=== PATIENT | female | born 1945 | race Two or more races ===

== ENCOUNTER 2020-06-16 10:25 | Outpatient (REF) | payer OTHER, SELFPAY ==
--- NOTE | 2020-06-16 | US_ITS ---
EXAMINATION: US ABDOMEN COMPLETE CLINICAL INFORMATION: Abnormal LFTs. COMPARISON: Renal ultrasound dated 07/17/2013. CTA chest dated 09/28/2011 TECHNIQUE: Real-time imaging of the abdominal viscera. FINDINGS: PANCREAS: Normal. ABDOMINAL AORTA: The proximal, mid, and distal segments are normal in caliber. There is evidence of mild atherosclerotic disease with vessel wall calcification. INFERIOR VENA CAVA: Visualized portions are normal. LIVER: Liver echotexture is heterogeneous suggestive of hepatocellular disease.. The contour of the liver is irregular. The liver is slightly enlarged, right lobe measuring 21 cm. No focal hepatic lesion. There is no intrahepatic biliary duct dilatation seen. GALLBLADDER: The gallbladder is enlarged. The gallbladder measures 11.6 x 4 x 4.8 cm in dimension. There is a gallstone in the gallbladder measuring 9 x 3 x 6 mm. The gallbladder wall does not appear thickened. There is no pericholecystic fluid. The diagnostic radiologic technologist does not report that the patient is tender over the gallbladder. COMMON BILE DUCT: Normal in caliber measuring 0.3 cm in diameter. RIGHT KIDNEY: Normal. No hydronephrosis. No renal calculi or focal parenchymal lesions. The kidney measures 10.6 cm in maximum dimension. LEFT KIDNEY: Normal. No hydronephrosis. No renal calculi or focal parenchymal lesions. The kidney measures 10.6 cm in maximum dimension. SPLEEN: Normal. The spleen measures 11.0 cm in maximum dimension. FREE FLUID: None. US/US abdomen complete IMPRESSION: Mild cirrhotic changes of the liver. The liver is slightly enlarged. No focal liver lesion seen. Dilated gallbladder and gallstones. No ultrasound evidence of cholecystitis.
== END 2020-06-16 10:26 | disposition home or self-care (01) ==
LOC: HO.US 10:25
PROVIDERS: PCP Internal Medicine; Visit Provider Internal Medicine
DX: R94.5 Abnormal results of liver function studies (principal)
CPT/HCPCS: 76700

== ENCOUNTER 2020-09-13 16:30 | Emergency (ER) | payer OTHER, SELFPAY ==
--- NOTE | ~2020-09-13 | XR_ITS ---
EXAMINATION: XR FOOT, RIGHT CLINICAL INFORMATION: Right foot pain and swelling. COMPARISON: Left foot 11/30/2019, right heel 08/05/2007, right foot 11/13/2005 (report only). TECHNIQUE: AP, lateral, and oblique views of the right foot. FINDINGS: Some mild generalized osteopenia is present. Mild pes cavum is seen. Marked calcaneal osteophytes are present on the plantar surface as well as at the insertion of the Achilles tendon. The plantar surface osteophytes have increased since the 2007 study. No acute fractures are seen. XR/XR foot RT min 3V IMPRESSION: Calcaneal osteophytes increased in size on the plantar surface since 2007.
--- NOTE | ~2020-09-13 | US_ITS ---
EXAMINATION: US VENOUS ULTRASOUND WITH DOPPLER LOWER EXTREMITY, RIGHT CLINICAL INFORMATION: Right lower extremity pain COMPARISON: None TECHNIQUE: Ultrasound of the deep veins is performed from the hip to the calf with compression sonography and color and pulse Doppler assessment. Spectral analysis with color-flow imaging is performed. FINDINGS: There is normal venous compression and respiratory variation and augmented flow. The visualized common femoral vein, superficial femoral vein, profunda femoral vein, popliteal vein, and the trifurcation region shows no evidence of deep venous thrombosis. There is no significant popliteal fossa cyst. The contralateral left common femoral vein appears normal If the patient's symptoms persist, followup ultrasound in 5 days 7 days might be of value to exclude proximal propagation from a non-visualized calf vein. US/US venous duplex LE RT IMPRESSION: No DVT demonstrated in the right lower extremity.
[2020-09-13 17:17] VITALS: BP 181/114; PULSE 89; RESP 20; TEMP 36.8; O2SAT 97; BMI 30.2
--- NOTE | 2020-09-13 19:16 | ED.EXTPRO ---
HPI - Extremity Problem General Chief complaint: Extremity Problem Stated complaint: Foot pain Time Seen by Provider: 09/13/20 19:15 Source: patient Mode of arrival: ambulatory Limitations: language barrier History of Present Illness HPI Narrative: 75-year-old female with past medical history of type 2 diabetes, chronic kidney disease stage 3, hypertension, hyperlipidemia, and gout presents with right foot pain and swelling. States that this pain is been here for approximately 15 days, she contacted her primary care physician who gave her a course of steroids for suspected gout. Patient states that she did not take the medication because she does not like how that medication increases her blood sugar. She is able to ambulate but states that the swelling hurts the top of her foot when she puts her foot in her shoe. She does not describe calf pain, loss of balance, chest pain, shortness of breath, palpitations, abdominal pain, abdominal distention, fevers, and chills. MD Complaint: extremity pain Onset (ago): day(s) (15) Pain Consistency: constant Location: right and lower extremity Severity scale (1-10): 8 Quality: aching Radiation: none Relieving factors: elevation Exacerbating factors: weight bearing and walking Associated symptoms: denies other symptoms Related Data Previous Rx's Medication Instructions Recorded metformin 500 mg tablet 500 mg PO BID 30 Days #60 tab 05/02/20 linagliptin 5 mg tablet 5 mg PO QAM 30 Days #30 tab 05/16/20 colchicine 0.6 mg PO DAILY #30 tab 09/13/20 Allergies Allergy/AdvReac Type Severity Reaction Status Date / Time Sulfa (Sulfonamide Allergy Intermediate SWELLING Verified 09/13/20 22:07 Antibiotics) SULFA Allergy Unknown Swelling Uncoded 09/13/20 22:07 Review of Systems Review of Systems: Constitutional: No Fever, No Chills ENT/Mouth: No Ear Pain, No Hoarseness, No sore throat Eyes: No Eye Pain, No Swelling, No Redness, No Foreign Body Cardiovascular: No Chest Pain, No SOB Respiratory: No Cough, No Dyspnea Gastrointestinal: No Nausea, No Vomiting, No Diarrhea, No abdominal Pain Genitourinary: No Dysuria, No Hematuria Musculoskeletal: positive right foot pain and swelling, No Myalgias, No Joint Swelling Skin: No Skin lacerations, No rash Neuro: No Weakness, No Numbness, No Paresthesias, No Loss of Consciousness, No Dizziness, No Headache Psych: No Anxiety/Panic, No Depression Heme/Lymph: no easy bruising, no Lymphadenopathy Endocrine: No Polyuria, No Polydipsia Yes all other systems are reviewed and are negative [facility] Past Medical History Attestation statement: The following information was validated with the patient. Source: old records reviewed Medical History Calcaneal spur, right Chronic kidney disease, stage 3 CTS (carpal tunnel syndrome) Essential hypertension Hyperlipidemia LDL goal <70 Osteoarthritis, multiple sites Osteopenia TIA (transient ischemic attack) Type 2 diabetes mellitus with chronic kidney disease Surgical History Hx of section Family History Family History Father Heart disease Mother Asthma Heart attack Social History Social History Smoking Status: Never smoker Use of substances other than those prescribed or required for medical reasons: No Advance Directives: No Advance Directives Information Provided: Yes Physical Exam Vital Signs: Vital Signs: Last Vital Signs Temp 98.0 F 09/13/20 19:49 Pulse 75 09/13/20 19:49 Resp 16 09/13/20 19:49 BP 141/80 H 09/13/20 19:49 Pulse Ox 97 09/13/20 19:49 Body Mass Index 30.2 Appearance: Alert. Oriented X3. No acute distress. Eyes: Pupils equal, round and reactive to light. ENT: Pharynx normal. Neck: Normal inspection. Neck supple. CVS: Normal heart rate and rhythm. Pulses normal. Respiratory: No respiratory distress. Breath sounds normal. Abdomen: Soft and nontender. Skin: Skin warm and dry. Normal skin color. Normal skin turgor. Extremities: Right foot visibly swollen, no swelling past the malleolar process, tenderness to the lateral and dorsal aspect of the foot. No calf pain tenderness. No pain on inversion, eversion, flexion extension of the foot. Neuro: No motor deficit. No sensory deficit. Course Course Course Narrative: 75-year-old female with past medical history of type 2 diabetes, chronic kidney disease, hypertension, hyperlipidemia, gout, osteoarthritis, osteopenia, and history of CVA presents with right foot swelling and pain. Pain is been gradually increasing over the past 2 weeks. Primary care did order steroids for suspected gout flare. Patient did not take any of these medications because she does not like how steroids increases her blood sugar. X-rays show calcaneal osteophytes, will order venous duplex to rule out DVT. Duplex is negative, H&H is 10.4/33.4 which is consistent with prior values dating back to 2019. Plan of care is to treat for gout, and have patient follow-up with her primary care physician and Podiatry for the calcaneal osteophytes. piano professor utilized for all correspondence. Google translate utilized for discharge instructions. Patient verbalized understanding of and agrees to plan of care discharge home. MDM - Extremity (Nontraumatic) Lab Data Result diagrams: 09/13/20 20:15 09/13/20 20:15 Labs: Lab Results 09/13/20 09/13/20 09/13/20 Range/Units 20:15 20:15 20:15 WBC 6.8 (4.8-10.8) X10*3/uL RBC 4.04 L (4.20-5.50) X10*6/uL Hgb 10.4 L (12.0-16.0) g/dl Hct 33.4 L (37-47) % MCV 82.7 (80-98) fL MCH 25.7 L (27.0-33.0) pg MCHC 31.1 (31.0-35.0) g/dl RDW 14.8 (11.0-16.0) % Plt Count 239 (160-400) X10*3/uL MPV 11.5 (9.4-12.3) fL Immature Gran % (Auto) 0.6 H (0.0-0.4) % Neut % (Auto) 57.0 (45-73) % Lymph % (Auto) 30.5 (20-40) % [place] % (Auto) 6.6 (2-11) % Eos % (Auto) 4.7 H (0-4) % Baso % (Auto) 0.6 (0-2) % Lymph # (Auto) 2.1 (1.2-4.9) X10*3/uL [place] # (Auto) 0.5 (0.1-1.2) X10*3/uL Eos # (Auto) 0.3 (0.0-0.4) X10*3/uL Baso # (Auto) 0.0 (0.0-0.2) X10*3/uL Abs Immat Gran (auto) 0.04 H (0.00-0.03) X10*3/uL Absolute Neuts (auto) 3.9 (2.0-8.3) X10*3/uL Absolute Nucleated RBC 0.000 (0.0-0.012) X10*3/uL Nucleated RBC % (auto) 0.0 (0.0-0.2) /100WBC PT 14.8 H (10.8-13.0) SEC INR 1.2 H (0.9-1.1) APTT 34.1 (24.1-38.0) SEC Sodium 137 (135-145) mmol/L Potassium 3.9 (3.3-5.1) mmol/L Chloride 102 (96-108) mmol/L Carbon Dioxide 27 (22-29) mmol/L Anion Gap 12 (12-20) BUN 22 H (9-16) mg/dL Creatinine 1.29 (0.5-1.4) mg/dL Estim Creat Clear Calc 32.0 Estimated GFR 40 Random Glucose 260 H (60-115) mg/dL Calcium 9.2 (8.4-10.2) mg/dL Imaging Data Foot x-ray: Attestation: I personally reviewed and interpreted this imaging study as follows: Radiologist's impression: EXAMINATION: XR FOOT, RIGHT CLINICAL INFORMATION: Right foot pain and swelling. COMPARISON: Left foot 11/30/2019, right heel 08/05/2007, right foot 11/13/2005 (report only). TECHNIQUE: AP, lateral, and oblique views of the right foot. FINDINGS: Some mild generalized osteopenia is present. Mild pes cavum is seen. Marked calcaneal osteophytes are present on the plantar surface as well as at the insertion of the Achilles tendon. The plantar surface osteophytes have increased since the 2007 study. No acute fractures are seen. XR/XR foot RT min 3V IMPRESSION: Calcaneal osteophytes increased in size on the plantar surface since 2007. Venous US: Attestation: I personally reviewed and interpreted this imaging study as follows: Radiologist's impression: EXAMINATION: US VENOUS ULTRASOUND WITH DOPPLER LOWER EXTREMITY, RIGHT CLINICAL INFORMATION: Right lower extremity pain COMPARISON: None TECHNIQUE: Ultrasound of the deep veins is performed from the hip to the calf with compression sonography and color and pulse Doppler assessment. Spectral analysis with color-flow imaging is performed. FINDINGS: There is normal venous compression and respiratory variation and augmented flow. The visualized common femoral vein, superficial femoral vein, profunda femoral vein, popliteal vein, and the trifurcation region shows no evidence of deep venous thrombosis. There is no significant popliteal fossa cyst. The contralateral left common femoral vein appears normal If the patient's symptoms persist, followup ultrasound in 5 days 7 days might be of value to exclude proximal propagation from a non-visualized calf vein. US/US venous duplex LE RT IMPRESSION: No DVT demonstrated in the right lower extremity. Discharge Plan Discharge Clinical Impression: Calcaneal spur of right foot, Gout Patient Disposition: Home, Self-Care Instructions: Low Purine Diet (ED), Gout (ED), Heel Spur (ED) Additional Instructions: You were evaluated for right foot pain. X-ray show heel spurs. Venous duplex is negative for blood clot. Please take colchicine as directed. This medication is for gout flare-up. Please follow-up with Podiatry for calcaneal spurs. Thank you for choosing this emergency department for evaluation. Please follow-up with primary care physician as needed. Return to the emergency department for any new, concerning, or worsening symptoms. Prescriptions: New colchicine 0.6 mg tablet 0.6 mg PO DAILY Qty: 30 RF: 0 No Action metformin 500 mg tablet 500 mg PO BID 30 Days Qty: 60 RF: 3 Tradjenta 5 mg tablet 5 mg PO QAM 30 Days Qty: 30 RF: 3 Referrals: Raj Velasquez [Physician] - 2 days (Calcaneal spurs) Interventions: ED Discharge Assessment Last Done: 09/13/20 22:16 Discharge Date/Time: 09/13/20 22:30
[2020-09-13 19:49] VITALS: BP 141/80; PULSE 75; RESP 16; TEMP 36.7; O2SAT 97
[2020-09-13 20:24] LABS: Basophils Percent Auto 0.6 % (0-2); Eosinophils Absolute Auto 0.3 X10*3/uL (0.0-0.4); Eosinophils Percent Auto 4.7 % (0-4); Hematocrit 33.4 % (37-47); Hemoglobin 10.4 g/dl (12.0-16.0); Imm Gran Abs Auto 0.04 X10*3/uL (0.00-0.03); Imm Gran Pct Auto 0.6 % (0.0-0.4); Lymphocytes Absolute Auto 2.1 X10*3/uL (1.2-4.9); Lymphocytes Percent Auto 30.5 % (20-40); MANUAL DIFF FLAG NO; Mean Corpuscular HGB Conc 31.1 g/dl (31.0-35.0); Mean Corpuscular Hemoglobin 25.7 pg (27.0-33.0); Mean Corpuscular Volume 82.7 fL (80-98); Mean Platelet Volume 11.5 fL (9.4-12.3); Monocytes Absolute Auto 0.5 X10*3/uL (0.1-1.2); Monocytes Percent Auto 6.6 % (2-11); Neutrophils Absolute Auto 3.9 X10*3/uL (2.0-8.3); Platelet Count 239 X10*3/uL (160-400); Red Blood Count 4.04 X10*6/uL (4.20-5.50); Red Cell Distribution Width 14.8 % (11.0-16.0); White Blood Count 6.8 X10*3/uL (4.8-10.8)
[2020-09-13 20:36] LABS: INTERNATIONAL NORM RATIO 1.2 (0.9-1.1); Prothrombin Time 14.8 SEC (10.8-13.0)
[2020-09-13 20:39] LABS: Partial Thromboplastin Time 34.1 SEC (24.1-38.0)
[2020-09-13 20:46] LABS: Anion Gap 12 (12-20); Blood Urea Nitrogen 22 mg/dL (9-16); Calcium 9.2 mg/dL (8.4-10.2); Carbon Dioxide 27 mmol/L (22-29); Chloride 102 mmol/L (96-108); Estimated Glomerular Filt Rate 40; Glucose Random 260 mg/dL (60-115); Potassium 3.9 mmol/L (3.3-5.1); Sodium 137 mmol/L (135-145)
[2020-09-13] MEDS: Ketorolac Tromethamine 30 MG/ML VIAL IM (21:07)
[2020-09-13] MEDS: Colchicine 0.6 MG TABLET PO (22:07)
== END 2020-09-13 22:30 | disposition home or self-care (01) ==
PROVIDERS: Nurse Practitioner Family; Emergency Provider Internal Medicine
DX: M77.31 Calcaneal spur, right foot (principal); M79.661 Pain in right lower leg; E11.22 Type 2 diabetes mellitus with diabetic chronic kidney disease; I12.9 Hypertensive chronic kidney disease with stage 1 through stage 4 chronic kidney disease, or unspecified chronic kidney disease; N18.30 Chronic kidney disease, stage 3 unspecified; Z79.84 Long term (current) use of oral hypoglycemic drugs; Z79.899 Other long term (current) drug therapy
CPT/HCPCS: 36415; 73630; 80048; 85025; 85610; 85730; 93971; 96372; 99284; J1885

== ENCOUNTER → 2020-11-30 11:15 | Outpatient (BNVA) | payer OTHER, SELFPAY | PROVIDERS: PCP Internal Medicine; Visit Provider Student in an Organized Health Care Education/Training Program | DX: M25.50 Pain in unspecified joint (principal) | CPT/HCPCS: 99202 ==

== ENCOUNTER 2020-12-20 08:55 | Outpatient (REF) | payer OTHER, SELFPAY ==
--- NOTE | ~2020-12-20 | XR_ITS ---
EXAMINATION: XR FOOT, RIGHT XR FOOT, LEFT CLINICAL INFORMATION: Bilateral foot pain. COMPARISON: Radiographs right foot 09/13/2020, radiographs left foot 11/30/2019. TECHNIQUE: Each foot is imaged in 3 views. There are a total of 6 views. FINDINGS: Right: There is no acute or healing fracture, dislocation, destructive process. The subtalar joint, midfoot, and forefoot show no significant joint narrowing and no erosive change. There is mild narrowing of the interphalangeal joints. There are large bulky osteophytes again seen from the plantar and posterior calcaneus with some linear ossification in the distal Achilles again noted. The retrocalcaneal recess is preserved. Atherosclerotic calcifications again noted vasculature distal lower leg. Left: There is no acute or healing fracture, dislocation, destructive process. The subtalar joint, midfoot, and forefoot show no significant joint narrowing and no erosive change. There is mild narrowing of the interphalangeal joints. There are large bulky osteophytes again seen from the plantar and posterior calcaneus with some linear ossification in the distal Achilles again noted. The retrocalcaneal recess is preserved. Atherosclerotic calcifications again noted vasculature distal lower leg. XR/XR foot LT min 3V IMPRESSION: 1. Bilateral large bulky posterior and plantar calcaneal spurs with ossification in distal Achilles. Retrocalcaneal recess preserved on both sides. 2. Mild narrowing bilateral interphalangeal joints. No erosive changes. 3. Atherosclerotic calcifications vasculature bilateral distal lower leg.
--- NOTE | ~2020-12-20 | XR_ITS ---
EXAMINATION: XR FOOT, RIGHT XR FOOT, LEFT CLINICAL INFORMATION: Bilateral foot pain. COMPARISON: Radiographs right foot 09/13/2020, radiographs left foot 11/30/2019. TECHNIQUE: Each foot is imaged in 3 views. There are a total of 6 views. FINDINGS: Right: There is no acute or healing fracture, dislocation, destructive process. The subtalar joint, midfoot, and forefoot show no significant joint narrowing and no erosive change. There is mild narrowing of the interphalangeal joints. There are large bulky osteophytes again seen from the plantar and posterior calcaneus with some linear ossification in the distal Achilles again noted. The retrocalcaneal recess is preserved. Atherosclerotic calcifications again noted vasculature distal lower leg. Left: There is no acute or healing fracture, dislocation, destructive process. The subtalar joint, midfoot, and forefoot show no significant joint narrowing and no erosive change. There is mild narrowing of the interphalangeal joints. There are large bulky osteophytes again seen from the plantar and posterior calcaneus with some linear ossification in the distal Achilles again noted. The retrocalcaneal recess is preserved. Atherosclerotic calcifications again noted vasculature distal lower leg. XR/XR foot RT min 3V IMPRESSION: 1. Bilateral large bulky posterior and plantar calcaneal spurs with ossification in distal Achilles. Retrocalcaneal recess preserved on both sides. 2. Mild narrowing bilateral interphalangeal joints. No erosive changes. 3. Atherosclerotic calcifications vasculature bilateral distal lower leg.
[2020-12-20 10:02] LABS: MANUAL DIFF FLAG NO
[2020-12-20 10:18] LABS: Basophils Absolute Auto 0.1 X10*3/uL (0.0-0.2); Basophils Percent Auto 0.7 % (0-2); Eosinophils Absolute Auto 0.3 X10*3/uL (0.0-0.4); Eosinophils Percent Auto 2.6 % (0-4); Hematocrit 34.6 % (37-47); Hemoglobin 10.8 g/dl (12.0-16.0); Imm Gran Abs Auto 0.13 X10*3/uL (0.00-0.03); Imm Gran Pct Auto 1.1 % (0.0-0.4); Lymphocytes Absolute Auto 3.2 X10*3/uL (1.2-4.9); Lymphocytes Percent Auto 27.5 % (20-40); Mean Corpuscular HGB Conc 31.2 g/dl (31.0-35.0); Mean Corpuscular Hemoglobin 25.7 pg (27.0-33.0); Mean Corpuscular Volume 82.4 fL (80-98); Monocytes Absolute Auto 0.6 X10*3/uL (0.1-1.2); Monocytes Percent Auto 5.2 % (2-11); Neutrophils Absolute Auto 7.2 X10*3/uL (2.0-8.3); Neutrophils Percent Auto 62.9 % (45-73); Platelet Count 311 X10*3/uL (160-400); Red Cell Distribution Width 15.5 % (11.0-16.0); White Blood Count 11.5 X10*3/uL (4.8-10.8)
[2020-12-20 10:30] LABS: Alanine Aminotransferase 51 U/L (0-31); Albumin Level 4.3 g/dL (3.5-5.0); Alkaline Phosphatase 69 U/L (39-117); Anion Gap 19 (12-20); Aspartate Amino Transferase 42 U/L (5-31); Bilirubin Total 0.6 mg/dL (0.0-1.0); Blood Urea Nitrogen 48 mg/dL (9-16); C Reactive Protein 0.67 mg/dL (< or = 0.50); Calcium 10.2 mg/dL (8.4-10.2); Carbon Dioxide 22 mmol/L (22-29); Chloride 102 mmol/L (96-108); Estimated Glomerular Filt Rate 31; Glucose Random 86 mg/dL (60-115); Potassium 4.1 mmol/L (3.3-5.1); Sodium 139 mmol/L (135-145); Uric Acid 7.2 mg/dL (2.4-5.7)
[2020-12-20 12:15] LABS: Rheumatoid Factor < 15.0 IU/mL (<15.0)
[2020-12-20 12:17] LABS: Erythrocyte Sedimentation Rate 44 MM/HR (0-20)
[2020-12-21 21:22] LABS: Cyclic Citrullinated Peptide <16 UNITS
== END 2020-12-20 08:56 | disposition home or self-care (01) ==
LOC: HO.LAB 08:55
PROVIDERS: Absent Provider Internal Medicine; PCP Internal Medicine; Visit Provider Student in an Organized Health Care Education/Training Program
DX: M25.50 Pain in unspecified joint (principal); M25.561 Pain in right knee; M25.562 Pain in left knee; M79.672 Pain in left foot; M79.671 Pain in right foot
CPT/HCPCS: 36415; 73630; 80053; 84550; 85025; 85652; 86140; 86200; 86431

== ENCOUNTER → 2020-12-22 14:56 | Outpatient (BNVA) | payer OTHER, SELFPAY | PROVIDERS: Visit Provider Student in an Organized Health Care Education/Training Program | DX: M10.9 Gout, unspecified (principal) | CPT/HCPCS: 99212 ==

== ENCOUNTER 2021-04-07 12:25 | Outpatient (REF) | payer OTHER, SELFPAY ==
--- NOTE | ~2021-04-07 | MM_ITS ---
EXAMINATION: BONE DENSITOMETRY CLINICAL INDICATION: Encounter for screening for osteoporosis. COMPARISON: Previous BD dated 06/12/2013 and baseline BD dated 12/09/2009. TECHNIQUE: Using a [employer] DXA System (software version: 13.1) manufactured by [employer], dual-energy x-ray absorptiometry was performed of the lumbar spine and left hip. The images are of good technical quality. Summary results are attached. FINDINGS: AP SPINE L1-L4: Current: BMD 1.107 g/cm2, Z-score 1.0, T-score -0.6, normal, 1.4% increase from previous, 4.5% increase from baseline (<5% change is not significant). Prior: BMD 1.092 g/cm2. Baseline: BMD 1.059 g/cm2. LEFT FEMUR, NECK: Current: BMD 0.689 g/cm2, Z-score -0.7, T-score -2.5, osteoporosis. Prior: BMD 0.753 g/cm2. Baseline: BMD 0.787 g/cm2. LEFT FEMUR, TOTAL: Current: BMD 0.794 g/cm2, Z-score -0.1, T-score -1.7, osteopenia, 14.9% decrease from previous, 13.9% decrease from baseline (<5% change is not significant). Prior: BMD 0.933 g/cm2. Baseline: BMD 0.922 g/cm2. IDENTIFIED RISK FACTORS: Osteoporosis, renal, low calcium intake, secondary osteoporosis, glucocorticoids (chronic), menopause. HISTORY OF FRACTURE: Thumb. MEDICATIONS: Calcium supplements or multivitamin, vitamin D. MM/XR DEXA axial skeleton IMPRESSION: 1. DIAGNOSIS: Osteoporosis based on the lowest T-score value of -2.5 in the femoral neck applying World Health Organization criteria. 2. 10-YEAR FRACTURE RISK PREDICTION, FRAX: Major osteoporotic fracture (clinical spine, forearm, hip or shoulder) 14.5%. Hip fracture 4.9%. 3. Treatment Recommendations: NOF guidelines recommend consideration for treatment in postmenopausal women and men age 50 and older presenting with the following: -A hip or vertebral (clinical or morphometric) fracture. -T-score less than or equal to -2.5 at the femoral neck or spine after appropriate evaluation to exclude secondary causes. -Low bone mass at the hip or spine and a 10-year fracture probability by FRAX of greater than or equal to 3% for hip fracture or greater than or equal to 20% for major osteoporotic fracture based on the [place] adapted WHO algorithm. 4. Other Recommendations: All treatment decisions require clinical judgment and consideration of individual patient factors, including patient preferences, comorbidities, previous drug use, risk factors not captured in the FRAX model (e.g. frailty, falls, vitamin D deficiency, increased bone turnover, interval significant decline in bone density) and possible under or overestimation of fracture risk by FRAX. Additional medical evaluation for secondary cause of low bone mineral density may be appropriate. FUTURE SCAN RECOMMENDATION: People with diagnosed cases of osteoporosis or at high risk for fracture should have regular bone mineral density tests. For patients eligible for Medicare, routine testing is allowed once every 2 years. The testing frequency can be increased to one year for patients who have rapidly progressing disease, those who are receiving or discontinuing medical therapy to restore bone mass, or have additional risk factors.
--- NOTE | ~2021-04-07 | MM_ITS ---
EXAMINATION: MM SCREENING DIGITAL BREAST TOMOSYNTHESIS, BILATERAL CLINICAL INFORMATION: Screening. Asymptomatic. The lifetime risk of breast cancer based on the Tyrer-Cuzick Model is 3%. COMPARISON: Mammography: 11/14/2018, 12/28/2015 TECHNIQUE: Digital breast tomosynthesis is performed in both the craniocaudal and mediolateral oblique views along with computer-aided detection (CAD). Synthesized 2D images are generated from the tomosynthesis. FINDINGS: There are scattered areas of fibroglandular density (ACR BI-RADS breast composition Category b). Parenchymal pattern is similar to prior exams. There is no developing density or interval mass or architectural abnormality. There are scattered bilateral vascular and some ductal secretory calcifications. There are increased rodlike calcifications mid outer right breast mid depth, likely ductal secretory. These are not well visualized on the MLO view. Patient will be recalled for additional imaging. The axilla and skin contours are unremarkable. MM/MM tomosynthesis screening BI IMPRESSION: 1. Right: Increased calcifications mid outer quadrant on CC view, likely ductal secretory. 2. Left: No mammographic evidence of malignancy. ASSESSMENT: BI-RADS 0: Incomplete - Need Additional Imaging Evaluation RECOMMENDATION: 1. Additional views of the right breast (magnification CC, magnification ML). 2. Radiology department staff will contact the patient for additional imaging. This patient's information was entered into a reminder system with a target due date for their next mammogram.
== END 2021-04-07 12:26 | disposition home or self-care (01) ==
LOC: HO.MAMMO 12:25
PROVIDERS: Visit Provider Internal Medicine
DX: Z13.820 Encounter for screening for osteoporosis (principal); M85.80 Other specified disorders of bone density and structure, unspecified site; Z78.0 Asymptomatic menopausal state; Z12.31 Encounter for screening mammogram for malignant neoplasm of breast
CPT/HCPCS: 77063; 77067; 77080

== ENCOUNTER 2021-04-12 11:56 | Outpatient (REF) | payer OTHER, SELFPAY ==
--- NOTE | ~2021-04-12 | MM_ITS ---
EXAMINATION: MM DIAGNOSTIC DIGITAL MAMMOGRAPHY, RIGHT CLINICAL INFORMATION: Recall from screening for increased rodlike calcifications mid outer right breast mid depth, possibly ductal secretory. Not well visualized on MLO view. COMPARISON: Mammography: 04/07/2021, 11/14/2018 TECHNIQUE: Digital mammography is performed in the following views: Magnification CC, magnification ML. FINDINGS: There are scattered areas of fibroglandular density (ACR BI-RADS breast composition Category b). There are grouped rodlike calcifications in the mid upper outer right breast. The arrangement and orientation suggests vascular calcifications rather than ductal secretory or glandular. They will be reassessed again in 6 months. Results are discussed with the patient at time of visit, using an senior advisor. MM/MM added views RT IMPRESSION: The grouped calcifications mid upper outer right breast are likely early vascular. ASSESSMENT: BI-RADS 3: Probably Benign RECOMMENDATION: Diagnostic right mammography in 6 months. This patient's information was entered into a reminder system with a target due date for their next mammogram.
== END 2021-04-12 11:57 | disposition home or self-care (01) ==
LOC: HO.MAMMO 11:56
PROVIDERS: PCP Internal Medicine; Visit Provider Internal Medicine
DX: R92.1 Mammographic calcification found on diagnostic imaging of breast (principal)
CPT/HCPCS: 77065

== ENCOUNTER 2021-10-10 12:30 | Outpatient (REF) | payer OTHER, SELFPAY ==
--- NOTE | ~2021-10-10 | MM_ITS ---
EXAMINATION: MM DIAGNOSTIC DIGITAL BREAST TOMOSYNTHESIS, RIGHT CLINICAL INFORMATION: Short interval six-month follow-up probable benign vascular calcifications upper outer right breast. The lifetime risk of breast cancer based on the Tyrer-Cuzick Model is 2%. COMPARISON: Mammography: 04/12/2021, 04/07/2021 (BI-RADS 0), 11/14/2018 TECHNIQUE: Digital breast tomosynthesis is performed in both the craniocaudal and mediolateral oblique views along with computer-aided detection (CAD). Synthesized 2D images are generated from the tomosynthesis. Additional magnification right CC and magnification right ML views are obtained. FINDINGS: There are scattered areas of fibroglandular density (ACR BI-RADS breast composition Category b). There are calcifications in the upper outer quadrant which appeared to be benign vascular. There are no suspicious calcifications. Some other scattered benign vascular and some round calcifications are again noted central anterior right breast. The parenchymal pattern is unremarkable. There is no interval mass or architectural abnormality. Results are provided to the patient at time of visit by the technologist. MM/MM tomosynthesis diagnostic RT IMPRESSION: No mammographic evidence of malignancy. Magnification views suggest benign vascular calcifications in area of follow-up. ASSESSMENT: BI-RADS 3: Probably Benign RECOMMENDATION: Diagnostic mammography at time of annual bilateral exam, due in 6 months. This patient's information was entered into a reminder system with a target due date for their next mammogram.
== END 2021-10-10 12:31 | disposition home or self-care (01) ==
LOC: HO.MAMMO 12:30
PROVIDERS: PCP Internal Medicine; Visit Provider Internal Medicine
DX: R92.1 Mammographic calcification found on diagnostic imaging of breast (principal)
CPT/HCPCS: 77061; 77065

== ENCOUNTER → 2021-10-27 11:09 | Outpatient (BNVA) | payer OTHER, SELFPAY | PROVIDERS: PCP Internal Medicine; Visit Provider Nurse Practitioner Gerontology | DX: E11.22 Type 2 diabetes mellitus with diabetic chronic kidney disease (principal); I12.9 Hypertensive chronic kidney disease with stage 1 through stage 4 chronic kidney disease, or unspecified chronic kidney disease; N18.30 Chronic kidney disease, stage 3 unspecified; E78.5 Hyperlipidemia, unspecified; Z79.84 Long term (current) use of oral hypoglycemic drugs | CPT/HCPCS: 82947; 83036; 99212 ==

== ENCOUNTER 2022-04-12 12:49 | Outpatient (REF) | payer OTHER, SELFPAY ==
--- NOTE | ~2022-04-12 | MM_ITS ---
EXAMINATION: MM DIAGNOSTIC DIGITAL BREAST TOMOSYNTHESIS, BILATERAL CLINICAL INFORMATION: Six-month follow-up right breast calcifications. Yearly left breast screening mammogram. The lifetime risk of breast cancer based on the Tyrer-Cuzick Model is 2.3%. COMPARISON: Mammography: October 10, 2021 and studies dating back to June 17, 2014 TECHNIQUE: Digital breast tomosynthesis is performed in both the craniocaudal and mediolateral oblique views along with computer-aided detection (CAD). Synthesized 2D images are generated from the tomosynthesis. Additional spot magnification views in craniocaudal and 90 degree mediolateral views performed. FINDINGS: There are scattered areas of fibroglandular density (ACR BI-RADS breast composition Category b). There are no new significant masses, abnormal calcifications, or other abnormalities. Right breast calcifications are stable. Results are provided to the patient at time of visit by the technologist. MM/MM tomosynthesis diagnostic BI IMPRESSION: There are no significant changes from prior study. ASSESSMENT: BI-RADS 3: Probably Benign RECOMMENDATION: Diagnostic mammography at time of next annual exam, due in 12 months. This patient's information was entered into a reminder system with a target due date for their next mammogram.
== END 2022-04-12 12:50 | disposition home or self-care (01) ==
LOC: HO.MAMMO 12:49
PROVIDERS: Visit Provider Internal Medicine
DX: R92.1 Mammographic calcification found on diagnostic imaging of breast (principal)
CPT/HCPCS: 77062; 77066

== ENCOUNTER 2023-01-13 12:07 | Inpatient (IN) | payer OTHER, SELFPAY ==
[2023-01-13] VITALS (9 sets, daily range): BP systolic 113–194; BP diastolic 62–107; PULSE 71–142; RESP 16–30; TEMP 36.6–39.4; O2SAT 92–99; BMI 29.2
--- NOTE | 2023-01-13 | ECG_ITS ---
Test Reason : Tachycardia Blood Pressure : / mmHG Vent. Rate : 135 BPM Atrial Rate : 135 BPM P-R Int : 126 ms QRS Dur : 082 ms QT Int : 310 ms P-R-T Axes : 055 041 004 degrees QTc Int : 465 ms Sinus tachycardia Nonspecific ST and T wave abnormality Abnormal ECG When compared with ECG of 29-NOV-2013 13:15, Vent. rate has increased BY 53 BPM Referred By: Flor Root Electronically Signed By:ANDREW MYERS MD
--- NOTE | ~2023-01-13 | CT_ITS ---
EXAMINATION: CT ABDOMEN AND PELVIS WITHOUT CONTRAST CLINICAL INFORMATION: Left flank pain COMPARISON: None available. TECHNIQUE: Multidetector volumetric imaging was performed from the superior aspect of the liver through the pubic symphysis. Sagittal and coronal reformatted images were obtained on the technologist's workstation. This CT examination was performed using dose optimization techniques as appropriate, variously including the following: *Automated exposure control *Adjustment of mA and/or kV according to patient size (this includes techniques or standardized protocols for targeted exams where dose is matched to indication/reason for exam; i.e. extremities or head) *Use of iterative reconstruction technique DLP: 431 mGy-cm FINDINGS: LUNG BASES: The visualized lung bases are unremarkable. A small hiatal hernia is noted. LIVER, GALLBLADDER, AND BILIARY TREE: The liver is enlarged in size measuring 20), lobulated shape and a coarse density, question cirrhosis.. No focal hepatic lesion or biliary ductal dilatation is present. There are small radiopaque dependent gallstones. A 3 mm radiopaque calculi either in the neck neck gallbladder or proximal CBD is suspected. It is best visualized on coronal image 46/5. There is no gallbladder wall thickening or pericholecystic fluid collection. PANCREAS: Unremarkable. SPLEEN: Unremarkable. ADRENAL GLANDS: Unremarkable. KIDNEYS AND URETERS: The right kidney is normal in size, shape and position. No radiopaque calculi are hydronephrosis seen. The left kidney is slightly enlarged with moderate perinephric stranding and mild hydroureteronephrosis. No obstructing ureteral calculi seen. BLADDER: Bladder is nondilated. No bladder wall thickening seen. GASTROINTESTINAL TRACT: The small and large bowel are unremarkable. The appendix is unremarkable. ABDOMINAL WALL: There are postsurgical changes with mesh in the lower anterior abdominal wall for hernia repair. LYMPH NODES: Small shotty lymph nodes are seen around the celiac axis with the largest lymph node measuring 1.3 cm on axial image 18/3 an 1.4 cm on axial image 15/3. VASCULAR: Unremarkable. PELVIC VISCERA: The uterus is anteverted with vascular calcifications within. No adnexal mass or free fluid seen. No abnormal pelvic or inguinal lymph nodes seen. OSSEOUS STRUCTURES: Grade 1 anterolisthesis L4 S1 with vacuum disc phenomena at the L4-S1 disc level. Rest of the vertebral heights, alignment and disc heights are preserved. No aggressive lytic or sclerotic process seen. CT/CT abdomen pelvis wo IV con IMPRESSION: Cholelithiasis with probable stone in the CBD or the calvarium neck. No gallbladder wall thickening or intrahepatic duct dilatation. Mild to moderate left renal hydroureteronephrosis with no obstructive etiology seen. Mild left perinephric stranding seen also. Fleischner guidelines were followed.
--- NOTE | ~2023-01-13 | NM_ITS ---
EXAMINATION: RENAL DYNAMIC IMAGING STUDY WITH LASIX CLINICAL INFORMATION: Hydronephrosis. COMPARISON: No previous radionuclide renal scan is available for comparison. The diagnostic CT scan of the abdomen and pelvis, dated 01/13/2023, is available for comparison. TECHNIQUE: Serial gamma scintillation camera images were obtained over the posterior trunk during the initial transit and subsequent distribution of a bolus intravenous injection of 10.0 mCi of Tc-99m DTPA. At 30 minutes later, 33 mg of Lasix was administered intravenously and an additional 16 minutes of images obtained. FINDINGS: Initial rapid sequence images show prompt and bilaterally symmetrical flow to the kidneys. Subsequent sequential static images obtained up to 30 minutes show concentration in the right kidney but there is mildly diminished concentration and the left kidney. The left kidney is smaller in size than the right. There is evidence of excretory function by 4 to 5 minutes post injection bilaterally. The urinary bladder is visualized beginning approximately 5 minutes post injection and this gradually increases in intensity throughout the study. At 60 minutes post injection almost all the activity is in the urinary bladder and there is no significant retention in either renal collecting system. Following Lasix administration, there is continued filling of the urinary bladder. At the end of the study there is no significant retained activity in either renal collecting system. Meaningful T-1/2 washout times following Lasix administration cannot be calculated on either side because of the minimal retention in both renal collecting systems at the time of Lasix administration. The relative function of the two kidneys based on the 2-3 minute images are: Left 34% and right 66%. NM/NM renal flow w pharm int IMPRESSION: LEFT KIDNEY: This kidney shows diminished function compared to the right, as quantitated above. This is probably due to some impaired function superimposed on the smaller size of this kidney. There is no hydronephrosis or outflow obstruction. RIGHT KIDNEY: Normal perfusion and function. No hydronephrosis or outflow obstruction.
--- NOTE | ~2023-01-13 | US_ITS ---
EXAMINATION: US ABDOMEN LIMITED CLINICAL INFORMATION: Question stone in CBD on CT scan. COMPARISON: None available. TECHNIQUE: Real-time imaging of the right upper quadrant abdominal viscera. FINDINGS: GALLBLADDER: There is a small echogenic stone in the neck of the gallbladder as seen on the supraspinatus. No wall thickening seen. The gallbladder measures 0.2). COMMON BILE DUCT: Normal in caliber measuring 0.4 cm in diameter. No echogenic stones seen in the proximal stomach or distal CBD FREE FLUID: None. US/US abdomen limited IMPRESSION: Small echogenic stone in the neck of the gallbladder without wall thickening. This was visualized on the preceding CT. No echogenic stones seen in the CBD.
--- NOTE | 2023-01-13 12:28 | PC.NURSE ---
Alert and oriented, information obtained via tele marketing executive. Radha stating that she has lowe abdominal pain that extends to her back. BP elevated at 196/67, provider aware. States no pain with urination or blood in urine. Positive bowel sounds x 4. Vomiting small amount of clear flem. States 10//10 pain. Did not take bp medication this Am because of the pain. denies sob. chest pain or headache. States had diarrhea yesterday but that is normal for her
--- NOTE | 2023-01-13 12:30 | ED_ITS ---
HPI - Abdominal Pain General Chief Complaint: Abdominal Pain Stated Complaint: L FLANK PAIN PER EMS Time Seen by Provider: 01/13/23 12:10 Source: patient, family, EMS, RN notes reviewed and radio assembler Mode of arrival: EMS Limitations: language barrier History of Present Illness HPI narrative: Patient is a 77-year-old female with history of TIA, HTN, HLD, DM, and CKD presenting to the emergency department with left flank pain since this morning which she rates at 20/10. She also endorses nausea and sour taste in throat but denies vomiting. Reports one episode of diarrhea yesterday. Denies abdominal pain. Denies dysuria or hematuria. Denies fevers. Denies cough, dyspnea, or chest pain. Denies any blood in stool or dark, black stool. 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 Did not take her BP medications today related to pain and nausea. MD elicited complaint: flank pain (left) Pertinent past history: other Onset (ago): hour(s) Pain Consistency: constant Location: L flank Severity: severe Pain scale (0-10): 20 Quality: sharp Radiation: LLQ Exacerbating factors: nothing Relieving factors: nothing and rest Associated symptoms: nausea and diarrhea Related Data Home Medications Medication Instructions Recorded Confirmed albuterol sulfate 90 mcg/actuation 2 puff inhalation Q6H PRN 11/30/20 11/30/20 aerosol inhaler aspirin 81 mg tablet,delayed 81 mg PO DAILY 11/30/20 10/27/21 release (Adult Aspirin Regimen) calcium carbonate 500 mg calcium 500 mg PO BID 11/30/20 10/27/21 (1,250 mg) tablet (Calcium 500) clonazepam 0.5 mg tablet 0.5 mg PO TID 11/30/20 11/30/20 diltiazem HCl 300 mg 300 mg PO DAILY 11/30/20 11/30/20 capsule,extended release 24 hr doxepin 10 mg capsule 10 mg PO DAILY 11/30/20 11/30/20 lisinopril 40 mg tablet 40 mg PO DAILY 11/30/20 11/30/20 metformin 500 mg tablet 500 mg PO BID 11/30/20 10/27/21 mirtazapine 45 mg tablet 45 mg PO BEDTIME 11/30/20 11/30/20 cholecalciferol (vitamin D3) 50 50 mcg PO DAILY 10/27/21 10/27/21 mcg (2,000 unit) capsule empagliflozin 25 mg tablet 25 mg PO DAILY 10/27/21 10/27/21 (Jardiance) glipizide 10 mg tablet 10 mg PO BID 10/27/21 10/27/21 Previous Rx's Medication Instructions Recorded linagliptin 5 mg tablet (Tradjenta) 5 mg PO QAM #30 tabs 01/04/21 blood sugar diagnostic (OneTouch #50 ea 04/13/21 Verio test strips) allopurinol 100 mg tablet 100 mg PO DAILY #30 tabs 04/22/21 blood sugar diagnostic #100 ea 10/27/21 insulin glargine U-300 conc 300 10 unit (0.0333 mL) subcut BEDTIME 10/27/21 unit/mL (1.5 mL) subcutaneous pen #4.5 mL (Toujeo SoloStar U-300 Insulin) pen needle, diabetic 32 gauge x #50 ea 10/27/2132 (BD Jackeline 2nd Gen Pen Needle) Allergies Allergy/AdvReac Type Severity Reaction Status Date / Time Sulfa (Sulfonamide Allergy Intermediate SWELLING Verified 01/13/23 12:18 Antibiotics) Review of Systems Review of Systems As per HPI. Yes all other systems are reviewed and are negative Constitutional: Reports as per HPI [facility] Past Medical History Medical History Calcaneal spur, right Chronic kidney disease, stage 3 CTS (carpal tunnel syndrome) Essential hypertension Hyperlipidemia LDL goal <70 Osteoarthritis, multiple sites Osteopenia TIA (transient ischemic attack) Type 2 diabetes mellitus with chronic kidney disease Surgical History Hx of section Family History Family History Father Heart disease Mother Asthma Heart attack Social History Social History Alcohol intake: former Patient Tobacco Use Status: Former Tobacco user Tobacco use type: Cigarette Cigarettes Per Day: 4 Years Smoked: 3 Use of substances other than those prescribed or required for medical reasons: No Advance Directives: No Advance Directives Information Provided: No Physical Exam ED Vital Signs: Vital Signs - 24 hr 01/13/23 12:11 01/13/23 12:20 01/13/23 13:02 Temperature 97.8 F 98.8 F Pulse Rate 71 110 H 121 H Respiratory Rate 16 18 18 Blood Pressure 184/79 H 194/79 H 184/90 H Pulse Oximetry 98 99 98 Oxygen Delivery Method Room Air Room Air Room Air 01/13/23 14:00 01/13/23 16:44 Temperature 98.9 F Pulse Rate 127 H 133 H Respiratory Rate 18 30 H Blood Pressure 146/107 H 170/83 H Pulse Oximetry 92 Oxygen Delivery Method Room Air BMI result Body Mass Index 29.2 Vital signs have been reviewed and appear to be correct. Blood pressure e levated. Heart rate tachycardic. Respiratory rate normal. Temperature normal. Oxygen saturation normal. Const General: cooperative and no acute distress Orientation/consciousness: oriented to person, oriented to place, oriented to time and patient oriented x3 Limitations: no limitations HENMT Head: Yes normocephalic and Yes atraumatic Ears: external ears normal General nose exam: Normal external nose present Face and sinus: Yes face symmetric Mouth: oropharynx normal and moist mucous membranes Throat: Yes uvula midline Eyes Pupils: Equal, round and reactive pupils present Neck Neck: Yes normal visual inspection and Yes supple Resp Effort & Inspection: normal respiratory effort and able to speak in complete sentences Auscultation: clear to auscultation bilaterally Cardio Rate: regular rate Rhythm: regular rhythm Heart sounds: S1 normal heart sound present and S2 normal heart sound present GI Palpation (GI): Soft to palpation and nontender Auscultation: normoactive bowel sounds General: Yes CVA tenderness on the left Back/Spine/Pelvis Back: CVA tenderness Skin General skin exam: elasticity normal and turgor normal Neuro General: oriented to person, oriented to place, oriented to time, patient oriented x3, moves all extremities, no focal motor deficits and CN's II-XI intact bilaterally Cranial nerves: Yes Equal, round and reactive pupils present Cognition (Neuro): normal cognition Extrem General: Yes full ROM, Yes no pedal edema and Yes no calf tenderness Psych Mental Status: mental status grossly normal Affect: normal affect Thought process: Normal thought process present Course Course Course Narrative: 14:53 CT scan reveals cholelithiasis with probable stone in the CBD. Patient denies any RUQ pain, no tenderness to palpation, LFTs only mildly elevated, normal bilirubin, normal alk phos. CT also shows mild to moderate left hydroureteronephrosis with no obstructive etiology, mild left perinephric stranding. BUN/Cr elevated which appears to be baseline, leukocytosis to 12.5, UA positive for 2+ leukocytes, >50 WBCs, 4+ bacteria. Will treat for pyelonephritis, RUQ U/S ordered. 16:[address] Begum for admission for pyelonephritis, RUQ U/S pending. Medical Decision Making Medical Decision Making [facility] Narrative: Patient is a 77-year-old female with history of TIA, HTN, HLD, DM, and CKD presenting to the emergency department with left flank pain since this morning which she rates at 20/10. On exam patient is awake, A+Ox3, appears uncomfortable, abdomen is soft and nontender with normoactive bowel sounds, left CVA tenderness. Patient is hypertensive but states she did not take her BP meds this morning, will order here. Concern for UTI, pyelonephritis, hydronephrosis, renal calcui, RNOAN. Less likely bowel obstruction, DKA. Unlikely PE (low risk Wells), ruptured AAA, mesenteric ischemia. Plan: labs, UA, CT abdomen pelvis, pain management, reassess Please refer to course for remaining clinical decision making. Differential Diagnosis Differential Diagnoses: The differential diagnosis associated with the presentation includes As above. Lab Data MDM Lab Attestation statement: I reviewed the patient's lab results. 01/13/23 12:41 01/13/23 12:42 Labs: Lab Results 01/13/23 01/13/23 01/13/23 Range/Units 12:41 12:42 12:59 WBC 12.5 H (4.8-10.8) X10*3/uL RBC 4.80 (4.20-5.50) X10*6/uL Hgb 11.0 L (12.0-16.0) g/dl Hct 36.4 L (37.0-47.0) % MCV 75.8 L (80.0-98.0) fL MCH 22.9 L (27.0-33.0) pg MCHC 30.2 L (31.0-35.0) g/dl RDW 17.0 H (11.0-16.0) % Plt Count 419 H (160-400) X10*3/uL MPV 10.4 (9.4-12.3) fL Immature Gran % (Auto) 1.1 H (0.0-0.4) % Neut % (Auto) 85.1 H (45-73) % Lymph % (Auto) 8.9 L (20-40) % Wood % (Auto) 3.3 (2-11) % Eos % (Auto) 1.0 (0-4) % Baso % (Auto) 0.6 (0-2) % Lymph # (Auto) 1.1 L (1.2-4.9) X10*3/uL Wood # (Auto) 0.4 (0.1-1.2) X10*3/uL Eos # (Auto) 0.1 (0.0-0.4) X10*3/uL Baso # (Auto) 0.1 (0.0-0.2) X10*3/uL Abs Immat Gran (auto) 0.14 H (0.00-0.03) X10*3/uL Absolute Neuts (auto) 10.6 H (2.0-8.3) x10*3/uL Absolute Nucleated RBC 0.000 (0.0-0.012) X10*3/uL Nucleated RBC % (auto) 0.0 (0.0-0.2) /100WBC Sodium 138 (135-145) mmol/L Potassium 3.9 (3.3-5.1) mmol/L Chloride 104 (96-108) mmol/L Carbon Dioxide 20 L (22-29) mmol/L Anion Gap 18 (12-20) BUN 30 H (9-16) mg/dL Creatinine 1.78 H (0.5-1.4) mg/dL Estim Creat Clear Calc 22.1 Estimated GFR 28 Random Glucose 282 H (60-115) mg/dL Calcium 9.8 (8.4-10.2) mg/dL Magnesium 1.7 (1.6-2.6) mg/dL Total Bilirubin 0.5 (0.0-1.0) mg/dL AST 53 H (5-31) U/L ALT 42 H (0-31) U/L Alkaline Phosphatase 94 (39-117) U/L Total Protein 8.2 H (6.5-8.0) g/dL Albumin 4.1 (3.5-5.0) g/dL Lipase 28 (8-78) U/L Urine Color Urine Appearance Urine pH (5.0-9.0) Ur Specific [place] (1.005-1.025) Urine Protein (Neg-Trace) mg/dL Urine Glucose (UA) (Negative) mg/dL Urine Ketones (Negative) mg/dL Urine Blood (Negative) Urine Nitrite (Negative) Ur Leukocyte Esterase (Negative) Urine RBC (0-2) /HPF Urine WBC (0-5) /HPF Ur Squamous Epith Cells (0-2) /HPF Urine Bacteria (None Seen) Hyaline Casts (0-2) /LPF 01/13/23 Range/Units 14:07 WBC (4.8-10.8) X10*3/uL RBC (4.20-5.50) X10*6/uL Hgb (12.0-16.0) g/dl Hct (37.0-47.0) % MCV (80.0-98.0) fL MCH (27.0-33.0) pg MCHC (31.0-35.0) g/dl RDW (11.0-16.0) % Plt Count (160-400) X10*3/uL MPV (9.4-12.3) fL Immature Gran % (Auto) (0.0-0.4) % Neut % (Auto) (45-73) % Lymph % (Auto) (20-40) % Wood % (Auto) (2-11) % Eos % (Auto) (0-4) % Baso % (Auto) (0-2) % Lymph # (Auto) (1.2-4.9) X10*3/uL Wood # (Auto) (0.1-1.2) X10*3/uL Eos # (Auto) (0.0-0.4) X10*3/uL Baso # (Auto) (0.0-0.2) X10*3/uL Abs Immat Gran (auto) (0.00-0.03) X10*3/uL Absolute Neuts (auto) (2.0-8.3) x10*3/uL Absolute Nucleated RBC (0.0-0.012) X10*3/uL Nucleated RBC % (auto) (0.0-0.2) /100WBC Sodium (135-145) mmol/L Potassium (3.3-5.1) mmol/L Chloride (96-108) mmol/L Carbon Dioxide (22-29) mmol/L Anion Gap (12-20) BUN (9-16) mg/dL Creatinine (0.5-1.4) mg/dL Estim Creat Clear Calc Estimated GFR Random Glucose (60-115) mg/dL Calcium (8.4-10.2) mg/dL Magnesium (1.6-2.6) mg/dL Total Bilirubin (0.0-1.0) mg/dL AST (5-31) U/L ALT (0-31) U/L Alkaline Phosphatase (39-117) U/L Total Protein (6.5-8.0) g/dL Albumin (3.5-5.0) g/dL Lipase (8-78) U/L Urine Color Yellow Urine Appearance Clear Urine pH 6.5 (5.0-9.0) Ur Specific [place] 1.015 (1.005-1.025) Urine Protein Trace (Neg-Trace) mg/dL Urine Glucose (UA) >=1000 H (Negative) mg/dL Urine Ketones Trace (Negative) mg/dL Urine Blood Negative (Negative) Urine Nitrite Negative (Negative) Ur Leukocyte Esterase Moderate (2+) H (Negative) Urine RBC 0-2 (0-2) /HPF Urine WBC >50 H (0-5) /HPF Ur Squamous Epith Cells 0-2 (0-2) /HPF Urine Bacteria 4+ (None Seen) Hyaline Casts 0-2 (0-2) /LPF Independent Interpretation I performed an independent interpretation of an: CT Scan Interpretation: I independently reviewed the CT scan and agree with the radiologist's int erpretation. Radiology Impression Discussion of test interpretation with radiology: I have reviewed the radiologist's reading. Radiologist Impression: FINDINGS: LUNG BASES: The visualized lung bases are unremarkable. A small hiatal hernia is noted. LIVER, GALLBLADDER, AND BILIARY TREE: The liver is enlarged in size measuring 20), lobulated shape and a coarse density, question cirrhosis.. No focal hepatic lesion or biliary ductal dilatation is present. There are small radiopaque dependent gallstones. A 3 mm radiopaque calculi either in the neck neck gallbladder or proximal CBD is suspected. It is best visualized on coronal image 46/5. There is no gallbladder wall thickening or pericholecystic fluid collection. PANCREAS: Unremarkable.? SPLEEN: Unremarkable.? ADRENAL GLANDS: Unremarkable.? KIDNEYS AND URETERS: The right kidney is normal in size, shape and position. No radiopaque calculi are hydronephrosis seen. The left kidney is slightly enlarged with moderate perinephric stranding and mild hydroureteronephrosis. No obstructing ureteral calculi seen. BLADDER: Bladder is nondilated. No bladder wall thickening seen.? GASTROINTESTINAL TRACT: The small and large bowel are unremarkable. The appendix is unremarkable.? ABDOMINAL WALL: There are postsurgical changes with mesh in the lower anterior abdominal wall for hernia repair. LYMPH NODES: Small shotty lymph nodes are seen around the celiac axis with the largest lymph node measuring 1.3 cm on axial image 18/3 an 1.4 cm on axial image 15/3. VASCULAR: Unremarkable. PELVIC VISCERA: The uterus is anteverted with vascular calcifications within. No adnexal mass or free fluid seen. No abnormal pelvic or inguinal lymph nodes seen.? OSSEOUS STRUCTURES: Grade 1 anterolisthesis L4 S1 with vacuum disc phenomena at the L4-S1 disc level. Rest of the vertebral heights, alignment and disc heights are preserved. No aggressive lytic or sclerotic process seen.? CT/CT abdomen pelvis wo IV con IMPRESSION: Cholelithiasis with probable stone in the CBD or the calvarium neck. No gallbladder wall thickening or intrahepatic duct dilatation. ? Mild to moderate left renal hydroureteronephrosis with no obstructive etiology seen. Mild left perinephric stranding seen also. ? Fleischner guidelines were followed. Medications Administered Discontinued Medications Generic Name Dose Route Start Last Admin Trade Name Freq PRN Reason Stop Dose Admin Hydrochlorothiazide 25 mg 01/13/23 12:35 01/13/23 12:53 Hydrochlorothiazide 25 Mg Tablet PO 01/13/23 12:36 25 mg ONCE ONE Administration Protocol Ceftriaxone Sodium 1 gm/ 50 mls @ 100 mls/hr 01/13/23 14:56 01/13/23 15:37 Sodium Chloride IV 01/13/23 15:25 100 mls/hr ONCE ONE Administration Lisinopril 40 mg 01/13/23 12:35 01/13/23 12:53 Lisinopril 40 Mg Tablet PO 01/13/23 12:36 40 mg ONCE ONE Administration Protocol Morphine Sulfate 4 mg 01/13/23 12:30 01/13/23 12:53 Morphine Sulfate 4 Mg/Ml Cartridge IVPUSH 01/13/23 12:31 4 mg ONCE ONE Administration Protocol Ondansetron HCl 4 mg 01/13/23 12:30 01/13/23 12:54 Ondansetron Hcl 4 Mg/2 Ml Vial IVPUSH 01/13/23 12:31 4 mg ONCE ONE Administration Discharge Plan Discharge Clinical Impression: Pyelonephritis of left kidney Patient Disposition: Admitted As Inpatient
[2023-01-13 12:46] LABS: MANUAL DIFF FLAG NO
[2023-01-13] MEDS: lisinopriL 40 MG TABLET PO (12:53)
[2023-01-13] MEDS: hydroCHLOROthiazide 25 MG TABLET PO (12:53)
[2023-01-13] MEDS: Morphine Sulfate 4 MG/ML CARTRIDGE IVPUSH (12:53)
[2023-01-13] MEDS: ondansetron HCL 4 MG/2 ML VIAL IVPUSH (12:54)
[2023-01-13 13:01] LABS: Basophils Absolute Auto 0.1 X10*3/uL (0.0-0.2); Basophils Percent Auto 0.6 % (0-2); Eosinophils Absolute Auto 0.1 X10*3/uL (0.0-0.4); Hematocrit 36.4 % (37.0-47.0); Imm Gran Abs Auto 0.14 X10*3/uL (0.00-0.03); Imm Gran Pct Auto 1.1 % (0.0-0.4); Lymphocytes Absolute Auto 1.1 X10*3/uL (1.2-4.9); Lymphocytes Percent Auto 8.9 % (20-40); Mean Corpuscular HGB Conc 30.2 g/dl (31.0-35.0); Mean Corpuscular Hemoglobin 22.9 pg (27.0-33.0); Mean Corpuscular Volume 75.8 fL (80.0-98.0); Mean Platelet Volume 10.4 fL (9.4-12.3); Monocytes Absolute Auto 0.4 X10*3/uL (0.1-1.2); Monocytes Percent Auto 3.3 % (2-11); Neutrophils Absolute Auto 10.6 x10*3/uL (2.0-8.3); Neutrophils Percent Auto 85.1 % (45-73); Platelet Count 419 X10*3/uL (160-400); White Blood Count 12.5 X10*3/uL (4.8-10.8)
[2023-01-13 13:19] LABS: Magnesium 1.7 mg/dL (1.6-2.6)
[2023-01-13 13:31] LABS: Anion Gap 18 (12-20)
[2023-01-13 13:35] LABS: Alanine Aminotransferase 42 U/L (0-31); Albumin Level 4.1 g/dL (3.5-5.0); Alkaline Phosphatase 94 U/L (39-117); Aspartate Amino Transferase 53 U/L (5-31); Bilirubin Total 0.5 mg/dL (0.0-1.0); Blood Urea Nitrogen 30 mg/dL (9-16); Calcium 9.8 mg/dL (8.4-10.2); Carbon Dioxide 20 mmol/L (22-29); Chloride 104 mmol/L (96-108); Creatinine Clr Calc Pharmacy 22.1; Estimated Glomerular Filt Rate 28; Glucose Random 282 mg/dL (60-115); Lipase 28 U/L (8-78); Potassium 3.9 mmol/L (3.3-5.1); Sodium 138 mmol/L (135-145); Total Protein 8.2 g/dL (6.5-8.0)
--- NOTE | 2023-01-13 14:11 | PC.NURSE ---
Reports some pain relief after IV pain medication. Ambulated to bathroom, voided large amount of clear urine.
[2023-01-13 14:14] LABS: Appearance Urine Clear; Color Urine Yellow; Glucose Urine UA >=1000 mg/dL (Negative); Leukocyte Esterase Urine Moderate (2+) (Negative); Nitrite Urine Negative (Negative); PH 6.5 (5.0-9.0); Specific Gravity - Urine 1.015 (1.005-1.025); UMIC TRIGGER UACC YES; Urine Blood Negative (Negative); Urine Ketones Trace mg/dL (Negative); Urine Protein Trace mg/dL (Neg-Trace)
[2023-01-13 14:16] LABS: Bacteria Urine 4+ (None Seen); Hyaline Casts Urine 0-2 /LPF (0-2); RBC Urine 0-2 /HPF (0-2); Squamous Epithelial Cell Urine 0-2 /HPF (0-2); UACC Culture Trigger YES; WBC Urine >50 /HPF (0-5)
[2023-01-13] MEDS: cefTRIAXone sodium 1 GM in 0.9 % Sodium Chloride 50 ML IV (15:37)
--- NOTE | 2023-01-13 16:55 | PC.NURSE ---
Alert and responsive, temp 98.8, continues to state she has pain in belly, tacycardic - provider aware. Granddaughter at bedside aware that patient is going to be admitted .
--- NOTE | 2023-01-13 17:31 | P.HPHOSP_ITS ---
History of Present Illness Date of Service: 01/13/23 Attending physician on admission: Flor Root Chief Complaint: Possible sepsis, UTI, hydronephrosis 77-year-old female with past medical history of diabetes, hypertension, hyperlipidemia, possible CKD stage 4 : patient came to the hospital because of 3-4 days history of left-sided flank pain,nauseated . She also has subjective sense of fever. She said she was getting tired and having abdominal pain worsening and decided to come to the hospital. Flank pain she describes 10/10, sharp , slight radiation to the back, she said that morphine made it better but still has some pain. Feel nauseated and tired, feels feverish and has chills. Denies any dysuria type symptoms-? She says she has history of remote history of UTI no recent events. History was taken from both pain and patient and her daughter. Denies any new complaint of chest pain or shortness of breath or vomiting or any cough or any weakness or numbness. Lab imaging reviewed: In ED patient still has significant pain, temperature of 103 degrees, tachycardic, leukocytosis. Leukocytosis of 12.5, lactic acid and blood culture pending to be sent CT abdomen shows:Mild to moderate left renal hydroureteronephrosis with no obstructive etiology seen. Mild left perinephric stranding seen also. Cholelithiasis with probable stone in the CBD or the calvarium neck. No gallbladder wall thickening or intrahepatic duct dilatation. Mild elevated LFTs in range of 50. Patient received ceftriaxone, morphine, Zofran and requested admission for- possible sepsis, UTI Review of Systems Review of Systems: As above. [facility] Medical History Calcaneal spur, right Chronic kidney disease, stage 3 CTS (carpal tunnel syndrome) Essential hypertension Hyperlipidemia LDL goal <70 Osteoarthritis, multiple sites Osteopenia TIA (transient ischemic attack) Type 2 diabetes mellitus with chronic kidney disease Family History Father Heart disease Mother Asthma Heart attack Surgical History Hx of section Social History Alcohol intake: former Patient Tobacco Use Status: Former Tobacco user Tobacco use type: Cigarette Cigarettes Per Day: 4 Years Smoked: 3 Use of substances other than those prescribed or required for medical reasons: No Advance Directives: No Advance Directives Information Provided: No Meds Allergies Allergy/AdvReac Type Severity Reaction Status Date / Time Sulfa (Sulfonamide Allergy Intermediate SWELLING Verified 01/13/23 12:18 Antibiotics) Active Medications: Current Medications Pharmacy Consult (Consult Rx Perform Med Rec) 1 each MISCELLANE ONCE PRN PRN Reason: Consult order Home Medications Medication Instructions Recorded Confirmed Last Taken Type albuterol sulfate 90 mcg/actuation 2 puff inhalation Q6H PRN 11/30/20 01/13/23 01/12/23 History aerosol inhaler Shortness Of Breath Or Wheezing aspirin 81 mg tablet,delayed 81 mg PO DAILY 11/30/20 01/13/23 01/12/23 History release (Adult Aspirin Regimen) lisinopril 40 mg tablet 40 mg PO DAILY 11/30/20 01/13/23 01/12/23 History metformin 500 mg tablet 500 mg PO BID 11/30/20 01/13/23 01/12/23 History mirtazapine 45 mg tablet 45 mg PO BEDTIME 11/30/20 01/13/23 01/12/23 History empagliflozin 25 mg tablet 25 mg PO DAILY 10/27/21 01/13/23 01/12/23 History (Jardiance) glipizide 10 mg tablet 10 mg PO BIDWM 10/27/21 01/13/23 01/12/23 History allopurinol 100 mg tablet 50 mg PO DAILY 01/13/23 01/13/23 01/12/23 History diltiazem HCl 300 mg 300 mg PO DAILY 01/13/23 01/13/23 01/12/23 History capsule,extended release 24 hr dulaglutide 0.75 mg/0.5 mL 0.75 mg subcut MO@0900 01/13/23 01/13/23 01/08/23 History subcutaneous pen injector (Trulicity) fluticasone propionate 110 2 inh inhalation BID 01/13/23 01/13/23 01/12/23 History mcg/actuation HFA aerosol inhaler (Flovent HFA) hydrochlorothiazide 25 mg tablet 25 mg PO DAILY 01/13/23 01/13/23 01/12/23 History Physical Exam Vital Signs and Narrative: Vital Signs: Last Vital Signs Temp 98.8 F 01/13/23 16:54 Pulse 133 H 01/13/23 16:44 Resp 30 H 01/13/23 16:44 BP 170/83 H 01/13/23 16:44 Pulse Ox 92 01/13/23 16:44 O2 Del Method Room Air 01/13/23 16:44 BMI result Body Mass Index 29.2 Appearance: Alert.? Oriented X3.?has abd pain Eyes: Pupils equal, round and reactive to light.? Sclera nonicteric.? ENT: Pharynx normal.? Moist mucous membranes. cvs: rrr, [id number]. res: clear to auscultation ,no rhonchii or wheezing abd: no rebound or guarding ,left flank pain , bs present. ext pulses present , no cyanosis. neuro: axo3 , nonfocal. Results Labs 01/13/23 12:41 01/13/23 12:42 Labs: Laboratory Results - last 24 hr 01/13/23 01/13/23 01/13/23 12:41 12:42 12:59 MCV 75.8 L MCH 22.9 L MCHC 30.2 L RDW 17.0 H Plt Count 419 H MPV 10.4 Immature Gran % (Auto) 1.1 H Neut % (Auto) 85.1 H Lymph % (Auto) 8.9 L Rawl[place] % (Auto) 3.3 Eos % (Auto) 1.0 Baso % (Auto) 0.6 Lymph # (Auto) 1.1 L [place] # (Auto) 0.4 Eos # (Auto) 0.1 Baso # (Auto) 0.1 Abs Immat Gran (auto) 0.14 H Absolute Neuts (auto) 10.6 H Absolute Nucleated RBC 0.000 Nucleated RBC % (auto) 0.0 Anion Gap 18 Estim Creat Clear Calc 22.1 Estimated GFR 28 Random Glucose 282 H Calcium 9.8 Magnesium 1.7 Total Bilirubin 0.5 AST 53 H ALT 42 H Alkaline Phosphatase 94 Total Protein 8.2 H Albumin 4.1 Lipase 28 Urine Color Urine Appearance Urine pH Ur Specific Abell Urine Protein Urine Glucose (UA) Urine Ketones Urine Blood Urine Nitrite Ur Leukocyte Esterase Urine RBC Urine WBC Ur Squamous Epith Cells Urine Bacteria Hyaline Casts 01/13/23 14:07 MCV MCH MCHC RDW Plt Count MPV Immature Gran % (Auto) Neut % (Auto) Lymph % (Auto) Rawlins % (Auto) Eos % (Auto) Baso % (Auto) Lymph # (Auto) Rawlins # (Auto) Eos # (Auto) Baso # (Auto) Abs Immat Gran (auto) Absolute Neuts (auto) Absolute Nucleated RBC Nucleated RBC % (auto) Anion Gap Estim Creat Clear Calc Estimated GFR Random Glucose Calcium Magnesium Total Bilirubin AST ALT Alkaline Phosphatase Total Protein Albumin Lipase Urine Color Yellow Urine Appearance Clear Urine pH 6.5 Ur Specific Abell 1.015 Urine Protein Trace Urine Glucose (UA) >=1000 H Urine Ketones Trace Urine Blood Negative Urine Nitrite Negative Ur Leukocyte Esterase Moderate (2+) H Urine RBC 0-2 Urine WBC >50 H Ur Squamous Epith Cells 0-2 Urine Bacteria 4+ Hyaline Casts 0-2 Imaging Radiologist's Impressions: Impressions Abdomen/Pelvis CT 01/13/23 12:54 IMPRESSION: Cholelithiasis with probable stone in the CBD or the calvarium neck. No gallbladder wall thickening or intrahepatic duct dilatation. Mild to moderate left renal hydroureteronephrosis with no obstructive etiology seen. Mild left perinephric stranding seen also. Fleischner guidelines were followed. Abdomen Ultrasound 01/13/23 15:27 IMPRESSION: Small echogenic stone in the neck of the gallbladder without wall thickening. This was visualized on the preceding CT. No echogenic stones seen in the CBD. Assessment and Plan (1) Pyelonephritis of left kidney: Status: Acute (2) Type 2 diabetes mellitus with chronic kidney disease: Status: Acute (3) Chronic kidney disease, stage 3: Status: Acute (4) Sepsis: Status: Acute Plan 77-year-old female with past medical history of diabetes, hypertension, hyperlipidemia, possible CKD stage 4 : patient came to the hospital because of 3-4 days history of left-sided flank pain. 1.possible sepsis sec to uti/pyelonephritis of left kidney : has tachycardia ,fevers ,leucocytosis,ua abnormal lactic acid and blood cultures sent. CT abdomen shows left-sided renal stranding and hydronephrosis will check ekg because of tachycardia Added IV fluid, antibiotics, Tylenol, urology evaluation 2. Diabetes type 2: Insulin with sliding scale coverage. 3. htn : continue home meds once medical reconciliation is done. 4.ckd4: moniter renal function and electrolytes Supposed to follow-up with Nephrology outpatient but seems noncompliant. 5: asthma: seems stable med reconcilliaton pendin 6. gout: seems stable med reconcilliaton pendin 7.ct abd also shows -Cholelithiasis with probable stone in the CBD or the calvarium neck. No gallbladder wall thickening or intrahepatic duct dilatation. patient denies any ruq pain ,has mild elevated lft's added gi eval dvt prophylax: s/c heparin Patient will benefit from2 to midnight stays-since patient has sepsis secondary to UTI, might also need urology evaluation for hydro nephrosis and workup. Patient also need GI evaluation for cholelithiasis? CBD stone/elevated LFTs. Above management discussed with the patient's daughter in detail length she understand and in agreement with above plan. Total time spent 70 minute. Patient daughter phone number: [phone] daughter Time Spent With Patient Time: Total time managing care of this patient today ____ minutes. Quality Stroke Does the patient have a stroke diagnosis?: No VTE Prior VTE?: No VTE Risk Level:: Medical - moderate - high VTE Device Contraindication: N/A - Device Ordered VTE Drug Contraindication: N/A - Med Ordered
--- NOTE | 2023-01-13 17:51 | PHA.MEDREC ---
Pharmacy Consult ? Medication Reconciliation Pharmacy has completed the medication reconciliation. Spoke to patient's daughter and pharmacy to confirm meds. Pharmacy states that patient was on pravastatin 40mg daily in Jun 2022 and was scheduled for a refill in September 2022, but patient never picked it up.
[2023-01-13] MEDS: Acetaminophen 325 MG TABLET 650 MG PO (17:52)
[2023-01-13] MEDS: Heparin Sodium,Porcine 5,000 UNIT/ML VIAL 5000 UNIT SUBCUT (17:53)
--- NOTE | 2023-01-13 17:54 | PC.NURSE ---
rectal temp 103 reported to provider.
[2023-01-13] MEDS: Lactated Ringers 1,000 ML 100 ML IVCONT (18:03)
[2023-01-13] MEDS: Piperacillin Sodium/Tazobactam 3.375 GM in 0.9 % Sodium Chloride 50 ML IV (18:30)
[2023-01-13 18:52] LABS: Hematocrit 36.3 % (37.0-47.0); Hemoglobin 11.3 g/dl (12.0-16.0); Mean Corpuscular HGB Conc 31.1 g/dl (31.0-35.0); Mean Corpuscular Hemoglobin 23.4 pg (27.0-33.0); Mean Corpuscular Volume 75.2 fL (80.0-98.0); Mean Platelet Volume 10.5 fL (9.4-12.3); Platelet Count 387 X10*3/uL (160-400); Red Blood Count 4.83 X10*6/uL (4.20-5.50); Red Cell Distribution Width 16.9 % (11.0-16.0); White Blood Count 20.1 X10*3/uL (4.8-10.8)
--- NOTE | 2023-01-13 18:57 | PC.NURSE ---
Patient alert and oriented. reports feeling much better. oral temp 98.7. Requesting ice chips .Reports no longer has an abdominal pain
[2023-01-13 19:00] LABS: Lactic Acid 3.8 mmol/L (0.5-2.0)
[2023-01-13 19:29] LABS: Glucose, Whole Blood 255 mg/dL (60-115)
--- NOTE | 2023-01-13 19:29 | PC.NURSE ---
Report given to Maria Del Carmen KELLEY.
[2023-01-13] MEDS: oxyCODONE HCl Immed Release 5 MG TABLET PO (19:35)
[2023-01-13] MEDS: Lidocaine 4 % Patch ADH..PATCH 1 PATCH TRANSDERMA (19:35)
[2023-01-13 20:32] LABS: Glucose, Whole Blood 286 mg/dL (60-115)
[2023-01-13 20:34] LABS: Reflex Lactate? Lactic Acid Added
[2023-01-13] MEDS: Insulin Lispro 100 UNIT/ML 3 ML VIAL SUBCUT (20:39)
[2023-01-13 22:22] LABS: ~Lactic Acid-LAB USE ONLY 6.6 mmol/L (0.5-2.0)
[2023-01-13 23:16] LABS: Reflex Lactate? 2 Y
[2023-01-14] VITALS (7 sets, daily range): BP systolic 102–145; BP diastolic 55–72; PULSE 68–104; RESP 16–20; TEMP 36.4–37; O2SAT 69–97
[2023-01-14 00:01] LABS: Lactic Acid 5.6 mmol/L (0.5-2.0)
[2023-01-14] MEDS: Piperacillin Sodium/Tazobactam 3.375 GM in 0.9 % Sodium Chloride 50 ML IV ×2 (00:04→04:43)
[2023-01-14] MEDS: 0.9 % Sodium Chloride Flush 3 ML SYRINGE IVFLUSH ×3 (00:05→16:56)
[2023-01-14] MEDS: Heparin Sodium,Porcine 5,000 UNIT/ML VIAL 5000 UNIT SUBCUT ×3 (00:05→18:21)
[2023-01-14 01:41] LABS: Reflex Lactate? Lactic Acid Added
[2023-01-14 03:03] LABS: Alanine Aminotransferase 33 U/L (0-31); Albumin Level 3.4 g/dL (3.5-5.0); Alkaline Phosphatase 69 U/L (39-117); Anion Gap 15 (12-20); Aspartate Amino Transferase 34 U/L (5-31); Bilirubin Total 0.5 mg/dL (0.0-1.0); Blood Urea Nitrogen 38 mg/dL (9-16); Calcium 8.8 mg/dL (8.4-10.2); Carbon Dioxide 21 mmol/L (22-29); Chloride 100 mmol/L (96-108); Creatinine Clr Calc Pharmacy 16.4; Estimated Glomerular Filt Rate 20; Glucose Random 285 mg/dL (60-115); Potassium 4.1 mmol/L (3.3-5.1); Sodium 132 mmol/L (135-145); Total Protein 6.8 g/dL (6.5-8.0)
[2023-01-14 03:32] LABS: ~Lactic Acid-LAB USE ONLY 2.3 mmol/L (0.5-2.0)
[2023-01-14 04:37] LABS: Reflex Lactate? 2 Y
[2023-01-14] MEDS: Acetaminophen 325 MG TABLET 650 MG PO (04:43)
[2023-01-14] MEDS: Lactated Ringers 1,000 ML 100 ML IVCONT ×2 (04:51→19:43)
[2023-01-14 07:13] LABS: Glucose, Whole Blood 223 mg/dL (60-115)
[2023-01-14] MEDS: Insulin Lispro 100 UNIT/ML 3 ML VIAL SUBCUT ×4 (08:16→21:47)
[2023-01-14] MEDS: Lidocaine 4 % Patch ADH..PATCH 1 PATCH TRANSDERMA (08:17)
[2023-01-14] MEDS: dilTIAZem HCL CD 300 MG CAP.ER.24H PO (08:17)
[2023-01-14] MEDS: Morphine Sulfate 2 MG/ML CARTRIDGE 1 MG IVPUSH (08:18)
--- NOTE | 2023-01-14 09:57 | MHC.CM.PN ---
Patient is unavailable, CM spoke with Daughter/Anita @ [phone] and addressed IMM with her (original to be mailed certified letter to Anita and a copy has been placed on the chart). Patient lives in an apartment with her Granddaughter/ASSISTANT STRENGTH COACH, uses a cane, and home/resume said services is the goal. CM has initiated and will follow for dc planning. Patient is jordi oglesby and her PCP is from [facility].
[2023-01-14] MEDS: Tamsulosin HCL 0.4 MG CAPSULE PO (10:03)
[2023-01-14] MEDS: Acetaminophen 325 MG TABLET 975 MG PO ×2 (10:03→19:43)
[2023-01-14] MEDS: oxyCODONE HCl Immed Release 5 MG TABLET 10 MG PO (10:03)
[2023-01-14 11:10] LABS: Glucose, Whole Blood 199 mg/dL (60-115)
[2023-01-14] MEDS: Piperacillin Sodium/Tazobactam 2.25 GM in 0.9 % Sodium Chloride 50 ML IV ×3 (11:30→23:05)
--- NOTE | 2023-01-14 14:03 | P.PNIM_ITS ---
Subjective Subjective Date of Service: 01/14/23 Interval History: Possible sepsis, UTI, hydronephrosis Review of Systems no new fevers Still has left flank pain Denies any chest pain or shortness of breath Physical Exam Vital Signs: Vital Signs: Last Vital Signs Temp 98.0 F 01/14/23 11:15 Pulse 91 01/14/23 11:15 Resp 16 01/14/23 11:15 BP 102/56 L 01/14/23 11:15 Pulse Ox 94 01/14/23 11:15 O2 Del Method Room Air 01/14/23 11:15 BMI result Body Mass Index 29.2 Appearance: Alert.? Oriented X3.?has abd pain cvs: rrr, [id number]. res: clear to auscultation ,no rhonchii or wheezing abd: no rebound or guarding ,left flank pain , bs present. ext pulses present , no cyanosis. neuro: axo3 , nonfocal.? Objective Data Active Medications Acetaminophen (Acetaminophen 325 Mg Tablet) 975 mg PO Q8H [facility] Last Admin: 01/14/23 10:03 Dose: 975 mg Documented By: KARLA Albuterol Sulfate (Albuterol Sulfate 90 Mcg 8 Gm Inhaler) 2 puff INHALE Q6H PRN PRN Reason: Shortness Of Breath Or Wheezing Capsaicin (Capsaicin 0.025% Cream 60 Gm Tube) 1 appl TOPICAL QID PRN; Protocol PRN Reason: Pain, Mild (Pain Scale 1-3) Dextrose (Dextrose 50 % 25 Gm/50 Ml Syringe) 25 gm IVPUSH Q15M PRN; Protocol PRN Reason: per Hypoglycemia Standing Ord. Diltiazem HCl (Diltiazem Hcl Cd 300 Mg Cap.Er.24h) 300 mg PO DAILY [facility]; Protocol Last Admin: 01/14/23 08:17 Dose: 300 mg Documented By: KARLA Fluticasone Propionate (Fluticasone Propionate 100 Mcg Blst.W.Dev) 2 puff INHALE RBID [facility] Last Admin: 01/14/23 07:37 Dose: Not Given Documented By: CARSON Non-Admin Reason: med unavail pharmacy called Glucose (Glucose Gel 15 Gm Gel..Gram.) 15 gm PO Q15M PRN; Protocol PRN Reason: per Hypoglycemia Standing Ord. Heparin Sodium (Porcine) (Heparin Sodium,Porcine 5,000 Unit/Ml Vial) 5,000 unit SUBCUT Q8H [facility] Last Admin: 01/14/23 11:29 Dose: 5,000 unit Documented By: KARLA Lactated Ringer's (Lr) 1,000 mls @ 100 mls/hr IVCONT .Q10H [facility] Last Infusion: 01/14/23 13:09 Dose: 100 mls/hr Documented By: KARLA Piperacillin Sod/Tazobactam (Sod 2.25 gm/ Sodium Chloride) 50 mls @ 100 mls/hr IV Q6H [facility] Last Infusion: 01/14/23 12:27 Dose: 0 mls/hr Documented By: KARLA Insulin Human Lispro (Insulin Lispro 100 Unit/Ml 3 Ml Vial) 0 unit SUBCUT QIDACHS [facility]; Protocol Last Admin: 01/14/23 11:30 Dose: 2 unit Documented By: KARLA Levalbuterol HCl (Levalbuterol Hcl 1.25 Mg/3 Ml Vial.Neb) 1.25 mg INHALE Q4H PRN PRN Reason: sob Lidocaine (Lidocaine 4 % Patch Adh..Patch) 1 patch TRANSDERMA DAILY [facility]; Protocol Last Admin: 01/14/23 08:17 Dose: 1 patch Documented By: KARLA Morphine Sulfate (Morphine Sulfate 2 Mg/Ml Cartridge) 1 mg IVPUSH Q3H PRN; Protocol PRN Reason: Pain, Mild (Pain Scale 1-3) Last Admin: 01/14/23 08:18 Dose: 1 mg Documented By: KARLA Oxycodone HCl (Oxycodone Hcl Immed Release 5 Mg Tablet) 10 mg PO Q6H PRN PRN Reason: Pain, Mild (Pain Scale 1-3) Last Admin: 01/14/23 10:03 Dose: 10 mg Documented By: KARLA Pharmacy Consult (Consult Rx Perform Med Rec) 1 each MISCELLANE ONCE PRN PRN Reason: Consult order Sodium Chloride (0.9 % Sodium Chloride Flush 3 Ml Syringe) 3 ml IVFLUSH QSHIFT [facility] Last Admin: 01/14/23 08:17 Dose: 3 ml Documented By: KARLA Tamsulosin HCl (Tamsulosin Hcl 0.4 Mg Capsule) 0.4 mg PO DAILY [facility] Last Admin: 01/14/23 10:03 Dose: 0.4 mg Documented By: KARLA Labs 01/13/23 18:30 01/14/23 02:30 Labs: Laboratory Results - last 24 hr 01/13/23 01/13/23 01/13/23 14:07 18:30 18:31 MCV 75.2 L MCH 23.4 L MCHC 31.1 RDW 16.9 H Plt Count 387 MPV 10.5 Absolute Nucleated RBC 0.000 Nucleated RBC % (auto) 0.0 Anion Gap Estim Creat Clear Calc Estimated GFR POC Glucose Random Glucose Lactic Acid 3.8 H* Lactic Acid F/U @ 2Hr Calcium Total Bilirubin AST ALT Alkaline Phosphatase Total Protein Albumin Urine Color Yellow Urine Appearance Clear Urine pH 6.5 Ur Specific [place] 1.015 Urine Protein Trace Urine Glucose (UA) >=1000 H Urine Ketones Trace Urine Blood Negative Urine Nitrite Negative Ur Leukocyte Esterase Moderate (2+) H Urine RBC 0-2 Urine WBC >50 H Ur Squamous Epith Cells 0-2 Urine Bacteria 4+ Hyaline Casts 0-2 01/13/23 01/13/23 01/13/23 19:25 20:27 20:50 MCV MCH MCHC RDW Plt Count MPV Absolute Nucleated RBC Nucleated RBC % (auto) Anion Gap Estim Creat Clear Calc Estimated GFR POC Glucose 255 H 286 H Random Glucose Lactic Acid Lactic Acid F/U @ 2Hr 6.6 H* Calcium Total Bilirubin AST ALT Alkaline Phosphatase Total Protein Albumin Urine Color Urine Appearance Urine pH Ur Specific [place] Urine Protein Urine Glucose (UA) Urine Ketones Urine Blood Urine Nitrite Ur Leukocyte Esterase Urine RBC Urine WBC Ur Squamous Epith Cells Urine Bacteria Hyaline Casts 01/13/23 01/14/23 01/14/23 23:17 02:30 02:30 MCV MCH MCHC RDW Plt Count MPV Absolute Nucleated RBC Nucleated RBC % (auto) Anion Gap 15 Estim Creat Clear Calc 16.4 Estimated GFR 20 POC Glucose Random Glucose 285 H Lactic Acid 5.6 H* Lactic Acid F/U @ 2Hr 2.3 H* Calcium 8.8 D Total Bilirubin 0.5 AST 34 H ALT 33 H Alkaline Phosphatase 69 Total Protein 6.8 Albumin 3.4 L Urine Color Urine Appearance Urine pH Ur Specific [place] Urine Protein Urine Glucose (UA) Urine Ketones Urine Blood Urine Nitrite Ur Leukocyte Esterase Urine RBC Urine WBC Ur Squamous Epith Cells Urine Bacteria Hyaline Casts 01/14/23 01/14/23 07:06 11:03 MCV MCH MCHC RDW Plt Count MPV Absolute Nucleated RBC Nucleated RBC % (auto) Anion Gap Estim Creat Clear Calc Estimated GFR POC Glucose 223 H 199 H Random Glucose Lactic Acid Lactic Acid F/U @ 2Hr Calcium Total Bilirubin AST ALT Alkaline Phosphatase Total Protein Albumin Urine Color Urine Appearance Urine pH Ur Specific [place] Urine Protein Urine Glucose (UA) Urine Ketones Urine Blood Urine Nitrite Ur Leukocyte Esterase Urine RBC Urine WBC Ur Squamous Epith Cells Urine Bacteria Hyaline Casts Microbiology Microbiology Results: Microbiology 01/13/23 Unknown Urine Culture - Preliminary Urine clean catch - Urine walker top Culture in progress. Assessment and Plan (1) Sepsis: Status: Acute (2) Pyelonephritis of left kidney: Status: Acute (3) Hydronephrosis: Status: Acute Plan 77-year-old female with past medical history of diabetes, hypertension, hyperlipidemia, possible CKD stage 4 : patient came to the hospital because of 3-4 days history of left-sided flank pain. 1.possible sepsis sec to uti/pyelonephritis of left kidney : tachycardia ,fevers resolved leucocytosis trending up,ua abnormal blood cultures sent. elevated lactic acid likely sec to metformin/albuterol -not due to sepsis. CT abdomen shows left-sided renal stranding and hydronephrosis continue IV fluid, antibiotics, Tylenol, urology evaluation 2. Diabetes? type 2: Insulin with sliding scale coverage. 3. htn : continuediltiazem,hold other bp meds. 4.ckd4:seems worsenin ?obstructive uropathy moniter renal function and electrolytes,pvr continue Supposed to follow-up with Nephrology outpatient but seems noncompliant. 5: asthma: seems stable continue albuterol. 6. gout: seems stable continue allopurinol 7.ct abd also shows -Cholelithiasis with probable stone in the CBD or the calvarium neck. No gallbladder wall thickening or intrahepatic duct dilatation. patient denies any ruq pain ,has mild elevated lft's added gi eval dvt prophylax: s/c heparin onging inpatient need - patient has sepsis secondary to UTI, might also need urology evaluation for hydro nephrosis and workup.? Patient also need GI evaluation for cholelithiasis?? CBD stone/elevated LFTs. . Patient daughter phone number:? [phone] daughter Time Spent With Patient Time: Total time managing care of this patient today ____ minutes. Quality Stroke Does the patient have a stroke diagnosis?: No VTE Prior VTE?: No VTE Risk Level:: Medical - moderate - high VTE Device Contraindication: N/A - Device Ordered VTE Drug Contraindication: N/A - Med Ordered
--- NOTE | 2023-01-14 14:20 | PM.UROCN ---
History of Present Illness Consult details Consult date: 01/14/23 Narrative: Consulting complaint: mild bilateral hydro with rising creatinine 77-year-old female background of progressive type 2 diabetes with CKD stage 3 admission with question of pyelonephritis and acute on chronic kidney insult WBC 20, creatinine 2.2 down from 2.[address] KIDNEYS AND URETERS: The right kidney is normal in size, shape and position. No radiopaque calculi are hydronephrosis seen. The left kidney is slightly enlarged with moderate perinephric stranding and mild hydroureteronephrosis. No obstructing ureteral calculi seen. Lasix renogram performed showing no evidence of obstruction poorly controlled diabetic with question of pyelonephritis No evidence of lower urinary tract obstruction Imaging consistent with medical renal disease recommend check PVR to ensure bladder emptying and continue with antibiotics as appropriate Review of Systems Constitutional: Constitutional: Reports as per HPI and Reports no additional constitutional complaints Cardiovascular: Cardiovascular: Reports as per HPI and Reports no additional cardiovascular complaints Respiratory: Respiratory: Reports as per HPI and Reports no additional respiratory complaints Gastrointestinal: Gastrointestinal: Reports as per HPI and Reports no additional gastrointestinal complaints Genitourinary: Genitourinary: Reports as per HPI Musculoskeletal: Musculoskeletal: Reports no additional musculoskeletal complaints and Reports as per HPI Neurologic: Reports system reviewed and no additional complaints, except as documented and Reports as per HPI PMFSH Past Medical History Medical History Calcaneal spur, right Chronic kidney disease, stage 3 CTS (carpal tunnel syndrome) Essential hypertension Hyperlipidemia LDL goal <70 Osteoarthritis, multiple sites Osteopenia TIA (transient ischemic attack) Type 2 diabetes mellitus with chronic kidney disease Family History Family History Father Heart disease Mother Asthma Heart attack Surgical History Surgical History Hx of section Social History Social History Household Members: Other Household Members Other:: grandchild Housing: Apartment Do you 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 have 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) Alcohol intake: former Patient Tobacco Use Status: Former Tobacco user Tobacco use type: Cigarette Cigarettes Per Day: 4 Years Smoked: 3 service: No Meds Allergies Allergy/AdvReac Type Severity Reaction Status Date / Time Sulfa (Sulfonamide Allergy Intermediate SWELLING Verified 01/13/23 12:18 Antibiotics) Active Medications: Current Medications Acetaminophen (Acetaminophen 325 Mg Tablet) 975 mg PO Q8H [facility] Last Admin: 01/14/23 10:03 Dose: 975 mg Albuterol Sulfate (Albuterol Sulfate 90 Mcg 8 Gm Inhaler) 2 puff INHALE Q6H PRN PRN Reason: Shortness Of Breath Or Wheezing Capsaicin (Capsaicin 0.025% Cream 60 Gm Tube) 1 appl TOPICAL QID PRN; Protocol PRN Reason: Pain, Mild (Pain Scale 1-3) Dextrose (Dextrose 50 % 25 Gm/50 Ml Syringe) 25 gm IVPUSH Q15M PRN; Protocol PRN Reason: per Hypoglycemia Standing Ord. Diltiazem HCl (Diltiazem Hcl Cd 300 Mg Cap.Er.24h) 300 mg PO DAILY [facility]; Protocol Last Admin: 01/14/23 08:17 Dose: 300 mg Fluticasone Propionate (Fluticasone Propionate 100 Mcg Blst.W.Dev) 2 puff INHALE RBID [facility] Last Admin: 01/14/23 07:37 Dose: Not Given Glucose (Glucose Gel 15 Gm Gel..Gram.) 15 gm PO Q15M PRN; Protocol PRN Reason: per Hypoglycemia Standing Ord. Heparin Sodium (Porcine) (Heparin Sodium,Porcine 5,000 Unit/Ml Vial) 5,000 unit SUBCUT Q8H [facility] Last Admin: 01/14/23 11:29 Dose: 5,000 unit Lactated Ringer's (Lr) 1,000 mls @ 100 mls/hr IVCONT .Q10H [facility] Last Infusion: 01/14/23 13:09 Dose: 100 mls/hr Piperacillin Sod/Tazobactam (Sod 2.25 gm/ Sodium Chloride) 50 mls @ 100 mls/hr IV Q6H [facility] Last Infusion: 01/14/23 12:27 Dose: Infused Insulin Human Lispro (Insulin Lispro 100 Unit/Ml 3 Ml Vial) 0 unit SUBCUT QIDACHS [facility]; Protocol Last Admin: 01/14/23 11:30 Dose: 2 unit Levalbuterol HCl (Levalbuterol Hcl 1.25 Mg/3 Ml Vial.Neb) 1.25 mg INHALE Q4H PRN PRN Reason: sob Lidocaine (Lidocaine 4 % Patch Adh..Patch) 1 patch TRANSDERMA DAILY [facility]; Protocol Last Admin: 01/14/23 08:17 Dose: 1 patch Morphine Sulfate (Morphine Sulfate 2 Mg/Ml Cartridge) 1 mg IVPUSH Q3H PRN; Protocol PRN Reason: Pain, Mild (Pain Scale 1-3) Last Admin: 01/14/23 08:18 Dose: 1 mg Oxycodone HCl (Oxycodone Hcl Immed Release 5 Mg Tablet) 10 mg PO Q6H PRN PRN Reason: Pain, Mild (Pain Scale 1-3) Last Admin: 01/14/23 10:03 Dose: 10 mg Pharmacy Consult (Consult Rx Perform Med Rec) 1 each MISCELLANE ONCE PRN PRN Reason: Consult order Sodium Chloride (0.9 % Sodium Chloride Flush 3 Ml Syringe) 3 ml IVFLUSH QSHIFT [facility] Last Admin: 01/14/23 08:17 Dose: 3 ml Tamsulosin HCl (Tamsulosin Hcl 0.4 Mg Capsule) 0.4 mg PO DAILY [facility] Last Admin: 01/14/23 10:03 Dose: 0.4 mg Home Medications Medication Instructions Recorded Confirmed Last Taken Type albuterol sulfate 90 mcg/actuation 2 puff inhalation Q6H PRN 11/30/20 01/13/23 01/12/23 History aerosol inhaler Shortness Of Breath Or Wheezing aspirin 81 mg tablet,delayed 81 mg PO DAILY 11/30/20 01/13/23 01/12/23 History release (Adult Aspirin Regimen) lisinopril 40 mg tablet 40 mg PO DAILY 11/30/20 01/13/23 01/12/23 History metformin 500 mg tablet 500 mg PO BID 11/30/20 01/13/23 01/12/23 History mirtazapine 45 mg tablet 45 mg PO BEDTIME 11/30/20 01/13/23 01/12/23 History empagliflozin 25 mg tablet 25 mg PO DAILY 10/27/21 01/13/23 01/12/23 History (Jardiance) glipizide 10 mg tablet 10 mg PO BIDWM 10/27/21 01/13/23 01/12/23 History allopurinol 100 mg tablet 50 mg PO DAILY 01/13/23 01/13/23 01/12/23 History diltiazem HCl 300 mg 300 mg PO DAILY 01/13/23 01/13/23 01/12/23 History capsule,extended release 24 hr dulaglutide 0.75 mg/0.5 mL 0.75 mg subcut MO@0900 01/13/23 01/13/23 01/08/23 History subcutaneous pen injector (Trulicity) fluticasone propionate 110 2 inh inhalation BID 01/13/23 01/13/23 01/12/23 History mcg/actuation HFA aerosol inhaler (Flovent HFA) hydrochlorothiazide 25 mg tablet 25 mg PO DAILY 01/13/23 01/13/23 01/12/23 History Physical Exam Vital Signs: Vital Signs: Last Vital Signs Temp 98.0 F 01/14/23 11:15 Pulse 91 01/14/23 11:15 Resp 16 01/14/23 11:15 BP 102/56 L 01/14/23 11:15 Pulse Ox 94 01/14/23 11:15 O2 Del Method Room Air 01/14/23 11:15 BMI result Body Mass Index 29.2 Const: General: cooperative, healthy appearing, comfortable and no acute distress Orientation/consciousness: patient oriented x3 HEENT: Face and sinus: Yes normal facial exam Mouth: moist mucous membranes Neck: Neck: Yes normal visual inspection, Yes full ROM and Yes trachea midline Chest: Chest palpation & inspection: normal inspection of the chest Resp: Effort & Inspection: normal respiratory effort, able to speak in complete sentences and no respiratory distress GI: Inspection: Yes normal to inspection Back/Spine/Pelvis: Cervical Spine: normal cervical lordosis Thoracic/Lumbar Spine: thoracic and lumbar spine normal to inspection Skin: General skin exam: no rashes or lesions noted Neuro: General: patient oriented x3, tone normal and moves all extremities Extrem: General: Yes normal to inspection and Yes capillary refill normal Results Labs 01/13/23 18:30 01/14/23 02:30 Labs: Abnormal lab results 01/13/23 01/13/23 01/13/23 Range/Units 18:30 18:31 19:25 WBC 20.1 H (4.8-10.8) X10*3/uL Hgb 11.3 L (12.0-16.0) g/dl Hct 36.3 L (37.0-47.0) % MCV 75.2 L (80.0-98.0) fL MCH 23.4 L (27.0-33.0) pg RDW 16.9 H (11.0-16.0) % Sodium (135-145) mmol/L Carbon Dioxide (22-29) mmol/L BUN (9-16) mg/dL Creatinine (0.5-1.4) mg/dL POC Glucose 255 H (60-115) mg/dL Random Glucose (60-115) mg/dL Lactic Acid 3.8 H* (0.5-2.0) mmol/L Lactic Acid F/U @ 2Hr (0.5-2.0) mmol/L AST (5-31) U/L ALT (0-31) U/L Albumin (3.5-5.0) g/dL 01/13/23 01/13/23 01/13/23 Range/Units 20:27 20:50 23:17 WBC (4.8-10.8) X10*3/uL Hgb (12.0-16.0) g/dl Hct (37.0-47.0) % MCV (80.0-98.0) fL MCH (27.0-33.0) pg RDW (11.0-16.0) % Sodium (135-145) mmol/L Carbon Dioxide (22-29) mmol/L BUN (9-16) mg/dL Creatinine (0.5-1.4) mg/dL POC Glucose 286 H (60-115) mg/dL Random Glucose (60-115) mg/dL Lactic Acid 5.6 H* (0.5-2.0) mmol/L Lactic Acid F/U @ 2Hr 6.6 H* (0.5-2.0) mmol/L AST (5-31) U/L ALT (0-31) U/L Albumin (3.5-5.0) g/dL 01/14/23 01/14/23 01/14/23 Range/Units 02:30 02:30 07:06 WBC (4.8-10.8) X10*3/uL Hgb (12.0-16.0) g/dl Hct (37.0-47.0) % MCV (80.0-98.0) fL MCH (27.0-33.0) pg RDW (11.0-16.0) % Sodium 132 L (135-145) mmol/L Carbon Dioxide 21 L (22-29) mmol/L BUN 38 H (9-16) mg/dL Creatinine 2.40 H (0.5-1.4) mg/dL POC Glucose 223 H (60-115) mg/dL Random Glucose 285 H (60-115) mg/dL Lactic Acid (0.5-2.0) mmol/L Lactic Acid F/U @ 2Hr 2.3 H* (0.5-2.0) mmol/L AST 34 H (5-31) U/L ALT 33 H (0-31) U/L Albumin 3.4 L (3.5-5.0) g/dL 01/14/23 Range/Units 11:03 WBC (4.8-10.8) X10*3/uL Hgb (12.0-16.0) g/dl Hct (37.0-47.0) % MCV (80.0-98.0) fL MCH (27.0-33.0) pg RDW (11.0-16.0) % Sodium (135-145) mmol/L Carbon Dioxide (22-29) mmol/L BUN (9-16) mg/dL Creatinine (0.5-1.4) mg/dL POC Glucose 199 H (60-115) mg/dL Random Glucose (60-115) mg/dL Lactic Acid (0.5-2.0) mmol/L Lactic Acid F/U @ 2Hr (0.5-2.0) mmol/L AST (5-31) U/L ALT (0-31) U/L Albumin (3.5-5.0) g/dL Short CBC 01/13/23 Range/Units 18:30 WBC 20.1 H (4.8-10.8) X10*3/uL Hgb 11.3 L (12.0-16.0) g/dl Hct 36.3 L (37.0-47.0) % Plt Count 387 (160-400) X10*3/uL BMP 01/14/23 02:30 Sodium 132 L Potassium 4.1 Chloride 100 Carbon Dioxide 21 L BUN 38 H Creatinine 2.40 H Calcium 8.8 D Liver Function 01/14/23 Range/Units 02:30 Total Bilirubin 0.5 (0.0-1.0) mg/dL AST 34 H (5-31) U/L ALT 33 H (0-31) U/L Alkaline Phosphatase 69 (39-117) U/L Albumin 3.4 L (3.5-5.0) g/dL Urine 01/13/23 Range/Units 14:07 Urine Color Yellow Urine Appearance Clear Urine pH 6.5 (5.0-9.0) Ur Specific [place] 1.015 (1.005-1.025) Urine Protein Trace (Neg-Trace) mg/dL Urine Glucose (UA) >=1000 H (Negative) mg/dL All other labs normal. Assessment and Plan (1) Pyelonephritis of left kidney: Status: Acute Plan conservative therapy Acute on chronic kidney insult Pyelonephritis in setting of poorly controlled diabetes Time Spent With Patient Time: Total time managing care of this patient today ____ minutes. Procedures Date of Service Date of Service: 01/15/23
[2023-01-14 16:47] LABS: Glucose, Whole Blood 236 mg/dL (60-115)
--- NOTE | 2023-01-14 17:59 | PC.NURSE ---
pt bladder scanned after voiding at approx 1700. pvr was zero.
[2023-01-14] MEDS: Fluticasone Propionate 100 MCG BLST.W.DEV 2 PUFF INHALE (19:42)
[2023-01-14 21:19] LABS: Glucose, Whole Blood 202 mg/dL (60-115)
[2023-01-15] VITALS (7 sets, daily range): BP systolic 100–136; BP diastolic 49–62; PULSE 64–86; RESP 16–20; TEMP 36.1–36.9; O2SAT 92–99
[2023-01-15] MEDS: Heparin Sodium,Porcine 5,000 UNIT/ML VIAL 5000 UNIT SUBCUT ×3 (02:40→16:52)
[2023-01-15] MEDS: Piperacillin Sodium/Tazobactam 2.25 GM in 0.9 % Sodium Chloride 50 ML IV ×4 (04:55→22:54)
[2023-01-15] MEDS: Lactated Ringers 1,000 ML 100 ML IVCONT ×2 (05:10→13:01)
[2023-01-15 07:20] LABS: Glucose, Whole Blood 191 mg/dL (60-115)
[2023-01-15] MEDS: Fluticasone Propionate 100 MCG BLST.W.DEV 2 PUFF INHALE ×2 (07:51→19:21)
[2023-01-15] MEDS: Tamsulosin HCL 0.4 MG CAPSULE PO (07:58)
[2023-01-15] MEDS: Lidocaine 4 % Patch ADH..PATCH 1 PATCH TRANSDERMA (07:58)
[2023-01-15] MEDS: dilTIAZem HCL CD 300 MG CAP.ER.24H PO (07:58)
[2023-01-15] MEDS: Insulin Lispro 100 UNIT/ML 3 ML VIAL SUBCUT ×4 (07:58→20:27)
[2023-01-15 09:26] LABS: Anion Gap 14 (12-20); Blood Urea Nitrogen 35 mg/dL (9-16); Calcium 9.2 mg/dL (8.4-10.2); Carbon Dioxide 22 mmol/L (22-29); Chloride 104 mmol/L (96-108); Estimated Glomerular Filt Rate 22; Glucose Random 239 mg/dL (60-115); Potassium 3.8 mmol/L (3.3-5.1); Sodium 136 mmol/L (135-145)
--- NOTE | 2023-01-15 10:19 | P.CDIM_ITS ---
PROVIDER RESPONSE TEXT: To clarify, the appropriate diagnosis supported by the clinical indicators: Diabetes mellitus type 2 with hyperglycemia QUERY TEXT: PHYSICIAN'S DOCUMENTATION REQUEST Date of Query: 01/15/2023 09:06 AM EDT Patient Name: Radha Navarro Admit Date: 01/13/2023 Dear Flor Root, A review of the medical record indicates additional documentation may be needed. Please review below and update the documentation accordingly. Clinical Indicators: POC Glucose: 255 H 286 H Insulin Insulin with sliding scale coverage. Please clarify the following regarding the Complications of Diabetes Mellitus (DM): Diabetes mellitus type 2 with hyperglycemia Other Other (explain)Clinically unable to determine (explain)Thank you, Junie Gongora, CCS, CDIS Use of terms such as suspected, likely, concern for, or probable (associated with a specific diagnosi s that is being evaluated, monitored, or treated as if it exists) are acceptable and can be coded in the inpatient se tting, when documented at the time of discharge. Please use your independent medical judgment in providing your response. THIS QUERY IS PART OF THE PERMANENT MEDICAL RECORD
--- NOTE | 2023-01-15 10:46 | PM.CNNEP ---
History of Present Illness Reason for Consult Consult date: 01/15/23 Chief Complaint Chief complaint: Sepsis secondary to UTI, hydronephrosis History of Present Illness Narrative: 77-year-old female with CKD stage 4 to the hospital due to left-sided flank pain and nausea with subjective fever, chills & abdominal.?Her flank pain she describes 10/10, sharp , slight radiation to the back, she said that morphine made it better but still has some pain. At presentation she denied any dysuria . she has history of remote history of UTI. She denied any new complaint of chest pain or shortness of breath or vomiting or? any cough or? any weakness or numbness. In ED patient still has significant pain, temperature of 103 degrees, tachycardic, leukocytosis. CT abdomen showed mild to moderate left renal hydroureteronephrosis with no obstructive etiology seen. Mild left perinephric stranding also was seen. She had RONAN on CKD as well. Nephrology and Urology has been consulted to assist in her clinical care during her current hospital stay. Review of Systems Review of Systems Yes all other systems are reviewed and are negative [facility] Past Medical History Medical History Calcaneal spur, right Chronic kidney disease, stage 3 CTS (carpal tunnel syndrome) Essential hypertension Hyperlipidemia LDL goal <70 Osteoarthritis, multiple sites Osteopenia TIA (transient ischemic attack) Type 2 diabetes mellitus with chronic kidney disease Family History Family History Father Heart disease Mother Asthma Heart attack Surgical History Surgical History Hx of section Social History Social History Household Members: Other Household Members Other:: grandchild Housing: Apartment 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) Alcohol intake: former Patient Tobacco Use Status: Former Tobacco user Tobacco use type: Cigarette Cigarettes Per Day: 4 Years Smoked: 3 service: No Meds Allergies Allergy/AdvReac Type Severity Reaction Status Date / Time Sulfa (Sulfonamide Allergy Intermediate SWELLING Verified 01/13/23 12:18 Antibiotics) Active Medications: Current Medications Acetaminophen (Acetaminophen 325 Mg Tablet) 975 mg PO Q8H SANDRA Last Admin: 01/15/23 02:48 Dose: Not Given Albuterol Sulfate (Albuterol Sulfate 90 Mcg 8 Gm Inhaler) 2 puff INHALE Q6H PRN PRN Reason: Shortness Of Breath Or Wheezing Capsaicin (Capsaicin 0.025% Cream 60 Gm Tube) 1 appl TOPICAL QID PRN; Protocol PRN Reason: Pain, Mild (Pain Scale 1-3) Dextrose (Dextrose 50 % 25 Gm/50 Ml Syringe) 25 gm IVPUSH Q15M PRN; Protocol PRN Reason: per Hypoglycemia Standing Ord. Diltiazem HCl (Diltiazem Hcl Cd 300 Mg Cap.Er.24h) 300 mg PO DAILY [facility]; Protocol Last Admin: 01/15/23 07:58 Dose: 300 mg Fluticasone Propionate (Fluticasone Propionate 100 Mcg Blst.W.Dev) 2 puff INHALE RBID [facility] Last Admin: 01/15/23 07:51 Dose: 2 puff Furosemide (Furosemide 20 Mg/2 Ml Vial) 33 mg IVPUSH ONCE ONE; Protocol Stop: 01/15/23 10:45 Glucose (Glucose Gel 15 Gm Gel..Gram.) 15 gm PO Q15M PRN; Protocol PRN Reason: per Hypoglycemia Standing Ord. Heparin Sodium (Porcine) (Heparin Sodium,Porcine 5,000 Unit/Ml Vial) 5,000 unit SUBCUT Q8H [facility] Last Admin: 01/15/23 02:40 Dose: 5,000 unit Lactated Ringer's (Lr) 1,000 mls @ 100 mls/hr IVCONT .Q10H [facility] Last Admin: 01/15/23 05:10 Dose: 100 mls/hr Piperacillin Sod/Tazobactam (Sod 2.25 gm/ Sodium Chloride) 50 mls @ 100 mls/hr IV Q6H [facility] Last Infusion: 01/15/23 05:39 Dose: Infused Insulin Human Lispro (Insulin Lispro 100 Unit/Ml 3 Ml Vial) 0 unit SUBCUT QIDACHS [facility]; Protocol Last Admin: 01/15/23 07:58 Dose: 2 unit Levalbuterol HCl (Levalbuterol Hcl 1.25 Mg/3 Ml Vial.Neb) 1.25 mg INHALE Q4H PRN PRN Reason: sob Lidocaine (Lidocaine 4 % Patch Adh..Patch) 1 patch TRANSDERMA DAILY [facility]; Protocol Last Admin: 01/15/23 07:58 Dose: 1 patch Morphine Sulfate (Morphine Sulfate 2 Mg/Ml Cartridge) 1 mg IVPUSH Q3H PRN; Protocol PRN Reason: Pain, Mild (Pain Scale 1-3) Last Admin: 01/14/23 08:18 Dose: 1 mg Oxycodone HCl (Oxycodone Hcl Immed Release 5 Mg Tablet) 10 mg PO Q6H PRN PRN Reason: Pain, Mild (Pain Scale 1-3) Last Admin: 01/14/23 10:03 Dose: 10 mg Pharmacy Consult (Consult Rx Perform Med Rec) 1 each MISCELLANE ONCE PRN PRN Reason: Consult order Sodium Chloride (0.9 % Sodium Chloride Flush 3 Ml Syringe) 3 ml IVFLUSH QSHIFT [facility] Last Admin: 01/15/23 08:01 Dose: Not Given Tamsulosin HCl (Tamsulosin Hcl 0.4 Mg Capsule) 0.4 mg PO DAILY [facility] Last Admin: 01/15/23 07:58 Dose: 0.4 mg Home Medications Medication Instructions Recorded Confirmed Last Taken Type albuterol sulfate 90 mcg/actuation 2 puff inhalation Q6H PRN 11/30/20 01/13/23 01/12/23 History aerosol inhaler Shortness Of Breath Or Wheezing aspirin 81 mg tablet,delayed 81 mg PO DAILY 11/30/20 01/13/23 01/12/23 History release (Adult Aspirin Regimen) lisinopril 40 mg tablet 40 mg PO DAILY 11/30/20 01/13/23 01/12/23 History metformin 500 mg tablet 500 mg PO BID 11/30/20 01/13/23 01/12/23 History mirtazapine 45 mg tablet 45 mg PO BEDTIME 11/30/20 01/13/23 01/12/23 History empagliflozin 25 mg tablet 25 mg PO DAILY 10/27/21 01/13/23 01/12/23 History (Jardiance) glipizide 10 mg tablet 10 mg PO BIDWM 10/27/21 01/13/23 01/12/23 History allopurinol 100 mg tablet 50 mg PO DAILY 01/13/23 01/13/23 01/12/23 History diltiazem HCl 300 mg 300 mg PO DAILY 01/13/23 01/13/23 01/12/23 History capsule,extended release 24 hr dulaglutide 0.75 mg/0.5 mL 0.75 mg subcut MO@0900 01/13/23 01/13/23 01/08/23 History subcutaneous pen injector (Trulicity) fluticasone propionate 110 2 inh inhalation BID 01/13/23 01/13/23 01/12/23 History mcg/actuation HFA aerosol inhaler (Flovent HFA) hydrochlorothiazide 25 mg tablet 25 mg PO DAILY 01/13/23 01/13/23 01/12/23 History Physical Exam Vital Signs: Last Vital Signs Temp 98.0 F 01/15/23 07:20 Pulse 76 01/15/23 07:20 Resp 16 01/15/23 07:20 BP 128/60 01/15/23 07:20 Pulse Ox 92 01/15/23 07:20 O2 Del Method Room Air 01/15/23 07:20 BMI result Body Mass Index 29.2 Const General: no acute distress Eyes EOM: EOMs intact bilaterally Neck Neck: Yes supple Resp Auscultation: diminished lung sounds Cardio Rate: regular rate GI Palpation (GI): Soft to palpation Neuro General: moves all extremities Results Lab Results 01/13/23 18:30 01/15/23 08:23 Lab results: Chemistry 01/13/23 01/14/23 01/15/23 12:42 02:30 08:23 Sodium 138 132 L 136 Potassium 3.9 4.1 3.8 Carbon Dioxide 20 L 21 L 22 BUN 30 H 38 H 35 H Creatinine 1.78 H 2.40 H 2.18 H Calcium 9.8 8.8 D 9.2 Hematology 01/13/23 01/13/23 12:41 18:30 WBC 12.5 H 20.1 H Hgb 11.0 L 11.3 L Plt Count 419 H 387 Urinalysis 01/13/23 14:07 Urine Color Yellow Urine Appearance Clear Urine pH 6.5 Ur Specific [place] 1.015 Urine Protein Trace Urine Glucose (UA) >=1000 H Urine Ketones Trace Urine Blood Negative Urine Nitrite Negative Ur Leukocyte Esterase Moderate (2+) H Urine RBC 0-2 Urine WBC >50 H Ur Squamous Epith Cells 0-2 Hyaline Casts 0-2 Assessment and Plan (1) Acute kidney injury superimposed on CKD: Status: Acute Plan RONAN due to sepsis and altered auto regulation in the kidney 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 Shall closely follow up Procedures Date of Service Date of Service: 01/15/23
[2023-01-15 11:01] LABS: Glucose, Whole Blood 226 mg/dL (60-115)
--- NOTE | 2023-01-15 11:38 | MHC.CM.PN ---
EMR reviewed and per MD rounds, pt not medically cleared for D/C due to kidney failure, needs urology follow up, and still has significant pain. CM will continue to follow.
[2023-01-15] MEDS: Acetaminophen 325 MG TABLET 975 MG PO ×2 (11:58→20:27)
--- NOTE | 2023-01-15 13:53 | HO.PM.IMPN ---
Subjective Subjective Date of Service: 01/15/23 Interval History: sepsis, UTI, hydronephrosis Review of Systems Patient still has right-sided flank pain, no fever feels somewhat nauseated otherwise slowly improving. Denies any chest pain shortness of breath. Physical Exam Vital Signs: Vital Signs: Last Vital Signs Temp 98.5 F 01/15/23 11:17 Pulse 77 01/15/23 11:17 Resp 16 01/15/23 11:17 BP 116/58 L 01/15/23 11:17 Pulse Ox 95 01/15/23 11:17 O2 Del Method Room Air 01/15/23 11:17 BMI result Body Mass Index 29.2 Appearance: Alert.? Oriented X3.?has abd pain cvs: rrr, [id number]. res: clear to auscultation ,no rhonchii or wheezing abd: no rebound or guarding ,left flank pain , bs present. ext pulses present , no cyanosis. neuro: axo3 , nonfocal.? Objective Data Active Medications Acetaminophen (Acetaminophen 325 Mg Tablet) 975 mg PO Q8H [facility] Last Admin: 01/15/23 11:58 Dose: 975 mg Documented By: LUIS Albuterol Sulfate (Albuterol Sulfate 90 Mcg 8 Gm Inhaler) 2 puff INHALE Q6H PRN PRN Reason: Shortness Of Breath Or Wheezing Capsaicin (Capsaicin 0.025% Cream 60 Gm Tube) 1 appl TOPICAL QID PRN; Protocol PRN Reason: Pain, Mild (Pain Scale 1-3) Dextrose (Dextrose 50 % 25 Gm/50 Ml Syringe) 25 gm IVPUSH Q15M PRN; Protocol PRN Reason: per Hypoglycemia Standing Ord. Diltiazem HCl (Diltiazem Hcl Cd 300 Mg Cap.Er.24h) 300 mg PO DAILY [facility]; Protocol Last Admin: 01/15/23 07:58 Dose: 300 mg Documented By: LUIS Fluticasone Propionate (Fluticasone Propionate 100 Mcg Blst.W.Dev) 2 puff INHALE RBID [facility] Last Admin: 01/15/23 07:51 Dose: 2 puff Documented By: CARSON Glucose (Glucose Gel 15 Gm Gel..Gram.) 15 gm PO Q15M PRN; Protocol PRN Reason: per Hypoglycemia Standing Ord. Heparin Sodium (Porcine) (Heparin Sodium,Porcine 5,000 Unit/Ml Vial) 5,000 unit SUBCUT Q8H [facility] Last Admin: 01/15/23 11:58 Dose: 5,000 unit Documented By: LUIS Lactated Ringer's (Lr) 1,000 mls @ 100 mls/hr IVCONT .Q10H [facility] Last Admin: 01/15/23 13:01 Dose: 100 mls/hr Documented By: LUIS Piperacillin Sod/Tazobactam (Sod 2.25 gm/ Sodium Chloride) 50 mls @ 100 mls/hr IV Q6H [facility] Last Infusion: 01/15/23 12:57 Dose: 0 mls/hr Documented By: LUIS Insulin Human Lispro (Insulin Lispro 100 Unit/Ml 3 Ml Vial) 0 unit SUBCUT QIDACHS [facility]; Protocol Last Admin: 01/15/23 11:58 Dose: 4 unit Documented By: LUIS Levalbuterol HCl (Levalbuterol Hcl 1.25 Mg/3 Ml Vial.Neb) 1.25 mg INHALE Q4H PRN PRN Reason: sob Lidocaine (Lidocaine 4 % Patch Adh..Patch) 1 patch TRANSDERMA DAILY [facility]; Protocol Last Admin: 01/15/23 07:58 Dose: 1 patch Documented By: LUIS Morphine Sulfate (Morphine Sulfate 2 Mg/Ml Cartridge) 1 mg IVPUSH Q3H PRN; Protocol PRN Reason: Pain, Mild (Pain Scale 1-3) Last Admin: 01/14/23 08:18 Dose: 1 mg Documented By: KARLA Oxycodone HCl (Oxycodone Hcl Immed Release 5 Mg Tablet) 10 mg PO Q6H PRN PRN Reason: Pain, Mild (Pain Scale 1-3) Last Admin: 01/14/23 10:03 Dose: 10 mg Documented By: KARLA Pharmacy Consult (Consult Rx Perform Med Rec) 1 each MISCELLANE ONCE PRN PRN Reason: Consult order Sodium Chloride (0.9 % Sodium Chloride Flush 3 Ml Syringe) 3 ml IVFLUSH QSHIFT [facility] Last Admin: 01/15/23 08:01 Dose: Not Given Documented By: LUIS Non-Admin Reason: IV Running Tamsulosin HCl (Tamsulosin Hcl 0.4 Mg Capsule) 0.4 mg PO DAILY [facility] Last Admin: 01/15/23 07:58 Dose: 0.4 mg Documented By: LUIS Labs 01/13/23 18:30 01/15/23 08:23 Labs: Laboratory Results - last 24 hr 01/14/23 01/14/23 01/15/23 16:10 21:16 07:12 Anion Gap Estim Creat Clear Calc Estimated GFR POC Glucose 236 H 202 H 191 H Random Glucose Calcium 01/15/23 01/15/23 08:23 10:51 Anion Gap 14 Estim Creat Clear Calc 18.0 Estimated GFR 22 POC Glucose 226 H Random Glucose 239 H Calcium 9.2 Microbiology Microbiology Results: Microbiology 01/13/23 Unknown Urine Culture - Preliminary Urine clean catch - Urine walker top Culture in progress. 01/13/23 18:22 Blood Culture - Preliminary Blood - Venous No growth after 24 hours. 01/13/23 18:22 Blood Culture - Preliminary Blood - Venous No growth after 24 hours. Assessment and Plan (1) Acute kidney injury superimposed on CKD: Status: Acute (2) Hydronephrosis: Status: Acute (3) Sepsis: Status: Acute (4) Pyelonephritis of left kidney: Status: Acute Plan 77-year-old female with past medical history of diabetes, hypertension, hyperlipidemia, possible CKD stage 4 : patient came to the hospital because of 3-4 days history of left-sided flank pain. 1.possible sepsis sec to uti/pyelonephritis of left kidney : ?tachycardia ,fevers? resolved leucocytosis trending up,ua abnormal ?blood cultures neg @24hrs ,urine culturespending elevated (acute lactic acid likely sec to metformin/albutero-tredning downl )-not due to sepsis. CT abdomen shows left-sided renal stranding and hydronephrosis continue? IV fluid, antibiotics-on zosyn 01/14/23 , Tylenol, urology evaluation 2. Diabetes? type 2: Insulin with sliding scale coverage. 3. htn : continuediltiazem,hold other bp meds-consider adding back if needed for bp. 4.ckd4:seems worsenin ?obstructive uropathy Continue IV fluid, moniter renal function and electrolytes,pvr Patient is going for Lasix scan Supposed to follow-up with Nephrology outpatient but seems noncompliant. 5: asthma: seems stable continue albuterol. 6. gout: seems stable continue allopurinol 7.ct abd also shows -Cholelithiasis with probable stone in the CBD or the calvarium neck. No gallbladder wall thickening or intrahepatic duct dilatation. patient denies any ruq pain ,has mild elevated lft's added gi eval dvt prophylax: s/c heparin onging inpatient need - patient has sepsis secondary to UTI, might also need urology evaluation for hydro nephrosis and workup.? Patient also need GI evaluation for cholelithiasis?? CBD stone/elevated LFTs. . Patient daughter phone number:? [phone] daughter Time Spent With Patient Time: Total time managing care of this patient today ____ minutes. Quality Stroke Does the patient have a stroke diagnosis?: No VTE Prior VTE?: No VTE Risk Level:: Medical - moderate - high VTE Device Contraindication: N/A - Device Ordered VTE Drug Contraindication: N/A - Med Ordered
[2023-01-15 16:11] LABS: Glucose, Whole Blood 290 mg/dL (60-115)
[2023-01-15 20:25] LABS: Glucose, Whole Blood 219 mg/dL (60-115)
[2023-01-15] MEDS: oxyCODONE HCl Immed Release 5 MG TABLET 10 MG PO (20:27)
[2023-01-15 20:43] LABS: Glucose, Whole Blood 222 mg/dL (60-115)
[2023-01-15] MEDS: 0.9 % Sodium Chloride Flush 3 ML SYRINGE IVFLUSH (22:55)
[2023-01-16] VITALS (7 sets, daily range): BP systolic 113–157; BP diastolic 53–69; PULSE 56–74; RESP 14–20; TEMP 36.1–37.4; O2SAT 92–97
[2023-01-16] MEDS: Heparin Sodium,Porcine 5,000 UNIT/ML VIAL 5000 UNIT SUBCUT ×3 (01:21→17:35)
[2023-01-16] MEDS: diphenhydrAMINE HCL 50 MG/ML VIAL IVPUSH (01:21)
[2023-01-16 05:26] LABS: Estimated Average Glucose 212 mg/dL
[2023-01-16] MEDS: Piperacillin Sodium/Tazobactam 2.25 GM in 0.9 % Sodium Chloride 50 ML IV ×4 (05:45→22:18)
[2023-01-16 07:18] LABS: Hematocrit 31.7 % (37.0-47.0); Hemoglobin 9.5 g/dl (12.0-16.0); Mean Corpuscular Hemoglobin 22.8 pg (27.0-33.0); Mean Corpuscular Volume 76.2 fL (80.0-98.0); Mean Platelet Volume 10.9 fL (9.4-12.3); Platelet Count 326 X10*3/uL (160-400); Red Blood Count 4.16 X10*6/uL (4.20-5.50); Red Cell Distribution Width 16.9 % (11.0-16.0); White Blood Count 8.5 X10*3/uL (4.8-10.8)
[2023-01-16 07:38] LABS: Alanine Aminotransferase 19 U/L (0-31); Albumin Level 3.3 g/dL (3.5-5.0); Alkaline Phosphatase 77 U/L (39-117); Anion Gap 13 (12-20); Aspartate Amino Transferase 16 U/L (5-31); Bilirubin Total 0.5 mg/dL (0.0-1.0); Blood Urea Nitrogen 27 mg/dL (9-16); Carbon Dioxide 26 mmol/L (22-29); Chloride 102 mmol/L (96-108); Creatinine Clr Calc Pharmacy 22.6; Estimated Glomerular Filt Rate 28; Glucose Random 176 mg/dL (60-115); Potassium 3.5 mmol/L (3.3-5.1); Sodium 137 mmol/L (135-145); Total Protein 6.9 g/dL (6.5-8.0)
[2023-01-16 07:42] LABS: Glucose, Whole Blood 189 mg/dL (60-115)
[2023-01-16] MEDS: Insulin Lispro 100 UNIT/ML 3 ML VIAL SUBCUT ×4 (08:46→20:38)
[2023-01-16] MEDS: Lidocaine 4 % Patch ADH..PATCH 1 PATCH TRANSDERMA (08:47)
[2023-01-16] MEDS: 0.9 % Sodium Chloride Flush 3 ML SYRINGE IVFLUSH ×2 (08:47→17:36)
[2023-01-16] MEDS: dilTIAZem HCL CD 300 MG CAP.ER.24H PO (08:47)
[2023-01-16] MEDS: Tamsulosin HCL 0.4 MG CAPSULE PO (08:47)
--- NOTE | 2023-01-16 09:54 | P.DS_ITS ---
DS: Providers Provider Date of Service: 01/19/23 Date of admission: 01/13/23 14:42 Primary care physician: [facility] Consults: 01/13/23 17:51 Consult to Urology Routine Consulting Provider: [facility] Urology Services Reason for consultation: uti/hydronephrosis Has provider been notified: No 01/14/23 15:01 Consult to Nephrology Routine Consulting Provider: Rigoberto Bernabe Reason for consultation: ronan on ckd Has provider been notified: No 01/15/23 17:16 Consult to Gastroenterology Routine Consulting Provider: [facility] Gastroenterology Services Reason for consultation: cbd dilation ,elevated lft Has provider been notified: No DS: Diagnosis Discharge Diagnosis (1) Acute kidney injury superimposed on CKD: Status: Acute (2) Hydronephrosis: Status: Acute (3) Sepsis: Status: Acute (4) Pyelonephritis of left kidney: Status: Acute DS: Summary Hospital Course Hospital Course: Chief Complaint: Possible sepsis, UTI, hydronephrosis 77-year-old female with past medical history of diabetes, hypertension, hyperlipidemia, possible CKD stage 4 : patient came to the hospital because of 3-4 days history of left-sided flank pain,nauseated .? She also has subjective sense of fever.? She said she was getting tired and having abdominal pain worsening and decided to come to the hospital.? Flank pain she describes 10/10, sharp , slight radiation to the back, she said that morphine made it better but still has some pain. Feel nauseated and tired, feels feverish and has chills. Denies any dysuria type symptoms-?? She says she has history of remote history of UTI no recent events. History was taken from both pain and patient and her daughter. Denies any new complaint of chest pain or shortness of breath or vomiting or? any cough or? any weakness or numbness. Lab imaging reviewed: In ED patient still has significant pain, temperature of 103 degrees, tachycardic, leukocytosis. Leukocytosis of 12.5, lactic acid and blood culture pending to be sent CT abdomen shows:Mild to moderate left renal hydroureteronephrosis with no obstructive etiology seen. Mild left perinephric stranding seen also. Cholelithiasis with probable stone in the CBD or the calvarium neck. No gallbladder wall thickening or intrahepatic duct dilatation. Mild elevated LFTs in range of 50. Patient received ceftriaxone, morphine, Zofran and requested admission for- possible sepsis, UTI Hospital course: Patient presented with abdominal pain, nausea and vomiting and found to have UTI and possible .Pyelonephritis, blood cultures are negative, but urine culture is growing gram negative ecoli sensistive to ceftriaxone, , she has been treated with Zosyn but will transition to oral Ceftin for total of 10 days of antibiotics. RONAN has resolved with IVF, her blood pressure medication Lisinopril has been adjusted to 20 mg daily from 40 daily, and will repeat lab in a week Time Spent with Patient Time attestation: Total time managing care of this patient today ____ minutes. Discharge coordination time: Greater than 30 minutes Quality: Safe Use of Opioids Does Pt have an Active Cancer Diagnosis on the Problem List?: No Quality: Stroke Does the patient have a stroke diagnosis?: No Physical Exam Vital Signs: Vital Signs: Selected Entries 01/19/23 11:22 Temperature 97.3 F Pulse Rate 88 Respiratory Rate 20 Blood Pressure 121/60 Pulse Oximetry 99 Oxygen Delivery Me thod Room Air Const: Other: General: AO X 3, no acute distress Resp: CTA bilateral CVS: S1,S2,RRR GI: +BS, NT, no distention Skin: No rash Neuro: motor grossly intact Psych: appropriate affect DS: Data Data Completed and Pending Labs on day of discharge: Laboratory Results - last 24 hr 01/15/23 01/15/23 01/15/23 10:51 16:06 19:13 WBC RBC Hgb Hct MCV MCH MCHC RDW Plt Count MPV Absolute Nucleated RBC Nucleated RBC % (auto) Sodium Potassium Chloride Carbon Dioxide Anion Gap BUN Creatinine Estim Creat Clear Calc Estimated GFR POC Glucose 226 H 290 H Random Glucose Estimat Average Glucose 212 Hemoglobin A1c % 9.0 Calcium Total Bilirubin AST ALT Alkaline Phosphatase Total Protein Albumin 01/15/23 01/15/23 01/16/23 20:22 20:37 06:39 WBC 8.5 RBC 4.16 L Hgb 9.5 L Hct 31.7 L MCV 76.2 L MCH 22.8 L MCHC 30.0 L RDW 16.9 H Plt Count 326 MPV 10.9 Absolute Nucleated RBC 0.000 Nucleated RBC % (auto) 0.0 Sodium Potassium Chloride Carbon Dioxide Anion Gap BUN Creatinine Estim Creat Clear Calc Estimated GFR POC Glucose 219 H 222 H Random Glucose Estimat Average Glucose Hemoglobin A1c % Calcium Total Bilirubin AST ALT Alkaline Phosphatase Total Protein Albumin 01/16/23 01/16/23 06:39 07:36 WBC RBC Hgb Hct MCV MCH MCHC RDW Plt Count MPV Absolute Nucleated RBC Nucleated RBC % (auto) Sodium 137 Potassium 3.5 Chloride 102 Carbon Dioxide 26 Anion Gap 13 BUN 27 H Creatinine 1.74 H Estim Creat Clear Calc 22.6 Estimated GFR 28 POC Glucose 189 H Random Glucose 176 H Estimat Average Glucose Hemoglobin A1c % Calcium 9.0 Total Bilirubin 0.5 AST 16 ALT 19 Alkaline Phosphatase 77 Total Protein 6.9 Albumin 3.3 L Preliminary micro results at discharge 01/13/23 Unknown Urine Culture - Preliminary Urine clean catch - Urine walker top Gram negative rocio 01/13/23 18:22 Blood Culture - Preliminary Blood - Venous No growth after 48 hours. 01/13/23 18:22 Blood Culture - Preliminary Blood - Venous No growth after 48 hours. Discharge Plan Discharge Anticipated Discharge Date/Time: 01/19/23 10:21 Patient Disposition: Home, Self-Care Discharge Diagnosis: UTI, pyelonephritis Referrals: [place] [Primary Care Provider] - 1 Week Discharge Medications: New cefuroxime axetil 500 mg tablet 500 mg PO BID 5 Days Qty: 10 0RF lisinopril 20 mg tablet 20 mg PO DAILY Qty: 30 0RF Continued (DME) OneTouch Verio test strips Strip See Rx Instructions .Route Qty: 50 11RF Rx Instructions: Use 1 test strip three times a day diltiazem HCl 300 mg capsule,extended release 24hr 300 mg PO DAILY fluticasone propionate [Flovent HFA] 110 mcg/actuation HFA aerosol inhaler 2 inh inhalation BID Trulicity 0.75 mg/0.5 mL pen injector 0.75 mg subcut MO@0900 allopurinol 100 mg tablet 50 mg PO DAILY mirtazapine 45 mg tablet 45 mg PO BEDTIME aspirin [Adult Aspirin Regimen] 81 mg tablet,delayed release (DR/EC) 81 mg PO DAILY albuterol sulfate 90 mcg/actuation HFA aerosol inhaler 2 puff inhalation Q6H PRN (Reason: Shortness Of Breath Or Wheezing) glipizide 10 mg tablet 10 mg PO BIDWM Jardiance 25 mg tablet 25 mg PO DAILY (DME) pen needle, diabetic [BD Jackeline 2nd Gen Pen Needle] 32 gauge x 5/32 needle See Rx Instructions .ROUTE .MEDSUPPLY Qty: 50 11RF Rx Instructions: As directed one time a day (DME) blood sugar diagnostic Strip See Rx Instructions .ROUTE .MEDSUPPLY Qty: 100 11RF Rx Instructions: As directed three times a day Discontinued hydrochlorothiazide 25 mg tablet 25 mg PO DAILY lisinopril 40 mg tablet 40 mg PO DAILY metformin 500 mg tablet 500 mg PO BID Discharge Orders: Discharge Order (Routine); Ordered 01/19/23 Ordered By: Oscar Plata Diet: Advance to usual diet Activity on Discharge: As tolerated Stand Alone Forms: Patient Portal Discharge page Care Plan Goals: full recovery from renal failure Health Concerns: kdiney failure Plan of Treatment: take cefuroxime (antibiotics) to treat UTI Please note that your blood pressure medication (Lisinopril ) dose has been reduced to 20 mg daily from 40 mg daily, you will have lab work (BMP) done within a week follow up with your doctor in one week Assessment: as above
--- NOTE | 2023-01-16 10:13 | PM.PNNEP ---
Subjective Subjective Date of Service: 01/16/23 Interval history: Seen AM. All reccent data reviewed. S/W Med Attending Physical Exam Vital Signs: Vital Signs: Last Vital Signs Temp 97.9 F 01/16/23 07:34 Pulse 68 01/16/23 07:34 Resp 20 01/16/23 07:34 BP 141/67 H 01/16/23 07:34 Pulse Ox 97 01/16/23 07:34 O2 Del Method Room Air 01/16/23 07:34 BMI result Body Mass Index 29.2 Const: General: no acute distress Eyes: EOM: EOMs intact bilaterally Neck: Neck: Yes supple Resp: Auscultation: diminished lung sounds Cardio: Rate: regular rate GI: Palpation (GI): Soft to palpation Neuro: General: moves all extremities Objective Data Labs 01/16/23 06:39 01/16/23 06:39 Labs: Laboratory Results - last 24 hr 01/15/23 01/15/23 01/15/23 10:51 16:06 19:13 WBC RBC Hgb Hct MCV MCH MCHC RDW Plt Count MPV Absolute Nucleated RBC Nucleated RBC % (auto) Sodium Potassium Chloride Carbon Dioxide Anion Gap BUN Creatinine Estim Creat Clear Calc Estimated GFR POC Glucose 226 H 290 H Random Glucose Estimat Average Glucose 212 Hemoglobin A1c % 9.0 Calcium Total Bilirubin AST ALT Alkaline Phosphatase Total Protein Albumin 01/15/23 01/15/23 01/16/23 20:22 20:37 06:39 WBC 8.5 RBC 4.16 L Hgb 9.5 L Hct 31.7 L MCV 76.2 L MCH 22.8 L MCHC 30.0 L RDW 16.9 H Plt Count 326 MPV 10.9 Absolute Nucleated RBC 0.000 Nucleated RBC % (auto) 0.0 Sodium Potassium Chloride Carbon Dioxide Anion Gap BUN Creatinine Estim Creat Clear Calc Estimated GFR POC Glucose 219 H 222 H Random Glucose Estimat Average Glucose Hemoglobin A1c % Calcium Total Bilirubin AST ALT Alkaline Phosphatase Total Protein Albumin 01/16/23 01/16/23 06:39 07:36 WBC RBC Hgb Hct MCV MCH MCHC RDW Plt Count MPV Absolute Nucleated RBC Nucleated RBC % (auto) Sodium 137 Potassium 3.5 Chloride 102 Carbon Dioxide 26 Anion Gap 13 BUN 27 H Creatinine 1.74 H Estim Creat Clear Calc 22.6 Estimated GFR 28 POC Glucose 189 H Random Glucose 176 H Estimat Average Glucose Hemoglobin A1c % Calcium 9.0 Total Bilirubin 0.5 AST 16 ALT 19 Alkaline Phosphatase 77 Total Protein 6.9 Albumin 3.3 L Microbiology Microbiology Results: Microbiology 01/13/23 Unknown Urine clean catch - Urine walker top Urine Culture - Preliminary Gram negative rocio 01/13/23 18:22 Blood - Venous Blood Culture - Preliminary No growth after 48 hours. 01/13/23 18:22 Blood - Venous Blood Culture - Preliminary No growth after 48 hours. Procedures Date of Service Date of Service: 01/16/23 Assessment & Plan Assessment and plan (1) Acute kidney injury superimposed on CKD: Status: Acute Assessment and Plan: RONAN due to compromise in renal perfusion Has CKD 3b at baseline; UO good ACEI/Diuretics/SGLT2 I had been on hold Renal function improved; Renal Scan reviewed Non compliant with office follow up appointments C/W rest of current management Progress Note: Quality Stroke Does the patient have a stroke diagnosis?: No
--- NOTE | 2023-01-16 10:23 | HO.PM.IMPN ---
Subjective Subjective Date of Service: 01/16/23 Interval History: f/u on uti, renetta interval history still has some pain on side, no fever Physical Exam Vital Signs: Vital Signs: Last Vital Signs Temp 97.9 F 01/16/23 07:34 Pulse 68 01/16/23 07:34 Resp 20 01/16/23 07:34 BP 141/67 H 01/16/23 07:34 Pulse Ox 97 01/16/23 07:34 O2 Del Method Room Air 01/16/23 07:34 BMI result Body Mass Index 29.2 Objective Data Active Medications Acetaminophen (Acetaminophen 325 Mg Tablet) 975 mg PO Q8H [facility] Last Admin: 01/16/23 03:04 Dose: Not Given Documented By: ROCIO Non-Admin Reason: Patient Refused Albuterol Sulfate (Albuterol Sulfate 90 Mcg 8 Gm Inhaler) 2 puff INHALE Q6H PRN PRN Reason: Shortness Of Breath Or Wheezing Capsaicin (Capsaicin 0.025% Cream 60 Gm Tube) 1 appl TOPICAL QID PRN; Protocol PRN Reason: Pain, Mild (Pain Scale 1-3) Dextrose (Dextrose 50 % 25 Gm/50 Ml Syringe) 25 gm IVPUSH Q15M PRN; Protocol PRN Reason: per Hypoglycemia Standing Ord. Diltiazem HCl (Diltiazem Hcl Cd 300 Mg Cap.Er.24h) 300 mg PO DAILY [facility]; Protocol Last Admin: 01/16/23 08:47 Dose: 300 mg Documented By: ELÍAS Fluticasone Propionate (Fluticasone Propionate 100 Mcg Blst.W.Dev) 2 puff INHALE RBID [facility] Last Admin: 01/16/23 08:15 Dose: Not Given Documented By: SALVADOR Non-Admin Reason: Pt refused, c/o made lips red and sore. RN aw Glucose (Glucose Gel 15 Gm Gel..Gram.) 15 gm PO Q15M PRN; Protocol PRN Reason: per Hypoglycemia Standing Ord. Heparin Sodium (Porcine) (Heparin Sodium,Porcine 5,000 Unit/Ml Vial) 5,000 unit SUBCUT Q8H [facility] Last Admin: 01/16/23 01:21 Dose: 5,000 unit Documented By: ROCIO Piperacillin Sod/Tazobactam (Sod 2.25 gm/ Sodium Chloride) 50 mls @ 100 mls/hr IV Q6H [facility] Last Infusion: 01/16/23 06:20 Dose: 0 mls/hr Documented By: ROCIO Insulin Human Lispro (Insulin Lispro 100 Unit/Ml 3 Ml Vial) 0 unit SUBCUT QIDACHS [facility]; Protocol Last Admin: 01/16/23 08:46 Dose: 2 unit Documented By: ELÍAS Levalbuterol HCl (Levalbuterol Hcl 1.25 Mg/3 Ml Vial.Neb) 1.25 mg INHALE Q4H PRN PRN Reason: sob Lidocaine (Lidocaine 4 % Patch Adh..Patch) 1 patch TRANSDERMA DAILY [facility]; Protocol Last Admin: 01/16/23 08:47 Dose: 1 patch Documented By: ELÍAS Morphine Sulfate (Morphine Sulfate 2 Mg/Ml Cartridge) 1 mg IVPUSH Q3H PRN; Protocol PRN Reason: Pain, Mild (Pain Scale 1-3) Last Admin: 01/14/23 08:18 Dose: 1 mg Documented By: KARLA Oxycodone HCl (Oxycodone Hcl Immed Release 5 Mg Tablet) 10 mg PO Q6H PRN PRN Reason: Pain, Mild (Pain Scale 1-3) Last Admin: 01/15/23 20:27 Dose: 10 mg Documented By: ROCIO Pharmacy Consult (Consult Rx Perform Med Rec) 1 each MISCELLANE ONCE PRN PRN Reason: Consult order Sodium Chloride (0.9 % Sodium Chloride Flush 3 Ml Syringe) 3 ml IVFLUSH QSHIFT [facility] Last Admin: 01/16/23 08:47 Dose: 3 ml Documented By: ELÍAS Tamsulosin HCl (Tamsulosin Hcl 0.4 Mg Capsule) 0.4 mg PO DAILY [facility] Last Admin: 01/16/23 08:47 Dose: 0.4 mg Documented By: ELÍAS Labs 01/16/23 06:39 01/16/23 06:39 Labs: Laboratory Results - last 24 hr 01/15/23 01/15/23 01/15/23 10:51 16:06 19:13 MCV MCH MCHC RDW Plt Count MPV Absolute Nucleated RBC Nucleated RBC % (auto) Anion Gap Estim Creat Clear Calc Estimated GFR POC Glucose 226 H 290 H Random Glucose Estimat Average Glucose 212 Hemoglobin A1c % 9.0 Calcium Total Bilirubin AST ALT Alkaline Phosphatase Total Protein Albumin 01/15/23 01/15/23 01/16/23 20:22 20:37 06:39 MCV 76.2 L MCH 22.8 L MCHC 30.0 L RDW 16.9 H Plt Count 326 MPV 10.9 Absolute Nucleated RBC 0.000 Nucleated RBC % (auto) 0.0 Anion Gap Estim Creat Clear Calc Estimated GFR POC Glucose 219 H 222 H Random Glucose Estimat Average Glucose Hemoglobin A1c % Calcium Total Bilirubin AST ALT Alkaline Phosphatase Total Protein Albumin 01/16/23 01/16/23 06:39 07:36 MCV MCH MCHC RDW Plt Count MPV Absolute Nucleated RBC Nucleated RBC % (auto) Anion Gap 13 Estim Creat Clear Calc 22.6 Estimated GFR 28 POC Glucose 189 H Random Glucose 176 H Estimat Average Glucose Hemoglobin A1c % Calcium 9.0 Total Bilirubin 0.5 AST 16 ALT 19 Alkaline Phosphatase 77 Total Protein 6.9 Albumin 3.3 L Microbiology Microbiology Results: Microbiology 01/13/23 Unknown Urine Culture - Preliminary Urine clean catch - Urine walker top Gram negative rocio 01/13/23 18:22 Blood Culture - Preliminary Blood - Venous No growth after 48 hours. 01/13/23 18:22 Blood Culture - Preliminary Blood - Venous No growth after 48 hours. Assessment and Plan (1) Acute kidney injury superimposed on CKD: Status: Acute (2) Hydronephrosis: Status: Acute (3) Sepsis: Status: Acute (4) Pyelonephritis of left kidney: Status: Acute Plan 77-year-old female with past medical history of diabetes, hypertension, hyperlipidemia, possible CKD stage 4 : patient came to the hospital because of 3-4 days history of left-sided flank pain. 1Sepsis d/t uit, ? pyelonephritis continue zosy, final culture probably tomorrow 2. Diabetes? type 2: Insulin with sliding scale coverage. HTN--meds on hold now 4.CKD 4 with mild RENETTA, Cr now within baseline 5: Asthma: seems stable continue albuterol. 6. Gout, allopurinol 7.ct abd also shows -Cholelithiasis with probable stone in the CBD or the calvarium neck. No gallbladder wall thickening or intrahepatic duct dilatation. patient denies any ruq pain ,has mild elevated lft's gi consult pen dvt prophylax: s/c heparin need for inpatient : sepsis on iV, waiting for culture sensitivity Time Spent With Patient Time: Total time managing care of this patient today ____ minutes. Quality Stroke Does the patient have a stroke diagnosis?: No VTE Prior VTE?: No VTE Risk Level:: Medical - moderate - high VTE Device Contraindication: N/A - Device Ordered VTE Drug Contraindication: N/A - Med Ordered
[2023-01-16] MEDS: Acetaminophen 325 MG TABLET 975 MG PO ×2 (10:54→18:36)
[2023-01-16 11:07] LABS: Glucose, Whole Blood 251 mg/dL (60-115)
[2023-01-16 16:11] LABS: Glucose, Whole Blood 255 mg/dL (60-115)
[2023-01-16 20:12] LABS: Glucose, Whole Blood 178 mg/dL (60-115)
[2023-01-16] MEDS: Loperamide HCl 2 MG CAPSULE 4 MG PO (22:18)
[2023-01-17] MEDS: Heparin Sodium,Porcine 5,000 UNIT/ML VIAL 5000 UNIT SUBCUT ×3 (03:07→17:10)
[2023-01-17] MEDS: Acetaminophen 325 MG TABLET 975 MG PO ×3 (03:08→18:28)
[2023-01-17 03:10] VITALS: BP 160/70; PULSE 66; RESP 20; TEMP 36.6; O2SAT 96
[2023-01-17] MEDS: Piperacillin Sodium/Tazobactam 2.25 GM in 0.9 % Sodium Chloride 50 ML IV ×4 (05:19→22:48)
[2023-01-17 07:05] VITALS: BP 130/65; PULSE 70; RESP 16; TEMP 37; O2SAT 96
[2023-01-17 07:05] LABS: Glucose, Whole Blood 205 mg/dL (60-115)
[2023-01-17] MEDS: Lidocaine 4 % Patch ADH..PATCH 1 PATCH TRANSDERMA (08:04)
[2023-01-17] MEDS: Insulin Lispro 100 UNIT/ML 3 ML VIAL SUBCUT ×4 (08:04→21:42)
[2023-01-17] MEDS: Tamsulosin HCL 0.4 MG CAPSULE PO (08:05)
[2023-01-17] MEDS: 0.9 % Sodium Chloride Flush 3 ML SYRINGE IVFLUSH ×3 (08:05→22:48)
[2023-01-17] MEDS: dilTIAZem HCL CD 300 MG CAP.ER.24H PO (08:05)
[2023-01-17 11:16] LABS: Glucose, Whole Blood 254 mg/dL (60-115)
[2023-01-17 11:42] VITALS: BP 130/61; PULSE 87; RESP 16; TEMP 36.3; O2SAT 100
--- NOTE | 2023-01-17 13:11 | PM.PNNEP ---
Subjective Subjective Date of Service: 01/17/23 Interval history: All recent events noted. All data reveiwed Physical Exam Vital Signs: Vital Signs: Last Vital Signs Temp 97.4 F 01/17/23 11:42 Pulse 87 01/17/23 11:42 Resp 16 01/17/23 11:42 BP 130/61 01/17/23 11:42 Pulse Ox 100 01/17/23 11:42 O2 Del Method Room Air 01/17/23 11:42 BMI result Body Mass Index 29.2 Const: General: no acute distress Eyes: EOM: EOMs intact bilaterally Neck: Neck: Yes supple Resp: Auscultation: diminished lung sounds Cardio: Rate: regular rate GI: Palpation (GI): Soft to palpation Neuro: General: moves all extremities Objective Data Labs 01/16/23 06:39 01/16/23 06:39 Labs: Laboratory Results - last 24 hr 01/16/23 01/16/23 01/17/23 16:08 20:08 07:01 POC Glucose 255 H 178 H 205 H 01/17/23 11:09 POC Glucose 254 H Microbiology Microbiology Results: Microbiology 01/13/23 Unknown Urine clean catch - Urine walker top Urine Culture - Preliminary Gram negative rocio 01/13/23 18:22 Blood - Venous Blood Culture - Preliminary No growth after 48 hours. 01/13/23 18:22 Blood - Venous Blood Culture - Preliminary No growth after 48 hours. Procedures Date of Service Date of Service: 01/17/23 Assessment & Plan Assessment and plan (1) Acute kidney injury superimposed on CKD: Status: Acute Assessment and Plan: RONAN due to compromise in renal perfusion Has CKD 3b at baseline; UO good ACEI/Diuretics/SGLT2 I had been on hold Renal function improved; Renal Scan reviewed Non compliant with office follow up appointments C/W rest of current management Progress Note: Quality Stroke Does the patient have a stroke diagnosis?: No
[2023-01-17 15:40] VITALS: BP 143/63; PULSE 73; RESP 18; TEMP 36.7; O2SAT 97
[2023-01-17 16:13] LABS: Glucose, Whole Blood 170 mg/dL (60-115)
[2023-01-17 19:49] VITALS: BP 156/74; PULSE 83; RESP 18; TEMP 37.1; O2SAT 97
[2023-01-17 20:44] LABS: Glucose, Whole Blood 229 mg/dL (60-115)
[2023-01-17 23:08] VITALS: BP 155/79; PULSE 61; RESP 16; TEMP 36.6; O2SAT 96
[2023-01-18] MEDS: Acetaminophen 325 MG TABLET 975 MG PO ×3 (03:14→18:43)
[2023-01-18] MEDS: Heparin Sodium,Porcine 5,000 UNIT/ML VIAL 5000 UNIT SUBCUT ×3 (03:14→17:07)
[2023-01-18 03:24] VITALS: BP 150/67; PULSE 78; RESP 14; TEMP 36.3; O2SAT 97
[2023-01-18] MEDS: Piperacillin Sodium/Tazobactam 2.25 GM in 0.9 % Sodium Chloride 50 ML IV ×4 (04:41→22:37)
[2023-01-18 07:05] VITALS: BP 138/73; PULSE 71; RESP 20; TEMP 36.8; O2SAT 95
[2023-01-18 07:24] LABS: Glucose, Whole Blood 166 mg/dL (60-115)
[2023-01-18] MEDS: Insulin Lispro 100 UNIT/ML 3 ML VIAL SUBCUT ×4 (07:44→22:37)
[2023-01-18] MEDS: dilTIAZem HCL CD 300 MG CAP.ER.24H PO (07:45)
[2023-01-18] MEDS: Tamsulosin HCL 0.4 MG CAPSULE PO (07:46)
[2023-01-18] MEDS: 0.9 % Sodium Chloride Flush 3 ML SYRINGE IVFLUSH ×3 (07:46→22:38)
--- NOTE | 2023-01-18 10:00 | HO.PM.IMPN ---
Subjective Subjective Date of Service: 01/18/23 Interval History: f/u on uti, renetta interval history still has some pain on side, no fever Physical Exam Vital Signs: Vital Signs: Last Vital Signs Temp 98.2 F 01/18/23 07:05 Pulse 71 01/18/23 07:05 Resp 20 01/18/23 07:05 BP 138/73 01/18/23 07:05 Pulse Ox 95 01/18/23 07:05 O2 Del Method Room Air 01/18/23 07:05 BMI result Body Mass Index 29.2 Const: Other: General: AO X 3, no acute distress Resp: CTA bilateral CVS: S1,S2,RRR GI: +BS, NT, no distention Skin: No rash Neuro: motor grossly intact Psych: appropriate affect Objective Data Active Medications Acetaminophen (Acetaminophen 325 Mg Tablet) 975 mg PO Q8H [facility] Last Admin: 01/18/23 03:14 Dose: 975 mg Documented By: DIVYA Albuterol Sulfate (Albuterol Sulfate 90 Mcg 8 Gm Inhaler) 2 puff INHALE Q6H PRN PRN Reason: Shortness Of Breath Or Wheezing Capsaicin (Capsaicin 0.025% Cream 60 Gm Tube) 1 appl TOPICAL QID PRN; Protocol PRN Reason: Pain, Mild (Pain Scale 1-3) Dextrose (Dextrose 50 % 25 Gm/50 Ml Syringe) 25 gm IVPUSH Q15M PRN; Protocol PRN Reason: per Hypoglycemia Standing Ord. Diltiazem HCl (Diltiazem Hcl Cd 300 Mg Cap.Er.24h) 300 mg PO DAILY [facility]; Protocol Last Admin: 01/18/23 07:45 Dose: 300 mg Documented By: KENNEDY Fluticasone Propionate (Fluticasone Propionate 100 Mcg Blst.W.Dev) 2 puff INHALE RBID [facility] Last Admin: 01/18/23 07:58 Dose: Not Given Documented By: KACI Non-Admin Reason: Patient Refused Glucose (Glucose Gel 15 Gm Gel..Gram.) 15 gm PO Q15M PRN; Protocol PRN Reason: per Hypoglycemia Standing Ord. Heparin Sodium (Porcine) (Heparin Sodium,Porcine 5,000 Unit/Ml Vial) 5,000 unit SUBCUT Q8H [facility] Last Admin: 01/18/23 03:14 Dose: 5,000 unit Documented By: DIVYA Piperacillin Sod/Tazobactam (Sod 2.25 gm/ Sodium Chloride) 50 mls @ 100 mls/hr IV Q6H [facility] Last Infusion: 01/18/23 05:21 Dose: 0 mls/hr Documented By: NISHI Insulin Human Lispro (Insulin Lispro 100 Unit/Ml 3 Ml Vial) 0 unit SUBCUT QIDACHS [facility]; Protocol Last Admin: 01/18/23 07:44 Dose: 2 unit Documented By: KENNEDY Levalbuterol HCl (Levalbuterol Hcl 1.25 Mg/3 Ml Vial.Neb) 1.25 mg INHALE Q4H PRN PRN Reason: sob Lidocaine (Lidocaine 4 % Patch Adh..Patch) 1 patch TRANSDERMA DAILY [facility]; Protocol Last Admin: 01/18/23 07:48 Dose: Not Given Documented By: KENNEDY Non-Admin Reason: Patient Refused Loperamide HCl (Loperamide Hcl 2 Mg Capsule) 4 mg PO Q4H PRN PRN Reason: Diarrhea Last Admin: 01/16/23 22:18 Dose: 4 mg Documented By: VERA Morphine Sulfate (Morphine Sulfate 2 Mg/Ml Cartridge) 1 mg IVPUSH Q3H PRN; Protocol PRN Reason: Pain, Mild (Pain Scale 1-3) Last Admin: 01/14/23 08:18 Dose: 1 mg Documented By: KARLA Oxycodone HCl (Oxycodone Hcl Immed Release 5 Mg Tablet) 10 mg PO Q6H PRN PRN Reason: Pain, Mild (Pain Scale 1-3) Last Admin: 01/15/23 20:27 Dose: 10 mg Documented By: ROCIO Pharmacy Consult (Consult Rx Perform Med Rec) 1 each MISCELLANE ONCE PRN PRN Reason: Consult order Sodium Chloride (0.9 % Sodium Chloride Flush 3 Ml Syringe) [facility] Admin: 01/18/23 07:46 Dose: 3 ml Documented By: KENNEDY Tamsulosin HCl (Tamsulosin Hcl 0.4 Mg Capsule) 0.4 mg PO DAILY [facility] Last Admin: 01/18/23 07:46 Dose: 0.4 mg Documented By: KENNEDY Labs 01/16/23 06:39 01/16/23 06:39 Labs: Laboratory Results - last 24 hr 01/17/23 01/17/23 01/17/23 11:09 16:08 20:37 POC Glucose 254 H 170 H 229 H 01/18/23 07:08 POC Glucose 166 H Microbiology Microbiology Results: Microbiology 01/13/23 Unknown Urine Culture - Preliminary Urine clean catch - Urine walker top Gram negative rocio Assessment and Plan (1) Acute kidney injury superimposed on CKD: Status: Acute (2) Hydronephrosis: Status: Acute (3) Sepsis: Status: Acute (4) Pyelonephritis of left kidney: Status: Acute Plan 77-year-old female with past medical history of diabetes, hypertension, hyperlipidemia, possible CKD stage 4 : patient came to the hospital because of 3-4 days history of left-sided flank pain. 1Sepsis d/t uit, ? pyelonephritis continue zosy, final culture still pending 2. Diabetes? type 2: Insulin with sliding scale coverage. HTN--meds on hold now 4.CKD 4 with mild RENETTA, Cr now within baseline 5: Asthma: seems stable continue albuterol. 6. Gout, allopurinol 7.ct abd also shows -Cholelithiasis with probable stone in the CBD or the calvarium neck. No gallbladder wall thickening or intrahepatic duct dilatation. patient denies any ruq pain ,has mild elevated lft's gi consult pen dvt prophylax: s/c heparin need for inpatient : sepsis on iV, waiting for culture sensitivity Time Spent With Patient Time: Total time managing care of this patient today ____ minutes. Quality Stroke Does the patient have a stroke diagnosis?: No VTE Prior VTE?: No VTE Risk Level:: Medical - moderate - high VTE Device Contraindication: N/A - Device Ordered VTE Drug Contraindication: N/A - Med Ordered
[2023-01-18 11:04] VITALS: BP 140/65; PULSE 71; RESP 20; TEMP 36.1; O2SAT 96
--- NOTE | 2023-01-18 11:11 | P.CDIM_ITS ---
PROVIDER RESPONSE TEXT: To clarify, the appropriate diagnosis supported by the clinical indicators: Chronic kidney disease Stage 4 QUERY TEXT: PHYSICIAN'S DOCUMENTATION REQUEST Date of Query: 01/17/2023 08:56 AM EDT Patient Name: Radha Navarro Admit Date: 01/13/2023 Dear Oscar Plata, A review of the medical record indicates additional documentation may be needed. Please review below and update the documentation accordingly. Clinical Indicators: Nephrology progress note dated 01/16 - RONAN due to compromise in renal profusion has CKD 3b at baseline . PN: 01/15 & 01/16 - Possible CKD 4 Plan: CKD 4 with mild RONAN, Cr now within baseline. Please clarify which of the following accurately represents the patient's CKD stage for consistency w ithin the medical record: Chronic kidney disease Stage 4 Chronic kidney disease Stage 3b Other Other (explain)Clinically unable to determine (explain)Thank you, Junie Gongora, CCS, CDIS Use of terms such as suspected, likely, concern for, or probable (associated with a specific diagnosi s that is being evaluated, monitored, or treated as if it exists) are acceptable and can be coded in the inpatient se tting, when documented at the time of discharge. Please use your independent medical judgment in providing your response. THIS QUERY IS PART OF THE PERMANENT MEDICAL RECORD
[2023-01-18 11:40] LABS: Glucose, Whole Blood 230 mg/dL (60-115)
--- NOTE | 2023-01-18 12:32 | PM.PNNEP ---
Subjective Subjective Date of Service: 01/18/23 Interval history: Events noted; Remains on Zosyn. All recent data reviewed Physical Exam Vital Signs: Vital Signs: Last Vital Signs Temp 97.0 F 01/18/23 11:04 Pulse 71 01/18/23 11:04 Resp 20 01/18/23 11:04 BP 140/65 H 01/18/23 11:04 Pulse Ox 96 01/18/23 11:04 O2 Del Method Room Air 01/18/23 11:04 BMI result Body Mass Index 29.2 Const: General: no acute distress Orientation/consciousness: patient oriented x3 Eyes: EOM: EOMs intact bilaterally Neck: Neck: Yes supple Resp: Auscultation: diminished lung sounds Cardio: Rate: regular rate GI: Palpation (GI): Soft to palpation Neuro: General: patient oriented x3 and moves all extremities Objective Data Labs 01/16/23 06:39 01/16/23 06:39 Labs: Laboratory Results - last 24 hr 01/17/23 01/17/23 01/18/23 16:08 20:37 07:08 POC Glucose 170 H 229 H 166 H 01/18/23 11:05 POC Glucose 230 H Microbiology Microbiology Results: Microbiology 01/13/23 Unknown Urine clean catch - Urine walker top Urine Culture - Final Escherichia coli 01/13/23 18:22 Blood - Venous Blood Culture - Preliminary No growth after 48 hours. 01/13/23 18:22 Blood - Venous Blood Culture - Preliminary No growth after 48 hours. Procedures Date of Service Date of Service: 01/18/23 Assessment & Plan Assessment and plan (1) Acute kidney injury superimposed on CKD: Status: Acute Assessment and Plan: RONAN due to compromise in renal perfusion Has CKD 3b at baseline; UO good ACEI/Diuretics/SGLT2 I had been on hold Renal function improved; Renal Scan reviewed Non compliant with office follow up appointments C/W rest of current management; Labs AM Progress Note: Quality Stroke Does the patient have a stroke diagnosis?: No
[2023-01-18 15:49] VITALS: BP 148/69; PULSE 66; RESP 17; TEMP 37.1; O2SAT 98
[2023-01-18 16:19] LABS: Glucose, Whole Blood 216 mg/dL (60-115)
[2023-01-18 19:30] VITALS: BP 138/63; PULSE 89; RESP 18; TEMP 37.1; O2SAT 98
[2023-01-18 20:11] LABS: Glucose, Whole Blood 186 mg/dL (60-115)
[2023-01-19] VITALS: BP 143/68; PULSE 67; RESP 20; TEMP 36.7; O2SAT 97
[2023-01-19 04:00] VITALS: BP 149/71; PULSE 79; RESP 20; TEMP 37.4; O2SAT 96
[2023-01-19] MEDS: Heparin Sodium,Porcine 5,000 UNIT/ML VIAL 5000 UNIT SUBCUT (04:39)
[2023-01-19] MEDS: Acetaminophen 325 MG TABLET 975 MG PO ×2 (04:39→11:08)
[2023-01-19] MEDS: Piperacillin Sodium/Tazobactam 2.25 GM in 0.9 % Sodium Chloride 50 ML IV ×2 (04:41→11:08)
[2023-01-19 07:20] VITALS: BP 161/74; PULSE 77; RESP 20; TEMP 37; O2SAT 95
[2023-01-19 07:37] LABS: Glucose, Whole Blood 167 mg/dL (60-115)
[2023-01-19] MEDS: Tamsulosin HCL 0.4 MG CAPSULE PO (08:03)
[2023-01-19] MEDS: Insulin Lispro 100 UNIT/ML 3 ML VIAL SUBCUT ×2 (08:03→12:20)
[2023-01-19] MEDS: dilTIAZem HCL CD 300 MG CAP.ER.24H PO (08:03)
[2023-01-19 11:22] VITALS: BP 121/60; PULSE 88; RESP 20; TEMP 36.3; O2SAT 99
[2023-01-19 11:33] LABS: Glucose, Whole Blood 184 mg/dL (60-115)
[2023-01-19 11:55] LABS: Anion Gap 13 (12-20); Blood Urea Nitrogen 16 mg/dL (9-16); Calcium 9.9 mg/dL (8.4-10.2); Carbon Dioxide 23 mmol/L (22-29); Chloride 103 mmol/L (96-108); Creatinine Clr Calc Pharmacy 26.6; Estimated Glomerular Filt Rate 34; Glucose Random 192 mg/dL (60-115); Potassium 3.9 mmol/L (3.3-5.1); Sodium 135 mmol/L (135-145)
--- NOTE | 2023-01-19 13:50 | MHC.CM.PN ---
Second IMM given 01/19. EMR reviewed and per MD rounds, pt medically cleared for D/C home with resumption of previous [employer] services. Pts daughter will transport.
== END 2023-01-19 15:53 | disposition home or self-care (01) | DRG 872 ==
LOC: HO.ED 16:47 → HO.EDOVER 18:11 → HO.IMC 19:19
PROVIDERS: Internal Medicine; Registered Nurse Emergency; Urology; Admitting Provider Internal Medicine; Emergency Provider Emergency Medicine; Visit Provider Internal Medicine
DX: A41.9 Sepsis, unspecified organism (principal); N17.9 Acute kidney failure, unspecified; N18.4 Chronic kidney disease, stage 4 (severe); N13.6 Pyonephrosis; E87.20 Acidosis, unspecified; E11.65 Type 2 diabetes mellitus with hyperglycemia; I12.9 Hypertensive chronic kidney disease with stage 1 through stage 4 chronic kidney disease, or unspecified chronic kidney disease; K80.20 Calculus of gallbladder without cholecystitis without obstruction; M10.9 Gout, unspecified; E78.5 Hyperlipidemia, unspecified; E11.22 Type 2 diabetes mellitus with diabetic chronic kidney disease; J45.909 Unspecified asthma, uncomplicated; Z91.199 Patient's noncompliance with other medical treatment and regimen due to unspecified reason; Z87.891 Personal history of nicotine dependence; Z79.51 Long term (current) use of inhaled steroids; Z79.82 Long term (current) use of aspirin; Z79.84 Long term (current) use of oral hypoglycemic drugs; Z79.899 Other long term (current) drug therapy
CPT/HCPCS: 36415; 74176; 76705; 78708; 80048; 80053; 81001; 82947; 83036; 83605; 83690; 83735; 85025; 85027; 87040; 87086; 87088; 87186; 93005; 94640; 99285; A9539; J0696; J1200; J1643; J2270; J2405; J2543

== ENCOUNTER 2023-02-12 12:12 | Outpatient (REF) | payer OTHER, SELFPAY ==
[2023-02-12 14:53] LABS: Anion Gap 14 (12-20); Blood Urea Nitrogen 29 mg/dL (9-16); Calcium 9.7 mg/dL (8.4-10.2); Carbon Dioxide 22 mmol/L (22-29); Chloride 108 mmol/L (96-108); Estimated Glomerular Filt Rate 35; Glucose Random 118 mg/dL (60-115); Potassium 3.5 mmol/L (3.3-5.1); Sodium 140 mmol/L (135-145)
== END 2023-02-12 12:13 | disposition home or self-care (01) ==
LOC: HO.CHCLDS 12:12
PROVIDERS: Visit Provider Internal Medicine
DX: E11.65 Type 2 diabetes mellitus with hyperglycemia (principal); N17.9 Acute kidney failure, unspecified; N18.9 Chronic kidney disease, unspecified
CPT/HCPCS: 36415; 80048

== ENCOUNTER 2023-03-21 13:38 | Outpatient (REF) | payer OTHER, SELFPAY ==
--- NOTE | ~2023-03-21 | XR_ITS ---
EXAMINATION: XR SACRUM AND COCCYX CLINICAL INFORMATION: Popliteal pain after fall 03/11. COMPARISON: None available. TECHNIQUE: 2 views of the sacrum and 2 views of the coccyx were obtained. FINDINGS: No definite fracture recognized. Grade 1 anterolisthesis L5 on S1 with L5-S1 disc space narrowing. Mild SI sclerosis, left greater than right. Vascular calcifications, phleboliths and herniorrhaphy material. XR/XR sacrum coccyx min 2V IMPRESSION: No acute bony pathology.
== END 2023-03-21 13:39 | disposition home or self-care (01) ==
LOC: HO.HHCX 13:38
PROVIDERS: Visit Provider Internal Medicine
DX: M53.3 Sacrococcygeal disorders, not elsewhere classified (principal)
CPT/HCPCS: 72220

== ENCOUNTER 2023-04-30 15:26 | Outpatient (REF) | payer OTHER, SELFPAY ==
--- NOTE | ~2023-04-30 | XR_ITS ---
STUDY: Bilateral feet INDICATION: Bilateral chronic foot pain COMPARISON: 12/20/2020 FINDINGS: Right: Exaggerated arch. No fracture or dislocation. Calcaneal spurring and Achilles enthesopathy/calcification. Vascular calcifications. Left: Exaggerated arch. No fracture or dislocation. Prolific calcaneal spurring, Achilles enthesopathy/calcifications. Plantar calcification. Vascular calcifications. XR/XR foot LT min 3V IMPRESSION: No acute bony pathology bilateral feet. Calcaneal spurring, Achilles enthesopathy/calcifications.
--- NOTE | ~2023-04-30 | XR_ITS ---
STUDY: Bilateral feet INDICATION: Bilateral chronic foot pain COMPARISON: 12/20/2020 FINDINGS: Right: Exaggerated arch. No fracture or dislocation. Calcaneal spurring and Achilles enthesopathy/calcification. Vascular calcifications. Left: Exaggerated arch. No fracture or dislocation. Prolific calcaneal spurring, Achilles enthesopathy/calcifications. Plantar calcification. Vascular calcifications. XR/XR foot RT min 3V IMPRESSION: No acute bony pathology bilateral feet. Calcaneal spurring, Achilles enthesopathy/calcifications.
== END 2023-04-30 15:27 | disposition home or self-care (01) ==
LOC: HO.HHCX 15:26
PROVIDERS: Visit Provider General Practice
DX: M79.671 Pain in right foot (principal); M79.672 Pain in left foot
CPT/HCPCS: 73630

== ENCOUNTER 2023-07-12 14:16 | Outpatient (AMB) | payer OTHER, SELFPAY ==
--- NOTE | 2023-07-12 14:27 | A.OFFVIS_ITS ---
Intake Vital Signs 07/12/23 14:39 Weight 147 lb BP 172/75 H Blood Pressure Location Rt brachial Position Sitting Pulse 70 Intake Visit Reasons: Lip lesion, bleeding, for biopsy Intake Note: This patient was referred by Zeny Sagastume for an assessment for a bleeding lip lesion, possible biopsy. Patient c/o; reports bleeding when touched , reports increased in size. Bead Inspector Required: Yes Bead Inspector Language: Caustic Plant Worker Name: Sean Information Interpreted: non-clinical & clinical Accompanied by: DIRECTOR OF ONLINE MERCHANDISING Allergies Sulfa (Sulfonamide Antibiotics) Allergy (Intermediate, Verified 07/12/23 14:40) SWELLING Medication List - Last Reconciled 07/12/23 by Jose Eduardo Rangel MD albuterol sulfate 90 mcg/actuation 2 puffs inhalation Q6H PRN allopurinol 50 mg PO DAILY aspirin (Adult Aspirin Regimen) 81 mg PO DAILY blood sugar diagnostic (VAIREX international Verio test strips) Use 1 test strip three times a day blood sugar diagnostic As directed three times a day cefuroxime axetil 500 mg PO BID 5 days diltiazem HCl 300 mg PO DAILY dulaglutide (Trulicity) 0.75 mg subcut MO@0900 empagliflozin (Jardiance) 25 mg PO DAILY fluticasone propionate 110 mcg/actuation (Flovent HFA) 2 inhalations inhalation BID glipizide 10 mg PO BIDWM lisinopril 20 mg PO DAILY mirtazapine 45 mg PO BEDTIME pen needle, diabetic (BD Jackeline 2nd Gen Pen Needle) As directed one time a day HPI Lip lesion, bleeding, for biopsy HPI Details 77-year-old female referred for a lip le gabbie. She says that she had noticed this growth on her lip about 3 weeks ago. This has been increasing size. This bleeds periodically as well with trauma She denies any previous trauma or insect bite to the area. Her granddaughter says that the seemed to be a very small pimple but this had increased in size. [facility] Medical History (Updated 07/12/23 @ 15:01 by Jose Eduardo Rangel MD) Lip lesion CTS (carpal tunnel syndrome) TIA (transient ischemic attack) Osteopenia Calcaneal spur, right Osteoarthritis, multiple sites Chronic kidney disease, stage 3 Essential hypertension Hyperlipidemia LDL goal <70 Type 2 diabetes mellitus with chronic kidney disease Surgical History Hx of section Family History Father Heart disease Mother Asthma Heart attack Social History Household Members: Other Household Members Other:: grandchild Housing: Apartment Do you presently have visiting nurse or other home services: Yes (emergency physician) Alcohol intake: former Patient Tobacco Use Status: Former Tobacco user Tobacco use type: Cigarette Cigarettes Per Day: 4 Years Smoked: 3 service: No Review of Systems Const Denies chills and Denies fever(s) Card Denies chest pain, Denies dyspnea and Denies dyspnea on exertion Resp Denies cough, Denies dyspnea and Denies dyspnea on exertion GI Denies hematochezia and Denies change in bowel habits Denies hematuria Musc Denies back pain and Denies limited range of motion Neuro Denies focal weakness and Denies convulsions Psych Denies depression and Denies mood swings Physical Exam Vital Signs: Last Vital Signs Pulse 70 07/12/23 14:39 BP 172/75 H 07/12/23 14:39 HEENT Other: Elevated lip lesion, smooth surface, and bleeding at this time, narrow base, diameter about 7 mm; this is on the left upper lip Assessment & Plan Assessment & Plan (1) Lip lesion: Code(s): K13.0 - Diseases of lips Plan: She has this lip lesion as described above. This bleeds easily and has been increasing in size. I explained to her the technique of excision under local anesthesia. I reviewed the risks including but not limited to bleeding, infections and poor healing, as well as the benefits and alternatives. He understands and wants to proceed This will be done in the minor procedure room of the hospital. Coding Level of Care Code New Pt Level 3 (23225) Diagnoses Lip lesion K13.0
[2023-07-12 14:39] VITALS: BP 172/75; PULSE 70
== END 2023-07-12 14:58 | disposition home or self-care (01) ==
PROVIDERS: PCP General Practice; Referring Provider Nurse Practitioner Primary Care; Visit Provider Surgery
DX: K13.0 Diseases of lips (principal)
CPT/HCPCS: 99203

== ENCOUNTER → 2023-07-12 14:16 | Outpatient (BNVA) | payer OTHER, SELFPAY | PROVIDERS: PCP General Practice; Referring Provider Nurse Practitioner Primary Care; Visit Provider Surgery | DX: K13.0 Diseases of lips (principal) | CPT/HCPCS: 99202 ==

== ENCOUNTER 2023-07-20 13:38 | Outpatient (REF) | payer OTHER, SELFPAY ==
[2023-07-20 16:22] LABS: Appearance Urine Cloudy; Color Urine Yellow; Glucose Urine UA >=1000 mg/dL (Negative); Leukocyte Esterase Urine Moderate (2+) (Negative); Nitrite Urine Negative (Negative); PH 5.5 (5.0-9.0); Specific Gravity - Urine >= 1.030 (1.005-1.025); UMIC TRIGGER UA YES; Urine Blood Small (1+) (Negative); Urine Ketones Negative (Negative); Urine Protein Negative (Neg-Trace)
[2023-07-20 16:42] LABS: Bacteria Urine 4+ (None Seen); Hyaline Casts Urine 0-2 /LPF (0-2); Squamous Epithelial Cell Urine 0-2 /HPF (0-2); WBC Urine >50 /HPF (0-5)
[2023-07-20 16:50] LABS: Anion Gap 16 (12-20); Blood Urea Nitrogen 36 mg/dL (9-16); Calcium 9.6 mg/dL (8.4-10.2); Carbon Dioxide 24 mmol/L (22-29); Chloride 98 mmol/L (96-108); Estimated Glomerular Filt Rate 25; Magnesium 1.9 mg/dL (1.6-2.6); Phosphorus 4.4 mg/dL (2.7-4.5); Potassium 4.4 mmol/L (3.3-5.1); Sodium 134 mmol/L (135-145)
[2023-07-20 16:51] LABS: Parathyroid Hormone Intact 185.8 pg/mL (8.7-77.1)
[2023-07-20 17:00] LABS: Vitamin D 25-OH Total 42.2 ng/mL (>30)
[2023-07-20 20:40] LABS: Creatinine Urine 36.28 mg/dL; Microalbum/Creatinine Ratio Ur 44.1 ug/mg cr (<30); Total Protein Urine Random 9 mg/dL (<12)
[2023-07-24 11:28] LABS: RPR Rapid Plasma Reagin NON-REACTIVE (NON-REACTIVE)
== END 2023-07-20 13:39 | disposition home or self-care (01) ==
LOC: HO.HHCL 13:38
PROVIDERS: Internal Medicine Nephrology; Visit Provider Nurse Practitioner Primary Care
DX: R21 Rash and other nonspecific skin eruption (principal); E11.22 Type 2 diabetes mellitus with diabetic chronic kidney disease; N18.32 Chronic kidney disease, stage 3b; N25.0 Renal osteodystrophy
CPT/HCPCS: 36415; 80051; 81001; 82040; 82043; 82306; 82310; 82565; 82570; 83735; 83970; 84100; 84156; 84520; 86592

== ENCOUNTER 2023-07-26 10:58 | Outpatient (REF) | payer OTHER, SELFPAY ==
[2023-07-26 10:59] VITALS: BMI 29.5
[2023-07-26 11:09] VITALS: BP 180/79; PULSE 92; RESP 16; TEMP 36.4; O2SAT 97
--- NOTE | 2023-07-26 11:36 | P.OP_ITS ---
Operative Note Operative Note Date of Service: 07/26/23 Narrative: Preop diagnosis: Lesion, upper lip Postop diagnose: The same Procedure: Excision of lesion on the upper lip under local anesthesia Surgeon: Jose Eduardo Rangel MD The patient is a 77-year-old female with a rounded, well-defined soft lesion on the upper lip measuring about 1.4 cm. This had a narrow base. She understood the technique of excision under local anesthesia and she was aware of the risks, benefits, and alternatives. She was brought to the minor procedure room. She was placed in reclining position. A surgical time-out had been done. The area of the lesion on the upper lip was prepped and draped. Lidocaine 1% was used for local anesthesia. I made an elliptical incision on the lip mucosa at the base of the lesion using blade 15. This was carried down through the full-thickness of the lip mucosa until entire lesion was excised. I closed the incision with full-thickness chromic 4-0 sutures. There was note of good hemostasis at the end The lip lesion was about 1.4 cm in widest diameter. The patient tolerated procedure well. There were no immediate complications. Estimated blood loss about 5 cc She was in wound care instructions and will be seen in the office for a follow- up for wound check.
[2023-07-26 12:45] VITALS: BP 170/74; PULSE 102; RESP 16; O2SAT 96
== END 2023-07-26 10:59 | disposition home or self-care (01) ==
LOC: HO.MS 10:58
PROVIDERS: Visit Provider Surgery
PROC: (CPT 11442; principal; 2023-07-26 11:00)
DX: L98.0 Pyogenic granuloma (principal); K13.0 Diseases of lips; D18.01 Hemangioma of skin and subcutaneous tissue
CPT/HCPCS: 11442; 88304; 88305

== ENCOUNTER → 2023-07-26 10:58 | Outpatient (BNV) | payer OTHER, SELFPAY | PROVIDERS: Visit Provider Surgery | DX: L98.0 Pyogenic granuloma (principal) | CPT/HCPCS: 11102 ==

== ENCOUNTER 2023-08-16 11:50 | Outpatient (AMB) | payer OTHER, SELFPAY ==
--- NOTE | 2023-08-16 11:51 | A.OFFVIS_ITS ---
Intake Vital Signs 08/16/23 11:59 Height 4 ft 1 in Weight 147 lb BMI 43.0 BP 160/70 H Blood Pressure Location Rt brachial Position Sitting Pulse 80 Intake Visit Reasons: s/p excision lip lesion Allergies Sulfa (Sulfonamide Antibiotics) Allergy (Intermediate, Verified 07/12/23 14:40) SWELLING HPI s/p excision lip lesion HPI Details She had undergone excision of a lip lesion under local anesthesia last 07/26/2023. She tolerated procedure well. She denies complaints at this time. [facility] Medical History Lip lesion CTS (carpal tunnel syndrome) TIA (transient ischemic attack) Osteopenia Calcaneal spur, right Osteoarthritis, multiple sites Chronic kidney disease, stage 3 Essential hypertension Hyperlipidemia LDL goal <70 Type 2 diabetes mellitus with chronic kidney disease Surgical History History of excision of lesion (~07/26/23) Hx of section Family History Father Heart disease Mother Asthma Heart attack Social History Household Members: Other Household Members Other:: grandchild Housing: Apartment Do you presently have visiting nurse or other home services: 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 (harp regulator) Alcohol intake: former Patient Tobacco Use Status: Former Tobacco user Tobacco use type: Cigarette Cigarettes Per Day: 4 Years Smoked: 3 service: No Review of Systems Const Denies chills and Denies fever(s) Card Denies chest pain, Denies dyspnea and Denies dyspnea on exertion Resp Denies cough, Denies dyspnea and Denies dyspnea on exertion GI Denies hematochezia and Denies change in bowel habits Denies hematuria Musc Denies back pain and Denies limited range of motion Neuro Denies focal weakness and Denies convulsions Psych Denies depression and Denies mood swings Physical Exam Vital Signs: BMI result Body Mass Index 43.0 Const General: comfortable and no acute distress HEENT Other: Excision site on the upper lip is well healed, not infected Assessment & Plan Assessment & Plan (1) Lip lesion: Code(s): K13.0 - Diseases of lips Plan: Status post excision. The excision site is well healed. Her path report shows a hemangioma/pyogenic granuloma. I explained to her the benign nature of this pathology. She can follow up on a p.r.n. basis. Coding Level of Care Code Global (43041) Diagnoses Lip lesion K13.0
[2023-08-16 11:59] VITALS: BP 160/70; PULSE 80; BMI 43.0
== END 2023-08-16 12:01 | disposition home or self-care (01) ==
PROVIDERS: Visit Provider Surgery
DX: K13.0 Diseases of lips (principal)
CPT/HCPCS: 99212

== ENCOUNTER → 2023-08-16 11:50 | Outpatient (BNVA) | payer OTHER, SELFPAY | PROVIDERS: Visit Provider Surgery | DX: Z09 Encounter for follow-up examination after completed treatment for conditions other than malignant neoplasm (principal); Z87.2 Personal history of diseases of the skin and subcutaneous tissue | CPT/HCPCS: 99212 ==

== ENCOUNTER 2023-08-30 11:36 | Outpatient (REF) | payer OTHER, SELFPAY ==
[2023-08-30 12:42] LABS: Hematocrit 39.8 % (37.0-47.0); Hemoglobin 12.9 g/dl (12.0-16.0); Mean Corpuscular HGB Conc 32.4 g/dl (31.0-35.0); Mean Corpuscular Volume 80.2 fL (80.0-98.0); Mean Platelet Volume 11.1 fL (9.4-12.3); Platelet Count 277 X10*3/uL (160-400); Red Blood Count 4.96 X10*6/uL (4.20-5.50); Red Cell Distribution Width 16.4 % (11.0-16.0); White Blood Count 8.6 X10*3/uL (4.8-10.8)
[2023-08-30 13:15] LABS: Parathyroid Hormone Intact 133.9 pg/mL (8.7-77.1)
[2023-08-30 13:16] LABS: Alanine Aminotransferase 26 U/L (0-31); Albumin Level 4.1 g/dL (3.5-5.0); Alkaline Phosphatase 113 U/L (39-117); Anion Gap 14 (12-20); Aspartate Amino Transferase 24 U/L (5-31); Bilirubin Total 0.5 mg/dL (0.0-1.0); Blood Urea Nitrogen 25 mg/dL (9-16); Calcium 9.5 mg/dL (8.4-10.2); Carbon Dioxide 25 mmol/L (22-29); Chloride 98 mmol/L (96-108); Estimated Glomerular Filt Rate 26; Glucose Random 443 mg/dL (60-115); Potassium 4.4 mmol/L (3.3-5.1); Sodium 133 mmol/L (135-145); Total Protein 8.1 g/dL (6.5-8.0)
== END 2023-08-30 11:37 | disposition home or self-care (01) ==
LOC: HO.LAB 11:36
PROVIDERS: PCP General Practice; Visit Provider Internal Medicine Hypertension Specialist
DX: E11.22 Type 2 diabetes mellitus with diabetic chronic kidney disease (principal); I12.9 Hypertensive chronic kidney disease with stage 1 through stage 4 chronic kidney disease, or unspecified chronic kidney disease; N18.9 Chronic kidney disease, unspecified; N13.30 Unspecified hydronephrosis
CPT/HCPCS: 36415; 80053; 83970; 85027; 99212

== ENCOUNTER 2023-08-30 11:36 | Outpatient (AMB) | payer OTHER, SELFPAY ==
--- NOTE | 2023-08-30 11:39 | A.OFFVIS_ITS ---
Intake Vital Signs 08/30/23 11:40 Height 4 ft 11 in Weight 144 lb 8 oz BMI 29.2 BP 136/82 Blood Pressure Location Lt brachial Position Sitting Pulse 76 Pulse Source Pulse Oximeter Pulse Oximetry (%) 98 Oxygen Delivery Method Room Air Intake Visit Reasons: CKD/ Confirmed Allergies Sulfa (Sulfonamide Antibiotics) Allergy (Intermediate, Verified 08/30/23 11:45) SWELLING HPI HPI Comments History of Present Illness Details 78 yr old woman with a h/o long standing DM and HTN with CKD Here for follow up with her son No new issues today She tells me that her blood sugar remains elevated at home She is on SGLT-2 inhibitors [facility] Medical History (Updated 08/30/23 @ 12:01 by Rigoberto Bernabe MD) Chronic kidney disease, stage 3 Lip lesion CTS (carpal tunnel syndrome) TIA (transient ischemic attack) Osteopenia Calcaneal spur, right Osteoarthritis, multiple sites Essential hypertension Hyperlipidemia LDL goal <70 Type 2 diabetes mellitus with chronic kidney disease Surgical History History of excision of lesion (~07/26/23) Hx of section Family History Father Heart disease Mother Asthma Heart attack Social History Household Members: Other Household Members Other:: grandchild Housing: Apartment Do you presently have visiting nurse or other home services: 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) Alcohol intake: former Patient Tobacco Use Status: Former Tobacco user Tobacco use type: Cigarette Cigarettes Per Day: 4 Years Smoked: 3 service: No Review of Systems Const Denies fever(s) and Denies weight loss Card Denies chest pain Resp Denies cough and Denies hemoptysis GI Denies abdominal pain, Denies diarrhea and Denies nausea Musc Denies back pain Neuro Denies focal weakness Physical Exam Vital Signs: Last Vital Signs Pulse 76 08/30/23 11:40 BP 136/82 08/30/23 11:40 Pulse Ox 98 08/30/23 11:40 Oxygen Delivery Method Room Air 08/30/23 11:40 BMI result Body Mass Index 29.2 Results Reviewed Results Reviewed: CT Scan in December 2022 Mild to moderate left renal hydroureteronephrosis with no obstructive etiology seen. Mild left perinephric stranding seen also. NM Scan December 2022 LEFT KIDNEY: This kidney shows diminished function compared to the right, as quantitated above. This is probably due to some impaired function superimposed on the smaller size of this kidney. There is no hydronephrosis or outflow obstruction. RIGHT KIDNEY: Normal perfusion and function. No hydronephrosis or outflow obstruction. 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 Mild left perinephric stranding seen also. Code(s): N13.30 - Unspecified hydronephrosis Plan: NEeds follow up with URology Orders: Orders Complete Blood Count no Diff Today I10 - Essential (primary) hypertension, N18.30 - Chronic kidney disease, stage 3 unspecified Comprehensive Met. Panel Today I10 - Essential (primary) hypertension, N18.30 - Chronic kidney disease, stage 3 unspecified Parathyroid Hormone Intact Today I10 - Essential (primary) hypertension, N18.30 - Chronic kidney disease, stage 3 unspecified Coding Level of Care Code Est Pt Level 4 (75497) Diagnoses Chronic kidney disease, stage 3 N18.30 Essential hypertension I10 Hydronephrosis N13.30
[2023-08-30 11:40] VITALS: BP 136/82; PULSE 76; O2SAT 98; BMI 29.2
== END 2023-08-30 11:55 | disposition home or self-care (01) ==
PROVIDERS: PCP Internal Medicine; Visit Provider Internal Medicine Hypertension Specialist
DX: N18.30 Chronic kidney disease, stage 3 unspecified (principal); I10 Essential (primary) hypertension; N13.30 Unspecified hydronephrosis
CPT/HCPCS: 99214

== ENCOUNTER 2023-09-21 10:01 | Outpatient (REF) | payer OTHER, SELFPAY ==
[2023-09-21 11:59] LABS: Cholesterol 173 mg/dL (<200); HDL Cholesterol 48 mg/dL (>40); LDL Cholesterol Calculated 103 mg/dL (<100); Triglycerides 113 mg/dL (<150)
[2023-09-23 04:03] LABS: ~HepC Num1 0.12 S/CO (0.00-0.79); ~Hepatitis C Antibody Nonreactive (Nonreactive)
== END 2023-09-21 10:02 | disposition home or self-care (01) ==
LOC: HO.HHCL 10:01
PROVIDERS: Visit Provider General Practice
DX: E11.65 Type 2 diabetes mellitus with hyperglycemia (principal)
CPT/HCPCS: 36415; 80061; 86803

== ENCOUNTER 2023-11-22 12:49 | Outpatient (REF) | payer OTHER, SELFPAY ==
--- NOTE | ~2023-11-22 | MM_ITS ---
EXAMINATION: MM DIAGNOSTIC DIGITAL BREAST TOMOSYNTHESIS, BILATERAL CLINICAL INFORMATION: 6 month follow-up for right breast calcifications. Patient is also due for bilateral screening. COMPARISON: Mammography: 04/12/2022, 10/10/2021, 04/12/2021 (BI-RADS 3), 04/07/2021. (BI-RADS 0) TECHNIQUE: Digital breast tomosynthesis is performed in both the craniocaudal and mediolateral oblique views along with computer-aided detection (CAD). Synthesized 2D images are generated from the tomosynthesis. In addition, full-field right mediolateral 3-D view was obtained, as well as 2-D spot magnification views in the right CC projection x2, and right ML projection x1. FINDINGS: There are scattered areas of fibroglandular density (ACR BI-RADS breast composition Category b). Calcifications in the upper outer right breast which are being followed are clearly vascular in nature and benign. No further follow-up required. There are additional bilateral vascular calcifications in both breasts. There are a few dystrophic and secretory calcifications in the left breast. There are prominent veins in both breasts, unchanged. There are no suspicious masses, suspicious grouped calcifications, or areas of architectural distortion in either breast. The parenchymal pattern is stable from prior exams. There is no skin or axillary abnormality detected. MM/MM tomosynthesis diagnostic BI IMPRESSION: -No findings suspicious for malignancy in either breast. -Calcifications being followed in the upper outer quadrant of the right breast are clearly vascular in nature. No further follow-up required. These are benign. -Additional benign findings as detailed. -Recommend the patient return to routine annual screening to include both breasts. ASSESSMENT: BI-RADS BI-RADS 2 - Benign Findings RECOMMENDATION: 1 year F/U Results were provided to the patient at time of visit by the technologist. This patient's information was entered into a reminder system with a target due date for their next mammogram.
== END 2023-11-22 12:50 | disposition home or self-care (01) ==
LOC: HO.MAMMO 12:49
PROVIDERS: PCP General Practice; Visit Provider General Practice
DX: R92.1 Mammographic calcification found on diagnostic imaging of breast (principal)
CPT/HCPCS: 77062; 77066

== ENCOUNTER → 2023-11-22 13:30 | Outpatient (BNV) | payer OTHER, SELFPAY | PROVIDERS: PCP General Practice; Visit Provider Radiology Diagnostic Radiology | DX: R92.1 Mammographic calcification found on diagnostic imaging of breast (principal) | CPT/HCPCS: 77066; G0279 ==

== ENCOUNTER 2023-12-13 13:13 | Outpatient (AMB) | payer OTHER, SELFPAY ==
[2023-12-13 13:13] VITALS: BP 156/78; PULSE 77; O2SAT 96; BMI 30.5
--- NOTE | 2023-12-13 13:13 | HO.NEPHOV_ITS ---
Vital Signs 12/13/23 13:13 Height 4 ft 11 in Weight 151 lb BMI 30.5 BP 156/78 H Blood Pressure Location Lt brachial Position Sitting Pulse 77 Pulse Source Pulse Oximeter Pulse Oximetry (%) 96 Oxygen Delivery Method Room Air Intake Visit Reasons: CKD/ Confirmed Wire Lather Required: No Accompanied by: Grand Child Allergies Sulfa (Sulfonamide Antibiotics) Allergy (Intermediate, Verified 12/13/23 13:19) SWELLING HPI Comments Details: 78 yr old woman with a h/o long standing DM and HTN with CKD Here for follow up with her son No new issues today She tells me that her blood sugar remains elevated at home She is on SGLT-2 inhibitors [facility] Medical History (Updated 08/30/23 @ 12:01 by Rigoberto Bernabe MD) Chronic kidney disease, stage 3 Lip lesion CTS (carpal tunnel syndrome) TIA (transient ischemic attack) Osteopenia Calcaneal spur, right Osteoarthritis, multiple sites Essential hypertension Hyperlipidemia LDL goal <70 Type 2 diabetes mellitus with chronic kidney disease Surgical History History of excision of lesion (~07/26/23) Hx of section Family History Father Heart disease Mother Asthma Heart attack Social History Household Members: Other Household Members Other:: grandchild Housing: Apartment Do you 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 have 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) Alcohol intake: former Patient Tobacco Use Status: Former Tobacco user Tobacco use type: Cigarette Cigarettes Per Day: 4 Years Smoked: 3 service: No Physical Exam Vital Signs: Last Vital Signs Pulse 77 12/13/23 13:13 BP 156/78 H 12/13/23 13:13 Pulse Ox 96 12/13/23 13:13 Oxygen Delivery Method Room Air 12/13/23 13:13 BMI result Body Mass Index 30.5 Const General: comfortable Nutritional Appearance: well nourished Orientation/consciousness: patient oriented x3 HEENT Head: No normal to inspection Mouth: moist mucous membranes Neck Neck: Yes supple and Yes no JVD Resp Auscultation: clear to auscultation bilaterally, no rales and rub present Cardio Jugular venous distension: no JVD Palpation: no palpable S3 and no palpable S4 Heart sounds: no rubs GI Palpation (GI): Soft to palpation and nontender Percussion: No Fluid wave present General: Yes no CVA tenderness Back/Spine/Pelvis Back: no CVA tenderness Skin General skin exam: no rashes or lesions noted Neuro General: patient oriented x3 Extrem General: Yes no pedal edema and No clubbing Results Reviewed Nephrology Results: Hgb 12.9 g/dl (12.0-16.0) 08/30/23 WBC 8.6 X10*3/uL (4.8-10.8) 08/30/23 Plt Count 277 X10*3/uL (160-400) 08/30/23 Sodium 133 mmol/L (135-145) L 08/30/23 Potassium 4.4 mmol/L (3.3-5.1) 08/30/23 Chloride 98 mmol/L (96-108) 08/30/23 Carbon Dioxide 25 mmol/L (22-29) 08/30/23 BUN 25 mg/dL (9-16) H 08/30/23 Creatinine 1.86 mg/dL (0.5-1.4) H 08/30/23 Calcium 9.5 mg/dL (8.4-10.2) 08/30/23 Phosphorus 4.4 mg/dL (2.7-4.5) 07/20/23 PTH Intact 133.9 pg/mL (8.7-77.1) H 08/30/23 Urine Protein Negative mg/dL (Neg-Trace) 07/20/23 Urine Creatinine 36.28 mg/dL 07/20/23 Assessment & Plan Assessment & Plan (1) Chronic kidney disease, stage 3: Code(s): N18.30 - Chronic kidney disease, stage 3 unspecified Category: Medical Plan: 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 Mild left perinephric stranding seen also. Code(s): N13.30 - Unspecified hydronephrosis Category: Medical Plan: Needs follow up with Urology Follow up ultrasound ordered Orders: Orders Basic Metabolic Panel Today N18.30 - Chronic kidney disease, stage 3 unspecified Total Protein Urine Random Today N18.30 - Chronic kidney disease, stage 3 unspecified UA and rflx microscopic Today N18.30 - Chronic kidney disease, stage 3 unspecified Complete Blood Count Auto Diff Today N18.30 - Chronic kidney disease, stage 3 unspecified Parathyroid Hormone Intact Today N18.30 - Chronic kidney disease, stage 3 unspecified Creatinine Urine Today N05.9 - Unspecified nephritic syndrome with unspecified morphologic changes, N18.30 - Chronic kidney disease, stage 3 unspecified US renal BI Today N13.30 - Unspecified hydronephrosis, N18.30 - Chronic kidney disease, stage 3 unspecified Coding Level of Care Code Est Pt Level 4 (05798) Diagnoses Chronic kidney disease, stage 3 N18.30 Essential hypertension I10 Hydronephrosis N13.30
== END 2023-12-13 13:32 | disposition home or self-care (01) ==
LOC: HO.HKA 13:13
PROVIDERS: PCP General Practice; Visit Provider Internal Medicine Hypertension Specialist
DX: N18.30 Chronic kidney disease, stage 3 unspecified (principal); I10 Essential (primary) hypertension; N13.30 Unspecified hydronephrosis
CPT/HCPCS: 99214

== ENCOUNTER → 2023-12-13 13:13 | Outpatient (BNVA) | payer OTHER, SELFPAY | PROVIDERS: PCP General Practice; Visit Provider Internal Medicine Hypertension Specialist | DX: I12.9 Hypertensive chronic kidney disease with stage 1 through stage 4 chronic kidney disease, or unspecified chronic kidney disease (principal); N18.30 Chronic kidney disease, stage 3 unspecified; N13.30 Unspecified hydronephrosis | CPT/HCPCS: 99212 ==

== ENCOUNTER 2023-12-26 14:06 | Outpatient (REF) | payer OTHER, SELFPAY ==
--- NOTE | ~2023-12-26 | US_ITS ---
EXAMINATION: US RETROPERITONEAL LIMITED (RENAL ONLY) CLINICAL INFORMATION: Chronic kidney disease, stage 3 unspecified. COMPARISON: Ultrasound abdomen 01/13/2023 and 06/16/2020. CT abdomen and pelvis 01/13/2023. TECHNIQUE: Real-time imaging of the kidneys. Limited visualization due to bowel gas. FINDINGS: RIGHT KIDNEY: 10.6 x 4.9 x 4.5 cm (SAG x AP x TRV). No hydronephrosis. No renal calculi. Renal cortical thickness is normal. Limited visualization. LEFT KIDNEY: 9.9 x 4.8 x 3.5 cm (SAG x AP x TRV). No hydronephrosis. No renal calculi. Limited visualization. Lobulated renal contour is somewhat difficult to evaluate due to bowel gas. US/US renal BI IMPRESSION: No hydronephrosis. No renal calculi. Limited visualization. Lobulated left renal contour is somewhat difficult to evaluate due to bowel gas.
== END 2023-12-26 14:07 | disposition home or self-care (01) ==
LOC: HO.US 14:06
PROVIDERS: PCP General Practice; Visit Provider Psychiatry & Neurology Neurology
DX: N18.30 Chronic kidney disease, stage 3 unspecified (principal); N13.30 Unspecified hydronephrosis
CPT/HCPCS: 76775

== ENCOUNTER 2024-03-04 14:42 | Outpatient (AMB) | payer OTHER, SELFPAY ==
--- NOTE | 2024-03-04 14:42 | A.OFFVIS_ITS ---
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 Pt states her left leg is worse than her right. Pt states her feet are what bother her the most. Pt denies any numbness or tingling but states she does get swelling in both legs and feet occasionally. 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 Complaints include pain over varicosities, swelling of lower extremities, cramping, fatigue, and heaviness of the lower extremities. It has been affecting there daily activities including ambulation. It is noted more so in left leg. Patient denies any previous venous surgery or injections. Patient denies any history of DVT/ PE. Patient denies any history of phlebitis. Trial of compression includes - [id number] They now present for vascular evaluation regarding their varicose veins. [facility] Medical History (Updated 03/04/24 @ 15:04 by Warren Lambert MD) Chronic kidney disease, stage 3 Lip lesion CTS (carpal tunnel syndrome) TIA (transient ischemic attack) Osteopenia Calcaneal spur, right Osteoarthritis, multiple sites Essential hypertension Hyperlipidemia LDL goal <70 Type 2 diabetes mellitus with chronic kidney disease Surgical History History of excision of lesion (~07/26/23) Hx of section Family History Father Heart disease Mother Asthma Heart attack Social History Household Members: Other Household Members Other:: grandchild Housing: Apartment 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) Alcohol intake: former Patient Tobacco Use Status: Former Tobacco user Tobacco use type: Cigarette Cigarettes Per Day: 4 Years Smoked: 3 service: No Review of Systems Const Reports as per HPI ENT Reports no additional complaints Card Denies chest pain, Denies chest pain at rest and Denies chest pain with activity Resp Denies chest congestion and Denies cough GI Reports no additional complaints Musc Details: pain over varicosities, aching of lower extremities, swelling, cramping, heaviness and tiredness, itching Denies abnormal gait Skin/Breast Reports pruritus and Denies wounds Neuro Reports no additional complaints and Denies abnormal gait Psych Denies no additional complaints Physical Exam Vital Signs: Last Vital Signs BP 132/68 03/04/24 14:44 BMI result Body Mass Index 30.5 Const General: cooperative, healthy appearing and comfortable Orientation/consciousness: oriented to person, oriented to place and oriented to time Neck Carotids: no bruits Chest Chest palpation & inspection: normal inspection of the chest and normal palpation of entire chest wall Resp Effort & Inspection: normal respiratory effort and able to speak in complete sentences Cardio Rate: regular rate Heart sounds: S1 normal heart sound present and S2 normal heart sound present Peripheral pulses: Peripheral pulses 2+ throughout GI Inspection: Yes normal to inspection Skin Other: +2 edema, large rope-like varicosities greater than 4 mm left calf and thigh CEAP Classification C4 - skin color changes Ep - Etiology Primary As - superficial veins P - reflux General skin exam: dry skin Neuro General: oriented to person, oriented to place and oriented to time Extrem Right lower extremity: full ROM, normal capillary refill and edema Left lower extremity: full ROM, normal capillary refill and edema Psych Mental Status: mental status grossly normal Assessment & Plan Assessment & Plan (1) Varicose veins of left lower extremity with inflammation: Code(s): I83.12 - Varicose veins of left lower extremity with inflammation Category: Medical Plan: In short, the patient has evidence of venous insufficiency. I have discussed the pathophysiology with the patient. In addition I have provided informational material regarding venous disease to the patient. We have discussed conservative measures including compression, elevation, and exercise. I have also provided a handout regarding appropriate use of compression stockings and where to purchase good compression stockings as well. I have taken the liberty of ordering venous insufficiency testing with the patient. They will follow up with me after testing. The patient had an opportunity to ask questions regarding the treatment plan. All questions were answered. Imaging studies, laboratory studies and physical exam results were discussed and reviewed in detail. No major barriers to understanding were identified. The patient expressed understanding and agreement with the above treatment plan. The patient is aware they should contact our office by phone for worsening of the current condition or the appearance of new symptoms. Thank you for allowing me to participate in the vascular care of this patient. If you have any questions or concerns regarding the treatment for the above condition please do not hesitate to contact me. The office telephone contact is [phone]. This note is constructed using voice recognition software. While every effort has been made to ensure accuracy, financial systems director errors may have been included. Thank you for allowing me to participate in the care of your patient. Yours sincerely, Warren Lambert MD, FACS, R.P.V.I. Orders: Orders US venous duplex LE BI 1 Week I83.12 - Varicose veins of left lower extremity with inflammation Coding Level of Care Code New Pt Level 4 (69213) Diagnoses Varicose veins of left lower extremity with inflammation I83.12
[2024-03-04 14:44] VITALS: BP 132/68; BMI 30.5
== END 2024-03-04 15:03 | disposition home or self-care (01) ==
PROVIDERS: PCP General Practice; Visit Provider Surgery Vascular Surgery
DX: I83.12 Varicose veins of left lower extremity with inflammation (principal)
CPT/HCPCS: 99204

== ENCOUNTER → 2024-03-04 14:42 | Outpatient (BNVA) | payer OTHER, SELFPAY | PROVIDERS: PCP General Practice; Visit Provider Surgery Vascular Surgery | DX: I83.12 Varicose veins of left lower extremity with inflammation (principal) | CPT/HCPCS: 99202 ==

== ENCOUNTER 2024-04-02 12:56 | Outpatient (REF) | payer OTHER, SELFPAY ==
--- NOTE | ~2024-04-02 | US_ITS ---
EXAMINATION: US VENOUS ULTRASOUND WITH DOPPLER LOWER EXTREMITY, BILATERAL CLINICAL INFORMATION: Varicose veins of the left lower extremity. COMPARISON: Venous ultrasound dated 09/13/2020. TECHNIQUE: Ultrasound of the deep veins is performed from the hip to the calf with compression sonography and color and pulse Doppler assessment. Spectral analysis with color-flow imaging is performed. FINDINGS: RIGHT SIDE: GREATER SAPHENOUS VEIN: The right saphenofemoral junction diameter is 0.6 cm. There is no reflux. The right proximal thigh diameter is 0.7 cm. There is no reflux. The right mid thigh diameter is 0.3 cm. There is no reflux. The right above-knee diameter is 0.3 cm. There is no reflux. The right at-knee diameter is 0.3 cm. There is no reflux. The right below-knee diameter is 0.2 cm. There is no reflux. The right mid calf diameter is 0.2 cm. There is no reflux. The right ankle diameter is 0.2 cm. There is no reflux. LATERAL ACCESSORY GREATER SAPHENOUS VEIN: The right saphenofemoral junction diameter is 0.2 cm. There is no reflux. LESSER SAPHENOUS VEIN: The right saphenopopliteal junction diameter is 0.3 cm. There is no reflux. The right mid calf diameter is 0.2 cm. There is no reflux. The right distal calf diameter is 0.2 cm. There is no reflux. The vein of Giacomini diameter is 0.2 cm. There is no reflux. LEFT SIDE: GREATER SAPHENOUS VEIN: The left saphenofemoral junction diameter is 0.7 cm. There is no reflux. The left proximal thigh diameter is 0.5 cm. There is no reflux. The left mid thigh diameter is 0.3 cm. The reflux time is 2496 ms. The left above-knee diameter is 0.3 cm. There is no reflux. The left at-knee diameter is 0.3 cm. There is no reflux. The left below-knee diameter is 0.2 cm. There is no reflux. The left mid calf diameter is 0.2 cm. There is no reflux. The left ankle diameter is 0.2 cm. The reflux time is 2780 ms. LATERAL ACCESSORY GREATER SAPHENOUS VEIN: The left saphenofemoral junction diameter is 0.3 cm. There is no reflux The left mid thigh diameter is 0.2 cm. There is no reflux. LESSER SAPHENOUS VEIN: The left saphenopopliteal junction diameter is 0.1 cm. There is no reflux. The left mid calf diameter is 0.2 cm. There is no reflux. The left distal calf diameter is 0.2 cm. There is no reflux. BILATERAL DEEP VENOUS SYSTEMS: There is no deep venous thrombosis or reflux on the right. There is no deep venous thrombosis or reflux on the left. US/US venous duplex LE BI IMPRESSION: 1. No hemodynamically significant reflux is seen of the right greater or lesser saphenous veins or of the right deep venous system. 2. There is hemodynamically significant reflux of the left greater saphenous vein. 3. No hemodynamically significant reflux seen of the left lesser saphenous vein or deep venous system. Electronically signed by: Raj Lock MD 04/03/2024 11:13 PM EDT
== END 2024-04-02 12:57 | disposition home or self-care (01) ==
LOC: HO.US 12:56
PROVIDERS: PCP General Practice; Visit Provider Surgery Vascular Surgery
DX: I83.12 Varicose veins of left lower extremity with inflammation (principal)
CPT/HCPCS: 93970

== ENCOUNTER 2024-04-29 15:46 | Outpatient (AMB) | payer OTHER, SELFPAY ==
[2024-04-29 15:45] VITALS: BP 158/90; PULSE 104; O2SAT 97; BMI 30.3
--- NOTE | 2024-04-29 15:45 | HO.NEPHOV ---
Vital Signs 04/29/24 15:45 04/29/24 15:56 Height 4 ft 11 in Weight 150 lb BMI 30.3 BP 158/90 H 140/80 H Blood Pressure Location Lt brachial Lt brachial Position Sitting Sitting Pulse 104 H Pulse Source Pulse Oximeter Pulse Oximetry (%) 97 Oxygen Delivery Method Room Air Intake Visit Reasons: CKD/ 4 MO FU/ Conf Golf Caddie Required: No Golf Caddie Services: Golf Caddie Present Accompanied by: Grand Child Allergies Sulfa (Sulfonamide Antibiotics) Allergy (Intermediate, Verified 04/29/24 15:47) SWELLING Medication List - Last Reconciled 04/29/24 by Rigoberto Bernabe MD albuterol sulfate 90 mcg/actuation 2 puffs inhalation Q6H PRN allopurinol 50 mg PO DAILY blood sugar diagnostic ([employer] Verio test strips) Use 1 test strip three times a day blood sugar diagnostic As directed three times a day diltiazem HCl CD 300 mg PO DAILY dulaglutide (Trulicity) 0.75 mg subcut MO@0900 empagliflozin (Jardiance) 25 mg PO DAILY fluticasone propionate 110 mcg/actuation (Flovent HFA) 2 inhalations inhalation BID glipizide 10 mg PO BIDWM lisinopril 20 mg PO DAILY mirtazapine 45 mg PO BEDTIME pen needle, diabetic (BD Jackeline 2nd Gen Pen Needle) As directed one time a day HPI Comments Details: 78 yr old woman with a h/o long standing DM and HTN with CKD Here for follow up with her son No new issues today She tells me that her blood sugar remains elevated at home She is on SGLT-2 inhibitors 04/29/24 Overall doing ok. No new issues [facility] Medical History (Updated 04/29/24 @ 15:52 by Rigoberto Bernabe MD) Chronic kidney disease, stage 3 Lip lesion CTS (carpal tunnel syndrome) TIA (transient ischemic attack) Osteopenia Calcaneal spur, right Osteoarthritis, multiple sites Essential hypertension Hyperlipidemia LDL goal <70 Type 2 diabetes mellitus with chronic kidney disease Surgical History History of excision of lesion (~07/26/23) Hx of section Family History Father Heart disease Mother Asthma Heart attack Social History Household Members: Other Household Members Other:: grandchild Housing: Apartment 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 Comfortable. Neck is supple. Mucosa moist. Lungs clear Heart S1-S2 heard no gallop. Abdomen soft. Extremities no edema. No involuntary movements. No myoclonus. Const General: comfortable Nutritional Appearance: well nourished Orientation/consciousness: patient oriented x3 HEENT Head: No normal to inspection Mouth: moist mucous membranes Neck Neck: Yes supple and Yes no JVD Resp Auscultation: clear to auscultation bilaterally, no rales and rub present Cardio Jugular venous distension: no JVD Palpation: no palpable S3 and no palpable S4 Heart sounds: no rubs GI Palpation (GI): Soft to palpation and nontender Percussion: No Fluid wave present General: Yes no CVA tenderness Back/Spine/Pelvis Back: no CVA tenderness Skin General skin exam: no rashes or lesions noted Neuro General: patient oriented x3 Extrem General: Yes no pedal edema and No clubbing Results Reviewed Nephrology Results: Hgb 12.9 g/dl (12.0-16.0) 08/30/23 WBC 8.6 X10*3/uL (4.8-10.8) 08/30/23 Plt Count 277 X10*3/uL (160-400) 08/30/23 Sodium 133 mmol/L (135-145) L 08/30/23 Potassium 4.4 mmol/L (3.3-5.1) 08/30/23 Chloride 98 mmol/L (96-108) 08/30/23 Carbon Dioxide 25 mmol/L (22-29) 08/30/23 BUN 25 mg/dL (9-16) H 08/30/23 Creatinine 1.86 mg/dL (0.5-1.4) H 08/30/23 Calcium 9.5 mg/dL (8.4-10.2) 08/30/23 PTH Intact 133.9 pg/mL (8.7-77.1) H 08/30/23 Renal US 12/26/23 Assessment & Plan Assessment & Plan (1) Chronic kidney disease, stage 3: Code(s): N18.30 - Chronic kidney disease, stage 3 unspecified Category: Medical Plan: 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 Mild left perinephric stranding seen also. Repeat USG- NO [place] Code(s): N13.30 - Unspecified hydronephrosis Category: Medical Plan: Needs follow up with Urology Orders: Orders Basic Metabolic Panel Today N18.30 - Chronic kidney disease, stage 3 unspecified Complete Blood Count Auto Diff Today N18.30 - Chronic kidney disease, stage 3 unspecified Coding Level of Care Code Est Pt Level 4 (48733) Diagnoses Chronic kidney disease, stage 3 N18.30 Essential hypertension I10 Hydronephrosis N13.30
[2024-04-29 15:56] VITALS: BP 140/80
== END 2024-04-29 16:00 | disposition home or self-care (01) ==
PROVIDERS: PCP General Practice; Visit Provider Internal Medicine Hypertension Specialist
DX: I12.9 Hypertensive chronic kidney disease with stage 1 through stage 4 chronic kidney disease, or unspecified chronic kidney disease (principal); E11.22 Type 2 diabetes mellitus with diabetic chronic kidney disease; N18.30 Chronic kidney disease, stage 3 unspecified; N13.30 Unspecified hydronephrosis
CPT/HCPCS: 99214

== ENCOUNTER → 2024-04-29 15:46 | Outpatient (BNVA) | payer OTHER, SELFPAY | PROVIDERS: PCP General Practice; Visit Provider Internal Medicine Hypertension Specialist | DX: E11.22 Type 2 diabetes mellitus with diabetic chronic kidney disease (principal); I12.9 Hypertensive chronic kidney disease with stage 1 through stage 4 chronic kidney disease, or unspecified chronic kidney disease; N18.30 Chronic kidney disease, stage 3 unspecified; N13.30 Unspecified hydronephrosis | CPT/HCPCS: 99212 ==

== ENCOUNTER 2024-05-01 11:22 | Outpatient (REF) | payer OTHER, SELFPAY ==
[2024-05-01 12:59] LABS: MANUAL DIFF FLAG NO
[2024-05-01 13:09] LABS: Basophils Absolute Auto 0.1 X10*3/uL (0.0-0.2); Basophils Percent Auto 0.9 % (0-2); Eosinophils Absolute Auto 0.4 X10*3/uL (0.0-0.4); Eosinophils Percent Auto 4.2 % (0-4); Hematocrit 40.6 % (37.0-47.0); Hemoglobin 13.1 g/dl (12.0-16.0); Imm Gran Abs Auto 0.05 X10*3/uL (0.00-0.03); Imm Gran Pct Auto 0.6 % (0.0-0.4); Lymphocytes Absolute Auto 2.5 X10*3/uL (1.2-4.9); Lymphocytes Percent Auto 28.1 % (20-40); Mean Corpuscular HGB Conc 32.3 g/dl (31.0-35.0); Mean Corpuscular Volume 83.5 fL (80.0-98.0); Mean Platelet Volume 11.4 fL (9.4-12.3); Monocytes Absolute Auto 0.6 X10*3/uL (0.1-1.2); Monocytes Percent Auto 6.8 % (2-11); Neutrophils Absolute Auto 5.3 x10*3/uL (2.0-8.3); Neutrophils Percent Auto 59.4 % (45-73); Platelet Count 279 X10*3/uL (160-400); Red Blood Count 4.86 X10*6/uL (4.20-5.50); Red Cell Distribution Width 15.6 % (11.0-16.0)
[2024-05-01 13:27] LABS: Anion Gap 15 (12-20); Blood Urea Nitrogen 31 mg/dL (9-16); Calcium 9.5 mg/dL (8.4-10.2); Carbon Dioxide 24 mmol/L (22-29); Chloride 105 mmol/L (96-108); Estimated Glomerular Filt Rate 36; Glucose Random 160 mg/dL (60-115); Potassium 3.7 mmol/L (3.3-5.1); Sodium 140 mmol/L (135-145)
[2024-05-01 13:52] LABS: Parathyroid Hormone Intact 163.1 pg/mL (8.7-77.1)
== END 2024-05-01 11:23 | disposition home or self-care (01) ==
LOC: HO.HHCL 11:22
PROVIDERS: Visit Provider Internal Medicine Hypertension Specialist
DX: N18.30 Chronic kidney disease, stage 3 unspecified (principal)
CPT/HCPCS: 36415; 80048; 83970; 85025

== ENCOUNTER 2024-05-06 12:57 | Outpatient (AMB) | payer OTHER, SELFPAY ==
--- NOTE | 2024-05-06 13:03 | MHC.OFFVIS ---
Vital Signs 05/06/24 13:04 Height 4 ft 11 in Weight 150 lb BMI 30.3 Intake Visit Reasons: follow up s/p US 04/02/24 Intake Note: follow up 04/02/24 for bilateral VV Left LE worse than the Right LE. Pt has swelling and numbness in Left LE. 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 At the current time she does have some mild swelling in particular left lower extremity and she does have some varicosities on that left lower extremity. She reports that she has been doing fairly reasonable with her compression stockings. She now presents for follow-up with venous insufficiency testing. [facility] Medical History Chronic kidney disease, stage 3 Lip lesion CTS (carpal tunnel syndrome) TIA (transient ischemic attack) Osteopenia Calcaneal spur, right Osteoarthritis, multiple sites Essential hypertension Hyperlipidemia LDL goal <70 Type 2 diabetes mellitus with chronic kidney disease Surgical History History of excision of lesion (~07/26/23) Hx of section Family History Father Heart disease Mother Asthma Heart attack Social History Household Members: Other Household Members Other:: grandchild Housing: Apartment Do you presently have visiting nurse or other home services: Yes ([facility]) Alcohol intake: former Patient Tobacco Use Status: Former Tobacco user Tobacco use type: Cigarette Cigarettes Per Day: 4 Years Smoked: 3 service: No Review of Systems Const Reports as per HPI ENT Reports no additional complaints Card Denies chest pain, Denies chest pain at rest and Denies chest pain with activity Resp Denies chest congestion and Denies cough GI Reports no additional complaints Musc Details: pain over varicosities, aching of lower extremities, swelling, cramping, heaviness and tiredness, itching Denies abnormal gait Skin/Breast Reports pruritus and Denies wounds Neuro Reports no additional complaints and Denies abnormal gait Psych Denies no additional complaints Physical Exam Vital Signs: BMI result Body Mass Index 30.3 Const General: cooperative, healthy appearing and comfortable Orientation/consciousness: oriented to person, oriented to place and oriented to time Neck Carotids: no bruits Chest Chest palpation & inspection: normal inspection of the chest and normal palpation of entire chest wall Resp Effort & Inspection: normal respiratory effort and able to speak in complete sentences Cardio Rate: regular rate Heart sounds: S1 normal heart sound present and S2 normal heart sound present Peripheral pulses: Peripheral pulses 2+ throughout GI Inspection: Yes normal to inspection Skin Other: +2 edema, large rope-like varicosities greater than 4 mm left calf CEAP Classification C4 - skin color changes Ep - Etiology Primary As - superficial veins P - reflux General skin exam: dry skin Neuro General: oriented to person, oriented to place and oriented to time Extrem Right lower extremity: full ROM, normal capillary refill and edema Left lower extremity: full ROM, normal capillary refill and edema Psych Mental Status: mental status grossly normal Results Reviewed Results Reviewed: Brief summary of venous insufficiency testing is as follows: right great saphenous vein: negative right small saphenous vein: negative right accessory vein: none present left great saphenous vein: Focally positive at mid thigh and ankle. Vein is small in caliber left small saphenous vein: negative left accessory vein: none present Please note there is no evidence of any venous aneurysms or significant tortuosity Assessment & Plan Assessment & Plan (1) Varicose veins of left lower extremity with inflammation: Code(s): I83.12 - Varicose veins of left lower extremity with inflammation Category: Medical Plan: In short patient is negative for any significant venous insufficiency. She does have some superficial varicosities. We did have an extensive discussion about a microphlebectomy. At the current time she would like to manage these conservatively. We did discuss routine conservative measures including compression, elevation and exercise. She will call us if she would like to have intervention. She will follow up with us on an as-needed basis. Thank you for allowing us to assist in her care. Coding Level of Care Code Est Pt Level 4 (06498) Diagnoses Varicose veins of left lower extremity with inflammation I83.12
[2024-05-06 13:04] VITALS: BMI 30.3
== END 2024-05-06 13:14 | disposition home or self-care (01) ==
PROVIDERS: PCP General Practice; Visit Provider Surgery Vascular Surgery
DX: I83.12 Varicose veins of left lower extremity with inflammation (principal)
CPT/HCPCS: 99214

== ENCOUNTER → 2024-05-06 12:57 | Outpatient (BNVA) | payer OTHER, SELFPAY | PROVIDERS: PCP General Practice; Visit Provider Surgery Vascular Surgery | DX: I83.12 Varicose veins of left lower extremity with inflammation (principal) | CPT/HCPCS: 99212 ==

== ENCOUNTER 2024-06-04 15:12 | Outpatient (REF) | payer OTHER, SELFPAY ==
--- NOTE | ~2024-06-04 | XR_ITS ---
EXAMINATION: BILATERAL HANDS CLINICAL INFORMATION: Pain in both hands COMPARISON: 03/04/2010 (report only) TECHNIQUE: 3 views each hand FINDINGS: Right: Degenerative changes are present at the interphalangeal joints, distal greater than proximal. Most marked changes are seen in the index finger. Degenerative changes are also seen at the first CMC joint as well as the first MCP joint. There is chondrocalcinosis in the wrist in the triangular cartilage along with degenerative changes at the radiocarpal joint. No fractures or acute finding. Left: Degenerative changes are present at the interphalangeal joints, distal greater than proximal. Degenerative changes are also seen at the first CMC joint as well as the first MCP joint. There is chondrocalcinosis in the wrist in the triangular cartilage along with degenerative changes at the radiocarpal joint. No fractures or acute finding. XR/XR hand RT min 3V IMPRESSION: Bilateral degenerative changes as described above. Although the images are not available from 2009, compared with the report, findings seen to have progressed over the past 14 years. Electronically signed by: Mendez Jones MD 06/05/2024 02:50 PM [facility]
--- NOTE | ~2024-06-04 | XR_ITS ---
EXAMINATION: BILATERAL HANDS CLINICAL INFORMATION: Pain in both hands COMPARISON: 03/04/2010 (report only) TECHNIQUE: 3 views each hand FINDINGS: Right: Degenerative changes are present at the interphalangeal joints, distal greater than proximal. Most marked changes are seen in the index finger. Degenerative changes are also seen at the first CMC joint as well as the first MCP joint. There is chondrocalcinosis in the wrist in the triangular cartilage along with degenerative changes at the radiocarpal joint. No fractures or acute finding. Left: Degenerative changes are present at the interphalangeal joints, distal greater than proximal. Degenerative changes are also seen at the first CMC joint as well as the first MCP joint. There is chondrocalcinosis in the wrist in the triangular cartilage along with degenerative changes at the radiocarpal joint. No fractures or acute finding. XR/XR hand LT min 3V IMPRESSION: Bilateral degenerative changes as described above. Although the images are not available from 2009, compared with the report, findings seen to have progressed over the past 14 years. Electronically signed by: Mendez Jones MD 06/05/2024 02:50 PM [facility]
== END 2024-06-04 15:13 | disposition home or self-care (01) ==
LOC: HO.HHCX 15:12
PROVIDERS: Visit Provider General Practice
DX: M79.641 Pain in right hand (principal); M79.642 Pain in left hand
CPT/HCPCS: 73130

== ENCOUNTER 2024-09-18 11:45 | Outpatient (AMB) | payer OTHER, SELFPAY ==
[2024-09-18 11:46] VITALS: BP 150/70; PULSE 81; O2SAT 97; BMI 30.9
--- NOTE | 2024-09-18 11:46 | HO.NEPHOV ---
Vital Signs 09/18/24 11:46 Height 4 ft 11 in Weight 153 lb BMI 30.9 BP 150/70 H Blood Pressure Location Lt brachial Position Sitting Pulse 81 Pulse Source Pulse Oximeter Pulse Oximetry (%) 97 Oxygen Delivery Method Room Air Intake Visit Reasons: CKD/LVM Cloth Finishing Range Operator Chief Required: No Cloth Finishing Range Operator Chief Services: Cloth Finishing Range Operator Chief Offered & Declined (Patients son will translate) Accompanied by: Son Allergies Sulfa (Sulfonamide Antibiotics) Allergy (Intermediate, Verified 09/18/24 11:49) SWELLING Medication List - Last Reconciled 09/18/24 by Rigoberto Bernabe MD albuterol sulfate 90 mcg/actuation 2 puffs inhalation Q6H PRN allopurinol 50 mg PO DAILY blood sugar diagnostic (DataFlyte Verio test strips) Use 1 test strip three times a day blood sugar diagnostic As directed three times a day diltiazem HCl CD 300 mg PO DAILY dulaglutide (Trulicity) mg subcut empagliflozin (Jardiance) 25 mg PO DAILY fluticasone propionate 110 mcg/actuation (Flovent HFA) 2 inhalations inhalation BID glipizide 10 mg PO BIDWM lisinopril 20 mg PO DAILY mirtazapine 45 mg PO BEDTIME pen needle, diabetic (BD Jackeline 2nd Gen Pen Needle) As directed one time a day HPI Comments Details: 78 yr old woman with a h/o long standing DM and HTN with CKD Here for follow up with her son No new issues today She tells me that her blood sugar remains elevated at home She is on SGLT-2 inhibitors 04/29/24;Overall doing ok. No new issues [facility] History Chronic kidney disease, stage 3 Lip lesion CTS (carpal tunnel syndrome) TIA (transient ischemic attack) Osteopenia Calcaneal spur, right Osteoarthritis, multiple sites Essential hypertension Hyperlipidemia LDL goal <70 Type 2 diabetes mellitus with chronic kidney disease Surgical History History of excision of lesion (~07/26/23) Hx of section Family History Father Heart disease Mother Asthma Heart attack Social History Household Members: Other Household Members Other:: grandchild Housing: Apartment Do you presently have visiting nurse or other home services: Yes (recovery operator helper) Alcohol intake: former Patient Tobacco Use Status: Former Tobacco user Tobacco use type: Cigarette Cigarettes Per Day: 4 Years Smoked: 3 service: No Physical Exam Vital Signs: BMI result Body Mass Index 30.9 Awake. Comfortable. Neck is supple. Mucosa moist. Lungs clear Heart S1-S2 heard no gallop. Abdomen soft. Extremities no edema. No involuntary movements. No myoclonus. Const General: comfortable Nutritional Appearance: well nourished Orientation/consciousness: patient oriented x3 HEENT Head: No normal to inspection Mouth: moist mucous membranes Neck Neck: Yes supple and Yes no JVD Resp Auscultation: clear to auscultation bilaterally, no rales and rub present Cardio Jugular venous distension: no JVD Palpation: no palpable S3 and no palpable S4 Heart sounds: no rubs GI Palpation (GI): Soft to palpation and nontender Percussion: No Fluid wave present General: Yes no CVA tenderness Back/Spine/Pelvis Back: no CVA tenderness Skin General skin exam: no rashes or lesions noted Neuro General: patient oriented x3 Extrem General: Yes no pedal edema and No clubbing Results Reviewed Nephrology Results: Hgb 13.1 g/dl (12.0-16.0) 05/01/24 WBC 9.0 X10*3/uL (4.8-10.8) 05/01/24 Plt Count 279 X10*3/uL (160-400) 05/01/24 Sodium 140 mmol/L (135-145) 05/01/24 Potassium 3.7 mmol/L (3.3-5.1) 05/01/24 Chloride 105 mmol/L (96-108) 05/01/24 Carbon Dioxide 24 mmol/L (22-29) 05/01/24 BUN 31 mg/dL (9-16) H 05/01/24 Creatinine 1.43 mg/dL (0.5-1.4) H 05/01/24 Calcium 9.5 mg/dL (8.4-10.2) 05/01/24 PTH Intact 163.1 pg/mL (8.7-77.1) H 05/01/24 Renal US 12/26/23 Assessment & Plan Assessment & Plan (1) Chronic kidney disease, stage 3: Code(s): N18.30 - Chronic kidney disease, stage 3 unspecified Category: Medical Plan: 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 Mild left perinephric stranding seen also. Repeat USG- NO [place] Code(s): N13.30 - Unspecified hydronephrosis Category: Medical Plan: Needs follow up with Urology Orders: Orders Basic Metabolic Panel Today N18.30 - Chronic kidney disease, stage 3 unspecified Coding Level of Care Code Est Pt Level 4 (36817) Diagnoses Chronic kidney disease, stage 3 N18.30 Essential hypertension I10 Hydronephrosis N13.30
== END 2024-09-18 11:58 | disposition home or self-care (01) ==
PROVIDERS: PCP General Practice; Visit Provider Internal Medicine Hypertension Specialist
DX: N18.30 Chronic kidney disease, stage 3 unspecified (principal); I10 Essential (primary) hypertension; N13.30 Unspecified hydronephrosis
CPT/HCPCS: 99214

== ENCOUNTER → 2024-09-18 11:45 | Outpatient (BNVA) | payer OTHER, SELFPAY | PROVIDERS: PCP General Practice; Visit Provider Internal Medicine Hypertension Specialist | DX: I12.9 Hypertensive chronic kidney disease with stage 1 through stage 4 chronic kidney disease, or unspecified chronic kidney disease (principal); N18.30 Chronic kidney disease, stage 3 unspecified; N13.30 Unspecified hydronephrosis | CPT/HCPCS: 99212 ==

== ENCOUNTER 2024-11-11 11:56 | Outpatient (REF) | payer OTHER, SELFPAY ==
--- NOTE | ~2024-11-11 | XR_ITS ---
EXAMINATION: XR HAND 3 OR MORE VIEWS LEFT HISTORY: inc pain COMPARISON: There are no prior studies available for comparison. FINDINGS: Three views of the left hand are submitted. The bones are osteopenic. There is no fracture or dislocation. There is moderate osteoarthritis of the 1st carpometacarpal joint, with joint space narrowing and osteophyte formation. There is mild narrowing of the DIP joints. There are vascular calcifications. There is chondrocalcinosis at the wrist. 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 Electronically signed by: Emir Gage MD 11/11/2024 01:04 PM EDT
--- NOTE | ~2024-11-11 | XR_ITS ---
EXAMINATION: XR HAND, RIGHT CLINICAL INFORMATION: increasing pain COMPARISON: June 04, 2024. TECHNIQUE: PA, lateral, and oblique views of the right hand. FINDINGS: Sclerosis along the articular surface with asymmetric joint space narrowing and subcortical cyst formation and distal phalanges of the first second and third digits. Degenerative changes in the first and second carpometacarpal joint and the radiocarpal joint. No acute cortical disruption or malalignment. Focal soft tissue calcification in the radial aspect interphalangeal joint of the fourth digit. Osteopenia versus osteoporosis. XR/XR hand RT min 3V IMPRESSION: Osteoarthrosis involving mostly the first second and third digits and first and second carpometacarpal joints. Electronically signed by: Ean Mariee MD 11/11/2024 12:56 PM EDT
--- OUTSIDE RECORDS SUMMARY | 2024-11-11 14:44 | XMS_ITS | Clinical Summary ---
Demographics Address [address] [place] [address] [address] [place] [address] Home Phone Preferred Language es Marital Status Unknown Yarsanism Affiliation Unknown Race Unknown Ethnic Group Unknown Author Organization [facility] Address [address] [place] [id number] Phone Care Team Providers Care Soft Boarder Name Role Phone Zeny Sagastume MD Primary Care Provider Allergies Active Allergy Reactions Criticality Noted Date Comments Sulfa Antibiotics 08/08/2012 Medications aspirin (ST TORSTEN) 81 MG EC tablet Take 1 tablet by mouth 1 (one) time each day Active dilTIAZem (TIAZAC) 300 MG 24 hr capsule Take 1 capsule by mouth 1 (one) time each day 06/05/2016 Active glipiZIDE (GLUCOTROL) 10 MG tablet Take 1 tablet by mouth 2 (two) times a day Active lisinopril 20 MG tablet Take 1 tablet by mouth 1 (one) time each day Active mirtazapine (REMERON) 45 MG tablet Take 1 tablet by mouth 1 (one) time each day in the evening Active allopurinol (ZYLOPRIM) 100 MG tablet Take 50 mg by mouth 1 (one) time each day 01/24/2021 Active Dulaglutide (Trulicity) 0.75 MG/0.5ML solution pen-injector Inject under the skin Active Empagliflozin (Jardiance) 25 MG tablet Take 25 mg by mouth 1 (one) time each day in the morning Active Active Problems Problem Noted Date Diagnosed Date Stage 3b chronic kidney disease 07/16/2023 Renal osteodystrophy 07/16/2023 Acute nontraumatic kidney injury 02/01/2023 Overview (02/09/2023): Last Assessment & Plan: secondary to #1 / r/o kidney stone encouraged increase water intake, remain off lisinopril and metformin Repeat BMP and FU with PCP on 02/05. Calculus of bile duct 02/01/2023 Overview (04/29/2024): CT scan abdomen on 01/13/[address] [facility] (admission for UTI) Last Assessment & Plan: Inceidental finding on CT scan, pt asymptomatic fu with PCP reassurance and gave indication to reconsult PRN with signs Replacing diagnoses that were inactivated after the 04/29/24 Regulatory Import Candidal vulvovaginitis 02/01/2023 Overview (02/09/2023): Last Assessment & Plan: Secondary to abx + uncontrolled DM Fluconizole 150 x 1 counseled regarding tight control of DM. Pyelonephritis 02/01/2023 Overview (02/09/2023): Last Assessment & Plan: s/p cetriaxone x 2 doses, did not complete PO antibiotics. 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 Osteoporosis 05/22/2012 Steatosis of liver 05/22/2012 Tobacco dependence syndrome 05/22/2012 Arthropathy 01/17/2012 Pure hypercholesterolemia 01/17/2012 Resolved Problems Problem Noted Date Diagnosed Date Resolved Date Adjustment disorder with depressed mood 08/08/2012 04/15/2021 Asthma 08/08/2012 04/15/2021 Atypical chest pain 08/08/2012 04/15/20 21 FH: Cardiovascular disease 08/08/2012 0 04/15/2021 Obesity 08/08/2012 04/15/2021 Tobacco use and exposure - finding 08/08/2012 04/15/2021 Immunizations Immunization Administration Dates Next Due Hepatitis B 07/10/2006,02/19/2006 Influenza Split 04/22/2013 Influenza Split High Dose Pr eservative Free IM 07/18/2019,05/07/2017 Influenza, MDCK, PF, Quadrivalent 07/17/2018 Influenza, Quadrivalent, Pre servative Free 03/17/2016 Moderna SARS-COV-2 02/06/2022,,10/29/2020,10/01 Pneumococcal Conjugate 13-Valent 02/03/2021 Pneumococcal Polysaccharide 07/09/2007 Shingrix 07/05/2021,03/15/2021 Td 09/19/1996 Tdap 04/22/2013 Family History Medical History Relation Comments Cancer Father Diabetes Mother Hypertension Mother Relation Status Comments Father Mother Social History Tobacco Use Types Packs/Day Years Used Date Smoking Tobacco: Never Smokeless Tobacco: Never Tobacco Cessation:Counseling Given: Not Answered Alcohol Use Standard Drinks/Week Comments No 0 (1 standard drink = 0.6 oz pur e alcohol) Comments Unknown Sex and Gender Information Value Date Recorded Sex Assigned at Not on file Legal Sex Female 5:09 PM EST Gender Identity Not on file Sexual Orientation Not on file Last Filed Vital Signs Vital Sign Reading Time Taken Comments Blood Pressure 129/62 07/16/2023 1:50 PM EST Pulse 66 07/16/2023 1:50 PM EST Temperature - - Respiratory Rate - - Oxygen Saturation 96% 07/16/2023 1:50 PM EST Inhaled Oxygen Concentration - - Weight 66.6 kg (146 lb 12.8 oz) 07/16/2023 1:50 PM EST Height 149.9 cm (4' 11 ) 07/10/2019 12: 00 PM EST Body Mass Index 29.65 07/10/2019 12:00 PM EST Plan of Treatment Health Maintenance Due Date Last Done Comments Diabetes: Ophthalmology Exam 08/27/2020 Diabetes: Pedal Pulse Checked 08/27/2020 Diabetes: Sensory Foot Exam 08/27/2020 Diabetes: Visual Foot Exam 08/27/2020 Pneumococcal Vaccine: 50+ Years (3 of 3 - PPSV23, PCV20 or PCV21) 03/31/2021 02/03/2021, 07/09/2007 Diabetes: Hemoglobin A1C 07/31/2023 04/30/2023, 05/0 07/2022 Influenza Vaccine (Season Ended) 2025 07/18/2019, 07/17/2018, 05/07/2017, Additional history exists Hepatitis B Vaccine Aged Out 07/10/2006, 6 No longer eligible based on patient's age to complete this topic Pneumococcal Vaccine: Peds (0 to 5 Years) and At-Risk Patients (6 to 49 Years) Discontinued 02/03/2021, 07/09/2007 Insurance [place] Dual MCR/MARY ([id number]) [place] Dual MCR/MARY ([id number]) Care Teams Soft Boarder Relationship Specialty Start Date End Date eZny Sagastume MD [address] [place] [address] PCP - General Social Media Marketing Analyst 02/09/23
== END 2024-11-11 11:57 | disposition home or self-care (01) ==
LOC: HO.HHCX 11:56
PROVIDERS: Visit Provider General Practice
DX: M19.041 Primary osteoarthritis, right hand (principal); M19.042 Primary osteoarthritis, left hand
CPT/HCPCS: 73130

== ENCOUNTER → 2024-11-11 11:57 | Outpatient (BNV) | payer OTHER, SELFPAY | PROVIDERS: Visit Provider Radiology Diagnostic Radiology | DX: M19.041 Primary osteoarthritis, right hand (principal); M19.042 Primary osteoarthritis, left hand | CPT/HCPCS: 73130 ==

== ENCOUNTER 2024-11-19 12:22 | Outpatient (REF) | payer OTHER, SELFPAY ==
[2024-11-19 13:59] LABS: Rheumatoid Factor < 13.0 IU/mL (<15.0)
[2024-11-19 14:00] LABS: Cholesterol 165 mg/dL (<200); HDL Cholesterol 44 mg/dL (>40); LDL Cholesterol Calculated 92 mg/dL (<100); Triglycerides 149 mg/dL (<150)
[2024-11-19 14:16] LABS: Erythrocyte Sedimentation Rate 23 MM/HR (0-20)
--- OUTSIDE RECORDS SUMMARY | 2024-11-19 14:36 | XMS_ITS | Encounter Summary ---
Author Organization [facility] Address [address] [place] [address] Care Team Providers Care Anesthesiologist Physician Name Role Phone Zeny Sagastume MD Primary Care Provider [phone] Encounter Details Date Type Department Care Team ([facility] Contact Info) Description 04/03/2023 Orders Only [facility] [address] [place] [address] Zeny Sagastume MD [address] [place], [place] [id number] Social History Tobacco Use Types Packs/Day Years Used Date Smoking Tobacco: Former Cigarettes Q uit: 1969 Smokeless Tobacco: Never Alcohol Use Standard Drinks/Week Comments Not Currently 0 (1 standard drink = 0.6 oz pur e alcohol) oca PHQ-2 Answer Date Recorded Patient Health Questionnaire-2 Score 0 08/11/2022 Depression Answer Date Recorded Patient Health Questionnaire-2 Score 0 08/11/2022 Comments Unknown Sex and Gender Information Value Date Recorded Sex Assigned at Female 05/29/2022 10:14 AM EDT Legal Sex Female 10:14 AM EDT Gender Identity Female 05/29/2022 10:14 AM EDT Sexual Orientation Straight 05/29/2022 10 :14 AM EDT documented as of this encounter Plan of Treatment Upcoming Encounters Date Type Department Care Team ([facility] Contact Info) Description 12/08/2024 2:00 PM EDT Office Visit [facility] [address] [place] [address] Kayden, Valentina, OD [address] [place] [address] documented as of this encounter Visit Diagnoses Not on filedocumented in this encounter Care Teams Anesthesiologist Physician Relationship Specialty Start Date End Date Zeny Sagastume MD [address] [place] [address] PCP - General Family Medicine 08/11/22 documented as of this encounter
--- OUTSIDE RECORDS SUMMARY | 2024-11-19 14:36 | XMS_ITS | Clinical Summary ---
Author Organization [employer] Address [address] [place] [address] Care Team Providers Care Director Of Rehabilitation Name Role Phone Zeny Sagastume MD Primary Care Provider Allergies Active Allergy Reactions Criticality Noted Date Comments Sulfa Antibiotics Other reaction(s): unspecified Medications cholecalciferol (Vitamin D-3) 50 MCG (1999) capsule TAKE 1 CAPSULE BY MOUTH EVERY DAY 022 Active Blood Pressure Monitoring (Blood Pressure Monitor/Wrist) deviceIndications :Essential hypertension, benign 1 kit in the morning. 1 each 023 Active fluticasone (Flovent) 110 MCG/ACT inhalerIndication s:Moderate persistent asthma without complication Inhale 2 puffs in the morning and at bedtime. Rinse mouth with water after use to reduce aftertaste and incidence of candidiasis. Do not swallow. 12 g 3 023 Active Lancets (OneTouch Delica Plus [id number]) miscIndications:T ype 2 diabetes mellitus without complication, unspecified whether group home insulin use ([facility]) USE 1 LANCET BY TO SKIN ROUTE 3 TIMES EVERY DAY 100 each 11 024 Active clotrimazole (Lotrimin) 1 % cream APPLY TO AFFECTED AREA TOPICALLY TWICE A DAY FOR 28 DAYS 024 Active pravastatin (Pravachol) 40 MG tablet Take 1 tablet (40 mg) by mouth Once per day. 90 tablet 3 024 Active empagliflozin (Jardiance) 25 MGIndications:Typ e 2 diabetes mellitus without complication, unspecified whether group home insulin use ([facility]) TAKE 1 TABLET BY MOUTH EVERY DAY IN THE MORNING 90 tablet 3 Active dilTIAZem CD (Cardizem CD) 300 MG 24 hr capsuleIndication s:Essential hypertension, benign TAKE 1 CAPSULE BY MOUTH EVERY DAY 90 capsule Active traZODone (Desyrel) 50 MG tablet Take 1 tablet (50 mg) by mouth at bedtime. 90 tablet 3 024 2024 Active Diclofenac Sodium 1 % gelIndications:Pa in in both hands,Primary osteoarthritis of both hands,Bilateral foot pain Apply 1 Application. topically 2 times daily. Apply to areas of pain in the feet 100 g 11 Active glipiZIDE (Glucotrol) 10 MG tablet TAKE 1 TABLET BY MOUTH TWICE A DAY WITH FOOD 180 tablet Active OneTouch Verio test stripIndications: Type 2 diabetes mellitus with hyperglycemia, without long-term current use of insulin ([facility]) USE TO TEST 3 TIMES DAILY 100 strip Active Aspirin Low Dose 81 MG EC tablet TAKE 1 TABLET (81 MG) BY MOUTH IN THE MORNING 90 tablet Active albuterol 108 (90 Base) MCG/ACT inhalerIndication s:Asthma INHALE 2 PUFFS BY MOUTH EVERY 4-6 HOURS NEEDED 8.5 g Active Alcohol Swabs (Alcohol Pads) 70 % pads USE TO TEST BLOOD SUGAR THREE TIMES A DAY 100 each Active lisinopril 40 MG tabletIndications :Essential hypertension, benign Take 1 tablet (40 mg) by mouth Once per day. 90 tablet 025 2025 Active Dulaglutide (Trulicity) 3 MG/0.5ML solution auto-injectorIndi cations:Type 2 diabetes mellitus with hyperglycemia, without long-term current use of insulin ([facility]) Inject 3 mg under the skin 1 (one) time per week. 2 mL Active cyclobenzaprine (Flexeril) 5 MG tabletIndications :Primary osteoarthritis of both hands Take 1 tablet (5 mg) by mouth 3 times daily for 10 days. 30 tablet 025 2024 Active calcium carbonate (Calcium 600) 600 MG tabletIndications :Localized osteoporosis without current pathological fracture Take 1 tablet (600 mg) by mouth with breakfast and with evening meal. 180 tablet 3 025 2025 Active lisinopril (Zestril) 30 MG tablet Take 1 tablet (30 mg) by mouth Once per day. 90 tablet 3 024 2024 Discontinued(I neffective) Dulaglutide (Trulicity) 3 MG/0.5ML solution auto-injector Inject 0.5 mL (3 mg) under the skin 1 (one) time per week. 2 mL 6 024 2024 Discontinued(R eorder (will not trigger notification to Pharmacy)) Active Problems Problem Noted Date Diagnosed Date Both eyes affected by mild n onproliferative diabetic retinopathy with macular edema, associated with type 2 diabetes mellitus 11/11/2024 Edentulous maxilla 06/04/2024 Chronic renal disease, stage IV 09/12/2023 Assessment & Plan (11/12/2024 9:43 AM EDT): Most recent GFR 26, need to focus on BG control and BP control Avoid nephrotoxins No oral NSAIDs Continue SGLT1 Check labs today Assessment & Plan (12/19/2023 3:08 PM EDT): Most recent GFR 26, need to focus on BG control and BP control Avoid nephrotoxins No oral NSAIDs Continue SGLT1 Assessment & Plan (09/12/2023 10:01 AM EST): Most recent GFR 26, need to focus on BG control and BP control Avoid nephrotoxins No oral NSAIDs Peripheral retinal degeneration 09/10/2023 Renal osteodystrophy 07/16/2023 09/10/2023 Partially edentulous mandible 04/06/2023 Coccyx pain 03/20/2023 Acute renal failure syndrome 02/01/2023 Overview (04/03/2023): Last Assessment & Plan: secondary to #1 / r/o kidney stone encouraged increase water intake, remain off lisinopril and metformin Repeat BMP and FU with PCP on 02/05. Assessment & Plan (02/01/2023 12:01 PM EDT): secondary to #1 / r/o kidney stone encouraged increase water intake, remain off lisinopril and metformin Repeat BMP and FU with PCP on 02/05. Pyelonephritis 02/01/2023 Assessment & Plan (02/01/2023 12:01 PM EDT): s/p cetriaxone x 2 doses, did not complete PO antibiotics. repeat UA and culture and treat accoringly otherwise pt is asymptomatic at this time encouraged tight control of DM and increase water intake Calculus of bile duct without obstruction 2022 Overview (04/03/2023): CT scan abdomen on 01/13/23 at [facility] (admission for UTI) CT scan abdomen on 01/13/23 at [facility] (admission for UTI) Last Assessment & Plan: Inceidental finding on CT scan, pt asymptomatic fu with PCP reassurance and gave indication to reconsult PRN with signs Assessment & Plan (02/01/2023 11:59 AM EDT): Inceidental finding on CT scan, pt asymptomatic fu with PCP reassurance and gave indication to reconsult PRN with signs Adjustment disorder with depressed mood 08/08/19 13 Atypical chest pain 08/08/2012 Type 2 diabetes mellitus wit h hyperglycemia, without long-term current use of insulin 08/08/2012 Assessment & Plan (11/12/2024 9:46 AM EDT): Current A1c: 7.2; need tighter glucose control with CKD 3/4, A1C <7 Continue Trulicity 3mg weekly, continue Jardiance 25mg and Glipizide 10mg BMP: Lab Results Component Value Date CREATININE 1.86 (H) 08/30/2023 CREATININE 1.63 (H) 12/20/2020 CREATININE 1.63 (H) 12/20/2020 Microalbumin: Lab Results Component Value Date MICROALBUR 16.0 07/20/2023 Foot Exam: Normal today Eye Exam: 07/2023 mild NPDR Lipid panel: Lab Results Component Value Date LDLCHOL 59 05/29/2022 ASCVD: > 10% Statin: Yes ASA: Yes IRVIN/ARB: Yes Encouraged regular aerobic exercise for improved glycemic control Encouraged daily foot checks Encouraged lean protein snacks and to avoid foods high in sugar and simple carbohydrates Treatment Goals: A1c goal: <7% FBG goal: <130 2 hour post prandial goal: <180 Assessment & Plan (06/06/2024 9:34 AM EST): Current A1c: 8.2; need tighter glucose control with CKD 3/4, A1C <7 Increase Trulicity to 3mg weekly, continue Jardiance 25mg and Glipizide 10mg BMP: Lab Results Component Value Date CREATININE 1.86 (H) 08/30/2023 CREATININE 1.63 (H) 12/20/2020 CREATININE 1.63 (H) 12/20/2020 Microalbumin: Lab Results Component Value Date MICROALBUR 16.0 07/20/2023 Foot Exam: Normal today Eye Exam: 07/2023 mild NPDR Lipid panel: Lab Results Component Value Date LDLCHOL 59 05/29/2022 ASCVD: > 10% Statin: Yes ASA: Yes IRVIN/ARB: Yes Encouraged regular aerobic exercise for improved glycemic control Encouraged daily foot checks Encouraged lean protein snacks and to avoid foods high in sugar and simple carbohydrates Treatment Goals: A1c goal: <7% FBG goal: <130 2 hour post prandial goal: <180 Assessment & Plan (12/19/2023 3:09 PM EDT): Current A1c: 7.9 Confirmed with pharmacy they have Trulicity 1.5mg, sent this for weekly weekly continue Jardiance 25mg and Glipizide 10mg BMP: Lab Results Component Value Date CREATININE 1.86 (H) 08/30/2023 CREATININE 1.63 (H) 12/20/2020 CREATININE 1.63 (H) 12/20/2020 Microalbumin: Lab Results Component Value Date MICROALBUR 16.0 07/20/2023 Foot Exam: Normal today Eye Exam: 07/2023 mild NPDR Lipid panel: Lab Results Component Value Date LDLCHOL 59 05/29/2022 ASCVD: > 10% Statin: Yes ASA: Yes IRVIN/ARB: Yes Encouraged regular aerobic exercise for improved glycemic control Encouraged daily foot checks Encouraged lean protein snacks and to avoid foods high in sugar and simple carbohydrates Treatment Goals: A1c goal: <7% FBG goal: <130 2 hour post prandial goal: <180 Assessment & Plan (09/12/2023 10:05 AM EST): Current A1c: 11.1; increase Trulicity to 3mg weekly, continue Jardiance 25mg and Glipizide 10mg BMP: Lab Results Component Value Date CREATININE 1.86 (H) 08/30/2023 CREATININE 1.63 (H) 12/20/2020 CREATININE 1.63 (H) 12/20/2020 Microalbumin: Lab Results Component Value Date MICROALBUR 16.0 07/20/2023 Foot Exam: Normal today Eye Exam: 07/2023 mild NPDR Lipid panel: Lab Results Component Value Date LDLCHOL 59 05/29/2022 ASCVD: > 10% Statin: Yes ASA: Yes IRVIN/ARB: Yes Encouraged regular aerobic exercise for improved glycemic control Encouraged daily foot checks Encouraged lean protein snacks and to avoid foods high in sugar and simple carbohydrates Treatment Goals: A1c goal: <7% FBG goal: <130 2 hour post prandial goal: <180 Assessment & Plan (04/30/2023 3:41 PM EDT): Current A1c: 10.0 BMP: Lab Results Component Value Date CREATININE 1.46 (H) 02/12/2023 CREATININE 1.63 (H) 12/20/2020 CREATININE 1.63 (H) 12/20/2020 Microalbumin: DUE Foot Exam: Normal today Eye Exam: Discuss at follow up Lipid panel: ASCVD: Calculate pending updated labs Statin: Yes ASA: Yes IRVIN/ARB: Yes Encouraged regular aerobic exercise for improved glycemic control Encouraged daily foot checks Encouraged lean protein snacks and to avoid foods high in sugar and simple carbohydrates Treatment Goals: A1c goal: <7% FBG goal: <130 2 hour post prandial goal: <180 Assessment & Plan (02/01/2023 12:00 PM EDT): Better controlled, A1C not at goal. Continue Trulicity + Jardiance + Glipizide and FU with PCP She is off metformin due to RONAN. Assessment & Plan (08/17/2022 8:35 PM EST): Current A1c: 9.9 BMP: Cr 1.33/eGFR 42, Metformin and Glipizide renally dosed Microalbumin: Foot Exam: Complete at follow up Eye Exam: Discuss at follow up Lipid panel: ASCVD: Calculate pending updated labs Statin: Yes ASA: Yes IRVIN/ARB: Yes Encouraged regular aerobic exercise for improved glycemic control Encouraged daily foot checks Encouraged lean protein snacks and to avoid foods high in sugar and simple carbohydrates Treatment Goals: A1c goal: <7% FBG goal: <130 2 hour post prandial goal: <180 Anxiety 05/22/2012 Carpal tunnel syndrome 05/22/2012 Depressive disorder 05/22/2012 Gout 05/22/2012 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 Osteoarthritis 05/22/2012 Assessment & Plan (11/12/2024 9:44 AM EDT): Xrays demonstrate worsening OA of hands, exam not consistent with CTS currently Will refer to hand surgeon for further mgmt NSAIDs contraindicated due to renal function, will trial muscle relaxer for pain Assessment & Plan (06/06/2024 9:10 AM EST): Diclofenac gel heat Osteoporosis 05/22/2012 Assessment & Plan (11/12/2024 9:45 AM EDT): Dx in 2011, was on treatment previously Need to discuss with Endo about further mgmt steps On Ca/Vit D Steatosis of liver 05/22/2012 Tobacco dependence syndrome 05/22/2012 Asthma 01/17/2012 Essential hypertension, benign 01/17/2012 Overview (04/30/2023): 11/2011 echo revealed normal LVSF with EF 55-60%, diastolic dysfunction, no valvular abnormalities Assessment & Plan (11/12/2024 9:43 AM EDT): Lab Results Component Value Date CREATININE 1.86 (H) 08/30/2023 CREATININE 1.94 (H) 07/20/2023 CREATININE 1.46 (H) 02/12/2023 CREATININE 1.63 (H) 12/20/2020 CREATININE 1.63 (H) 12/20/2020 EGFR 26 08/30/2023 EGFR 25 07/20/2023 EGFR 35 02/12/2023 BP is not at goal <140/90 Continue diltiazem 300mg daily, increase Lisinopril to 40mg daily - Aerobic exercise to reduce BP. Initial goal of 30 min walk 3-5x/week. Increase as tolerated. - low-sodium diet (goal: <2g/day) and heart healthy diet such as DASH to reduce BP and prevent ASCVD. - Home BP monitoring 1-2 x day with goal of <140/90. - Seek immediate medical attention for chest pain, palpitations, SOB, syncope, or sudden changes in mental status. - Do not change or discontinue current prescriptions without first consulting health care provider Assessment & Plan (12/19/2023 3:07 PM EDT): Lab Results Component Value Date CREATININE 1.86 (H) 08/30/2023 CREATININE 1.63 (H) 12/20/2020 CREATININE 1.63 (H) 12/20/2020 K 4.4 08/30/2023 EGFR 26 08/30/2023 BP is not at goal <140/90 Continue diltiazem 300mg daily, increase Lisinopril to 30mg daily - Aerobic exercise to reduce BP. Initial goal of 30 min walk 3-5x/week. Increase as tolerated. - low-sodium diet (goal: <2g/day) and heart healthy diet such as DASH to reduce BP and prevent ASCVD. - Home BP monitoring 1-2 x day with goal of <140/90. - Seek immediate medical attention for chest pain, palpitations, SOB, syncope, or sudden changes in mental status. - Do not change or discontinue current prescriptions without first consulting health care provider Assessment & Plan (09/12/2023 10:06 AM EST): Lab Results Component Value Date CREATININE 1.86 (H) 08/30/2023 CREATININE 1.63 (H) 12/20/2020 CREATININE 1.63 (H) 12/20/2020 K 4.4 08/30/2023 EGFR 26 08/30/2023 BP is not at goal <140/90 Continue diltiazem 300mg daily, increase Lisinopril to 20mg daily - Aerobic exercise to reduce BP. Initial goal of 30 min walk 3-5x/week. Increase as tolerated. - low-sodium diet (goal: <2g/day) and heart healthy diet such as DASH to reduce BP and prevent ASCVD. - Home BP monitoring 1-2 x day with goal of <140/90. - Seek immediate medical attention for chest pain, palpitations, SOB, syncope, or sudden changes in mental status. - Do not change or discontinue current prescriptions without first consulting health care provider Assessment & Plan (04/30/2023 3:43 PM EDT): BP is at goal on diltiazem and low dose lisinopril Assessment & Plan (02/01/2023 11:59 AM EDT): BP is at goal on diltiazem only Check BMP and restart low dose lisinopril accordingly, [facility] pharmacy confirms that they only have 40 mg prescription on file Pt to fu with PCP on February 05 Assessment & Plan (08/17/2022 8:34 PM EST): Take hydrochlorothiazide 25 and Lisinopril 40mg daily Monitor BP daily Arthropathy 01/17/2012 Pure hypercholesterolemia 01/17/2012 Resolved Problems Problem Noted Date Diagnosed Date Resolved Date Stage 3b chronic kidney disease (CKD) 04/03/2023 09/12/2023 Candidal vulvovaginitis 02/01/2023 04/1 12/2024 Overview (04/30/2023): reoccurent Secondary to abx + uncontrolled DM Assessment & Plan (02/01/2023 11:57 AM EDT): Secondary to abx + uncontrolled DM Fluconizole 150 x 1 counseled regarding tight control of DM. Stage 2 chronic kidney disease 11/14/2018 04/03/2023 Encounters Date Type Department Care Team Description 11/12/[address] [address] Zeny Sagastume MD Results 11/11/2024 11:00 AM EDT Office Visit [address] [address] Zeny Sagastume MD Type 2 diabetes mellitus with hyperglycemia, without long-term current use of insulin ([facility]) (Primary Dx); Both eyes affected by mild nonproliferative diabetic retinopathy with macular edema, associated with type 2 diabetes mellitus ([facility]); Chronic renal disease, stage IV ([facility]); Dietary counseling; Exercise counseling; Class 1 obesity with serious comorbidity and body mass index (BMI) of 30.0 to 30.9 in adult, unspecified obesity type; Primary osteoarthritis of both hands; Essential hypertension, benign; Localized osteoporosis without current pathological fracture 11/11/2024 Travel 10/31/2024 Patient Outreach [address] [address] Zeny Sagastume MD Pre-visit Planning ((Unable to reach for PVP screening, LVM)) 09/17/2024 Orders Only [address] [address] Zeny Sagastume MD 09/17/[address] [address] Zeny Sagastume MD Medication Question from Last 3 Months Immunizations Name Administration Dates Next Due Hep B, adult 07/10/2006,02/19/2006 Influenza High-dose Quadriva lent Preservative Free 04/30/2023,05/03/2022 Influenza Injectable Quadriv alant Preservative Free IIV4 MDCK 07/17/2018 Influenza injectable quadriv alent preservative free 03/17/2016 Influenza, High Dose Seasona l, Preservative Free 07/18/2019,05/07/2017 Influenza, Split (incl. [place] antigen) 04/22/2013 Moderna Covid-19 Vaccine 12+ 02/06/2022, 06/15/2021,10/29/2020,10/01 Moderna Covid-19 Vaccine 6+ Bivalent 07/21/2022 Pneumococcal Conjugate PCV 13 02/03/2021 Pneumococcal Conjugate PCV 20 12/17/2023 Pneumococcal Polysaccharide PPSV23 07/09/2007 TD (adult), 2 Lf tetanus tox oid, preservative free, adsorbed 09/19/1996 Tdap 12/17/2023,04/22/2013 Zoster, Recombinant 07/05/2021,03/15/2021 Zoster, live 07/05/2021,03/15/2021 Family History Medical History Relation Name Comments Seizures Father Relation Name Status Comments Father Social History Tobacco Use Types Packs/Day Years Used Date Smoking Tobacco: Former Cigarettes Q uit: 1969 Smokeless Tobacco: Never Tobacco Cessation:Counseling Given: Not Answered Alcohol Use Standard Drinks/Week Comments Not Currently 0 (1 standard drink = 0.6 oz pur e alcohol) oca Alcohol Answer Date Recorded Frequency of Alcohol Consumption Not on file 12/17/2023 Average Number of Drinks Not on file 024 Frequency of Binge Drinking Not on file 11/28 Score 0 12/17/2023 Depression Answer Date Recorded Patient Health Questionnaire-9 Score 4 12/17/2023 Patient Health Questionnaire-9 Score 4 12/17/2023 Last PHQ-9: Questionnaire Data Not on file 0 12/17/2023 Housing Stability Answer Date Recorded What is your housing situation today? I have layla navas 09/10/[address] you li ve. Do you have problems with any of the following? None of the above 09/10/2023 Food Insecurity Answer Date Recorded Within the past 12 months, y ou worried that your food would run out before you got money to buy more: Never True 09/10/2023 Within the past 12 months,th e food you bought just didn't last and you didn't have enough money to get more: Never True 06/2024 Transportation Answer Date Recorded In the past 12 months, has l ack of transportation kept you from medical appts, meetings, work or from getting things needed for daily living? Yes, it has kept me from medical appointments or getting medications. 12/17/2023 Utilities Answer Date Recorded In the past 12 months, has t he electric, gas, oil or water company threatened to shut off services in your home? No 09/10/2023 Depression Answer Date Recorded Patient Health Questionnaire-2 Score 2 12/17/2023 Comments Unknown Sex and Gender Information Value Date Recorded Sex Assigned at Female 05/29/2022 10:14 AM EDT Legal Sex Female 10:14 AM EDT Gender Identity Female 05/29/2022 10:14 AM EDT Sexual Orientation Straight 05/29/2022 10 :14 AM EDT Last Filed Vital Signs Vital Sign Reading Time Taken Comments Blood Pressure 148/70 11/11/2024 11:10 AM EDT Pulse 81 11/11/2024 11:10 AM EDT Temperature 36.6 ??C (97.8 ??F) 11/11/2024 11:10 AM E DT Respiratory Rate 16 11/11/2024 11:10 AM EDT Oxygen Saturation 94% 11/11/2024 11:10 AM EDT Inhaled Oxygen Concentration - - Weight 69.2 kg (152 lb 9.6 oz) 11/11/2024 11:10 AM EDT Height 147.3 cm (4' 10 ) 11/11/2024 11:10 AM EDT Body Mass Index 31.89 11/11/2024 11:10 AM EDT Plan of Treatment Upcoming Encounters Date Type Department Care Team (Late st Contact Info) Description 12/08/2024 2:00 PM EDT Office Visit [facility] [address] [place] [address] Kayden, Valentina, OD [address] [place] [address] Health Maintenance Due Date Last Done Comments Dental X-Ray: Bitewings 1945 Hepatitis A Vaccines (1 of 2 - Risk 2-dose series) 1965 Hepatitis B Vaccines (3 of 3 - Risk 3-dose series) 09/04/2006 07/10/2006, 02/19/2006 RSV Patients and Patients Aged 60 years or older (1 - 1-dose 75+ series) 2021 Dental Oral Exam 10/25/2022 04/26/2022, 11/04/2008 Dental Prophylaxis 11/02/2022 05/03/2022, 0 11/25/2012, 08/27/2012, Additional history exists COVID-19 Vaccine ( season) 2024 07/21/2022, 02/06/2022, 06/15/2021, Additional history exists Influenza Vaccine (#1) 2024 , 05/03/2022, 07/18/2019, Additional history exists Diabetes: Urine Protein Screening 07/20/2024 07/20/2023, 07/20/2023, 05/29/2022 Lipid Panel 09/21/2024 11/19/2024, 08/31, 05/29/2022, Additional history exists Alcohol/Substance Use Screening 12/16/2024 12/17/2023 Depression Screening 12/16/2024 12/17/2023, 12/17/19 SDOH Screening 12/16/2024 12/17/2023 Diabetes: Hemoglobin A1C 02/10/2025 025, 06/02/2024, 12/17/2023, Additional history exists Eye Exam 02/17/2025 02/18/2024, 01/28, 02/18/2024, Additional history exists Dental X-Ray: Full Mouth 04/27/2025 04/26/2022 Diabetes: Foot Exam 11/11/2025 11/11/2024, 11/11/2024, 11/11/2024, Additional history exists Tobacco Screening 11/12/2025 11/12/2024 Mammogram 11/21/2025 11/22/2023, 03/30, 10/10/2021, Additional history exists DTaP/Tdap/Td Vaccines (3 - Td or Tdap) 12/16/2033 12/17/2023, 04/22/2013, 09/19/1996 Zoster Vaccines Completed 07/05/2021, 01/2021, 03/15/2021, Additional history exists Hepatitis C Screening Completed 09/21/2023 Pneumococcal Vaccine: 50+ Years Completed 12/17/2023, 02/03/2021, 07/09/2007 HIB Vaccines Aged Out No longer eligi ble based on patient's age to complete this topic HPV Vaccines Aged Out No longer eligi ble based on patient's age to complete this topic IPV Vaccines Aged Out No longer eligi ble based on patient's age to complete this topic Meningococcal Vaccine Aged Out No naomi bennett eligible based on patient's age to complete this topic RSV under 20 months Aged Out No longe r eligible based on patient's age to complete this topic Rotavirus Vaccines Aged Out No longer eligible based on patient's age to complete this topic Procedures Procedure Name Priority Date/Time Associated Diagnosis Comments RHEUMATOID FACTOR Routine 11/19/2024 12: 24 PM EDT Primary osteoarthritis of both hands SED RATE BY MODIFIED WESTERGREN Routine 11/19/2024 12:24 PM EDT Primary osteoarthritis of both hands LIPID PANEL, STANDARD Routine 11/19/2024 12:24 PM EDT Type 2 diabetes mellitus with hyperglycemia, without long-term current use of insulin (CMS/HCC) XR HAND 3+ VIEWS LEFT Routine 11/11/2024 11:57 AM EDT Primary osteoarthritis of both hands XR HAND 3+ VIEWS RIGHT Routine 11/11/2024 11:57 AM EDT Primary osteoarthritis of both hands POCT GLYCATED HEMOGLOBIN, TOTAL Routine 11/11/2024 11:18 AM EDT Type 2 diabetes mellitus with hyperglycemia, without long-term current use of insulin (CMS/HCC) POCT GLUCOSE Routine 11/11/2024 11:14 AM EDT Type 2 diabetes mellitus with hyperglycemia, without long-term current use of insulin (CMS/HCC) BI MAMMOGRAM DIAGNOSTIC TOMOSYNTHESIS BILATERAL Routine 11/22/2023 1:17 PM EDT HEPATITIS C ANTIBODY Routine 09/21/2023 10:03 AM EST Type 2 diabetes mellitus with hyperglycemia, without long-term current use of insulin (CMS/HCC) ALBUMIN, RANDOM URINE W/CREATININE Routine 07/20/2023 1:55 PM EST PROPHYLAXIS - ADULT Routine 05/03/2022 1 2:00 AM EDT PANORAMIC RADIOGRAPHIC IMAGE Routine 04/26/2022 12:00 AM EDT PERIODIC ORAL EVALUATION - ESTABLISHED PATIENT Routine 04/26/2022 12:00 AM EDT from Last 3 Months or Most Recently Relevant to Health Maintenance Results * (ABNORMAL) Sed Rate by Modified Nayanaren (11/19/2024 12:24 PM EDT) Erythrocyte Sedimentation Rate 23(H) 0 - 20 MM/HR [facility] Comment:Patients with polycy themia and many hemoglobin abnormalitiesmay have depressed sed rates whereas patients with anemiamay have elevated sed rates. Blood Venous blood specimen / Unknown 11/19/2024 12:24 PM EDT 11/19/2024 1:08 PM EDT Zeny Sagastume MD LAB BLOOD ORDERABLES Final Res ult Performing Organization Address [facility] Co de Phone Number [facility] [address] [place] [phone] * Rheumatoid Factor (11/19/2024 12:24 PM EDT) Rheumatoid Factor <13.0 <15.0 IU/mL [facility] Blood Venous blood specimen / Unknown 11/19/2024 12:24 PM EDT 11/19/2024 1:08 PM EDT Zeny Sagastume MD LAB BLOOD ORDERABLES Final Res ult Performing Organization Address [facility] Co de Phone Number [facility] [address] [place] [phone] * Lipid Panel, Standard (11/19/2024 12:24 PM EDT) Triglycerides 149 <150 mg/dL [facility] Comment:Desirable Triglyceri de: less than 150 mg/dLBorderline High Triglyceride 150-199 mg/dLHigh Triglyceride: 200-499 mg/dLVery High Triglyceride: greater than or equal to 5OO mg/dL Cholesterol 165 <200 mg/dL [facility] Comment:Desirable Cholestero l: less than 200 mg/dLBorderline High Cholesterol: 200-239 mg/dLHigh Cholesterol: greater than 239 mg/dL LDL Cholesterol Calculated 92 <100 mg/dL [facility] Comment:Desirable LDL: less than 100 mg/dLNear Optimal/Above Optimal LDL: 110- 129 mg/dLBorderline High LDL: 130-159 mg/dLHigh LDL: 160-189 mg/dLVery High LDL: greater than or equal to 190 mg/dL HDL Cholesterol 44 >40 mg/dL [facility] Comment:Desirable HDL: great er than 40 mg/dL Note: This HDL assay may give artificially low results in patients with liver disease. Blood Venous blood specimen / Unknown 11/19/2024 12:24 PM EDT 11/19/2024 1:08 PM EDT us Zeny Sagastume MD LAB BLOOD ORDERABLES Final Res ult [facility] [address] [place] [address] [phone] * XR Hand 3+ Views Right (11/11/2024 11:57 AM EDT) Anatomical Region Laterality Modality Upper Extremities, Hand Right Radiogra phic Imaging 11/11/2024 11:5 7 AM EDT Narrative 11/11/2024 12:59 PM EDT ?[facility] ?[address] ?[place] [address] ?XRay Report ? Signed ? Patient: Radha Navarro D ?MR#: [id number] ?? 4224 ? : 1945 ?Acct:[id number] ? Age/Sex: 79 / F ?ADM Date: 04/15/25 ? Loc: HO.HHCX ? Attending Dr: Zeny Sagastume MD ? Ordering Physician: Zeny Sagastume ?? Date of Service: 11/11/24 ?? Procedure(s): XR hand RT min 3V ?? Accession Number(s): [id number] ? cc: Zeny Sagastume ? EXAMINATION: ?? XR HAND, RIGHT ? CLINICAL INFORMATION: ?? increasing pain ? COMPARISON: ?? June 04, 2024. ? TECHNIQUE: ?? PA, lateral, and oblique views of the right hand. ? FINDINGS: ?? Sclerosis along the articular surface with asymmetric joint space ?? narrowing and subcortical cyst formation and distal phalanges of the ?? first second and third digits. ?? Degenerative changes in the first and second carpometacarpal joint and ?? the radiocarpal joint. ?? No acute cortical disruption or malalignment. Focal soft tissue ?? calcification in the radial aspect interphalangeal joint of the fourth ?? digit. ?? Osteopenia versus osteoporosis. ? XR/XR hand RT min 3V ?? IMPRESSION: ?? Osteoarthrosis involving mostly the first second and third digits and ?? first and second carpometacarpal joints. ? Electronically signed by: ??Ean Mariee MD ??11/11/2024 12:56 PM ?? EDT RP ? Dictated By: ?Ean Villalobos MD ? Signed By: ?<Electronically signed by Ean Trejo MD in OV> ? 11/11/24 1256 ? DD/ 1157 ? TD/TT: 11/11/24 1240 ? Cnc Set Up Operator: ? Procedure Note James, Image - 11/11/2024 [place] [address] XRay Report Signed Patient: Radha Navarro DMR#: [id number] 4224 : 7Acct:[id number] Age/Sex: 79 / FADM Date: 11/11/24 Loc: HO.HHCX Attending Dr: Zeny Sagastume MD Ordering Physician: Zeny Sagastume Date of Service: 11/11/24 Procedure(s): XR hand RT min 3V Accession Number(s): [id number] cc: Zeny Sagastume EXAMINATION: XR HAND, RIGHT CLINICAL INFORMATION: increasing pain COMPARISON: June 04, 2024. TECHNIQUE: PA, lateral, and oblique views of the right hand. FINDINGS: Sclerosis along the articular surface with asymmetric joint space narrowing and subcortical cyst formation and distal phalanges of the first second and third digits. Degenerative changes in the first and second carpometacarpal joint and the radiocarpal joint. No acute cortical disruption or malalignment. Focal soft tissue calcification in the radial aspect interphalangeal joint of the fourth digit. Osteopenia versus osteoporosis. XR/XR hand RT min 3V IMPRESSION: Osteoarthrosis involving mostly the first second and third digits and first and second carpometacarpal joints. Electronically signed by: Ean Mariee MD 11/11/2024 12:56 PM EDT RP Dictated By: Ean Villalobos MD Signed By: <Electronically signed by Ean Trejo MDin OV> 11/11/24 1256 DD/ 1157 TD/TT: 11/11/24 1240 Cnc Set Up Operator: us Zeny Sagastume MD IMG XR PROCEDURES Final Result * XR Hand 3+ Views Left (11/11/2024 11:57 AM EDT) Anatomical Region Laterality Modality Upper Extremities, Hand Left Radiogra phic Imaging 11/11/2024 11:5 7 AM EDT Narrative 11/11/2024 1:07 PM EDT ?[facility] ?[address] ?[place] [address] ?XRay Report ? Signed ? Patient: Radha Navarro D ?MR#: [id number] ?? 4224 ? : 1945 ?Acct:[id number] ? Age/Sex: 79 / F ?ADM Date: 11/11/24 ? Loc: HO.HHCX ? Attending Dr: Zeny Sagastume MD ? Ordering Physician: Zeny Sagastume ?? Date of Service: 11/11/24 ?? Procedure(s): XR hand LT min 3V ?? Accession Number(s): [id number] ? cc: Zeny Sagastume ? EXAMINATION: ??XR HAND 3 OR MORE VIEWS LEFT ? HISTORY: inc pain ? COMPARISON: There are no prior studies available for comparison. ? FINDINGS: ? Three views of the left hand are submitted. ??The bones are osteopenic. ? There is no fracture or dislocation. ??There is moderate osteoarthritis ?? of the 1st carpometacarpal joint, with joint space narrowing and ?? osteophyte formation. There is mild narrowing of the DIP joints. ??There ?? are vascular calcifications. There is chondrocalcinosis at the wrist. ? XR/XR hand LT min 3V ?? IMPRESSION: ? 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 ? Electronically signed by: ??Emir Gage MD ??11/11/2024 01:04 PM EDT ? Dictated By: ?Emir Gage MD ? Signed By: ?<Electronically signed by Emir Gage MD in OV> ?11/11/24 1304 ? DD/ 1157 ? TD/TT: 11/11/24 1240 ? Cnc Set Up Operator: ? Procedure Note James, Image - 11/11/[address] [address] XRay Report Signed Patient: Radha Navarro DMR#: [id number] 4224 : 1945cct:[id number] Age/Sex: 79 / FADM Date: 11/11/24 Loc: HO.HHCX Attending Dr: Zeny Sagastume MD Ordering Physician: Zeny Sagastume Date of Service: 11/11/24 Procedure(s): XR hand LT min 3V Accession Number(s): [id number] cc: Zeny Sagastume EXAMINATION: XR HAND 3 OR MORE VIEWS LEFT HISTORY: inc pain COMPARISON: There are no prior studies available for comparison. FINDINGS: Three views of the left hand are submitted. The bones are osteopenic. There is no fracture or dislocation. There is moderate osteoarthritis of the 1st carpometacarpal joint, with joint space narrowing and osteophyte formation. There is mild narrowing of the DIP joints. There are vascular calcifications. There is chondrocalcinosis at the wrist. 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 Electronically signed by: Emir Gage MD 11/11/2024 01:04 PM EDT Dictated By: Emir Gage MD Signed By: <Electronically signed by Emir Gage MD in OV> 11/11/24 1304 DD/ 1157 TD/TT: 11/11/24 1240 Cnc Set Up Operator: Zeny Sagastume MD IMG XR PROCEDURES Final Result * (ABNORMAL) POCT HGB A1C (11/11/2024 11:18 AM EDT) Hemoglobin A1C 7.4(A) 4.0 - 6.0 % QC Media Lot # [id number] Lot# Expiration Date 172,027 Blood 11/11/2024 11:1 8 AM EDT Zeny Sagastume MD POINT OF CARE TEST ENTER/EDIT ORDERABLES Final Result * (ABNORMAL) POCT Glucose (11/11/2024 11:14 AM EDT) Glucose Blood, POC 353(A) 60 - 200 mg/dL QC Media Lot # [id number] Lot# Expiration Date ,025 Blood Capillary blood specimen / Unknown 11/11/2024 11:14 AM EDT Zeny Sagastume MD POINT OF CARE TEST ENTER/EDIT ORDERABLES Final Result * BI Mammogram Diagnostic Tomosynthesis Bilateral (11/22/2023 1:17 PM EDT) Anatomical Region Laterality Modality Breast Bilateral Mammography 11/22/2023 1:17 PM EDT Narrative 11/22/2023 5:26 PM EDT ? [facility] ? [address] ?[place] [address] ? Mammography Report ? Signed ? Patient: Radha Navarro ?MR#: [id number] ?? 4224 ? : 1945 ?Acct:[id number] ? Age/Sex: 78 / F ?ADM Date: 04/25/24 ? Loc: HO.MAMMO ? Attending Dr: Zeny Sagastume MD ? Ordering Physician: Zeny Sagastume ?Results: 2Benign F ?? indings ? Date of Service: 11/22/23 ?Follow Up: 1 Year From Orig ?? inal Mammogram ? Procedure(s): MM tomosynthesis diagnostic BI ?? Accession Number(s): [id number] ? cc: Zeny Sagastume ? EXAMINATION: ?? MM DIAGNOSTIC DIGITAL BREAST TOMOSYNTHESIS, BILATERAL ? CLINICAL INFORMATION: ? 6 month follow-up for right breast calcifications. Patient is also due ?? for bilateral screening. ? COMPARISON: ?? Mammography: 04/12/2022, 10/10/2021, 04/12/2021 (BI-RADS 3), ?? 04/07/2021. (BI-RADS 0) ? TECHNIQUE: ?? Digital breast tomosynthesis is performed in both the craniocaudal and ?? mediolateral oblique views along with computer-aided detection (CAD). ?? Synthesized 2D images are generated from the tomosynthesis. In ?? addition, full-field right mediolateral 3-D view was obtained, as well ?? as 2-D spot magnification views in the right CC projection x2, and ?? right ML projection x1. ? FINDINGS: ?? There are scattered areas of fibroglandular density (ACR BI-RADS breast ?? composition Category b). ? Calcifications in the upper outer right breast which are being followed ?? are clearly vascular in nature and benign. No further follow-up ?? required. ? There are additional bilateral vascular calcifications in both breasts. ?? There are a few dystrophic and secretory calcifications in the left ?? breast. There are prominent veins in both breasts, unchanged. There are ?? no suspicious masses, suspicious grouped calcifications, or areas of ?? architectural distortion in either breast. The parenchymal pattern is ?? stable from prior exams. There is no skin or axillary abnormality ?? detected. ? MM/MM tomosynthesis diagnostic BI ?? IMPRESSION: ?? -No findings suspicious for malignancy in either breast. ? -Calcifications being followed in the upper outer quadrant of the right ?? breast are clearly vascular in nature. No further follow-up required. ?? These are benign. ? -Additional benign findings as detailed. ? -Recommend the patient return to routine annual screening to include ?? both breasts. ? ASSESSMENT: ? BI-RADS BI-RADS 2 - Benign Findings ? RECOMMENDATION: ?? 1 year F/U ? Results were provided to the patient at time of visit by the ?? technologist. ? This patient's information was entered into a reminder system with a ?? target due date for their next mammogram. ? Dictated By: ?Carlos Lebron MD ? Signed By: ?<Electronically signed by Carlos Lebron MD in OV> ?11/22/23 1722 ? DD/ 1317 ? TD/TT: ? Cnc Set Up Operator: ? Procedure Note James, Image - 11/22/2023 [facility] [address] [place] [address] Mammography Report Signed Patient: Radha Navarro [facility]#: [id number] 4224 : 7Acct:[id number] Age/Sex: 78 / FADM Date: 11/22/23 Loc: ROBEL Attending Dr: Zeny Sagastume MD Ordering Physician: Tamara Sagastumeults: 2Benign F indings Date of Service: 11/22/23Follow Up: 1 Year From Orig inal Mammogram Procedure(s): MM tomosynthesis diagnostic BI Accession Number(s): [id number] cc: Zeny Sagastume EXAMINATION: MM DIAGNOSTIC DIGITAL BREAST TOMOSYNTHESIS, BILATERAL CLINICAL INFORMATION: 6 month follow-up for right breast calcifications. Patient is also due for bilateral screening. COMPARISON: Mammography: 04/12/2022, 10/10/2021, 04/12/2021 (BI-RADS 3), 04/07/2021. (BI-RADS 0) TECHNIQUE: Digital breast tomosynthesis is performed in both the craniocaudal and mediolateral oblique views along with computer-aided detection (CAD). Synthesized 2D images are generated from the tomosynthesis. In addition, full-field right mediolateral 3-D view was obtained, as well as 2-D spot magnification views in the right CC projection x2, and right ML projection x1. FINDINGS: There are scattered areas of fibroglandular density (ACR BI-RADS breast composition Category b). Calcifications in the upper outer right breast which are being followed are clearly vascular in nature and benign. No further follow-up required. There are additional bilateral vascular calcifications in both breasts. There are a few dystrophic and secretory calcifications in the left breast. There are prominent veins in both breasts, unchanged. There are no suspicious masses, suspicious grouped calcifications, or areas of architectural distortion in either breast. The parenchymal pattern is stable from prior exams. There is no skin or axillary abnormality detected. MM/MM tomosynthesis diagnostic BI IMPRESSION: -No findings suspicious for malignancy in either breast. -Calcifications being followed in the upper outer quadrant of the right breast are clearly vascular in nature. No further follow-up required. These are benign. -Additional benign findings as detailed. -Recommend the patient return to routine annual screening to include both breasts. ASSESSMENT: BI-RADS BI-RADS 2 - Benign Findings RECOMMENDATION: 1 year F/U Results were provided to the patient at time of visit by the technologist. This patient's information was entered into a reminder system with a target due date for their next mammogram. Dictated By: Carlos Lebron MD Signed By: <Electronically signed by Carlos Lebron MD in OV> 11/22/23 1722 DD/ 1317 TD/TT: Cnc Set Up Operator: us Zeny Sagastume MD IMG BI PROCEDURES Final Result * Hepatitis C Ab (09/21/2023 10:03 AM EST) Hepatitis C Antibody Nonreactive Nonreactive [facility] Comment:Antibodies to HCV no t detected; does not exclude early acuteHCV infection. Blood Venous blood specimen / Unknown 09/21/2023 10:03 AM EST 09/21/2023 11:20 AM EST us Zeny Sagastume MD LAB BLOOD ORDERABLES Final Res ult Performing Organization Address [facility] Co de Phone Number [facility] [address] [place] [address] [phone] * (ABNORMAL) Albumin, Random Urine W/Creatinine (07/20/2023 1:55 PM EST) Creatinine, Urine 36.28 mg/dL [facility] Microalbumin Urine 16.0 mg/L H [facility] Microalbum Creatinine Ratio Ur 44.1(H) <30 ug/mg cr [facility] Comment:Albumin/Creatinine R atio Reference Ranges: Normal: < 30 ug/mg creatinine Microalbuminuria: 30 - 300 ug/mg creatinineClinical Albuminuria: > 300 ug/mg creatinine 07/20/2023 1:55 PM EST 07/20/2023 4:13 PM EST us Generic External Data Provider LAB URINE ORDERAB LES Final Result Performing Organization Address [facility]/ZIP Co de Phone Number [facility] [address] [place] [phone] from Last 3 Months or Most Recently Relevant to Health Maintenance Insurance [address] [address] [facility] Care Teams Director Of Rehabilitation Relationship Specialty Start Date End Date Zeny Sagastume MD [address] [place] [phone] PCP - General Family Medicine 08/11/22
--- OUTSIDE RECORDS SUMMARY | 2024-11-19 14:36 | XMS_ITS | Clinical Summary ---
Demographics Address [address] [place] [address] [address] [place] [address] Home Phone Preferred Language es Marital Status Unknown Orthodoxy Affiliation Unknown Race Unknown Ethnic Group Unknown Author Organization [facility] Address [address] [place] [phone] Phone Care Team Providers Care Smash Hand Name Role Phone Zeny Sagastume MD Primary [...] (04/29/2024): [place] [facility] [place]) Last [...] to 49 Years) Discontinued 02/03/2021, 07/09/2007 Insurance [place] MCR/MARY ([id number]) [place] [employer] MCR/MARY ([id number]) Care Teams Smash Hand Relationship Specialty Start Date End Date Zeny Sagastume MD [address] [place] [address] PCP - General [employer] Products Fabricator Assembler 02/09/23
--- OUTSIDE RECORDS SUMMARY | 2024-11-19 14:36 | XMS_ITS | Encounter Summary ---
Author Organization [employer] Address [address] [facility] [address] [place] [address] Care Team Providers Care Gambling Floor Supervisor Name Role Phone Zeny Sagasutme MD Primary Care Provider [phone] Reason for Visit * Reason Onset Date Comments Call Back Request 09/14/2023 Encounter Details Date Type Department Care Team ([facility] Contact Info) Description 09/14/2023 Telephone [facility] [address] [place], [place] [phone] Zeny Sagastume MD [address] [place], [place] [phone] Call Back Request Social History Tobacco Use Types Packs/Day Years Used Date Smoking Tobacco: Former Cigarettes Q uit: 1969 Smokeless Tobacco: Never Alcohol Use Standard Drinks/Week Comments Not Currently 0 (1 standard drink = 0.6 oz pur e alcohol) oca Depression Answer Date Recorded Patient Health Questionnaire-9 Score 2 09/10/2023 Patient Health Questionnaire-9 Score 2 09/10/2023 Last PHQ-9: Questionnaire Data Not on file 0 09/10/2023 Housing Stability Answer Date Recorded What is [...] from getting things needed for daily living? No 09/10/2023 Utilities Answer Date Recorded In the past 12 months, has t he electric, gas, oil or water company threatened to shut off services in your home? No 09/10/2023 Depression Answer Date Recorded Patient Health Questionnaire-2 Score 0 09/10/2023 Comments Unknown Sex and Gender Information Value Date Recorded Sex Assigned at Female 05/29/2022 10:14 AM EDT Legal Sex Female 10:14 AM EDT Gender Identity Female 05/29/2022 10:14 AM EDT Sexual Orientation Straight 05/29/2022 10 :14 AM EDT documented as of this encounter Miscellaneous Notes * Telephone Encounter - Viviana Sandeep - 09/14/2023 10:57 AM EST Tc from pt requesting a call from a nurse. States she has labs to get done but does not know if labs require fasting. If pt has to fast, she will need an MedCenterDisplay for the morning due to not havingtransportation. Please contact pt at [phone] (Lao) documented in this encounter Plan of Treatment Upcoming Encounters Date Type Department Care Team (Late st Contact Info) Description 12/08/2024 2:00 PM EDT Office Visit [facility] [address] [place] [address] Kayden, Valentina, OD [address] [place] [address] documented as of this encounter Visit Diagnoses Not on filedocumented in this encounter Additional Health Concerns Assessment Noted Time PHQ-9 Depression Total Score: 2 09/10/19 24 2:30 PM EST documented as of this encounter Care Teams Gambling Floor Supervisor Relationship Specialty Start Date End Date Zeny Sagastume MD [address] [place] [address] PCP - General Family Medicine 08/11/22 documented as of this encounter
--- OUTSIDE RECORDS SUMMARY | 2024-11-19 14:36 | XMS_ITS | Encounter Summary ---
Author Organization [facility] Address [address] [facility] [address] [place] [address] Care Team Providers Care Movie Shot Camera Operator Name Role Phone Zeny Sagastume MD Primary Care Provider [phone] Encounter Details Date Type Department Care Team (Late Contact Info) Description 05/02/2023 Orders Only [facility] [address] [place], [place] [phone] Zeny Sagastume MD [address] [place], [place] [phone] Bilateral foot pain (Primary Dx) Social History Tobacco Use Types Packs/Day Years [...] Encounters Date Type Department Care Team (Late Contact Info) Description 12/08/2024 2:00 PM EDT Office Visit [facility] [address] [place] [address] Kayden, Valentina, OD [address] [place], [place] [phone] documented as of this encounter Visit Diagnoses Diagnosis Bilateral foot pain- Primary documented in this encounter Care Teams Movie Shot Camera Operator Relationship Specialty Start Date End Date Zeny Sagastume MD [address] [place] [phone] PCP - General Family Medicine 08/11/22 documented as of this encounter
--- OUTSIDE RECORDS SUMMARY | 2024-11-19 14:36 | XMS_ITS | Encounter Summary ---
Demographics Address [address] [facility] [address] [place] [address] Mobile Phone Home Phone Preferred Language es Marital Status Sikh Affiliation Unknown Race Other Race Ethnic Group or Author Organization [employer] [facility] Address [address] [facility] [address] [place] [address] Care Team Providers Care Motor Vehicle Clerk Name Role Phone Zeny Sagastume MD Primary Care Provider [phone] Reason for Visit * Reason Onset Date Comments Nurse Triage 03/20/2023 Encounter Details Date Type Department Care Team ([facility] st Contact Info) Description 03/20/2023 Telephone [facility] [address] [place], [place] [phone] Zeny Sagastume MD [address] [place] [address] Nurse Triage Social History Tobacco Use Types Packs/Day Years [...] encounter Miscellaneous Notes * Telephone Encounter - Amalia Camara RN - 03/20/2023 10:24 AM EDT Triage call with [employer] [place] [id number] Pt reports 03/11/23 Pt was hopping into a boat and strained back. Pt reports low back pain since that day . Pt had apt yesterday with PCP reports missed apt because Pt thought apt was for today. Pt also canceled apt 03/12/23. Pt reports it is hard to sit in a chair and find a position that is comfortable. Pt is taking tylenol and using cream to help this pain with good effect. Pt is advised to come to [facility] today to be seen by provider and Pt will see . Pt is advised that if pain becomes muchworse may need to go to ED for evaluation and Pt responded pain is decreasing . Home care advice reviewed especially heat to the area while sitting. Pt reports will try maybe. Pt is requesting another apt with PCP and no apts observed for next 2 weeks. Advised Pt to call back beginning of next week for possible apt and Pt agreed. Protocol Used: Back Injury (Adult) Protocol-Based Disposition: See in Office or Video Visit within 3 Days Video visit not offered Positive Triage Question: * Injury and pain has not improved after 3 days * All higher-acuity triage questions were negative Care Advice Discussed: * Reassurance and Education - Bending or Twisting Injury (Strain, Sprain) * Use a Cold Pack for Pain, Swelling, or Bruising * Use Heat on Area After 48 Hours * Avoid Heavy Lifting and Sports * Rest vs. Movement * Reasons To Call Back - Severe pain lasts over 2 hours after pain medicine and ice - Swelling or bruise becomes over 4 inches (10 cm; more than size of palm). - Pain not improving after 3 days - Pain or swelling lasts over 7 days - You become worse * Telephone Encounter - Lali Solares - 03/20/2023 9:44 AM EDT Symptom: Back Pain - Not From Injury Outcome: Schedule an appointment to be seen within 3 days Reason: Caller denied all higher acuity questions The caller accepted this outcome Patient speaks colombian documented in this encounter Plan of Treatment Upcoming Encounters Date Type Department Care Team (Late st Contact Info) Description 12/08/2024 2:00 PM EDT Office Visit [facility] [address] [place] [address] Valentina Monique, OD [address] [place] [address] documented as of this encounter Visit Diagnoses Not on filedocumented in this encounter Care Teams Motor Vehicle Clerk Relationship Specialty Start Date End Date Zeny Sagastume MD [address] [place] [address] PCP - General Family Medicine 08/11/22 documented as of this encounter
--- OUTSIDE RECORDS SUMMARY | 2024-11-19 14:36 | XMS_ITS | Encounter Summary ---
Author Organization [employer] [facility] Address [address] [place] [address] 7t [place] [address] Care Team Providers Care Treating Engineer Name Role Phone Kiley Haywood MD Primary Care Provider Zeny Rivera MD Primary Care Provider [phone] Encounter Details Date Type Department Care Team (Latest Contact Info) Description 05/03/2022 Abstract [facility] CONVERSIONS Dental, Provider, DDS Social History Tobacco Use Types Packs/Day Years Used Date Smoking Tobacco: Never Assessed Comments Unknown Sex and Gender Information Value [...] Description 12/08/2024 2:00 PM EDT Office Visit [facility] OPTOMETRY [address] [place] [address] Valentina Monique, OD [address] [place] [address] documented as of this encounter Visit Diagnoses Not on filedocumented in this encounter Care Teams Treating Engineer Relationship Specialty Start Date End Date Kiley Haywood MD PCP - General Family Medicine 07/02/19 08/10/22 Zeny Sagastume MD [address] [place] [address] PCP - General Family Medicine 08/11/22 documented as of this encounter
--- OUTSIDE RECORDS SUMMARY | 2024-11-19 14:36 | XMS_ITS | Encounter Summary ---
Author Organization [employer] Address [address] [facility] 7t [place] [address] Care Team Providers Care Extractor Plant Operator Name Role Phone Zeny Sagastume MD Primary Care Provider [phone] Reason for Visit * Reason Onset Date Comments Referral 09/27/2023 Encounter Details Date Type Department Care Team ([facility] Contact Info) Description 09/27/2023 Telephone [facility] MEDICINE [address] [place], [place] [phone] Zeny Sagastume MD [address] [place], [place] [phone] Referral Social History Tobacco Use Types Packs/Day Years [...] encounter Miscellaneous Notes * Telephone Encounter - Socorro Nickerson RN - 10/05/2023 9:22 AM EST Please disregard optometry referral from 09/28/23. Please PROCESS optometry referral from 10/05/23. Pt CANNOT be seen at [facility] eyecare as Valentina Monique is out of network for her insurance. Pt needs to beseen outside of [facility]. Thank you! * Telephone Encounter - Mike Gramajo - 09/27/2023 11:15 AM EST Tc from [place] working with [facility]. [facility] Valentina Monique on 08/20/23 but will need a referral due to Valentina being a out of network provider with members insurance plan. If any questions please contact [place] at [phone] documented in this encounter Plan of Treatment Upcoming Encounters Date Type Department Care Team (Late st Contact Info) Description 12/08/2024 2:00 PM EDT Office Visit [facility] OPTOMETRY [address] [place] [address] Valentina Monique, OD [address] [place] [address] documented as of this encounter Visit Diagnoses Not on filedocumented in this encounter Additional Health Concerns Assessment Noted Time PHQ-9 Depression Total Score: 2 09/10/19 24 2:30 PM EST documented as of this encounter Care Teams Extractor Plant Operator Relationship Specialty Start Date End Date Zeny Sagastume MD [address] [place] [address] PCP - General Family Medicine 08/11/22 documented as of this encounter
--- OUTSIDE RECORDS SUMMARY | 2024-11-19 14:36 | XMS_ITS | Encounter Summary ---
Author Organization [employer] Address [address] [facility] 7t [place] [address] Care Team Providers Care Job Coaching Name Role Phone Zeny Sagastume MD Primary Care Provider [phone] Encounter Details Date Type Department Care Team (Late st Contact Info) Description 09/17/2024 Orders Only [facility] MEDICINE [address] [place] [address] Zeny Sagastume MD [address] [place], [place] [phone] Social History Tobacco Use Types Packs/Day Years [...] Description 12/08/2024 2:00 PM EDT Office Visit [facility] OPTOMETRY [address] [place] [address] Kayden, Valentina, OD [address] [place] [address] documented as of this encounter Visit Diagnoses Not on filedocumented in this encounter Additional Health Concerns Assessment Noted Time PHQ-9 Depression Total Score: 4 12/17/19 24 1:46 PM EDT documented as of this encounter Care Teams Job Coaching Relationship Specialty Start Date End Date Zeny Sagastume MD [address] [place] [address] PCP - General Family Medicine 08/11/22 documented as of this encounter
--- OUTSIDE RECORDS SUMMARY | 2024-11-19 14:36 | XMS_ITS | Encounter Summary ---
Author Organization [employer] [facility] Address [address] [facility] 7t [place] [address] Care Team Providers Care It Consulting Manager Name Role Phone Zeny Sagastume MD Primary Care Provider [phone] Reason for Referral * Consultation (Routine) - Closed Specialty Diagnoses / Procedures Referred By Contsekou t Referred To Contact Optometry Diagnoses Type 2 diabetes mellitus with hyperglycemia, without long-term current use of insulin (CMS/HCC) Zeny Sagastume MD [address] [place] [address] Phone: tel: fax: [facility] [address] [place], [place] Phone: tel: fax: Referral ID Status Reason Start Date Expiration Date V isits Requested Visits Authorized [id number] Closed Specialty Services Required 10/05/2023 10/04/2024 1 1 Encounter Details Date Type Department Care Team (Late st Contact Info) Description 09/28/2023 Orders Only [facility] MEDICINE [address] [place] [address] [phone] Zeny Sagastume MD [address] [place] [address] [phone] Type 2 diabetes mellitus with hyperglycemia, without long-term current use of insulin (CMS/HCC) (Primary Dx) Social History Tobacco Use Types [...] Description 12/08/2024 2:00 PM EDT Office Visit [facility] OPTOMETRY [address] [place] [address] Kayden, Valentina, OD [address] [place] [address] Scheduled Referrals Name Type Priority Associated Diagnoses Orde r Schedule Referral to Optometry Outpatient Referral Routine Type 2 diabetes mellitus with hyperglycemia, without long-term current use of insulin ([facility]) Expected: 10/05/2023 (Approximate), Expires: 10/04/2024 documented as of this encounter Visit Diagnoses Diagnosis Type 2 diabetes mellitus with hyperglycemia, without long-term current use of insulin ([facility])- Primary documented in this encounter Additional Health Concerns Assessment Noted Time PHQ-9 Depression Total Score: 2 09/10/19 24 2:30 PM EST documented as of this encounter Care Teams It Consulting Manager Relationship Specialty Start Date End Date Zeny Sagastume MD [address] [place] [address] PCP - General Family Medicine 08/11/22 documented as of this encounter
--- OUTSIDE RECORDS SUMMARY | 2024-11-19 14:36 | XMS_ITS | Encounter Summary ---
Demographics Address [address] [facility] [address] [place] [address] Mobile Phone Home Phone Preferred Language es Marital Status Adventist Affiliation Unknown Race Other Race Ethnic Group or Author Organization [employer] Address [address] [facility] 7t [place] [address] Care Team Providers Care Assistant Activities Director Name Role Phone Zeny Sagastume MD Primary Care Provider [phone] Reason for Visit * Reason Onset Date Comments Hospital Follow-up 01/22/2023 Encounter Details Date Type Department Care Team ([facility] st Contact Info) Description 01/22/2023 Telephone [facility] MEDICINE [address] [place] [address] [phone] Zeny Sagastume MD [address] [place] [address] [phone] Hospital Follow-up Social History Tobacco Use Types Packs/Day Years Used Date Smoking Tobacco: Never Smokeless Tobacco: Never Alcohol Use Standard Drinks/Week Comments Never 0 (1 standard drink = 0.6 oz pur e alcohol) PHQ-2 Answer Date Recorded Patient Health Questionnaire-2 [...] encounter Miscellaneous Notes * Telephone Encounter - Rocky Denise - 01/22/2023 11:17 AM EDT HDF F/U (no symptoms) Patient hospitalized at [facility]. Patient was admitted on 01/13/2023 and discharged on 01/19/2023. The patient was diagnosed with Kidney Stones.Patient advised will forward to [facility] Clinical Coordinators for follow up and appointment scheduling. Please contact pt at [phone] Maldivian Speaker documented in this encounter Plan of Treatment Upcoming Encounters Date Type Department Care Team (Late st Contact Info) Description 12/08/2024 2:00 PM EDT Office Visit [facility] OPTOMETRY [address] [place], [place] [phone] Valentina Monique, OD [address] [place] [address] documented as of this encounter Visit Diagnoses Not on filedocumented in this encounter Care Teams Assistant Activities Director Relationship Specialty Start Date End Date Zeny Sagastume MD 230 [place] [address] PCP - General Family Medicine 08/11/22 documented as of this encounter
--- OUTSIDE RECORDS SUMMARY | 2024-11-19 14:36 | XMS_ITS | Encounter Summary ---
Author Organization [employer] Address [address] [facility] 7t [place] [address] Care Team Providers Care Independent Freight Agent Name Role Phone Zeny Sagastume MD Primary Care Provider [phone] Encounter Details Date Type Department Care Team (Late st Contact Info) Description 11/13/2023 Telephone [facility] MEDICINE [address] [place], [place] [phone] Zeny Sagastume MD [address] [place], [place] [phone] Social History Tobacco Use Types Packs/Day Years [...] Description 12/08/2024 2:00 PM EDT Office Visit [facility] OPTOMETRY [address] [place], [place] [phone] Kayden, Valentina, OD [address] [place] [address] documented as of this encounter Visit Diagnoses Not on filedocumented in this encounter Additional Health Concerns Assessment Noted Time PHQ-9 Depression Total Score: 2 09/10/19 24 2:30 PM EST documented as of this encounter Care Teams Independent Freight Agent Relationship Specialty Start Date End Date Zeny Sagastume MD [address] [place], [place] [phone] PCP - General Family Medicine 08/11/22 documented as of this encounter
--- OUTSIDE RECORDS SUMMARY | 2024-11-19 14:36 | XMS_ITS | Encounter Summary ---
Demographics Address [address] [facility] [address] [place] [address] Mobile Phone Home Phone Preferred Language es Marital Status Yarsani Affiliation Unknown Race Other Race Ethnic Group or Author Organization [employer] Address [address] [facility] 7t [place] [address] Care Team Providers Care Shoemaker Apprentice Name Role Phone Zeny Sagastume MD Primary Care Provider [phone] Encounter Details Date Type Department Care Team (Late st Contact Info) Description 06/07/2023 Abstract [facility] [address] [place], [place] [phone] Zeny Sagastume MD [address] [place], [place] [phone] Social History Tobacco Use Types Packs/Day Years Used Date Smoking Tobacco: Former Cigarettes Q uit: 1968 Smokeless Tobacco: Never Alcohol Use Standard Drinks/Week Comments Not Currently 0 (1 standard drink = 0.6 oz pur e alcohol) oca PHQ-2 Answer Date Recorded Patient Health Questionnaire-2 Score 0 08/11/2022 Housing Stability Answer Date Recorded What is your housing situation today? I have laylamargy navas 05/16/[address] you li ve. Do you have problems with any of the following? None of the above 05/16/2023 Food Insecurity Answer Date Recorded Within the past 12 months, y ou worried that your food would run out before you got money to buy more: Never True 05/16/2023 Within the past 12 months,th e food you bought just didn't last and you didn't have enough money to get more: Never True Transportation Answer Date Recorded In the past 12 months, has l ack of transportation kept you from medical appts, meetings, work or from getting things needed for daily living? Yes, it has kept me from medical appointments or getting medications. 05/08/2023 Utilities Answer Date Recorded In the past 12 months, has t he electric, gas, oil or water company threatened to shut off services in your home? No 05/16/2023 Depression Answer Date Recorded Patient Health Questionnaire-2 [...] Description 12/08/2024 2:00 PM EDT Office Visit [facility] OPTOMETRY [address] [place], [place] [phone] Valentina Monique, OD [address] [place] [address] documented as of this encounter Visit Diagnoses Not on filedocumented in this encounter Care Teams Shoemaker Apprentice Relationship Specialty Start Date End Date Zeny Sagastume MD [address] [place] [address] PCP - General Family Medicine 08/11/22 documented as of this encounter
--- OUTSIDE RECORDS SUMMARY | 2024-11-19 14:36 | XMS_ITS | Encounter Summary ---
Author Organization [employer] [facility] Address [address] [place] [address] 7t [place] [address] Care Team Providers Care Admin Prog Coord Name Role Phone Kiley Haywood MD Primary Care Provider Zeny Rivera MD Primary Care Provider [phone] Encounter Details Date Type Department Care Team (Late Contact Info) Description 07/04/[address] [facility] MEDICINE [address] [place] [address] Provider, MD Mike Social History Tobacco Use Types Packs/Day Years [...] Description 12/08/2024 2:00 PM EDT Office Visit [facility] OPTOMETRY [address] [place] [address] Valentina Monique, OD [address] [place] [address] documented as of this encounter Visit Diagnoses Not on filedocumented in this encounter Care Teams Admin Prog Coord Relationship Specialty Start Date End Date Kiley Haywood MD PCP - General Family Medicine 07/02/19 08/10/22 Zeny Sagastume MD [address] [place] [address] PCP - General Family Medicine 08/11/22 documented as of this encounter
--- OUTSIDE RECORDS SUMMARY | 2024-11-19 14:36 | XMS_ITS | Encounter Summary ---
Author Organization [employer] [facility] Address [address] [facility] 7t [place] [address] Care Team Providers Care Funeral Home Makeup Artist Name Role Phone Zeny Sagastume MD Primary Care Provider [phone] Encounter Details Date Type Department Care Team ([facility] Contact Info) Description 11/24/2022 Abstract [facility] MEDICINE [address] [place] [address] Zeny Sagastume MD [address] [place] [address] Social History Tobacco Use Types Packs/Day Years [...] Orientation Straight 05/29/2022 10 :14 AM EDT COVID-19 Exposure Response Date Recorded In the last 10 days, have yo u been in contact with someone who was confirmed or suspected to have Coronavirus/COVID-19? No / Unsure 11/24/2022 9:37 AM EDT documented as of this encounter Plan of Treatment Upcoming Encounters Date Type Department Care Team (Late Contact Info) Description 12/08/2024 2:00 PM EDT Office Visit [facility] OPTOMETRY [address] [place] [address] Valentina Monique, OD [address] [place] [address] documented as of this encounter Visit Diagnoses Not on filedocumented in this encounter Care Teams Funeral Home Makeup Artist Relationship Specialty Start Date End Date Zeny Sagastume MD [address] [place] [address] PCP - General Family Medicine 08/11/22 documented as of this encounter
--- OUTSIDE RECORDS SUMMARY | 2024-11-19 14:36 | XMS_ITS | Encounter Summary ---
Author Organization [employer] Address [address] [facility] [address] 7t [place] [address] Care Team Providers Care Director Appointment Name Role Phone Zeny Sagastume MD Primary Care Provider [phone] Reason for Visit * Reason Comments Med Change Request Encounter Details Date Type Department Care Team ([facility] Contact Info) Description 07/12/2023 Refill [facility] [address] [place], [place] [phone] Magaly Rangel ANP [address] [place], [place] [phone] Generalized pruritus; Rash Social History Tobacco Use Types Packs/Day Years Used Date Smoking Tobacco: Former Cigarettes Q uit: 1969 Smokeless Tobacco: Never Alcohol Use Standard Drinks/Week Comments Not Currently 0 (1 standard drink = 0.6 oz pur e alcohol) oca PHQ-2 Answer Date Recorded Patient Health Questionnaire-2 Score 0 08/11/2022 Housing Stability Answer Date Recorded What is your housing situation today? I have layla navas 05/16/[address] you [...] Description 12/08/2024 2:00 PM EDT Office Visit [facility] OPTOMETRY [address] [place], [place] [phone] Kayden, Valentina, OD [address] [place] [address] documented as of this encounter Visit Diagnoses Diagnosis Generalized pruritus Unspecified pruritic disorder Rash Rash and other nonspecific skin eruption documented in this encounter Care Teams Director Appointment Relationship Specialty Start Date End Date Zeny Sagastume MD [address] [place] [address] PCP - General Family Medicine 08/11/22 documented as of this encounter
== END 2024-11-19 12:23 | disposition home or self-care (01) ==
LOC: HO.HHCL 12:22
PROVIDERS: Visit Provider General Practice
DX: E11.65 Type 2 diabetes mellitus with hyperglycemia (principal); M19.041 Primary osteoarthritis, right hand; M19.042 Primary osteoarthritis, left hand
CPT/HCPCS: 36415; 80061; 85652; 86431

== ENCOUNTER 2025-01-01 10:18 | Outpatient (REF) | payer OTHER, SELFPAY ==
[2025-01-01 10:35] LABS: MANUAL DIFF FLAG NO
[2025-01-01 10:52] LABS: Basophils Absolute Auto 0.1 X10*3/uL (0.0-0.2); Basophils Percent Auto 0.9 % (0-2); Eosinophils Absolute Auto 0.6 X10*3/uL (0.0-0.4); Eosinophils Percent Auto 6.5 % (0-4); Hemoglobin 12.8 g/dl (12.0-16.0); Imm Gran Abs Auto 0.06 X10*3/uL (0.00-0.03); Imm Gran Pct Auto 0.7 % (0.0-0.4); Lymphocytes Absolute Auto 2.5 X10*3/uL (1.2-4.9); Lymphocytes Percent Auto 28.3 % (20-40); Mean Corpuscular HGB Conc 32.8 g/dl (31.0-35.0); Mean Corpuscular Hemoglobin 26.5 pg (27.0-33.0); Mean Corpuscular Volume 80.7 fL (80.0-98.0); Monocytes Absolute Auto 0.5 X10*3/uL (0.1-1.2); Monocytes Percent Auto 6.1 % (2-11); Neutrophils Percent Auto 57.5 % (45-73); Platelet Count 255 X10*3/uL (160-400); Red Blood Count 4.83 X10*6/uL (4.20-5.50); Red Cell Distribution Width 15.2 % (11.0-16.0); White Blood Count 8.7 X10*3/uL (4.8-10.8)
[2025-01-01 10:58] LABS: Appearance Urine Cloudy; Color Urine Yellow; Glucose Urine UA >=1000 mg/dL (Negative); Leukocyte Esterase Urine Moderate (2+) (Negative); Nitrite Urine Positive (Negative); Specific Gravity - Urine 1.025 (1.005-1.025); UMIC TRIGGER UA YES; Urine Blood Trace (Negative); Urine Ketones Negative (Negative); Urine Protein 30 (1+) mg/dL (Neg-Trace)
[2025-01-01 11:01] LABS: Bacteria Urine 4+ (None Seen); Hyaline Casts Urine 0-2 /LPF (0-2); WBC Urine >50 /HPF (0-5)
[2025-01-01 11:21] LABS: Anion Gap 14 (12-20); Blood Urea Nitrogen 27 mg/dL (9-16); Calcium 9.7 mg/dL (8.4-10.2); Carbon Dioxide 24 mmol/L (22-29); Chloride 106 mmol/L (96-108); Estimated Glomerular Filt Rate 36; Glucose Random 199 mg/dL (60-115); Potassium 3.6 mmol/L (3.3-5.1); Sodium 140 mmol/L (135-145)
--- OUTSIDE RECORDS SUMMARY | 2025-01-01 12:04 | XMS_ITS | Encounter Summary ---
Author Organization [employer] Address [address] [facility] 7t [place] [address] Care Team Providers Care Validation Consultant Name Role Phone Zeny Sagastume MD Primary Care Provider [phone] Encounter Details Date Type Department Care Team (Late st Contact Info) Description 09/17/[address] [facility] MEDICINE [address] [place] [address] Zeny Sagastume MD [address] [place], [place] [phone] Social History Tobacco Use Types Packs/Day Years [...] Care Team (Late st Contact Info) Description 02/12/2025 1:15 PM EDT Office Visit [facility] MEDICINE [address] [place] [address] Jessica Wong MD [address] [place] [address] 06/10/2025 2:00 PM EST Office Visit [facility] OPTOMETRY [address] [place] [address] Kayden, Valentina, OD 230 [place] [address] 07/22/2025 1:00 PM EST Office Visit [facility] ADULT DENTAL [address] [place] [address] Radha Aguero documented as of this encounter Visit Diagnoses Not on filedocumented in this encounter Additional Health Concerns Assessment Noted Time PHQ-9 Depression Total Score: 4 12/17/19 24 1:46 PM EDT documented as of this encounter Care Teams Validation Consultant Relationship Specialty Start Date End Date Zeny Sagastume MD [address] [place] [address] PCP - General Family Medicine 08/11/22 documented as of this encounter
[2025-01-01 12:17] LABS: Creatinine Urine 63.18 mg/dL; Total Protein Urine Random 32 mg/dL (<12)
== END 2025-01-01 10:19 | disposition home or self-care (01) ==
LOC: HO.LAB 10:18
PROVIDERS: PCP General Practice; Visit Provider Internal Medicine Hypertension Specialist
DX: N05.9 Unspecified nephritic syndrome with unspecified morphologic changes (principal); N18.30 Chronic kidney disease, stage 3 unspecified
CPT/HCPCS: 36415; 80048; 81001; 81003; 82570; 84156; 85025

== ENCOUNTER 2025-01-08 10:09 | Outpatient (AMB) | payer OTHER, SELFPAY ==
[2025-01-08 10:12] VITALS: BP 170/80; PULSE 78; O2SAT 96; BMI 30.3
--- NOTE | 2025-01-08 10:12 | HO.NEPHOV ---
Vital Signs 01/08/25 10:12 Height 4 ft 11 in Weight 150 lb BMI 30.3 BP 170/80 H Blood Pressure Location Lt brachial Position Sitting Pulse 78 Pulse Source Pulse Oximeter Pulse Oximetry (%) 96 Oxygen Delivery Method Room Air Intake Visit Reasons: CKD/LVM Broomcorn Scraper Required: No Broomcorn Scraper Services: Broomcorn Scraper Offered & Declined (Daughter will translate ) Accompanied by: Daughter Allergies Sulfa (Sulfonamide Antibiotics) Allergy (Intermediate, Verified 01/08/25 10:15) [facility] Medical History Chronic kidney disease, stage 3 Lip lesion CTS (carpal tunnel syndrome) TIA (transient ischemic attack) Osteopenia Calcaneal spur, right Osteoarthritis, multiple sites Essential hypertension Hyperlipidemia LDL goal <70 Type 2 diabetes mellitus with chronic kidney disease Surgical History History of excision of lesion (~07/26/23) Hx of section Family History Father Heart disease Mother Asthma Heart attack Social History Household Members: Other Household Members Other:: grandchild Housing: Apartment Do you presently have visiting nurse or other home services: Yes (flask cleaner) Alcohol intake: former Patient Tobacco Use Status: Former Tobacco user Tobacco use type: Cigarette Cigarettes Per Day: 4 Years Smoked: 3 service: No Results Reviewed Nephrology Results: Hgb 12.8 g/dl (12.0-16.0) 01/01/25 WBC 8.7 X10*3/uL (4.8-10.8) 01/01/25 Plt Count 255 X10*3/uL (160-400) 01/01/25 Sodium 140 mmol/L (135-145) 01/01/25 Potassium 3.6 mmol/L (3.3-5.1) 01/01/25 Chloride 106 mmol/L (96-108) 01/01/25 Carbon Dioxide 24 mmol/L (22-29) 01/01/25 BUN 27 mg/dL (9-16) H 01/01/25 Creatinine 1.40 mg/dL (0.5-1.4) 01/01/25 Calcium 9.7 mg/dL (8.4-10.2) 01/01/25 PTH Intact 163.1 pg/mL (8.7-77.1) H 05/01/24 Urine Protein 30 (1+) mg/dL (Neg-Trace) H 01/01/25 Urine Creatinine 63.18 mg/dL 01/01/25 Coding
--- NOTE | 2025-01-08 10:22 | HO.NEPHOV ---
Vital Signs 01/08/25 10:12 Height 4 ft 11 in Weight 150 lb BMI 30.3 BP 170/80 H Blood Pressure Location Lt brachial Position Sitting Pulse 78 Pulse Source Pulse Oximeter Pulse Oximetry (%) 96 Oxygen Delivery Method Room Air Intake Visit Reasons: CKD/LVM Allergies Sulfa (Sulfonamide Antibiotics) Allergy (Intermediate, Verified 01/08/25 10:15) SWELLING Medication List - Last Reconciled 01/08/25 by Rigoberto Bernabe MD albuterol sulfate 90 mcg/actuation 2 puffs inhalation Q6H PRN allopurinol 50 mg PO DAILY aspirin 81 mg PO DAILY blood sugar diagnostic (Zylun Staffinguch Verio test strips) Use 1 test strip three times a day blood sugar diagnostic As directed three times a day calcium carbonate 600 mg PO BID cyclobenzaprine 5 mg PO TID PRN diltiazem HCl CD 300 mg PO DAILY dulaglutide (Trulicity) mg subcut empagliflozin (Jardiance) 25 mg PO DAILY fluticasone propionate 110 mcg/actuation (Flovent HFA) 2 inhalations inhalation BID glipizide 10 mg PO BIDWM lisinopril 40 mg PO DAILY mirtazapine 45 mg PO BEDTIME pen needle, diabetic (BD Jackeline 2nd Gen Pen Needle) As directed one time a day trazodone 50 mg PO BEDTIME HPI Comments Details: 78 yr old woman with a h/o long standing DM and HTN with CKD Here for follow up with her son No new issues today She tells me that her blood sugar remains elevated at home She is on SGLT-2 inhibitors 04/29/24;Overall doing ok. No new issues 01/08/25 79-year-old female presenting for the follow-up of her chronic kidney disease and diabetes management. She has a background of essential hypertension and type 2 diabetes mellitus. Since her previous visit in August, the patient's blood pressure management has been stable, although she missed taking her antihypertensive medication today, resulting in elevated blood pressure readings, an occurrence she attributes to a temporary lapse rather than a recurring issue. Her diabetes management remains under standard protocols, with no significant changes to her medication regimen reported. Her renal function has shown improvement since January 01, with no new symptoms of renal insufficiency or urinary difficulty reported.h/o Hydronephrosis in 2022; Follow up USG in 2023 did not show hydro. PFSH Medical History Chronic kidney disease, stage 3 Lip lesion CTS (carpal tunnel syndrome) TIA (transient ischemic attack) Osteopenia Calcaneal spur, right Osteoarthritis, multiple sites Essential hypertension Hyperlipidemia LDL goal <70 Type 2 diabetes mellitus with chronic kidney disease Surgical History History of excision of lesion (~07/26/23) Hx of section Family History Father Heart disease Mother Asthma Heart attack Social History Household Members: Other Household Members Other:: grandchild Housing: Apartment Do you presently have visiting nurse or other home services: Yes (router operator pin) Alcohol intake: former Patient Tobacco Use Status: Former Tobacco user Tobacco use type: Cigarette Cigarettes Per Day: 4 Years Smoked: 3 service: No Physical Exam Vital Signs: Last Vital Signs Pulse 78 01/08/25 10:12 BP 170/80 H 01/08/25 10:12 Pulse Ox 96 01/08/25 10:12 Oxygen Delivery Method Room Air 01/08/25 10:12 BMI result Body Mass Index 30.3 Awake. Comfortable. Neck is supple. Mucosa moist. Lungs clear Heart S1-S2 heard no gallop. Abdomen soft. Extremities no edema. No involuntary movements. No myoclonus. Results Reviewed Results Reviewed: November 2023 USG RIGHT KIDNEY: 10.6 x 4.9 x 4.5 cm (SAG x AP x TRV). No hydronephrosis. No renal calculi. Renal cortical thickness is normal. Limited visualization. LEFT KIDNEY: 9.9 x 4.8 x 3.5 cm (SAG x AP x TRV). No hydronephrosis. No renal calculi. Limited visualization. Lobulated renal contour is somewhat difficult to evaluate due to bowel gas. US/US renal BI IMPRESSION: No hydronephrosis. No renal calculi. Limited visualization. Lobulated left renal contour is somewhat difficult to evaluate due to bowel gas. Nephrology Results: Hgb 12.8 g/dl (12.0-16.0) 01/01/25 WBC 8.7 X10*3/uL (4.8-10.8) 01/01/25 Plt Count 255 X10*3/uL (160-400) 01/01/25 Sodium 140 mmol/L (135-145) 01/01/25 Potassium 3.6 mmol/L (3.3-5.1) 01/01/25 Chloride 106 mmol/L (96-108) 01/01/25 Carbon Dioxide 24 mmol/L (22-29) 01/01/25 BUN 27 mg/dL (9-16) H 01/01/25 Creatinine 1.40 mg/dL (0.5-1.4) 01/01/25 Calcium 9.7 mg/dL (8.4-10.2) 01/01/25 PTH Intact 163.1 pg/mL (8.7-77.1) H 05/01/24 Urine Protein 30 (1+) mg/dL (Neg-Trace) H 01/01/25 Urine Creatinine 63.18 mg/dL 01/01/25 Assessment & Plan Assessment & Plan (1) Chronic kidney disease, stage 3: Code(s): N18.30 - Chronic kidney disease, stage 3 unspecified Category: Medical Plan: 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 Encouraged to take meds regularly Low salt diet NO change in meds (3) Hydronephrosis: Comment: CT SCAN IN DECEMBER 2022 Mild to moderate left renal hydroureteronephrosis with no obstructive etiology seen. Mild left perinephric stranding seen also. Repeat USG- NO [place] Code(s): N13.30 - Unspecified hydronephrosis Category: Medical Plan: Needs follow up with Urology Orders: Orders Basic Metabolic Panel 4 Months N18.30 - Chronic kidney disease, stage 3 unspecified Complete Blood Count no Diff 4 Months N18.30 - Chronic kidney disease, stage 3 unspecified Coding Level of Care Code Est Pt Level 4 (94648) Diagnoses Chronic kidney disease, stage 3 N18.30 Essential hypertension I10 Hydronephrosis N13.30
--- OUTSIDE RECORDS SUMMARY | 2025-01-08 11:39 | XMS_ITS | Encounter Summary ---
Author Organization [employer] Address [address] [facility] [address] [place] [address] Care Team Providers Care Soft Metals Engraver Hand Name Role Phone Zeny Sagastume MD Primary Care Provider [phone] Encounter Details Date Type Department Care Team (Late st Contact Info) Description 09/17/2024 Orders Only [facility] [address] [place] [address] Zeny Sagastume MD [address] [place], [place] [phone] Social History Tobacco Use Types Packs/Day Years [...] Description 02/12/2025 1:15 PM EDT Office Visit [facility] [address] [place] [address] Jessica Wong MD [address] [place] [address] 06/10/2025 2:00 PM EST Office Visit [facility] OPTOM[facility]RY [address] [place] [address] Kayden, Valentina, OD [address] [place] [address] 07/22/2025 1:00 PM EST Office Visit [facility] ADULT DENTAL [address] [place] [address] Radha Aguero documented as of this encounter Visit Diagnoses Not on filedocumented in this encounter Additional Health Concerns Assessment Noted Time PHQ-9 Depression Total Score: 4 12/17/19 24 1:46 PM EDT documented as of this encounter Care Teams Soft Metals Engraver Hand Relationship Specialty Start Date End Date Zeny Sagastume MD [address] [place] [id number] PCP - General Family Medicine 08/11/22 documented as of this encounter
== END 2025-01-08 10:27 | disposition home or self-care (01) ==
LOC: HO.HKA 10:09
PROVIDERS: PCP General Practice; Visit Provider Internal Medicine Hypertension Specialist
DX: N18.30 Chronic kidney disease, stage 3 unspecified (principal); I10 Essential (primary) hypertension; N13.30 Unspecified hydronephrosis
CPT/HCPCS: 99214

== ENCOUNTER → 2025-01-08 10:09 | Outpatient (BNVA) | payer OTHER, SELFPAY | PROVIDERS: PCP General Practice; Visit Provider Internal Medicine Hypertension Specialist | DX: I10 Essential (primary) hypertension (principal); N18.30 Chronic kidney disease, stage 3 unspecified; N13.30 Unspecified hydronephrosis | CPT/HCPCS: 99212 ==

== ENCOUNTER 2025-04-29 12:07 | Outpatient (REF) | payer OTHER, SELFPAY ==
[2025-04-29 13:30] LABS: Hematocrit 39.7 % (37.0-47.0); Hemoglobin 12.9 g/dl (12.0-16.0); Mean Corpuscular HGB Conc 32.5 g/dl (31.0-35.0); Mean Corpuscular Hemoglobin 26.9 pg (27.0-33.0); Mean Corpuscular Volume 82.9 fL (80.0-98.0); NRBC Abs Auto 0.000 X10*3/uL (0.0-0.012); NRBC Pct Auto 0.0 /100WBC (0.0-0.2); Platelet Count 226 X10*3/uL (160-400); Red Blood Count 4.79 X10*6/uL (4.20-5.50); White Blood Count 6.6 X10*3/uL (4.8-10.8)
--- OUTSIDE RECORDS SUMMARY | 2025-04-29 13:36 | XMS_ITS | Encounter Summary ---
Author Organization [email or web address] Address [address] [facility] [address] [place] [address] Care Team Providers Care Specification Consultant Name Role Phone Zeny Sagastume MD Primary Care Provider [phone] Reason for Visit * Reason Onset Date Comments Call Back Request 09/14/2023 Encounter Details Date Type Department Care Team ([facility] Contact Info) Description 09/14/2023 Telephone [facility] MEDICINE [address] [place], [place] [phone] Zeny Sagastume MD [address] [place] [address] Call Back Request Social History Tobacco Use [...] has to fast, she will need an 3TIER for the morning due to not havingtransportation. Please contact pt at [phone] (Irish) documented in this encounter Plan of Treatment Upcoming Encounters Date Type Department Care Team (Late st Contact Info) Description 06/10/2025 2:00 PM EST Office Visit [facility] OPTOMETRY [address] [place] [address] Kayden, Valentina, OD [address] [place] [address] 07/22/2025 12:45 PM EST Office Visit [facility] ADULT DENTAL [address] [place] [address] Radha Aguero documented as of this encounter Visit Diagnoses Not on filedocumented in this encounter Additional Health Concerns Assessment Noted Time PHQ-9 Depression Total Score: 2 09/10/19 24 2:30 PM EST documented as of this encounter Care Teams Specification Consultant Relationship Specialty Start Date End Date Zeny Sagastume MD [address] [place] [address] PCP - General Family Medicine 08/11/22 documented as of this encounter
--- OUTSIDE RECORDS SUMMARY | 2025-04-29 13:36 | XMS_ITS | Encounter Summary ---
Author Organization [employer] Address [address] [place] [address] [address] [place] [address] Care Team Providers Care Staffing Recruiter Name Role Phone Zeny Sagastume MD Primary Care Provider [phone] Encounter Details Date Type Department Care Team (Late Contact Info) Description 05/02/2023 Orders Only [facility] MEDICINE [address] [place], [place] [phone] Zeny Sagastume MD [address] [place], [place] [phone] Bilateral foot pain (Primary Dx) Social History [...] Department Care Team (Late Contact Info) Description 06/10/2025 2:00 PM EST Office Visit [facility] OPTOMETRY [address] [place], [place] [phone] Kayden, Valentina, OD [address] [place], [place] [phone] 07/22/2025 12:45 PM EST Office Visit [facility] ADULT DENTAL [address] [place] [address] Radha Aguero documented as of this encounter Visit Diagnoses Diagnosis Bilateral foot pain- Primary documented in this encounter Care Teams Staffing Recruiter Relationship Specialty Start Date End Date Zeny Sagastume MD [address] [place] [address] PCP - General Family Medicine 08/11/22 documented as of this encounter
--- OUTSIDE RECORDS SUMMARY | 2025-04-29 13:36 | XMS_ITS | Encounter Summary ---
Author Organization [employer] Address [address] [place] [address] Care Team Providers Care Bar Waiter/Waitress Name Role Phone Zeny Sagastume MD Primary Care Provider [phone] Reason for Visit * Reason Comments Med Change Request Encounter Details Date Type Department Care Team ([facility] [place] Contact Info) Description 07/12/2023 Refill [facility] W[facility] [address] [place], [place] [phone] Magaly Rangel ANP [address] [place], [place] [phone] Generalized pruritus; Rash Social History Tobacco Use [...] Description 06/10/2025 2:00 PM EST Office Visit [facility] OPTOMETRY [address] [place] [address] Kayden, Valentina, OD [address] [place] [address] 07/22/2025 12:45 PM EST Office Visit [facility] ADULT DENTAL [address] [place] [address] Radha Aguero documented as of this encounter Visit Diagnoses Diagnosis Generalized pruritus Unspecified pruritic disorder Rash Rash and other nonspecific skin eruption documented in this encounter Care Teams Bar Waiter/Waitress Relationship Specialty Start Date End Date Zeny Sagastume MD [address] [place] [address] PCP - General Family Medicine 08/11/22 documented as of this encounter
--- OUTSIDE RECORDS SUMMARY | 2025-04-29 13:36 | XMS_ITS | Clinical Summary ---
Author Organization [employer] Address [address] [facility] [address] [place] [address] Care Team Providers Care Certified Cytotechnologist Name Role Phone Zeny Sagastume MD Primary Care Provider [phone] Allergies Active Allergy Reactions Criticality Noted Date Comments Sulfa Antibiotics Other reaction(s): unspecified Medications cholecalciferol (Vitamin D-3) 50 MCG (1999) capsule TAKE 1 CAPSULE BY MOUTH EVERY DAY 02/22/20 22 Active Blood Pressure Monitoring (Blood Pressure Monitor/Wrist) deviceIndications: Essential hypertension, benign 1 kit in the morning. 1 each 08/11/19 23 Active fluticasone (Flovent) 110 MCG/ACT inhalerIndications :Moderate persistent asthma without complication Inhale 2 puffs in the morning and at bedtime. Rinse mouth with water after use to reduce aftertaste and incidence of candidiasis. Do not swallow. 12 g 3 11/25/19 23 Active clotrimazole (Lotrimin) 1 % cream APPLY TO AFFECTED AREA TOPICALLY TWICE A DAY FOR 28 DAYS 10/28/19 24 Active pravastatin (Pravachol) 40 MG tablet Take 1 tablet (40 mg) by mouth Once per day. 90 tablet 3 12/19/19 24 Active traZODone (Desyrel) 50 MG tablet Take 1 tablet (50 mg) by mouth at bedtime. 90 tablet 3 06/02/20 24 025 Active Diclofenac Sodium 1 % gelIndications:Leslie n in both hands,Primary osteoarthritis of both hands,Bilateral foot pain Apply 1 Application. topically 2 times daily. Apply to areas of pain in the feet 100 g 11 06/06/20 24 Active glipiZIDE (Glucotrol) 10 MG tablet TAKE 1 TABLET BY MOUTH TWICE A DAY WITH FOOD 180 tablet 08/13/19 25 Active Aspirin Low Dose 81 MG EC tablet TAKE 1 TABLET (81 MG) BY MOUTH IN THE MORNING 90 tablet 08/13/19 25 Active albuterol 108 (90 Base) MCG/ACT inhalerIndications :Asthma INHALE 2 PUFFS BY MOUTH EVERY 4-6 HOURS NEEDED 8.5 g 6 08/13/19 25 Active Alcohol Swabs (Alcohol Pads) 70 % pads USE TO TEST BLOOD SUGAR THREE TIMES A DAY 100 each 08/13/19 25 Active lisinopril 40 MG tabletIndications: Essential hypertension, benign Take 1 tablet (40 mg) by mouth Once per day. 90 tablet 11/12/19 25 026 Active calcium carbonate (Calcium 600) 600 MG tabletIndications: Localized osteoporosis without current pathological fracture Take 1 tablet (600 mg) by mouth with breakfast and with evening meal. 180 tablet 11/13/19 25 026 Active Lancets (OneTouch Delica Plus [id number]) miscIndications:Ty pe 2 diabetes mellitus without complication, unspecified whether intermediate designer insulin use USE 1 LANCET BY TO SKIN ROUTE 3 TIMES EVERY DAY 100 each 12/17/19 25 Active dilTIAZem CD (Cardizem CD) 300 MG 24 hr capsuleIndications :Essential hypertension, benign TAKE 1 CAPSULE BY MOUTH EVERY DAY 90 capsule 02/12/20 25 Active empagliflozin (Jardiance) 25 MGIndications:Type 2 diabetes mellitus without complication, unspecified whether chcf insulin use TAKE 1 TABLET BY MOUTH EVERY DAY IN THE MORNING 90 tablet 02/12/20 25 Active FREESTYLE LITE test stripIndications:T ype 2 diabetes mellitus with hyperglycemia, without long-term current use of insulin ([facility]) Use to test blood sugar 2 times daily 100 each 02/13/20 25 026 Active Dulaglutide (Trulicity) 3 MG/0.5ML solution auto-injectorIndic ations:Type 2 diabetes mellitus with hyperglycemia, without long-term current use of insulin ([facility]) Inject 3 mg under the skin 1 (one) time per week. 2 mL 02/13/20 25 Active glucose blood (OneTouch Verio) test stripIndications:T ype 2 diabetes mellitus with hyperglycemia, without long-term current use of insulin ([facility]) USE TO TEST 2 TIMES DAILY 100 strip 5 02/19/20 25 Active cyclobenzaprine (Flexeril) 5 MG tablet Take 1 tablet (5 mg) by mouth 3 times daily for 10 days. 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 11/11/2024 Edentulous maxilla 06/04/2024 Chronic renal disease, stage IV ([facility]) 2023 Assessment & Plan (11/12/2024 9:43 AM EDT): [...] (04/03/2023): CT scan abdomen on 01/13/23 at [facility] (admission for UTI) CT scan abdomen on 01/13/23 at [facility] (admission for UTI) Last [...] use of insulin 08/08/2012 Assessment & Plan (02/12/2025 4:31 PM EDT): Diabetes is: not controlled - Lab Results Component Value Date HGBA1C 7.7 (A) 02/12/2025 HGBA1C 7.4 (A) 11/11/2024 HGBA1C 8.2 (A) 06/02/2024 - Lab Results Component Value Date MICROALBUR 16.0 07/20/2023 CREATININE 1.40 01/01/2025 - Diabetic eye exam: Up-to-date - Diabetic foot exam: Up-to-date - Continue lifestyle modifications - Continue current medications - Follow up: 3 months with PCP Assessment & Plan (11/12/2024 9:46 AM EDT): [...] dysfunction, no valvular abnormalities Assessment & Plan (02/12/2025 4:29 PM EDT): I advise: - Aerobic exercise to reduce BP. 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 Stage 2 chronic kidney disease 11/14/2018 04/03/2023 Encounters Date Type Department Care Team Description 04/28/2025 Telephone [facility] [address] [place] [address] Radha Aguero 04/15/2025 Telephone [facility] [address] [place] [address] Radha Aguero 04/07/2025 Refill [facility] [address] [place] [address] Zeny Sagastume MD 02/18/2025 Refill [facility] [address] [place] [address] Kathi Akers, WARREN Type 2 diabetes mellitus with hyperglycemia, without long-term current use of insulin ([facility]) 02/12/2025 1:15 PM EDT Office Visit [facility] [address] [place] [address] Jessica Wong MD Essential hypertension, benign (Primary Dx); Type 2 diabetes mellitus with hyperglycemia, without long-term current use of insulin ([facility]); Encounter for preventive care 02/12/2025 Travel 02/10/2025 Refill [facility] [address] [place] [address] Zeny Sagastume MD Essential hypertension, benign; Type 2 diabetes mellitus without complication, unspecified whether chcf insulin use ([facility]) 02/03/2025 Patient Outreach [facility] [address] [place] [address] Zeny Sagastume MD Pre-visit Planning ((Unable to reach for PVP screening, LVM) to be completed in office ) from Last 3 Months Immunizations Immunization Administration Dates Next Due Hep B, adult [...] Answer Date Recorded Patient Health Questionnaire-9 Score 0 02/12/2025 Patient Health Questionnaire-9 Score 0 02/12/2025 Last PHQ-9: Questionnaire Data Not on file 0 02/12/2025 Housing Stability Answer Date Recorded What is your housing situation today? I have layla navas 02/12/[address] you li ve. Do you have problems with any of the following? None of the above 02/12/2025 Food Insecurity Answer Date Recorded Within the past 12 months, y ou worried that your food would run out before you got money to buy more: Never True 02/12/2025 Within the past 12 months,th e food you bought just didn't last and you didn't have enough money to get more: Never True Transportation Answer Date Recorded In the past 12 months, has l ack of transportation kept you from medical appts, meetings, work or from getting things needed for daily living? No 02/12/2025 Utilities Answer Date Recorded In the past 12 months, has t he electric, gas, oil or water company threatened to shut off services in your home? No 02/12/2025 Depression Answer Date Recorded Patient Health Questionnaire-2 Score 0 02/12/2025 Internet Access Answer Date Recorded Internet Access Q1 No 02/12/2025 Internet Access Q2 I do not want or need it 01/27 Comments Unknown Sex and Gender Information Value Date Recorded Sex Assigned at Female 05/29/2022 10:14 AM EDT Legal Sex Female 10:14 AM EDT Gender Identity Female 05/29/2022 10:14 AM EDT Sexual Orientation Straight 05/29/2022 10 :14 AM EDT Last Filed Vital Signs Vital Sign Reading Time Taken Comments Blood Pressure 168/88 02/12/2025 1:19 PM EDT Pulse 80 02/12/2025 1:19 PM EDT Temperature 36.3 C (97.3 F) 02/12/2025 1:19 PM EDT Respiratory Rate 12 02/12/2025 1:19 PM EDT Oxygen Saturation 94% 11/11/2024 11:10 AM EDT Inhaled Oxygen Concentration - - Weight 69.1 kg (152 lb 6 oz) 02/12/2025 1:19 PM EDT Height 147.3 cm (4' 10 ) 02/12/2025 1:19 PM EDT Body Mass Index 31.85 02/12/2025 1:19 PM EDT Plan of Treatment Upcoming Encounters Date Type Department Care Team (Late st Contact Info) Description 06/10/2025 2:00 PM EST Office Visit [facility] [address] [place] [address] Kayden, Valentina, OD [address] [place] [address] 07/22/2025 12:45 PM EST Office Visit [facility] [address] [place] [address] Radha Aguero Health Maintenance Due Date Last Done Comments [...] Additional history exists COVID-19 Vaccine ( season) 2025 07/21/2022, 02/06/2022, 06/15/2021, Additional history exists Influenza Vaccine (#1) 2025 , 05/03/2022, 07/18/2019, Additional history exists Dental X-Ray: Full Mouth 04/27/2025 04/26/2022 Diabetes: Hemoglobin A1C 05/15/2025 025, 11/11/2024, 06/02/2024, Additional history exists Diabetes: Foot Exam 11/11/2025 11/11/2024, 11/11/2024, 11/11/2024, Additional history exists Lipid Panel 11/19/2025 11/19/2024, 08/31, 05/29/2022, Additional history exists Mammogram 11/21/2025 11/22/2023, 03/30, 10/10/2021, Additional history exists Diabetes: Urine Protein Screening 01/01/2026 01/01/2025, 07/20/2023, 07/20/2023, Additional history exists Eye Exam 01/07/2026 01/07/2025, 11/27, 12/08/2024, Additional history exists Alcohol/Substance Use Screening 02/12/2026 02/12/2025 Depression Screening 02/12/2026 02/12/2025, 02/13/20 SDOH Screening 02/12/2026 02/12/2025 Tobacco Screening 02/12/2026 02/12/2025 DTaP/Tdap/Td Vaccines (3 - Td or Tdap) [...] patient's age to complete this topic Meningococcal B Vaccine Aged Out No l onger eligible based on patient's age to complete [...] Procedure Name Priority Date/Time Associated Diagnosis Comments POCT GLYCATED HEMOGLOBIN, TOTAL Routine 02/12/2025 1:23 PM EDT Type 2 diabetes mellitus with hyperglycemia, without long-term current use of insulin ([facility]) POCT GLUCOSE Routine 02/12/2025 1:19 PM EDT Type 2 diabetes mellitus with hyperglycemia, without long-term current use of insulin ([facility]/HCC) AMB REFERRAL TO OPHTHALMOLOGY Routine 01/07/2025 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 (CMS/HCC) CREATININE, RANDOM URINE Routine 01/01/2025 10:27 AM EDT LIPID PANEL, STANDARD Routine 11/19/2024 12:24 PM EDT Type 2 diabetes mellitus with hyperglycemia, without long-term current use of insulin ([facility]) BI MAMMOGRAM DIAGNOSTIC TOMOSYNTHESIS BILATERAL Routine 11/22/2023 1:17 PM EDT HEPATITIS C ANTIBODY Routine 09/21/2023 10:03 AM EST Type 2 diabetes mellitus with hyperglycemia, without long-term current use of insulin ([facility]) PROPHYLAXIS - ADULT Routine 05/03/2022 1 2:00 AM EDT PANORAMIC RADIOGRAPHIC IMAGE Routine 04/26/2022 12:00 AM EDT PERIODIC ORAL EVALUATION - ESTABLISHED PATIENT Routine 04/26/2022 12:00 AM EDT from Last 3 Months or Most Recently Relevant to Health Maintenance Results * (ABNORMAL) POCT HGB A1C (02/12/2025 1:23 PM EDT) Hemoglobin A1C 7.7(A) 4.0 - 5.7 % QC Media Lot # [id number] Lot# Expiration Date 31 Blood 02/12/2025 1:23 PM EDT Jessica Manzo MD POINT OF CARE TEST EN TER/EDIT ORDERABLES Final Result * (ABNORMAL) POCT Glucose (02/12/2025 1:19 PM EDT) Glucose Blood, POC 212(A) 60 - 200 mg/dL QC Media Lot # [id number] Lot# Expiration Date 22,726 Blood Capillary blood specimen / Unknown 02/12/2025 1:19 PM EDT us Jessica Manzo MD POINT OF CARE TEST EN TER/EDIT ORDERABLES Final Result * Referral to Ophthalmology (01/07/2025) us Valentina Monique OD OUTPATIENT REFERRAL ORDERABLE S Final Result * Creatinine, Random Urine (01/01/2025 10:27 AM EDT) Creatinine, Urine 63.18 mg/dL [facility] 01/01/2025 10:2 7 AM EDT 01/01/2025 10:51 AM EDT us Generic External Data Provider LAB URINE ORDERAB LES Final Result Performing Organization Address City/State/[facility] Co de Phone Number [facility] [address] [place] [phone] * Lipid Panel, Standard (11/19/2024 12:24 PM EDT) Triglycerides 149 <150 mg/dL [facility] Comment:Desirable Triglyceri de: less than 150 mg/dLBorderline High Triglyceride 150-199 mg/dLHigh Triglyceride: 200-499 mg/dLVery High Triglyceride: greater than or equal to 5OO mg/dL Cholesterol 165 <200 mg/dL [facility] Comment:Desirable Cholestero l: less than 200 mg/dLBorderline High Cholesterol: 200-239 mg/dLHigh Cholesterol: greater than 239 mg/dL LDL Cholesterol Calculated 92 <100 mg/dL [facility] Comment:Desirable LDL: less than 100 mg/dLNear Optimal/Above Optimal LDL: 110- 129 mg/dLBorderline High LDL: 130-159 mg/dLHigh LDL: 160-189 mg/dLVery High LDL: greater than or equal to 190 mg/dL HDL Cholesterol 44 >40 mg/dL [facility] Comment:Desirable HDL: great er than 40 mg/dL Note: This HDL assay may give artificially low results in patients with liver disease. Blood Venous blood specimen / Unknown 11/19/2024 12:24 PM EDT 11/19/2024 1:08 PM EDT us Zeny Sagastume MD LAB BLOOD ORDERABLES Final Res ult [facility] [address] [place] [phone] * BI Mammogram Diagnostic Tomosynthesis Bilateral (11/22/2023 1:17 PM EDT) Anatomical Region Laterality Modality Breast Bilateral Mammography 11/22/2023 1:17 PM EDT Narrative 11/22/2023 5:26 PM EDT [address] [place] [address] Mammography Report Signed Patient: Radha Navarro MR#: [id number] : 1945 Acct:[id number] Age/Sex: 78 / F ADM Date: 11/22/23 Loc: HO.MAMMO Attending Dr: Zeny Sagastume MD Ordering Physician: Zeny Sagastume Results: 2Benign F indings Date of Service: 11/22/23 Follow Up: 1 Year From [facility] Mammogram Procedure(s): MM tomosynthesis diagnostic BI Accession Number(s): [id number] cc: Zeny Sagastume EXAMINATION: MM DIAGNOSTIC DIGITAL [...] in OV> 11/22/23 1722 DD/ 1317 TD/TT: Landing Man: Procedure Note Donotuseinterpreter, Image - [facility]/22/[facility] [address] [place] [address] Mammography Report Signed Patient: Radha Navarro [facility]#: [id number] : 7Acct:[id number] Age/Sex: 78 / FADM Date: 11/22/23 Loc: YOHANA.MAMMO Attending Dr: Zeny Sagastume MD Ordering Physician: Tamara Sagastumeults: 2Benign F indings Date of Service: 11/22/23Follow Up: 1 Year From Orig inal Mammogram Procedure(s): MM tomosynthesis diagnostic BI Accession Number(s): [id number] cc: Zeny Sagastume EXAMINATION: MM DIAGNOSTIC DIGITAL [...] in OV> 11/22/23 1722 DD/ 1317 TD/TT: Landing Man: Zeny Sagastume MD IMG BI PROCEDURES Final Result * Hepatitis C Ab (09/21/2023 10:03 AM EST) Hepatitis C Antibody Nonreactive Nonreactive [facility] Comment:Antibodies to HCV no t detected; does not exclude early acuteHCV infection. Blood Venous blood specimen / Unknown 09/21/2023 10:03 AM EST 09/21/2023 11:20 AM EST us Zeny Sagastume MD LAB BLOOD ORDERABLES Final Res ult [facility] [address] [place] [phone] from Last 3 Months or Most Recently Relevant to Health Maintenance Insurance [facility] DQ [employer] H[employer] SNP Care Teams Certified Cytotechnologist Relationship Specialty Start Date End Date Zeny Sagastume MD [address] [place] [phone] PCP - General Family Medicine 08/11/22
--- OUTSIDE RECORDS SUMMARY | 2025-04-29 13:36 | XMS_ITS | Encounter Summary ---
Demographics Address [address] [place] [address] Mobile Phone Home Phone Preferred Language es Marital Status Cheondoism Affiliation Unknown Race Other Race Ethnic Group Unknown Author Organization [employer] Address [address] [facility] [address]t [place] [address] Care Team Providers Care Blood Bank Credit Clerk Name Role Phone Zeny Sagastume MD Primary Care Provider [phone] Reason for Visit * Reason Onset Date Comments Nurse Triage 03/20/2023 Encounter Details Date Type Department Care Team ([facility] st Contact Info) Description 03/20/2023 Telephone [facility] [address] [place], [place] [phone] Zeny Sagastume MD [address] [place] [address] Nurse Triage Social History Tobacco Use Types [...] 03/20/2023 10:24 AM EDT Triage call with [employer] Audit Control Clerk ID [id number] Pt reports 03/11/23 Pt was hopping into [...] effect. Pt is advised to come to [facility] today to be seen by provider and Pt will see . Pt is advised that if pain becomes much worse may need to go to ED for evaluation and Pt responded pain is decreasing . Home care advice reviewed especially heat to the area while sitting. Pt reports will try maybe. Pt is requesting another apt with PCP and no apts observed for next 2 weeks. Advised Pt to call back beginning of next weekfor possible apt and Pt agreed. Protocol Used: [...] The caller accepted this outcome Patient speaks thai documented in this encounter Plan of Treatment Upcoming Encounters Date Type Department Care Team (Late st Contact Info) Description 06/10/2025 2:00 PM EST Office Visit [facility] [address] [place] [address] Valentina Monique, OD [address] [place] [address] 07/22/2025 12:45 PM EST Office Visit [facility] AD[facility] DENT[facility] [address] [place] [address] Radha Aguero documented as of this encounter Visit Diagnoses Not on filedocumented in this encounter Care Teams Blood Bank Credit Clerk Relationship Specialty Start Date End Date Zeny Sagastume MD [address] [place] [address] PCP - General Family Medicine 08/11/22 documented as of this encounter
--- OUTSIDE RECORDS SUMMARY | 2025-04-29 13:36 | XMS_ITS | Encounter Summary ---
Author Organization [employer] Address [address] [facility] [address]t [place] [address] Care Team Providers Care Nailhead Operator Name Role Phone Zeny Sagastume MD Primary Care Provider [phone] Encounter Details Date Type Department Care Team (Late st Contact Info) Description 11/13/2023 Telephone [facility] MED[facility] [address] [place], [place] [phone] Zeny Sagastume MD [address] [place], [place] [phone] Social History Tobacco Use Types Packs/Day Years [...] Description 06/10/2025 2:00 PM EST Office Visit [facility] [address] [place] [address] Kayden, Valentina, OD [address] [place] [address] 07/22/2025 12:45 PM EST Office Visit [facility] ADULT DENT[facility] [address] [place] [address] Radha Aguero documented as of this encounter Visit Diagnoses Not on filedocumented in this encounter Additional Health Concerns Assessment Noted Time PHQ-9 Depression Total Score: 2 09/10/19 24 2:30 PM EST documented as of this encounter Care Teams Nailhead Operator Relationship Specialty Start Date End Date Zeny Sagastume MD [address] [place] [address] PCP - General Family Medicine 08/11/22 documented as of this encounter
--- OUTSIDE RECORDS SUMMARY | 2025-04-29 13:36 | XMS_ITS | Encounter Summary ---
Author Organization [employer] Address [address] [place] [address] [address] [place] [address] Care Team Providers Care Blue Line Operator Name Role Phone Zeny Sagasutme MD Primary Care Provider [phone] Reason for Referral * Consultation (Routine) - Closed Specialty Diagnoses / Procedures Referred By Contac t Referred To Contact Optometry Diagnoses Type 2 diabetes mellitus with hyperglycemia, without long-term current use of insulin (HCC) Zeny Sagastume MD [address] [place] [phone] Phone: tel: fax: [facility] [address] [place], [place] Phone: tel: fax: Referral ID Status Reason Start Date Expiration Date V isits Requested Visits Authorized [id number] Closed Specialty Services Required 10/05/2023 10/04/2024 1 1 Encounter Details Date Type Department Care Team (Late st Contact Info) Description 09/28/2023 Orders Only [facility] [address] [place] [address] [phone] Zeny Sagastume MD [address] [place] [address] [phone] Type 2 diabetes mellitus with hyperglycemia, without [...] Description 06/10/2025 2:00 PM EST Office Visit [facility] OPT[facility] [address] [place] [address] Kayden, Valentina, OD [address] [place] [address] 07/22/2025 12:45 PM EST Office Visit [facility] ADULT DENTAL [address] [place] [address] Radha Aguero Scheduled Referrals Name Type Priority Associated Diagnoses Orde r Schedule Referral to Optometry Outpatient Referral Routine Type 2 diabetes mellitus with hyperglycemia, without long-term current use of insulin ([facility]/HCC) Expected: 10/05/2023 (Approximate), Expires: 10/04/2024 documented as of this encounter Visit Diagnoses Diagnosis Type 2 diabetes mellitus with hyperglycemia, without long-term current use of insulin ([facility])- Primary documented in this encounter Additional Health Concerns Assessment Noted Time PHQ-9 Depression Total Score: 2 09/10/19 24 2:30 PM EST documented as of this encounter Care Teams Blue Line Operator Relationship Specialty Start Date End Date Zeny Sagastume MD [address] [place] [phone] PCP - General Family Medicine 08/11/22 documented as of this encounter
--- OUTSIDE RECORDS SUMMARY | 2025-04-29 13:36 | XMS_ITS | Encounter Summary ---
Author Organization [employer] Address [address] [facility] [address] [place] [address] Care Team Providers Care Hydraulic Spinner Name Role Phone Zeyn Sagastume MD Primary Care Provider [phone] Encounter Details Date Type Department Care Team (Late st Contact Info) Description 09/17/2024 Orders Only [facility] [address] [place] [address] Zeny Sagastume MD [address] [place], [place] [phone] Social History Tobacco Use Types Packs/Day Years [...] Description 06/10/2025 2:00 PM EST Office Visit [facility] OPT[facility] [address] [place] [address] Kayden, Valentina, OD [address] [place] [address] 07/22/2025 12:45 PM EST Office Visit [facility] ADULT DENT[facility] [address] [place] [address] Radha Aguero documented as of this encounter Visit Diagnoses Not on filedocumented in this encounter Additional Health Concerns Assessment Noted Time PHQ-9 Depression Total Score: 4 12/17/19 24 1:46 PM EDT documented as of this encounter Care Teams Hydraulic Spinner Relationship Specialty Start Date End Date Zeny Sagastume MD [address] [place] [address] PCP - General Family Medicine 08/11/22 documented as of this encounter
--- OUTSIDE RECORDS SUMMARY | 2025-04-29 13:36 | XMS_ITS | Encounter Summary ---
Author Organization [employer] Address [address] [facility] 7t [place] [address] Care Team Providers Care Contract Administrative Assistant Name Role Phone Zeny Sagastume MD Primary Care Provider [phone] Reason for Visit * Reason Onset Date Comments Referral 09/27/2023 Encounter Details Date Type Department Care Team ([facility] Contact Info) Description 09/27/2023 Telephone [facility] MEDICINE [address] [place], [place] [phone] Zeny Sagastume MD 230 [place], [place] [phone] Referral Social History Tobacco Use Types Packs/Day [...] from 10/05/23. Pt CANNOT be seen at [facility] eyecare as Valentina Monique is out of network for her insurance. Pt needs to beseen outside of [facility]. Thank you! * Telephone Encounter - Mike Gramajo - 09/27/2023 11:15 AM EST Tc from [facility] working with [facility]. [facility] by Valentina Monique on 08/20/23 but will need a referral due to Valentina being a out of network provider with members insurance plan. If any questions please contact Priti at [phone] documented in this encounter Plan of Treatment Upcoming Encounters Date Type Department Care Team (Late st Contact Info) Description 06/10/2025 2:00 PM EST Office Visit [facility] OPTOMETRY [address] [place] [address] Valentina Monique, OD 230 [place] [address] 07/22/2025 12:45 PM EST Office Visit [facility] ADULT DENTAL 230 [place] [address] Radha Aguero documented as of this encounter Visit Diagnoses Not on filedocumented in this encounter Additional Health Concerns Assessment Noted Time PHQ-9 Depression Total Score: 2 09/10/19 24 2:30 PM EST documented as of this encounter Care Teams Contract Administrative Assistant Relationship Specialty Start Date End Date Zeny Sagastume MD 230 [place] [address] PCP - General Family Medicine 08/11/22 documented as of this encounter
--- OUTSIDE RECORDS SUMMARY | 2025-04-29 13:37 | XMS_ITS | Encounter Summary ---
Demographics Address [address] [facility] [address] [place] [address] Mobile Phone Home Phone Preferred Language es Marital Status Sikh Affiliation Unknown Race Other Race Ethnic Group Unknown Author Organization [employer] Address [address] [facility] 7t [place] [address] Care Team Providers Care Senior Planning Manager Name Role Phone Zeny Sagastmue MD Primary Care Provider [phone] Encounter Details Date Type Department Care Team ([facility] st Contact Info) Description 06/07/2023 Abstract [facility] 230 [place], [place] [phone] Zeny Sagastume MD 230 [place], [place] [phone] Social History Tobacco Use Types Packs/Day Years Used Date Smoking Tobacco: Former Cigarettes Q uit: 1969 Smokeless Tobacco: Never Alcohol Use Standard Drinks/Week Comments Not Currently 0 (1 standard drink = 0.6 oz pur e alcohol) oca PHQ-2 Answer Date Recorded Patient Health Questionnaire-2 Score 0 08/11/2022 Housing Stability Answer Date Recorded What is your housing situation today? I have layla eloise 05/16/[address] you li [...] Description 06/10/2025 2:00 PM EST Office Visit [facility] OPTOMETRY [address] [place] [address] KaydenValentina evangelista, OD 230 [place] [address] 07/22/2025 12:45 PM EST Office Visit [facility] ADULT DENTAL 230 [place] [address] Radha Aguero documented as of this encounter Visit Diagnoses Not on filedocumented in this encounter Care Teams Senior Planning Manager Relationship Specialty Start Date End Date Zeny Sagastume MD 230 [place] [address] PCP - General Family Medicine 08/11/22 documented as of this encounter
--- OUTSIDE RECORDS SUMMARY | 2025-04-29 13:37 | XMS_ITS | Encounter Summary ---
Author Organization [employer] Address [address] [facility] 7t [place] [address] Care Team Providers Care Manager Coding Name Role Phone Zeny Sagastume MD Primary Care Provider [phone] Encounter Details Date Type Department Care Team ([facility] Contact Info) Description 11/24/2022 Abstract [facility] MEDICINE 230 [place], [place] [phone] Zeny Sagastume MD 230 [place] [address] Social History Tobacco Use Types Packs/Day Years [...] Upcoming Encounters Date Type Department Care Team ([facility] Contact Info) Description 06/10/2025 2:00 PM EST Office Visit [facility] OPTOMETRY [address] [place] [address] Valentina Monique, OD 230 [place] [address] 07/22/2025 12:45 PM EST Office Visit [facility] ADULT DENTAL 230 [place] [address] Radha Aguero documented as of this encounter Visit Diagnoses Not on filedocumented in this encounter Care Teams Manager Coding Relationship Specialty Start Date End Date Zeny Sagastume MD 230 [place] [address] PCP - General Family Medicine 08/11/22 documented as of this encounter
--- OUTSIDE RECORDS SUMMARY | 2025-04-29 13:37 | XMS_ITS | Encounter Summary ---
Author Organization [employer] Address [address] [place] [address] 7t [place] [address] Care Team Providers Care Gamb Cutter Name Role Phone Zeny Sagastume MD Primary Care Provider [phone] Encounter Details Date Type Department Care Team ([facility] Contact Info) Description 04/03/2023 Orders Only [facility] MEDICINE 230 [place], [place] [phone] Zeny Sagastume MD 230 [place], [place] [phone] Social History Tobacco Use Types Packs/Day Years [...] Upcoming Encounters Date Type Department Care Team ([facility] Contact Info) Description 06/10/2025 2:00 PM EST Office Visit [facility] OPTOMETRY [address] [place] [address] Kayden, Valentina, OD 230 [place] [address] 07/22/2025 12:45 PM EST Office Visit [facility] ADULT DENTAL 230 [place] [address] Radha Aguero documented as of this encounter Visit Diagnoses Not on filedocumented in this encounter Care Teams Gamb Cutter Relationship Specialty Start Date End Date Zeny Sagastume MD 230 [place] [address] PCP - General Family Medicine 08/11/22 documented as of this encounter
--- OUTSIDE RECORDS SUMMARY | 2025-04-29 13:37 | XMS_ITS | Encounter Summary ---
Demographics Address [address] [facility] [address] [place] [address] Mobile Phone Home Phone Preferred Language es Marital Status Spiritism Affiliation Unknown Race Other Race Ethnic Group Unknown Author Organization [employer] Address [address] [facility] 7t [place] [address] Care Team Providers Care Card Reader Name Role Phone Zeny Sagastume MD Primary Care Provider [phone] Reason for Visit * Reason Onset Date Comments Hospital Follow-up 01/22/2023 Encounter Details Date Type Department Care Team ([facility] st Contact Info) Description 01/22/2023 Telephone [facility] MEDICINE [address] [place] [phone] Zeny Sagastume MD [address] [place] [address] Hospital Follow-up Social History Tobacco Use Types [...] HDF F/U (no symptoms) Patient hospitalized at [facility]. Patient was admitted on 01/13/2023 and discharged on 01/19/2023. The patient was diagnosed with Kidney Stones.Patient advised will forward to [facility] Clinical Coordinators for follow up and appointment scheduling. Please contact pt at [phone] Sierra Leonean Speaker documented in this encounter Plan of Treatment Upcoming Encounters Date Type Department Care Team (Late st Contact Info) Description 06/10/2025 2:00 PM EST Office Visit [facility] OPTOMETRY [address] [place] [address] Valentina Monique, OD 230 [place] [address] 07/22/2025 12:45 PM EST Office Visit [facility] ADULT DENTAL 230 [place] [address] Radha Aguero documented as of this encounter Visit Diagnoses Not on filedocumented in this encounter Care Teams Card Reader Relationship Specialty Start Date End Date Zeny Sagastume MD 230 [place] [address] PCP - General Family Medicine 08/11/22 documented as of this encounter
--- OUTSIDE RECORDS SUMMARY | 2025-04-29 13:37 | XMS_ITS | Encounter Summary ---
Author Organization [employer] Address [address] [facility] [address] 7[address] [place] [address] Care Team Providers Care Glassware Maker Demonstrator Name Role Phone Zeny Sagastume MD Primary Care Provider [phone] Encounter Details Date Type Department Care Team (Late st Contact Info) Description 04/28/2025 Telephone [facility] ADULT DENTAL 230 [place], [place] [phone] Radha Aguero Social History Tobacco Use Types Packs/Day Years [...] encounter Miscellaneous Notes * Telephone Encounter - Aamir Mary - 04/28/2025 1:43 PM EDT Called to offer a sooner appointment due to a cancellation but there was no answer so I left a voicemail. documented in this encounter Plan of Treatment Upcoming Encounters Date Type Department Care Team (Late st Contact Info) Description 06/10/2025 2:00 PM EST Office Visit [facility] OPTOMETRY [address] [place] [address] Kayden, Valentina, OD 230 [place] [address] 07/22/2025 12:45 PM EST Office Visit [facility] ADULT DENTAL 230 [place] [address] Radha Aguero documented as of this encounter Visit Diagnoses Not on filedocumented in this encounter Additional Health Concerns Assessment Noted Time PHQ-9 Depression Total Score: 0 02/13/20 25 1:20 PM EDT documented as of this encounter Care Teams Glassware Maker Demonstrator Relationship Specialty Start Date End Date Zeny Sagastume MD 230 [place] [address] PCP - General Family Medicine 08/11/22 documented as of this encounter
--- OUTSIDE RECORDS SUMMARY | 2025-04-29 13:37 | XMS_ITS | Clinical Summary ---
Demographics Address [address] [place] [address] [address] [place] [address] Home Phone Preferred Language es Marital Status Unknown Amish Affiliation Unknown Race Unknown Ethnic Group Unknown Author Organization [facility] Address [address] [place] [address] Phone Care Team Providers Care Frame Stripper Name Role Phone Zeny Sagastume MD Primary [...] (04/29/2024): CT scan abdomen on 01/13/[address] 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 Pure hypercholesterolemia 01/17/2012 Resolved [...] Vaccine: 50+ Years (3 of 3 - PCV20 or PCV21) 03/31/2021 02/03/2021, 07/09/2007 Diabetes: Hemoglobin A1C 07/31/2023 04/30/2023, 05/0 07/2022 Influenza Vaccine (#1) 2025 9, 07/17/2018, 05/07/2017, Additional history exists Hepatitis B Vaccine Aged Out 07/10/2006, 6 No longer eligible based on patient's age to complete this topic Pneumococcal Vaccine: Peds (0 to 5 Years) and At-Risk Patients (6 to 49 Years) Discontinued 02/03/2021, 07/09/2007 Insurance [place] Dual MCR/MARY ([id number]) [place] Dual MCR/MARY ([id number]) Care Teams Frame Stripper Relationship Specialty Start Date End Date Zeny Sagastume MD [address] [place] [address] PCP - General Civil Preparedness Coordinator 02/09/23
--- OUTSIDE RECORDS SUMMARY | 2025-04-29 13:37 | XMS_ITS | Clinical Summary ---
Author Organization [address] [facility] Address 175 [place] [address] Phone Care Team Providers Care Tow Motor Mechanic Name Role Phone Zeny Sagastume MD Primary Care Provider [phone] Allergies Active Allergy Reactions Criticality Noted Date Comments Sulfa (Sulfonamide Antibiotics) 12/30 Medications aspirin 81 mg EC tablet take 1 tablet (81 mg) by mouth in the morning Active cholecalciferol (VITAMIN D-3) 50 mcg (2,000 unit) capsule Take 1 capsule (2,000 Units total) by mouth 1 (one) time each day. 02/21/2022 Active Jardiance 25 mg tablet Take 1 tablet (25 mg total) by mouth 1 (one) time each day in the morning. Active Trulicity 3 mg/0.5 mL pen injector injection inject 0.5 ml (3 mg) under the skin 1 (one) time per week. Active glipiZIDE (GLUCOTROL) 10 mg tablet Take 1 tablet (10 mg total) by mouth 2 (two) times a day with meals. Active lisinopril (PRINIVIL,ZESTR IL) 40 mg tablet Take 1 tablet (40 mg total) by mouth daily. 11/11/2024 Active traZODone (DESYREL) 50 mg tablet Take 1 tablet (50 mg total) by mouth. at bedtime. 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 (CMS/HCC V24, CMS/HCC V28) 11/11/2024 Edentulous maxilla 06/04/2024 Chronic renal disease, stage IV ([facility] V24, S/[facility] V28) 09/12/2023 Peripheral retinal degeneration 09/10/2023 Renal osteodystrophy 07/16/2023 Partially edentulous mandible 04/06/2023 Coccyx pain 03/20/2023 Acute renal failure syndrome ([facility] V24) 02/01 Overview (01/26/2025): Last Assessment & Plan: secondary to #1 / r/o kidney stone encouraged increase water intake, remain off lisinopril and metformin Repeat BMP and FU with PCP on 02/05. Calculus of bile duct without obstruction 2022 Overview (01/26/2025): CT scan abdomen on 01[facility]13/23 at [facility] (admission for [place]TI) CT scan abdomen on 01/13/23 at [facility] (admission for [place]TI) Last Assessment & Plan: Inceidental finding on CT scan, pt asymptomatic fu with PCP reassurance and gave indication to reconsult PRN with signs Pyelonephritis 02/01/2023 Diabetes mellitus, type II ([facility] V24, [facility] V28) 08/08/2012 Adjustment disorder with depressed mood 08/08/19 13 Atypical chest pain 08/08/2012 Hyperlipidemia 08/08/2012 Obesity, unspecified 08/08/2012 Type 2 diabetes mellitus wit h hyperglycemia, without long-term current use of insulin ([facility] V24, [facility] V28) 08/08/2012 Anxiety 05/22/2012 Carpal tunnel syndrome 05/22/2012 Depressive disorder 05/22/2012 Gout 05/22/2012 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 Osteoarthritis 05/22/2012 Osteoporosis 05/22/2012 Steatosis of liver 05/22/2012 Tobacco dependence syndrome 05/22/2012 Arthropathy 01/17/2012 Asthma 01/17/2012 Essential hypertension, benign 01/17/2012 Overview (01/26/2025): 11/2011 echo revealed normal LVSF with EF 55-60%, diastolic dysfunction, no valvular abnormalities Pure hypercholesterolemia 01/17/2012 Encounters Date Type Department Care Team Description 03/24/2025 12:30 PM EDT Treatment [facility] Occupational Therapy [address] [phone] Anya Burk OT Bilateral hand pain (Primary Dx) 03/09/2025 12:30 PM EDT Treatment [facility] Occupational Therapy [address] [phone] Anya Burk OT Bilateral hand pain (Primary Dx) 02/23/2025 2:00 PM EDT Evaluation [facility] Occupational Therapy [address] [phone] Anya Burk OT Bilateral hand pain (Primary Dx); Bilateral carpal tunnel syndrome 02/23/2025 Plan of Care Documentation [facility] Occupational Therapy [address] [phone] from Last 3 Months Surgical History Surgery Date Site/Laterality Comments INCISIONAL HERNIA REPAIR PROCEDURE: NV IMPLANT MESH OPN HERNIA RPR/DEBRIDEMENT CLOSURE SECTION PROCEDURE: HISTORICAL ; COMMENT: 4 TUBAL LIGATION PROCEDURE: HISTORICAL TUBAL LIGATION OTHER SURGICAL HISTORY PROCEDURE: ---- OTHER ----; COMMENT: Reversal of tubal ligation OOPHORECTOMY Left PROCEDURE: HISTORICAL OOPHORECTOMY Medical History Medical History Date Comments Unspecified asthma(493.90) 08/08/2012 DX:Un specified asthma(493.90) Adjustment disorder with dep ressed mood 08/08/2012 DX:Adjustment disorder with depressed mood Obesity, unspecified 08/08/2012 DX:Obesity, unspecified Essential hypertension, benign 08/08/2012 D X:Essential hypertension, benign Type II or unspecified type diabetes mellitus without mention of complication, uncontrolled 08/08/2012 DX:Type II or unspecified t ype diabetes mellitus without mention of complication, uncontrolled Other and unspecified hyperlipidemia 08/08/2012 DX:Other and unspecified hyperlipidemia Hx of smoking 08/08/2012 DX:Hx of smoking Family history of cardiovasc ular disease 08/08/2012 DX:Family history of cardiov ascular disease Atypical chest pain 08/08/2012 DX:Atypical chest pain Diabetes mellitus (CMS/HCC V 24, CMS/HCC V28) DX:Diabetes mellitus (HCC) Family History Medical History Relation Name Comments Other: Heart disease Father Other: Heart disease Mother Relation Name Status Comments Father Mother Social History Tobacco Use Types Packs/Day Years Used Date Smoking Tobacco: Former Smokeless Tobacco: Never Alcohol Use Standard Drinks/Week Comments Yes 0 (1 standard drink = 0.6 oz pur e alcohol) Comments Unknown Sex and Gender Information Value Date Recorded Sex Assigned at Female 02/11/2025 3:54 PM EDT Legal Sex Female 8:34 PM EST Gender Identity Female 02/11/2025 3:54 PM EDT Sexual Orientation Straight 02/11/2025 3: 54 PM EDT Obstetrics History Last Filed Vital Signs Vital Sign Reading Time Taken Comments Blood Pressure 146/80 01/21/2024 1:32 PM EDT Pulse 86 01/21/2024 1:32 PM EDT Temperature - - Respiratory Rate - - Oxygen Saturation - - Inhaled Oxygen Concentration - - Weight 68.9 kg (152 lb) 01/26/2025 10:18 AM EDT Height 149.9 cm (4' 11 ) 01/26/2025 10:18 AM EDT Body Mass Index 30.7 01/26/2025 10:18 AM EDT Plan of Treatment Upcoming Encounters Date Type Department Care Team (Late st Contact Info) Description 05/05/2025 1:45 PM EDT Office Visit Orthopedic Surgery - [address] [place] [address] Margareth Romero MD [address] [place] [phone] Health Maintenance Due Date Last Done Comments Diabetes: Annual Foot Exam 1955 Diabetes: Annual Retina Eye Exam 1955 Hepatitis B Vaccines (3 of 3 - 19+ 3-dose series) 09/04/2006 07/10/2006, 02/19/2006 RSV Immunization Adult Patients (1 - 1-dose 75+ series) 2021 Falls Risk Assessment 09/02/2023 Hepatitis C Screening 09/02/2023 Medicare Annual Wellness Visit 09/02/2023 Osteoporosis Screening (Bone Density Screening) 09/02/2023 Social Influencers of Health Screening 09/02/2023 Diabetes: Annual Urine Albumin-Creatinine Ratio (uACR) 07/20/2024 07/20/2023 Depression Screening 07/30/2024 COVID-19 Vaccine ( season) 2025 07/21/2022, 02/06/2022, 06/15/2021, Additional history exists Influenza Vaccine (#1) 2025 , 05/03/2022, 07/18/2019, Additional history exists Diabetes: Blood Sugar Control Test (HGBA1C) 08/15/2025 02/12/2025, 11/11/2024 Diabetes: Annual GFR (Glomerular Filtration Rate) 01/01/2026 01/01/2025, 11/02/2022 Hypertension/CHF/CAD Annual BMP Blood Test 01/01/2026 01/01/2025, 11/02/2022 Cholesterol Screening (Lipid Panel) 11/19/2029 11/19/2024 DTaP,Tdap,and Td Vaccines (4 - Td or Tdap) 12/16/2033 12/17/2023, 04/22/2013, 09/19/1996 Zoster Vaccines Completed 07/05/2021, 03/15/2021 Pneumococcal Vaccine: 50+ Years Completed 12/17/2023, 02/03/2021, 07/09/2007 HIB Vaccines Aged Out No longer eligi ble based on patient's age to complete this topic HPV Vaccines Aged Out No longer eligi ble based on patient's age to complete this topic Hepatitis A Vaccines Aged Out No long er eligible based on patient's age to complete this topic IPV Vaccines Aged Out No longer eligi ble based on patient's age to complete this topic MMR Vaccines Aged Out No longer eligi ble based on patient's age to complete this topic Meningococcal ACWY Vaccine Aged Out N o longer eligible based on patient's age to complete this topic Meningococcal B Vaccine Aged Out No l onger eligible based on patient's age to complete this topic RSV Immunization Patients Under 20 months Aged Out No longer eligible based on patient's age to complete this topic Varicella Vaccines Aged Out No longer eligible based on patient's age to complete this topic Goals Goal Patient Goal Type Associated Problems Recent Progress Patient-Stated? Author <enter goal here> General On track(03/24/20 1:53 PM EDT) Yes Anya Burk, OT Note: OT PATIENT GOAL LESS PAIN AND MORE STRENGTH TO DO OWN FOOD PREP Insurance MEDICAID - [place] [facility] MEDICARE ADVANTAGE Care Teams Tow Motor Mechanic Relationship Specialty Start Date End Date Zeny Sagastume MD [address] [place] [id number] PCP - General Income Tax Analyst 12/04/24
--- OUTSIDE RECORDS SUMMARY | 2025-04-29 13:37 | XMS_ITS | Encounter Summary ---
Author Organization [employer] Address [address] [place] [address] 7t [place] [address] Care Team Providers Care Manager Material Name Role Phone Kiley Haywood MD Primary Care Provider Zeny Rivera MD Primary Care Provider [phone] Encounter Details Date Type Department Care Team (Latest Contact Info) Description 05/03/2022 Abstract [facility] CONVERSIONS Dental, Provider, DDS Social History [...] Upcoming Encounters Date Type Department Care Team ( st Contact Info) Description 06/10/2025 2:00 PM EST Office Visit [facility] OPTOMETRY [address] [place] [address] Valentina Monique, OD [address] [place] [address] 07/22/2025 12:45 PM EST Office Visit [facility] ADULT DENTAL [address] [place] [address] Radha Aguero documented as of this encounter Visit Diagnoses Not on filedocumented in this encounter Care Teams Manager Material Relationship Specialty Start Date End Date Kiley Haywood MD PCP - General Family Medicine 07/02/19 08/10/22 Zeny Sagastume MD [address] [place] [address] PCP - General Family Medicine 08/11/22 documented as of this encounter
--- OUTSIDE RECORDS SUMMARY | 2025-04-29 13:37 | XMS_ITS | Encounter Summary ---
Author Organization [employer] Address [address] [place] [address] [address] [place] [address] Care Team Providers Care Talent Acquisition Specialist Name Role Phone Kiley Haywood MD Primary Care Provider Zeny Rivera MD Primary Care Provider [phone] Encounter Details Date Type Department Care Team (Late st Contact Info) Description 07/04/2022 Abstract [facility] MEDICINE [address] [place] [address] ProviderMike MD Social History Tobacco Use Types Packs/Day Years [...] Description 06/10/2025 2:00 PM EST Office Visit [facility] OPTOMETRY [address] [place] [address] Valentina Monique, OD [address] [place] [address] 07/22/2025 12:45 PM EST Office Visit [facility] ADULT DENTAL [address] [place] [address] Radha Aguero documented as of this encounter Visit Diagnoses Not on filedocumented in this encounter Care Teams Talent Acquisition Specialist Relationship Specialty Start Date End Date Kilye Haywood MD PCP - General Family Medicine 07/02/19 08/10/22 Zeny Sagastume MD [address] [place] [address] PCP - General Family Medicine 08/11/22 documented as of this encounter
[2025-04-29 14:24] LABS: Anion Gap 12 (12-20); Blood Urea Nitrogen 21 mg/dL (9-16); Calcium 9.0 mg/dL (8.4-10.2); Carbon Dioxide 24 mmol/L (22-29); Chloride 105 mmol/L (96-108); Estimated Glomerular Filt Rate 39; Potassium 3.8 mmol/L (3.3-5.1); Sodium 137 mmol/L (135-145)
== END 2025-04-29 12:08 | disposition home or self-care (01) ==
LOC: HO.HHCL 12:07
PROVIDERS: PCP Internal Medicine Hypertension Specialist; Visit Provider Internal Medicine Hypertension Specialist
DX: N18.30 Chronic kidney disease, stage 3 unspecified (principal)
CPT/HCPCS: 36415; 80048; 85027

== ENCOUNTER 2025-04-30 10:32 | Outpatient (AMB) | payer OTHER, SELFPAY ==
[2025-04-30 10:35] VITALS: BP 138/70; PULSE 84; O2SAT 96; BMI 30.9
--- NOTE | 2025-04-30 10:35 | HO.NEPHOV_ITS ---
Vital Signs 04/30/25 10:35 Height 4 ft 11 in Weight 153 lb BMI 30.9 BP 138/70 Blood Pressure Location Lt brachial Position Sitting Pulse 84 Pulse Source Pulse Oximeter Pulse Oximetry (%) 96 Oxygen Delivery Method Room Air Intake Visit Reasons: 4 month F/U Microbiology Manager Required: No Microbiology Manager Services: Microbiology Manager Offered & Declined (Granddaughter will translate) Accompanied by: Grand Child Allergies Sulfa (Sulfonamide Antibiotics) Allergy (Intermediate, Verified 04/30/25 10:37) SWELLING Medication List - Last Reconciled 04/30/25 by Rigoberto Bernabe MD albuterol sulfate 90 mcg/actuation 2 puffs inhalation Q6H PRN allopurinol 50 mg PO DAILY aspirin 81 mg PO DAILY blood sugar diagnostic ([employer] Verio test strips) Use 1 test strip three times a day blood sugar diagnostic As directed three times a day calcium carbonate 600 mg PO BID cyclobenzaprine 5 mg PO TID PRN diltiazem HCl CD 300 mg PO DAILY dulaglutide (Trulicity) mg subcut empagliflozin (Jardiance) 25 mg PO DAILY fluticasone propionate 110 mcg/actuation (Flovent HFA) 2 inhalations inhalation BID glipizide 10 mg PO BIDWM lisinopril 40 mg PO DAILY mirtazapine 45 mg PO BEDTIME pen needle, diabetic (BD Jackeline 2nd Gen Pen Needle) As directed one time a day trazodone 50 mg PO BEDTIME HPI Comments Details: 78 yr old woman with a h/o long standing DM and HTN with CKD Here for follow up with her son No new issues today She tells me that her blood sugar remains elevated at home She is on SGLT-2 inhibitors 04/29/24;Overall doing ok. No new issues 01/08/25 79-year-old female presenting for the follow-up of her chronic kidney disease and diabetes management. She has a background of essential hypertension and type 2 diabetes mellitus. Since her previous visit in August, the patient's blood pressure management has been stable, although she missed taking her antihypertensive medication today, resulting in elevated blood pressure readings, an occurrence she attributes to a temporary lapse rather than a recurring issue. Her diabetes management remains under standard protocols, with no significant changes to her medication regimen reported. Her renal function has shown improvement since January 01, with no new symptoms of renal insufficiency or urinary difficulty reported.h/o Hydronephrosis in 2022; Follow up [facility] in 2023 did not show hydro. 04/30/25 - The patient is a 79-year-old female presenting for follow-up of chronic disease management. - Chronic kidney disease: Function improved from 26% to 39%. - Hypertension: Blood pressure controlled. - Diabetes mellitus: Daytime control, nighttime fluctuations due to diet. [facility] Medical History Chronic kidney disease, stage 3 Lip lesion CTS (carpal tunnel syndrome) TIA (transient ischemic attack) Osteopenia Calcaneal spur, right Osteoarthritis, multiple sites Essential hypertension Hyperlipidemia LDL goal <70 Type 2 diabetes mellitus with chronic kidney disease Surgical History History of excision of lesion (~07/26/23) Hx of section Family History Father Heart disease Mother Asthma Heart attack Social History Household Members: Other Household Members Other:: grandchild Housing: Apartment Do you presently have visiting nurse or other home services: Yes (shop technician) Alcohol intake: former Patient Tobacco Use Status: Former Tobacco user Tobacco use type: Cigarette Cigarettes Per Day: 4 Years Smoked: 3 service: No Physical Exam Vital Signs: Last Vital Signs Pulse 84 04/30/25 10:35 BP 138/70 04/30/25 10:35 Pulse Ox 96 04/30/25 10:35 Oxygen Delivery Method Room Air 04/30/25 10:35 BMI result Body Mass Index 30.9 Comfortable Neck supple no JVD. Lungs entry equal no rales. Heart S1-S2 heard no gallop or rub. Abdomen soft nontender. Neuro alert awake oriented. No asterixis. Extremities no edema. Results Reviewed Nephrology Results: Hgb, (12.0-16.0) 12.9 g/dl 04/29/25 WBC, (4.8-10.8) 6.6 X10*3/uL 04/29/25 Plt Count, (160-400) 226 X10*3/uL 04/29/25 Sodium, (135-145) 137 mmol/L 04/29/25 Potassium, (3.3-5.1) 3.8 mmol/L 04/29/25 Chloride, (96-108) 105 mmol/L 04/29/25 Carbon Dioxide, (22-29) 24 mmol/L 04/29/25 BUN, (9-16) 21 mg/dL H 04/29/25 Creatinine, (0.5-1.4) 1.33 mg/dL 04/29/25 Calcium, (8.4-10.2) 9.0 mg/dL Δ 04/29/25 PTH Intact, (8.7-77.1) 163.1 pg/mL H 05/01/24 Urine Protein, (Neg-Trace) 30 (1+) mg/dL H 01/01/25 Urine Creatinine 63.18 mg/dL 01/01/25 Renal US 12/26/23 Assessment & Plan Assessment & Plan (1) Chronic kidney disease, stage 3: Code(s): N18.30 - Chronic kidney disease, stage 3 unspecified Category: Medical Plan: 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 No hydro on renal [facility] in November 2023 Goal is to slow the progression of renal disease Creatinine has improved.Currently at 1.40 as of Dec 2024 and 1.43 in Apr 2024 Down to 1.33 as of Apr 2025 Continue to avoid nephrotoxins including NSAIDS Agree with SGLT-2 inhibitors Maintain A1C < 7% (2) Essential hypertension: Code(s): I10 - Essential (primary) hypertension Category: Medical Plan: BP Well controlled Encouraged to take meds regularly Low salt diet NO change in meds (3) Hydronephrosis: Comment: CT SCAN IN DECEMBER 2022 Mild to moderate left renal hydroureteronephrosis with no obstructive etiology seen. Mild left perinephric stranding seen also. Repeat [facility]G- NO Logan Code(s): N13.30 - Unspecified hydronephrosis Category: Medical Plan: Follow PRN Orders: Orders Parathyroid Hormone Intact 4 Months N18.30 - Chronic kidney disease, stage 3 unspecified Basic Metabolic Panel 4 Months N13.30 - Unspecified hydronephrosis, N18.30 - Chronic kidney disease, stage 3 unspecified Coding Level of Care Code Est Pt Level 4 (35481) Diagnoses Chronic kidney disease, stage 3 N18.30 Essential hypertension I10 Hydronephrosis N13.30
--- OUTSIDE RECORDS SUMMARY | 2025-04-30 12:17 | XMS_ITS | Clinical Summary ---
Author Organization [employer] Address [address] [facility] [address]t [place] [address] Care Team Providers Care Shaper Machine Hand Name Role Phone Zeny Sagastume MD Primary Care Provider [phone] Allergies Active Allergy Reactions Criticality Noted Date [...] 25 026 Active Lancets (OneTouch Delica Plus [id number]) miscIndications:Ty pe 2 diabetes mellitus without complication, unspecified whether salvage determiner insulin use USE 1 LANCET BY TO SKIN ROUTE 3 TIMES EVERY DAY 100 each 12/17/19 25 Active dilTIAZem CD (Cardizem CD) 300 MG 24 hr capsuleIndications :Essential hypertension, benign TAKE 1 CAPSULE BY MOUTH EVERY DAY 90 capsule 02/12/20 25 Active empagliflozin (Jardiance) 25 MGIndications:Type 2 diabetes mellitus without complication, unspecified whether skilled nursing insulin use TAKE 1 TABLET BY MOUTH EVERY DAY IN THE MORNING 90 tablet 02/12/20 25 Active FREESTYLE LITE test stripIndications:T ype 2 diabetes mellitus with hyperglycemia, without long-term current use of insulin ([facility]) Use to test blood sugar 2 times daily 100 each 02/13/20 25 026 Active Dulaglutide (Trulicity) 3 MG/0.5ML solution auto-injectorIndic ations:Type 2 diabetes mellitus with hyperglycemia, without long-term current use of insulin ([facility]) Inject 3 mg under the skin 1 (one) time per week. 2 mL 02/13/20 25 Active glucose blood (OneTouch Verio) test stripIndications:T ype 2 diabetes mellitus with hyperglycemia, without long-term current use of insulin ([facility]) USE TO TEST 2 TIMES DAILY 100 [...] maxilla 06/04/2024 Chronic renal disease, stage IV ([facility]) 2023 Assessment & Plan (11/12/2024 9:43 AM [...] (04/03/2023): CT scan abdomen on 01/13/23 at [facility] (admission for UTI) CT scan abdomen on 01/13/23 at [facility] (admission for UTI) [...] BMP and restart low dose lisinopril accordingly, [facility] pharmacy confirms that they only have 40 mg prescription on file Pt to fu with PCP on February 05 Assessment & Plan (08/17/2022 8:34 PM EST): Take hydrochlorothiazide 25 and Lisinopril 40mg daily Monitor BP daily Arthropathy 01/17/2012 Pure hypercholesterolemia 01/17/2012 Resolved Problems Problem Noted Date Diagnosed Date Resolved Date Stage 3b chronic kidney dise ase (CKD) ([facility]) 04/03/2023 09/12/2023 Candidal vulvovaginitis 02/01/2023 04/12/2024 Overview (04/30/2023): reoccurent Secondary to abx + uncontrolled DM Assessment & Plan (02/01/2023 11:57 AM EDT): Secondary to abx + uncontrolled DM Fluconizole 150 x 1 counseled regarding tight control of DM. Stage 2 chronic kidney disease 11/14/2018 04/03/2023 Encounters Date Type Department Care Team Description 04/28/2025 Telephone [facility] ADULT DENTAL [address] [place] [address] Radha Aguero 04/15/2025 Telephone [facility] ADULT DENTAL [address] [place] [address] Radha Aguero 04/07/2025 Refill [facility] MEDICINE [address] [place] [address] Zeny Sagastume MD 02/18/2025 Refill [facility] MEDICINE [address] [place] [address] Kathi Akers, WARREN Type 2 diabetes mellitus with hyperglycemia, without long-term current use of insulin ([facility]) 02/12/2025 1:15 PM EDT Office Visit [facility] MEDICINE [address] [place] [address] Jessica Wong MD Essential hypertension, benign (Primary Dx); Type 2 diabetes mellitus with hyperglycemia, without long-term current use of insulin ([facility]); Encounter for preventive care 02/12/2025 Travel 02/10/2025 Refill [facility] MED & PEDS [address] [place] [address] Zeny Sagastume MD Essential hypertension, benign; Type 2 diabetes mellitus without complication, unspecified whether skilled nursing insulin use ([facility]) 02/03/2025 Patient Outreach [facility] MEDICINE [address] [place] [address] Zeny Sagastume MD Pre-visit Planning ((Unable to [...] Description 06/10/2025 2:00 PM EST Office Visit [facility] OPTOMETRY [address] [place] [address] Kayden, Valentina, OD [address] [place] [address] 07/22/2025 12:45 PM EST Office Visit [facility] ADULT DENTAL [address] [place] [address] Radha Aguero Health Maintenance Due Date Last [...] hyperglycemia, without long-term current use of insulin ([facility]) POCT GLUCOSE Routine 02/12/2025 1:19 PM EDT Type 2 diabetes mellitus with hyperglycemia, without long-term current use of insulin ([facility]/HCC) AMB REFERRAL TO OPHTHALMOLOGY Routine 01/07/2025 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 (CMS/HCC) CREATININE, RANDOM URINE Routine 01/01/2025 10:27 AM EDT LIPID PANEL, STANDARD Routine 11/19/2024 12:24 PM EDT Type 2 diabetes mellitus with hyperglycemia, without long-term current use of insulin ([facility]) BI MAMMOGRAM DIAGNOSTIC TOMOSYNTHESIS BILATERAL Routine 11/22/2023 1:17 PM EDT HEPATITIS C ANTIBODY Routine 09/21/2023 10:03 AM EST Type 2 diabetes mellitus with hyperglycemia, without long-term current use of insulin ([facility]) PROPHYLAXIS - ADULT Routine 05/03/2022 1 2:00 [...] 10:27 AM EDT) Creatinine, Urine 63.18 mg/dL [facility] 01/01/2025 10:2 7 AM EDT 01/01/2025 10:51 AM EDT us Generic External Data Provider LAB URINE ORDERAB LES Final Result Performing Organization Address City/State/[facility] Co de Phone Number [facility] [address] [place] [phone] * Lipid Panel, Standard (11/19/2024 12:24 PM EDT) Triglycerides 149 <150 mg/dL [facility] Comment:Desirable Triglyceri de: less than 150 mg/dLBorderline High Triglyceride 150-199 mg/dLHigh Triglyceride: 200-499 mg/dLVery High Triglyceride: greater than or equal to 5OO mg/dL Cholesterol 165 <200 mg/dL [facility] Comment:Desirable Cholestero l: less than 200 mg/dLBorderline High Cholesterol: 200-239 mg/dLHigh Cholesterol: greater than 239 mg/dL LDL Cholesterol Calculated 92 <100 mg/dL [facility] Comment:Desirable LDL: less than 100 mg/dLNear Optimal/Above Optimal LDL: 110- 129 mg/dLBorderline High LDL: 130-159 mg/dLHigh LDL: 160-189 mg/dLVery High LDL: greater than or equal to 190 mg/dL HDL Cholesterol 44 >40 mg/dL [facility] Comment:Desirable HDL: great er than 40 mg/dL Note: This HDL assay may give artificially low results in patients with liver disease. Blood Venous blood specimen / Unknown 11/19/2024 12:24 PM EDT 11/19/2024 1:08 PM EDT us Zeny Sagastume MD LAB BLOOD ORDERABLES Final Res ult [facility] [address] [place] [address] [phone] * BI Mammogram Diagnostic Tomosynthesis Bilateral (11/22/2023 1:17 PM EDT) Anatomical Region Laterality Modality Breast Bilateral Mammography 11/22/2023 1:17 PM EDT Narrative 11/22/2023 5:26 PM EDT [address] [place] [address] Mammography Report Signed Patient: Radha Navarro MR#: [id number] : 1945 Acct:[id number] Age/Sex: 78 / F ADM Date: 11/22/23 Loc: HO.MAMMO Attending Dr: Zeny Sagastume MD Ordering Physician: Zeny Sagastume Results: 2Benign F indings Date of Service: 11/22/23 Follow Up: 1 Year From [facility] Mammogram Procedure(s): MM tomosynthesis diagnostic BI Accession Number(s): [id number] cc: Zeny Sagastume EXAMINATION: MM DIAGNOSTIC DIGITAL [...] in OV> 11/22/23 1722 DD/ 1317 TD/TT: Product Development Intern: Procedure Note Donotuseinterpreter, Image - 11/22/2023 [facility] [address] [place] [address] Mammography Report Signed Patient: Radha Navarro [facility]#: [id number] : 7Acct:[id number] Age/Sex: 78 / FADM Date: 11/22/23 Loc: YOHANA.MAMMO Attending Dr: Zeny Sagastume MD Ordering Physician: Tamara Sagastumeults: 2Benign F indings Date of Service: 11/22/23Follow Up: 1 Year From Orig inal Mammogram Procedure(s): MM tomosynthesis diagnostic BI Accession Number(s): [id number] cc: Zeny Sagastume EXAMINATION: MM DIAGNOSTIC DIGITAL [...] in OV> 11/22/23 1722 DD/ 1317 TD/TT: Product Development Intern: Zeny Sagastume MD IMG BI PROCEDURES Final Result * Hepatitis C Ab (09/21/2023 10:03 AM EST) Hepatitis C Antibody Nonreactive Nonreactive [facility] Comment:Antibodies to HCV no t detected; does not exclude early acuteHCV infection. Blood Venous blood specimen / Unknown 09/21/2023 10:03 AM EST 09/21/2023 11:20 AM EST us Zeny Sagastume MD LAB BLOOD ORDERABLES Final Res ult [facility] [address] [place] [address] [phone] from Last 3 Months or Most Recently Relevant to Health Maintenance Insurance [facility] D[facility] - DQ MC [employer] HMO SNP Care Teams Shaper Machine Hand Relationship Specialty Start Date End Date Zeny Sagastume MD [address] [place] [phone] PCP - General Family Medicine 08/11/22
--- OUTSIDE RECORDS SUMMARY | 2025-04-30 12:17 | XMS_ITS | Encounter Summary ---
Author Organization [employer] Address [address] [facility] 7t [place] [address] Care Team Providers Care Stripper Machine Operator Name Role Phone Zeny Sagastume MD Primary Care Provider [phone] Reason for Visit * Reason Onset Date Comments Referral 09/27/2023 Encounter Details Date Type Department Care Team ([facility] Contact Info) Description 09/27/2023 Telephone [facility] MEDICINE [address] [place], [place] [phone] Zeny Sagastume MD [address] [place], [place] [phone] Referral Social History Tobacco Use Types Packs/Day [...] from 10/05/23. Pt CANNOT be seen at [facility] eyecare as Valentina Monique is out of network for her insurance. Pt needs to beseen outside of [facility]. Thank you! * Telephone Encounter - Mike Gramajo - 09/27/2023 11:15 AM EST Tc from [facility]i working with [facility]. [facility] Valentina Monique on 08/20/23 but will need a referral due to Valentina being a out of network provider with members insurance plan. If any questions please contact Priti at [phone] documented in this encounter Plan of Treatment Upcoming Encounters Date Type Department Care Team (Late st Contact Info) Description 06/10/2025 2:00 PM EST Office Visit [facility] OPTOMETRY [address] [place] [address] Valentina Monique, OD [address] [place] [address] 07/22/2025 12:45 PM EST Office Visit [facility] ADULT DENTAL [address] [place] [address] Radha Aguero documented as of this encounter Visit Diagnoses Not on filedocumented in this encounter Additional Health Concerns Assessment Noted Time PHQ-9 Depression Total Score: 2 09/10/19 24 2:30 PM EST documented as of this encounter Care Teams Stripper Machine Operator Relationship Specialty Start Date End Date Zeny Sagastume MD [address] [place] [address] PCP - General Family Medicine 08/11/22 documented as of this encounter
--- OUTSIDE RECORDS SUMMARY | 2025-04-30 12:17 | XMS_ITS | Encounter Summary ---
Author Organization [employer] Address [address] [place] [address] [address]t [place] [address] Care Team Providers Care Halver Machine Operator Name Role Phone Zeny Sagastume MD Primary Care Provider Encounter Details Date Type Department Care Team ([facility] Contact Info) Description 04/03/2023 Orders Only [facility] MEDICINE [address] [place], [place] [phone] Zeny Sagastume MD [address] [place], [place] [phone] Social History Tobacco Use Types Packs/Day Years [...] Upcoming Encounters Date Type Department Care Team ([facility] Contact Info) Description 06/10/2025 2:00 PM EST Office Visit [facility] OPTOMETRY [address] [place] [address] Kayden, Valentina, OD [address] [place] [address] 07/22/2025 12:45 PM EST Office Visit [facility] ADULT DENTAL [address] [place] [address] Radha Aguero documented as of this encounter Visit Diagnoses Not on filedocumented in this encounter Care Teams Halver Machine Operator Relationship Specialty Start Date End Date Zeny Sagastume MD [address] [place] [address] PCP - General Family Medicine 08/11/22 documented as of this encounter
--- OUTSIDE RECORDS SUMMARY | 2025-04-30 12:17 | XMS_ITS | Encounter Summary ---
Author Organization [employer] Address [address] [place] [address] [address]t [place] [address] Care Team Providers Care Felting Machine Operator Name Role Phone Zeny Sagastume MD Primary Care Provider Reason for Referral * Consultation (Routine) - Closed Specialty Diagnoses / Procedures Referred By Contac t Referred To Contact Optometry Diagnoses Type 2 diabetes mellitus with hyperglycemia, without long-term current use of insulin (HCC) Zeny Sagastume MD [address] [place] [phone] Phone: tel: fax: [facility] [address] [place], [place] Phone: tel: fax: Referral ID Status Reason Start Date Expiration Date V isits Requested Visits Authorized [id number] Closed Specialty Services Required 10/05/2023 10/04/2024 1 1 Encounter Details Date Type Department Care Team (Late st Contact Info) Description 09/28/2023 Orders Only [facility] MEDICINE [address] [place] [phone] Zeny Sagastume MD [address] [place] [address] [phone] Type 2 diabetes mellitus with hyperglycemia, without [...] Description 06/10/2025 2:00 PM EST Office Visit [facility] OPTOMETRY [address] [place] [address] Kayden, Valentina, OD [address] [place] [address] 07/22/2025 12:45 PM EST Office Visit [facility] ADULT DENTAL [address] [place] [address] Radha Aguero Scheduled Referrals Name Type Priority Associated Diagnoses Orde r Schedule Referral to Optometry Outpatient Referral Routine Type 2 diabetes mellitus with hyperglycemia, without long-term current use of insulin ([facility]/HCC) Expected: 10/05/2023 (Approximate), Expires: 10/04/2024 documented as of this encounter Visit Diagnoses Diagnosis Type 2 diabetes mellitus with hyperglycemia, without long-term current use of insulin ([facility])- Primary documented in this encounter Additional Health Concerns Assessment Noted Time PHQ-9 Depression Total Score: 2 09/10/19 24 2:30 PM EST documented as of this encounter Care Teams Felting Machine Operator Relationship Specialty Start Date End Date Zeny Sagastume MD [address] [place] [phone] PCP - General Family Medicine 08/11/22 documented as of this encounter
--- OUTSIDE RECORDS SUMMARY | 2025-04-30 12:17 | XMS_ITS | Encounter Summary ---
Demographics Address [address] [facility] [address] [place] [address] Mobile Phone Home Phone Preferred Language es Marital Status Adventism Affiliation Unknown Race Other Race Ethnic Group Unknown Author Organization [employer] Address [address] [facility] [address] [place] [address] Care Team Providers Care Maintenance Department Manager Name Role Phone Zeny Sagastume MD Primary Care Provider [phone] Encounter Details Date Type Department Care Team ([facility] st Contact Info) Description 06/07/2023 Abstract [facility] [address] [place], [place] [phone] Zeny Sagastume MD [address] [place], [place] [phone] Social History Tobacco Use Types Packs/Day Years [...] Description 06/10/2025 2:00 PM EST Office Visit [facility] OPTOMETRY [address] [place] [address] KaydenValentina evangelista, OD [address] [place] [address] 07/22/2025 12:45 PM EST Office Visit [facility] ADULT DENTAL [address] [place] [address] Radha Aguero documented as of this encounter Visit Diagnoses Not on filedocumented in this encounter Care Teams Maintenance Department Manager Relationship Specialty Start Date End Date Zeny Sagastume MD [address] [place] [address] PCP - General Family Medicine 08/11/22 documented as of this encounter
--- OUTSIDE RECORDS SUMMARY | 2025-04-30 12:17 | XMS_ITS | Clinical Summary ---
Demographics Address [address] [place] [address] [address] [place] [address] Home Phone Preferred Language es Marital Status Unknown Adventist Affiliation Unknown Race Unknown Ethnic Group Unknown Author Organization [facility] Address [address] [place] [address] [place] [phone] Phone Care Team Providers Care Landscape Manager Name Role Phone Zeny Sagastume MD [...] (04/29/2024): CT scan abdomen on 01/13/23 at [facility] (admission for UTI) Last Assessment & Plan: [...] to 49 Years) Discontinued 02/03/2021, 07/09/2007 Insurance [place] [employer] MCR/MARY ([id number]) [place] [employer] M[employer]/MARY ([id number]) Care Teams Landscape Manager Relationship Specialty Start Date End Date Zeny Sagastume MD [address] [place] [address] PCP - General Inspector Conveyor Line 02/09/23
--- OUTSIDE RECORDS SUMMARY | 2025-04-30 12:17 | XMS_ITS | Encounter Summary ---
Author Organization [employer] Address [address] [facility] 7t [place] [address] Care Team Providers Care Surgical Forceps Fabricator Name Role Phone Zeny Sagastume MD Primary Care Provider Encounter Details Date Type Department Care Team (Late st Contact Info) Description 11/13/2023 Telephone [facility] MEDICINE [address] [place], [place] [phone] Zeny Sagastume MD [address] [place], [place] [phone] Social History Tobacco Use Types Packs/Day Years [...] Description 06/10/2025 2:00 PM EST Office Visit [facility] OPTOMETRY [address] [place] [address] Kayden, Valentina, OD 230 [place] [address] 07/22/2025 12:45 PM EST Office Visit [facility] ADULT DENTAL 230 [place] [address] Radha Aguero documented as of this encounter Visit Diagnoses Not on filedocumented in this encounter Additional Health Concerns Assessment Noted Time PHQ-9 Depression Total Score: 2 09/10/19 24 2:30 PM EST documented as of this encounter Care Teams Surgical Forceps Fabricator Relationship Specialty Start Date End Date Zeny Sagastume MD [address] [place] [address] PCP - General Family Medicine 08/11/22 documented as of this encounter
--- OUTSIDE RECORDS SUMMARY | 2025-04-30 12:17 | XMS_ITS | Encounter Summary ---
Demographics Address [address] [facility] [address] [place] [address] Mobile Phone Home Phone Preferred Language es Marital Status Mormonism Affiliation Unknown Race Other Race Ethnic Group Unknown Author Organization [employer] Address [address] [facility] 7t [place] [address] Care Team Providers Care Furnace Room Supervisor Name Role Phone Zeny Sagastume MD Primary Care Provider [phone] Reason for Visit * Reason Onset Date Comments Hospital Follow-up 01/22/2023 Encounter Details Date Type Department Care Team ([facility] st Contact Info) Description 01/22/2023 Telephone [facility] MEDICINE [address] [place] [address] [phone] Zeny Sagastume MD [address] [place] [address] [phone] Hospital Follow-up Social History Tobacco Use Types [...] HDF F/U (no symptoms) Patient hospitalized at [facility]. Patient was admitted on 01/13/2023 and discharged on 01/19/2023. The patient was diagnosed with Kidney Stones.Patient advised will forward to [facility] Clinical Coordinators for follow up and appointment scheduling. Please contact pt at [phone] Kittitian Speaker documented in this encounter Plan of Treatment Upcoming Encounters Date Type Department Care Team (Late st Contact Info) Description 06/10/2025 2:00 PM EST Office Visit [facility] OPTOMETRY [address] [place] [address] Valentina Monique, OD 230 [place] [address] 07/22/2025 12:45 PM EST Office Visit [facility] ADULT DENTAL 230 [place] [address] Radha Aguero documented as of this encounter Visit Diagnoses Not on filedocumented in this encounter Care Teams Furnace Room Supervisor Relationship Specialty Start Date End Date Zeny Sagastume MD 230 [place] [address] PCP - General Family Medicine 08/11/22 documented as of this encounter
--- OUTSIDE RECORDS SUMMARY | 2025-04-30 12:17 | XMS_ITS | Encounter Summary ---
Author Organization [employer] Address [address] [place] [address] 7t [place] [address] Care Team Providers Care Ui Engineer Name Role Phone Kiley Haywood MD Primary Care Provider Zeny Rivera MD Primary Care Provider [phone] Encounter Details Date Type Department Care Team (Latest Contact Info) Description 05/03/2022 Abstract [facility] CONVERSIONS Dental, Provider, DDS Social History [...] Description 06/10/2025 2:00 PM EST Office Visit [facility] OPTOMETRY [address] [place] [address] Valentina Monique, OD 230 [place] [address] 07/22/2025 12:45 PM EST Office Visit [facility] ADULT DENTAL 230 [place] [address] Radha Aguero documented as of this encounter Visit Diagnoses Not on filedocumented in this encounter Care Teams Ui Engineer Relationship Specialty Start Date End Date Kiley Haywood MD PCP - General Family Medicine 07/02/19 08/10/22 Zeny Sagastume MD 230 [place] [address] PCP - General Family Medicine 08/11/22 documented as of this encounter
--- OUTSIDE RECORDS SUMMARY | 2025-04-30 12:17 | XMS_ITS | Encounter Summary ---
Author Organization [employer] Address [address] [facility] 7t [place] [address] Care Team Providers Care Records Analysis Manager Name Role Phone Zeny Sagastume MD Primary Care Provider [phone] Encounter Details Date Type Department Care Team ([facility] Contact Info) Description 11/24/2022 Abstract [facility] MEDICINE 230 [place], [place] [phone] Zeny Sagastume MD 230 [place] [address] Social History Tobacco Use Types Packs/Day Years [...] Upcoming Encounters Date Type Department Care Team ([facility] Contact Info) Description 06/10/2025 2:00 PM EST Office Visit [facility] OPTOMETRY [address] [place] [address] Valentina Monique, OD 230 [place] [address] 07/22/2025 12:45 PM EST Office Visit [facility] ADULT DENTAL [address] [place] [address] Radha Aguero documented as of this encounter Visit Diagnoses Not on filedocumented in this encounter Care Teams Records Analysis Manager Relationship Specialty Start Date End Date Zeny Sagastume MD 230 [place] [address] PCP - General Family Medicine 08/11/22 documented as of this encounter
--- OUTSIDE RECORDS SUMMARY | 2025-04-30 12:17 | XMS_ITS | Encounter Summary ---
Author Organization [employer] Address [address] [facility] 7t [place] [address] Care Team Providers Care Herbarium Worker Name Role Phone Zeny Sagastume MD Primary Care Provider [phone] Encounter Details Date Type Department Care Team (Late st Contact Info) Description 09/17/2024 Orders Only [facility] MEDICINE 230 [place] [address] Zeny Sagastume MD 230 [place], [place] [phone] Social History Tobacco Use Types Packs/Day Years [...] Description 06/10/2025 2:00 PM EST Office Visit [facility] OPTOMETRY [address] [place] [address] Kayden, Valentina, OD 230 [place] [address] 07/22/2025 12:45 PM EST Office Visit [facility] ADULT DENTAL 230 [place] [address] Radha Aguero documented as of this encounter Visit Diagnoses Not on filedocumented in this encounter Additional Health Concerns Assessment Noted Time PHQ-9 Depression Total Score: 4 12/17/19 24 1:46 PM EDT documented as of this encounter Care Teams Herbarium Worker Relationship Specialty Start Date End Date Zeny Sagastume MD 230 [place] [address] PCP - General Family Medicine 08/11/22 documented as of this encounter
--- OUTSIDE RECORDS SUMMARY | 2025-04-30 12:17 | XMS_ITS | Encounter Summary ---
Author Organization [employer] Address [address] [facility] [address] 7t [place] [address] Care Team Providers Care Abstract Writer Name Role Phone Zeny Sagastume MD Primary Care Provider [phone] Encounter Details Date Type Department Care Team (Late st Contact Info) Description 04/28/2025 Telephone [facility] ADULT DENTAL 230 [place], [place] [phone] Radha Aguero Social History Tobacco Use Types [...] [facility] [address] [place] [address] Kayden, Valentina, OD 230 [place] [address] 07/22/2025 12:45 PM EST Office Visit [facility] ADULT DENTAL 230 [place] [address] Radha Aguero documented as of this encounter Visit Diagnoses Not on filedocumented in this encounter Additional Health Concerns Assessment Noted Time PHQ-9 Depression Total Score: 0 02/13/20 25 1:20 PM EDT documented as of this encounter Care Teams Abstract Writer Relationship Specialty Start Date End Date Zeny Sagastume MD 230 [place] [address] PCP - General Family Medicine 08/11/22 documented as of this encounter
--- OUTSIDE RECORDS SUMMARY | 2025-04-30 12:17 | XMS_ITS | Encounter Summary ---
Author Organization [employer] Address [address] [facility] 7t [place] [address] Care Team Providers Care Storm Window Installer Name Role Phone Zeny Sagastume MD Primary Care Provider [phone] Reason for Visit * Reason Onset Date Comments Call Back Request 09/14/2023 Encounter Details Date Type Department Care Team ([facility] Contact Info) Description 09/14/2023 Telephone [facility] MEDICINE 230 [place], [place] [phone] Zeny Sagastume MD 230 [place] [address] Call Back Request Social History Tobacco Use [...] has to fast, she will need an Rethink Autism for the morning due to not havingtransportation. Please contact pt at [phone] (Kyrgyz) documented in this encounter Plan of Treatment Upcoming Encounters Date Type Department Care Team (Late st Contact Info) Description 06/10/2025 2:00 PM EST Office Visit [facility] OPTOMETRY [address] [place] [address] Kayden, Valentina, OD 230 [place] [address] 07/22/2025 12:45 PM EST Office Visit [facility] ADULT DENTAL 230 [place] [address] Radha Aguero documented as of this encounter Visit Diagnoses Not on filedocumented in this encounter Additional Health Concerns Assessment Noted Time PHQ-9 Depression Total Score: 2 09/10/19 24 2:30 PM EST documented as of this encounter Care Teams Storm Window Installer Relationship Specialty Start Date End Date Zeny Sagastume MD 230 [place] [address] PCP - General Family Medicine 08/11/22 documented as of this encounter
--- OUTSIDE RECORDS SUMMARY | 2025-04-30 12:17 | XMS_ITS | Encounter Summary ---
Demographics Address [address] [facility] [address] [place] [address] Mobile Phone Home Phone Preferred Language es Marital Status Spiritism Affiliation Unknown Race Other Race Ethnic Group Unknown Author Organization [employer] Address [address] [facility] 7t [place] [address] Care Team Providers Care Monument Installer Name Role Phone Zeny Sagastume MD Primary Care Provider [phone] Reason for Visit * Reason Onset Date Comments Nurse Triage 03/20/2023 Encounter Details Date Type Department Care Team ([facility] st Contact Info) Description 03/20/2023 Telephone [facility] MEDICINE 230 [place], [place] [phone] Zeny Sagastume MD 230 [place] [address] Nurse Triage Social History Tobacco Use Types [...] 03/20/2023 10:24 AM EDT Triage call with [employer] Color Adviser ID [id number] Pt reports 03/11/23 Pt was hopping into [...] effect. Pt is advised to come to [facility] today to be seen by provider and [...] The caller accepted this outcome Patient speaks luxembourgish documented in this encounter Plan of Treatment Upcoming Encounters Date Type Department Care Team (Late st Contact Info) Description 06/10/2025 2:00 PM EST Office Visit [facility] OPTOMETRY [address] [place] [address] Valentina Monique, OD 230 [place] [address] 07/22/2025 12:45 PM EST Office Visit [facility] ADULT DENTAL 230 [place] [address] Radha Aguero documented as of this encounter Visit Diagnoses Not on filedocumented in this encounter Care Teams Monument Installer Relationship Specialty Start Date End Date Zeny Sagastume MD 230 [place] [address] PCP - General Family Medicine 08/11/22 documented as of this encounter
--- OUTSIDE RECORDS SUMMARY | 2025-04-30 12:17 | XMS_ITS | Encounter Summary ---
Author Organization [employer] Address [address] [facility] 7t [place] [address] Care Team Providers Care Hydrometeorologist Name Role Phone Zeny Sagastume MD Primary Care Provider [phone] Reason for Visit * Reason Comments Med Change Request Encounter Details Date Type Department Care Team ([facility] Contact Info) Description 07/12/2023 Refill [facility] 230 [place], [place] [phone] Magaly Rangel ANP 230 [place], [place] [phone] Generalized pruritus; Rash Social History Tobacco Use [...] Description 06/10/2025 2:00 PM EST Office Visit [facility] OPTOMETRY [address] [place] [address] Kayden, Valentina, OD 230 [place] [address] 07/22/2025 12:45 PM EST Office Visit [facility] ADULT DENTAL 230 [place] [address] Radha Aguero documented as of this encounter Visit Diagnoses Diagnosis Generalized pruritus Unspecified pruritic disorder Rash Rash and other nonspecific skin eruption documented in this encounter Care Teams Hydrometeorologist Relationship Specialty Start Date End Date Zeny Sagastume MD 230 [place] [address] PCP - General Family Medicine 08/11/22 documented as of this encounter
--- OUTSIDE RECORDS SUMMARY | 2025-04-30 12:17 | XMS_ITS | Encounter Summary ---
Author Organization [employer] Address [address] [place] [address] 7[address] [place] [address] Care Team Providers Care Director Of Medical Education Name Role Phone Zeny Sagastume MD Primary Care Provider [phone] Encounter Details Date Type Department Care Team (Late Contact Info) Description 05/02/2023 Orders Only [facility] MEDICINE 230 [place], [place] [phone] Zeny Sagastume MD 230 [place], [place] [phone] Bilateral foot pain (Primary Dx) Social History [...] Description 06/10/2025 2:00 PM EST Office Visit [facility] OPTOMETRY [address] [place], [place] [phone] Kayden, Valentina, OD 230 [place], [place] [phone] 07/22/2025 12:45 PM EST Office Visit [facility] ADULT DENTAL 230 [place] [address] Radha Aguero documented as of this encounter Visit Diagnoses Diagnosis Bilateral foot pain- Primary documented in this encounter Care Teams Director Of Medical Education Relationship Specialty Start Date End Date Zeny Sagastume MD 230 [place] [address] PCP - General Family Medicine 08/11/22 documented as of this encounter
--- OUTSIDE RECORDS SUMMARY | 2025-04-30 12:18 | XMS_ITS | Encounter Summary ---
Author Organization [employer] Address [address] [place] [address] [address] [place] [address] Care Team Providers Care Hander In Name Role Phone Kiley Haywood MD Primary Care Provider Zeny Rivera MD Primary Care Provider [phone] Encounter Details Date Type Department Care Team (Late st Contact Info) Description 07/04/2022 Abstract [facility] MEDICINE 230 [place] [address] ProviderMike MD Social History Tobacco Use Types [...] 2:00 PM EST Office Visit [facility] OPTOMETRY [address] [place] [address] Valentina Monique, OD 230 [place] [address] 07/22/2025 12:45 PM EST Office Visit [facility] ADULT DENTAL 230 [place] [address] Radha Aguero documented as of this encounter Visit Diagnoses Not on filedocumented in this encounter Care Teams Hander In Relationship Specialty Start Date End Date Kiley Haywood MD PCP - General Family Medicine 07/02/19 08/10/22 Zeny Sagastume MD [address] [place] [address] PCP - General Family Medicine 08/11/22 documented as of this encounter
--- OUTSIDE RECORDS SUMMARY | 2025-04-30 12:18 | XMS_ITS | Clinical Summary ---
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 Calculus of bile duct without obstruction 2022 Overview (01/26/2025): CT scan abdomen on 01/13/23 at [facility] (admission for UTI) CT scan abdomen on 01/13/23 at [facility] (admission for UTI) Last Assessment & Plan: Inceidental finding on CT scan, pt asymptomatic fu with PCP reassurance and gave indication to reconsult PRN with signs Pyelonephritis 02/01/2023 Diabetes mellitus, type II ([facility] V24, [facility] V28) 08/08/2012 Adjustment disorder with depressed mood 08/08/19 13 Atypical chest pain 08/08/2012 Hyperlipidemia 08/08/2012 Obesity, unspecified 08/08/2012 Type 2 diabetes mellitus wit h hyperglycemia, without long-term current use of insulin ([facility] V24, [facility] V28) 08/08/2012 Anxiety 05/22/2012 Carpal [...] Team Description 03/24/2025 12:30 PM EDT Treatment [facility] [address] [phone] Anya Burk OT Bilateral hand pain (Primary Dx) 03/09/2025 12:30 PM EDT Treatment [facility] [address] [phone] Anya Burk OT Bilateral hand pain (Primary Dx) 02/23/2025 2:00 PM EDT Evaluation [facility] [address] [phone] Anya Burk OT Bilateral hand pain (Primary Dx); Bilateral carpal tunnel syndrome 02/23/2025 Plan of Care Documentation [facility] [address] [phone] from Last 3 Months Surgical History Surgery Date Site/Laterality Comments INCISIONAL HERNIA REPAIR PROCEDURE: CO IMPLANT MESH OPN HERNIA RPR/DEBRIDEMENT CLOSURE SECTION [...] PM EDT Office Visit Orthopedic Surgery - [address] [place] [address] Margareth Romero MD [address] [place] [phone] Health Maintenance Due Date Last Done [...] [place] [facility] Care Teams Network Consultant Relationship Specialty Start Date End Date Zeny Sagastume MD [address] [place] [address] PCP - General Greaser Operator 12/04/24
== END 2025-04-30 10:49 | disposition home or self-care (01) ==
LOC: HO.HKA 10:33
PROVIDERS: PCP General Practice; Visit Provider Internal Medicine Hypertension Specialist
DX: N18.30 Chronic kidney disease, stage 3 unspecified (principal); I10 Essential (primary) hypertension; N13.30 Unspecified hydronephrosis
CPT/HCPCS: 99214

== ENCOUNTER → 2025-04-30 10:32 | Outpatient (BNVA) | payer OTHER, SELFPAY | PROVIDERS: PCP General Practice; Visit Provider Internal Medicine Hypertension Specialist | DX: I12.9 Hypertensive chronic kidney disease with stage 1 through stage 4 chronic kidney disease, or unspecified chronic kidney disease (principal); N18.30 Chronic kidney disease, stage 3 unspecified; N13.30 Unspecified hydronephrosis | CPT/HCPCS: 99212 ==